=== PATIENT | female | born 1955 | race Caucasian/White ===

== ENCOUNTER → 2016-07-08 | Outpatient (CLI) | payer BC ==
--- NOTE | 2016-07-08 15:32 | CT ---
EXAMINATION TYPE: CT chest w con DATE OF EXAM: 07/08/2016 2:38 PM COMPARISON: Chest x-ray 06 May 2016 HISTORY: Lung nodule Automated exposure control for dose reduction was used. CONTRAST: CT scan of the chest is performed with IV Contrast, patient injected with 80 mL of Visipaque 320. FINDINGS: LUNGS: There is a lung nodule on axial image 25 in the right upper lobe measuring approximately 11 to 12 mm and showing a possible peripheral calcification. Some dependent atelectatic changes are presen t. No abnormality corresponding to the described x-ray abnormality in the right lower lobe. MEDIASTINUM: There are no greater than 1 cm hilar or mediastinal lymph nodes. No pericardial effusi on is seen. AORTA: There is a four-vessel arch. Aorta is nonaneurysmal, there is no dissection. OTHER: There is a nonunited rib fracture at the 10th rib posteriorly on the left, rudimentary rib present at L1. Andie er shows low attenuation likely due to fatty infiltration. There are low-attenuation foci present wit hin the liver measuring 18 mm and 12 mm which statistically are likely to represent cysts. Consider f ollow-up. IMPRESSION: Indeterminate pulmonary nodule right upper lobe, perihilar location shows a nonaggressiv e appearance, short interval follow-up to assess for stability is recommended. Additional findings ab ove.
== END ==
LOC: RADCTMAIN 13:02
PROVIDERS: ATTEND Internal Medicine Critical Care Medicine
DX: R91.1 Solitary pulmonary nodule (principal)
CPT/HCPCS: 82565; 84520; 71260; 36415; Q9967

== ENCOUNTER → 2016-08-05 | Outpatient (CLI) | payer BC ==
--- NOTE | 2016-08-07 10:06 | MM ---
Reason for exam: screening (asymptomatic). Last mammogram was performed 1 year and 2 months ago. History: Patient is postmenopausal, has history of other cancer at age 20, and had first child at age 31. Physical Findings: A clinical breast exam by your physician is recommended on an annual basis and results should be correlated with mammographic findings. MG 3D Screening Mammo W/Cad Bilateral CC and MLO view(s) were taken. Prior study comparison: May 22, 2015, bilateral MG screening mammo w CAD. April 26, 2014, bilateral MG screening mammo w CAD. November 13, 2009, bilateral diagnostic digital mammog. There are scattered fibroglandular densities. There is chronic nodularity in the left breast. No significant changes when compared with prior studies. ASSESSMENT: Negative, BI-RAD 1 RECOMMENDATION: Routine screening mammogram of both breasts in 1 year.
== END | disposition home or self-care (01) ==
LOC: RADMAMWWP 13:33
PROVIDERS: ATTEND Family Medicine
DX: Z12.31 Encounter for screening mammogram for malignant neoplasm of breast (principal)
CPT/HCPCS: 77063; G0202

== ENCOUNTER 2016-09-19 07:53 | Day surgery (SDC) | payer BC ==
[2016-09-17 13:29] VITALS: BMI 26.6
[~2016-09-19 07:53] MED LIST: LACTATED RINGERS 1,000 ML IV SCH
[2016-09-19] MEDS ORDERED: LIDOCAINE 1% 20 ML VIAL (10MG/ML) FOR IV START INTRADERMA ONE (08:24)
[2016-09-19 08:26] VITALS: TEMP 97.6
[2016-09-19] MEDS ORDERED: PROPOFOL 10 MG/ML 20 ML VIAL IV ONE (08:46)
[2016-09-19] MEDS ORDERED: MIDAZOLAM 2 MG/2 ML VIAL ONE (08:46)
[2016-09-19] MEDS ORDERED: fentaNYL (PF) 50 MCG/ML 2 ML AMP ONE (08:46)
--- NOTE | 2016-09-19 09:08 | P.PCN ---
Date of Procedure: 09/19/16 Procedure(s) Performed: BRIEF HISTORY: Patient is a 60-year-old, pleasant, 5 female, scheduled for an upper endoscopy as a part of evaluation of counseling history of gastroesophageal reflux symptoms of the several years duration. She lately has been complaint of occasional dysphagia with dry solids and feels the food gets stuck in her throat area. She is hence scheduled for an upper endoscopy with possible dilation. PROCEDURE PERFORMED: Esophagogastroduodenoscopy with biopsy . PREOPERATIVE DIAGNOSIS: GERD/dysphagia. IV sedation per anesthesia. PROCEDURE: After informed consent was obtained, the patient was brought into the endoscopy unit. IV conscious sedation was administered by Anesthesia under continuous monitoring. Initially the Olympus GIF-140 video endoscope was inserted into the mouth. Esophagus intubated without any difficulty. It was gradually advanced into the stomach and duodenum and carefully examined. The bulb and the second part of the duodenum appeared normal. The scope at this time was withdrawn to the stomach, adequately insufflated with air, and upon careful examination, mucosa of the antrum, had diffuse gastritis and biopsies were done from this area. The body, cardia and the fundus appeared normal. The scope was then withdrawn into the esophagus. Small hiatal hernia noted. The GE junction was located at 39 cm from the incisors. There was a 2-3 mm polyp at the GE junction as well as a few erosions consistent with LA grade B reflux esophagitis. Biopsies were done from the GE junction polyp. The esophagus appeared normal and the patient tolerated the procedure well. IMPRESSION: 1. Mild antral gastritis. 2. Small GE junction polyp as well as LA grade B reflux esophagitis. 3. Small hiatal hernia RECOMMENDATIONS: The findings of this examination were discussed with the patient as well as her family. She was advised to follow with the biopsy results. She will continue with Prilosec 20 mg daily and follow antireflux measures.
[2016-09-19 09:23] VITALS: RESP 18
[2016-09-19 09:36] VITALS: BP 131/80; PULSE 77
== END 2016-09-19 10:19 | disposition home or self-care (01) ==
LOC: ORWHC2ENDO 07:53
PROVIDERS: ATTEND Internal Medicine Gastroenterology
DX: K29.50 Unspecified chronic gastritis without bleeding (principal); K21.0 Gastro-esophageal reflux disease with esophagitis; K44.9 Diaphragmatic hernia without obstruction or gangrene; I10 Essential (primary) hypertension; J44.9 Chronic obstructive pulmonary disease, unspecified; N28.9 Disorder of kidney and ureter, unspecified; Z79.899 Other long term (current) drug therapy; Z87.891 Personal history of nicotine dependence
CPT/HCPCS: 88305; 88342; 43239; J2250; J3010; J2704

== ENCOUNTER → 2017-03-30 | Outpatient (CLI) | payer BC ==
--- NOTE | 2017-03-30 14:22 | CT ---
EXAMINATION TYPE: CT chest w con DATE OF EXAM: 03/30/2017 COMPARISON: 07/08/16 HISTORY: Solitary pulmonary nodule CT DLP: 324.50 mGycm Automated exposure control for dose reduction was used. CONTRAST: CT scan of the chest is performed with IV Contrast, patient injected with 80 mL of Visipaque 320. FINDINGS: LUNGS: 1 cm right upper lobe pulmonary nodule axial image 25 of 56 is unchanged. Small peripheral jet cification suggested. No additional nodules seen. No evidence for pulmonary mass. Basilar compressive atelectasis. MEDIASTINUM: There are no greater than 1 cm hilar or mediastinal lymph nodes. No pericardial effusi on is seen. Thoracic aorta is of normal caliber. The heart is not enlarged. UPPER ABDOMEN: Stable hepatic steatosis with hepatic cystic lesions. OTHER: No additional significan t abnormality is seen. IMPRESSION: 1. Stable indeterminate right upper lobe pulmonary nodule. Stability over a two-year timeframe is rec ommended radiographically.
== END | disposition home or self-care (01) ==
LOC: RADCTMAIN 13:01
PROVIDERS: ATTEND Internal Medicine Critical Care Medicine
DX: R91.1 Solitary pulmonary nodule (principal)
CPT/HCPCS: 82565; 84520; 71260; 36415; Q9967

== ENCOUNTER → 2017-08-24 | Outpatient (CLI) | payer BC ==
--- NOTE | 2017-08-25 09:32 | US ---
EXAMINATION TYPE: US transvaginal DATE OF EXAM: 08/24/2017 COMPARISON: 01/14/2010 CLINICAL HISTORY: R10.2 Pelvic pain. TECHNIQUE: Unable to perform diagnostic transabdominal ultrasound pictures due to patient inability t o fill bladder after more than an hour. Transvaginal sonographic images were medically necessary to better assess the anatomy Post menopausal patient. EXAM MEASUREMENTS: Uterus: 5.7 x 3.7 x 3.8 cm Endometrial Stripe: 0.5 cm Right adnexa: multiple cystic structures Left Ovary: obscured by bowel gas 1. Uterus: Anteverted, probable leiomyoma noted measuring 2.0 x 1.6 x 1.8cm, heterogeneous 2. Endometrium: cystic structure noted within measuring 0.3 x 0.3 x 0.3cm 3. Right Ovary: multiple cystic structures seen in right adnexa measuring a total of 6.1cm, cysts barbara suring 1.) 3.3 x 2.8 x 3.1cm, 2.) 3.7 x 3.3 x 3.3cm . Folding within the right lateral margin of thi s structure could represent tubal excrescences and there is also a possibility of hydrosalpinx. Overa ll the findings are enlarged and increasing complex in comparison to the prior 2009. 4. Left Ovary: Obscured by overlying bowel gas 5. Bilateral Adnexa: right adnexal mass 6. Posterior cul-de-sac: wnl IMPRESSION: 1. Marked enlargement and increased complexity of the right adnexal multiloculated cystic lesion with a thick septa and possible right-sided hydrosalpinx. Gynecologic oncologic consultation and pelvic M RI are recommended for further characterization. 2. Small 3 mm endometrial cystic structure possibly representing a simple cyst. No endometrial thicke aric. 3. Enlarged and heterogenous uterus, likely related to numerous leiomyomas the largest and most circu mscribed measuring 2.0 cm. 4. Nonvisualization of the left ovary as it is obscured by bowel gas. A Yellow message has been communicated to Raj Pan MD via the [employer] Critical Result system on 08/25/2017 9:29 AM, Message ID [id number].
== END | disposition home or self-care (01) ==
LOC: RADUSWWP 15:01
PROVIDERS: ATTEND Family Medicine
DX: N85.8 Other specified noninflammatory disorders of uterus (principal); N85.2 Hypertrophy of uterus
CPT/HCPCS: 76830

== ENCOUNTER → 2017-09-09 | Outpatient (CLI) | payer BC | END | disposition home or self-care (01) | LOC: LABWHC1 15:08 | PROVIDERS: ATTEND Family Medicine | DX: N85.8 Other specified noninflammatory disorders of uterus (principal); R19.00 Intra-abdominal and pelvic swelling, mass and lump, unspecified site | CPT/HCPCS: 36415; 82565; 84520 ==

== ENCOUNTER → 2017-09-11 | Outpatient (CLI) | payer BC ==
--- NOTE | 2017-09-11 23:16 | MR ---
EXAMINATION TYPE: MR pelvis wo/w con DATE OF EXAM: 09/11/2017 COMPARISON: NONE HISTORY: Pelvic pain, see report from Ultrasound, Gadavist7.5 CONTRAST: Standard multiplanar, multisequence MRI departmental protocol utilizing 7.5 mL intravenous Gadavist g adolinium contrast. FINDINGS: There is a multiseptated cystic mass in the right adnexal region that measures 6.7 x 3.6 cm . I see no significant solid component. The septa are thin. The largest cyst measures 4 cm. The uterus is anteverted with no endometrial thickening seen. There is a low signal area on the poste rior uterine fundus that measures 2 cm on the T2 images consistent with a fibroid. There are other sm aller uterine fibroids. There is no free fluid in the pelvis. Bladder distends smoothly. There is no evidence of a mass in the left adnexal region. Left ovary measures only 1 cm and is ante rior. There is no left adnexal mass. I see no pelvic lymphadenopathy. There is no sign of ascites. I see no pathologic enhancement. IMPRESSION: Multiseptated cystic mass in the right adnexal region with thin septa consistent with serous cyst jo or of the ovary. Uterine fibroids. No free fluid.
== END | disposition home or self-care (01) ==
LOC: RADMRIMAIN 14:52
PROVIDERS: ATTEND Family Medicine
DX: D25.9 Leiomyoma of uterus, unspecified (principal); N85.8 Other specified noninflammatory disorders of uterus
CPT/HCPCS: 72197; A9581

== ENCOUNTER → 2017-10-01 | Outpatient (CLI) | payer BC ==
--- NOTE | 2017-10-01 14:31 | NM ---
EXAMINATION TYPE: NM bone/joint limited DATE OF EXAM: 10/01/2017 COMPARISON: NONE HISTORY: Left-sided rib pain per patient with right-sided rib pain per order. Fall in April with i njury to the ribs. TECHNIQUE: After the intravenous administration of 26.1 mCi Tc 99m MDP. Images acquired 3 hours pos t injection. Multiple views of the ribs are submitted. FINDINGS: There is focal uptake within the 12th posterior and posterior lateral left rib, posterior 1 1th rib, posterior 10th rib, and anterolateral 11th 10th and 9th ribs. As these are contiguous and a linear formation these are suggestive of subacute fracture deformities compatible with the patient's history of fall. Chest radiograph could be performed with rib series for confirmation to exclude scle rotic focus. There is no other abnormal uptake within the visualized osseous structures. IMPRESSION: Multiple contiguous abnormal focal areas of uptake within the posterior and anterior late ral left ribs as described above most compatible with subacute fractures although chest radiograph wi th rib series is recommended to exclude sclerotic lesion.
== END | disposition home or self-care (01) ==
LOC: RADNMMAIN 09:48
PROVIDERS: ATTEND Family Medicine
DX: R93.7 Abnormal findings on diagnostic imaging of other parts of musculoskeletal system (principal)
CPT/HCPCS: 78300; A9503

== ENCOUNTER → 2017-10-13 | Outpatient (CLI) | payer BC ==
--- NOTE | 2017-10-15 08:27 | MM ---
Reason for exam: screening (asymptomatic). Last mammogram was performed 1 year and 2 months ago. History: Patient is postmenopausal, has history of other cancer at age 20, and had first child at age 31. Physical Findings: A clinical breast exam by your physician is recommended on an annual basis and results should be correlated with mammographic findings. MG Screening Mammo w CAD Bilateral CC and MLO view(s) were taken. Prior study comparison: August 05, 2016, bilateral MG 3d screening mammo w/cad. May 22, 2015, bilateral MG screening mammo w CAD. The breast tissue is almost entirely fat. There is chronic nodularity in the left breast. No significant changes when compared with prior studies. ASSESSMENT: Benign, BI-RAD 2 RECOMMENDATION: Routine screening mammogram of both breasts in 1 year.
== END | disposition home or self-care (01) ==
LOC: RADMAMWWP 11:54
PROVIDERS: ATTEND Family Medicine
DX: Z12.31 Encounter for screening mammogram for malignant neoplasm of breast (principal)
CPT/HCPCS: 77067

== ENCOUNTER → 2018-01-07 | Outpatient (CLI) | payer BC ==
--- NOTE | 2018-01-07 14:32 | US ---
EXAMINATION TYPE: US transvaginal DATE OF EXAM: 01/07/2018 COMPARISON: Prior ultrasound August 24, 2014 CLINICAL HISTORY: N83.201 right ovarian Cyst. Large body habitus TECHNIQUE: . Transabdominal sonographic images of the pelvis were acquired. Transvaginal sonographi c images were medically necessary to better assess the following anatomy: Date of LMP: post menopausal EXAM MEASUREMENTS: Uterus: 5.3 x 3.6 x 4.5 cm Endometrial Stripe: not seen Right Ovary: adnexae mass Left Ovary: not seen 1. Uterus: fibroids 1.5 x 1.4 x 1.7 cm anterior lower, posterior lower 2.2 x 1.3 x 1.6 cm 2. Endometrium: possible polyp 0.3 x 0.2 x 0.4 cm 3. Right Ovary: not seen separate from complex mass 4. Left Ovary: Obscured by overlying bowel gas 5. Bilateral Adnexa: rt multi cystic and complex mass 3.5 x 3.0 x3 cm, lower cyst debris within 3.3 x 3.1 x 3.2 cm, superior cyst 2.8 x 2.0 x 2.2 cm 6. Posterior cul-de-sac: wnl Intrauterine fibroids are redemonstrated. Persistent abnormal appearance to the right ovary without s ignificant interval change image 2560 versus prior study image 30 IMPRESSION: Overall stable findings, enlarged multicystic right ovary with thin septa redemonstrated without significant interval change in size. Findings better characterized and appreciated on pelvic MRI. Tumor marker correlation and gynecology oncology referral advised if has not been performed.
== END | disposition home or self-care (01) ==
LOC: RADUSWWP 13:41
PROVIDERS: ATTEND Obstetrics & Gynecology
DX: N83.201 Unspecified ovarian cyst, right side (principal)
CPT/HCPCS: 76830

== ENCOUNTER 2018-01-11 17:36 | Emergency (ER) | payer BC ==
[2018-01-11] MEDS ORDERED: DIPH,PERTUS(ACELL)TETVAC-LF 0.5 ML VIAL IM ONE (18:05)
[2018-01-11] MEDS ORDERED: SODIUM CHLORIDE 0.9% 1,000 ML IV ONE (18:06)
[2018-01-11] MEDS ORDERED: ACETAMINOPHEN TAB 325 MG TAB PO STA (18:06)
--- NOTE | 2018-01-11 18:20 | ED ---
Fall HPI - General Chief Complaint: Fall Stated Complaint: fall Time Seen by Provider: 01/11/18 17:55 Source: patient, EMS, RN notes reviewed Mode of arrival: EMS Limitations: no limitations - History of Present Illness Initial Comments: 62-year-old female presents emergency Department chief complaint of fall. Patient was brought to emergency department via EMS when she reportedly was found on the ground. She does admit to drinking alcohol which she drinks on a regular basis. Patient states that she could not get the door open so she fell try to push it open and discharge her head. She has small superficial laceration to her head and she didn't lose consciousness reportedly. Patient denies any neck pain. She does complain of left-sided rib pain but states this is chronic. Denies any shortness breath no palpitations. Denies any nausea vomiting diarrhea constipation. She does have some bruising noted to the left elbow but states is mildly painful. Patient states that she is not suicidal or homicidal. - Related Data Home Medications Medication Instructions Recorded Confirmed Dextroamphetamine/Amphetamine 20 mg PO BID 05/23/14 01/11/18 [Adderall] Zolpidem [Ambien] 5 mg PO HS PRN 05/23/14 01/11/18 ALPRAZolam [Xanax] 0.5 mg PO BID PRN 05/06/16 01/11/18 Potassium Chloride [Klor-Con 20] 20 meq PO TID 05/06/16 01/11/18 Ergocalciferol [Vitamin D2] 50,000 unit PO Q30D 09/17/16 01/11/18 FLUoxetine HCL [PROzac] 20 mg PO DAILY 09/17/16 01/11/18 Omeprazole [PriLOSEC] 20 mg PO BID 09/17/16 01/11/18 Allopurinol [Zyloprim] 300 mg PO DAILY 01/11/18 01/11/18 Chlorthalidone 12.5 mg PO DAILY 01/11/18 01/11/18 Ibuprofen [Motrin] 800 mg PO Q6H PRN 01/11/18 01/11/18 traZODone HCL [Desyrel] 100 mg PO HS 01/11/18 01/11/18 Allergies Allergy/AdvReac Type Severity Reaction Status Date / Time No Known Allergies Allergy Verified 01/11/18 18:27 Review of Systems ROS Statement: Those systems with pertinent positive or pertinent negative responses have been documented in the HPI. ROS Other: All systems not noted in ROS Statement are negative. Past Medical History Past Medical History: COPD, CVA/TIA, GERD/Reflux, Hypertension, Renal Disease Additional Past Medical History / Comment(s): dry unproductive cough and chokes easily,recently seen in ER for fall bumping his head and thinks 2 rib fx on left side,HX OF POOR KIDNEY FUNCTION CAUSED BY HTN MEDS. History of Any Multi-Drug Resistant Organisms: None Reported Past Surgical History: Section, Orthopedic Surgery Additional Past Surgical History / Comment(s): WRIST SURG, Cataract removal,D&C x2 Past Anesthesia/Blood Transfusion Reactions: No Reported Reaction, Motion Sickness Past Psychological History: ADD/ADHD, Anxiety, Depression Smoking Status: Former smoker Past Alcohol Use History: Abuse, Daily, Heavy Past Drug Use History: None Reported - Past Family History Mother Family Medical History: Congestive Heart Failure (CHF) Additional Family Medical History / Comment(s): blood disease (had too many WBCs ) Father Family Medical History: Cancer Additional Family Medical History / Comment(s): LUNG CANCER General Exam Limitations: no limitations General appearance: alert, in no apparent distress Head exam: Present: atraumatic, normocephalic. Absent: normal inspection ( Small superficial 1 cm laceration right frontal aspect) Eye exam: Present: normal appearance, PERRL, EOMI. Absent: scleral icterus, conjunctival injection, periorbital swelling ENT exam: Present: normal exam, mucous membranes moist, TM's normal bilaterally. Absent: normal oropharynx (Poor dentition) Neck exam: Present: normal inspection, full ROM. Absent: tenderness, meningismus, lymphadenopathy Respiratory exam: Present: normal lung sounds bilaterally, chest wall tenderness (Mild tenderness left lateral rib). Absent: respiratory distress, wheezes, rales, rhonchi, stridor Cardiovascular Exam: Present: regular rate, normal rhythm, normal heart sounds. Absent: systolic murmur, diastolic murmur, rubs, gallop, clicks GI/Abdominal exam: Present: soft, normal bowel sounds. Absent: distended, tenderness, guarding, rebound, rigid Extremities exam: Present: other (Tenderness to left elbow mild full range of motion there is small ecchymotic area no tenderness to the hips no tenderness to the remaining lower extremity, right upper extremity within normal limits) Back exam: Present: normal inspection, full ROM. Absent: tenderness, paraspinal tenderness, vertebral tenderness Neurological exam: Present: alert, oriented X3, CN II-XII intact, reflexes normal. Absent: motor sensory deficit Skin exam: Present: warm, dry, intact, normal color. Absent: rash Course Vital Signs 01/11/18 17:56 Temperature 97.6 F Pulse Rate 78 Respiratory 20 Rate Blood Pressure 144/65 O2 Sat by Pulse 94 L Oximetry - Reevaluation(s) Reevaluation #1: 01/11/18 18:42 Patient's son did present emergency department and provided information that she is extremely intoxicated sty more than usual that she did fall down on known amount of stairs. He did state that she can go home with him once imaging and lab work are performed. Medical Decision Making - Medical Decision Making 62-year-old female presents emergency from for alcohol intoxication of fall. Patient had CT her brain and C-spine which showed a. chest x-ray does not have feel any obvious fracture or pneumothorax. she should've her left elbow which is negative for acute fracture. patient lab work which is unremarkable other than being intoxicated with alcohol level 236. patient son was in the emergency department and will take patient home who accepts responsibility. Patient's laceration does not need repair - Lab Data Result diagrams: 01/11/18 18:17 01/11/18 18:17 Lab Results 01/11/18 01/11/18 Range/Units 18:17 18:17 WBC 5.8 (3.8-10.6) k/uL RBC 3.90 (3.80-5.40) m/uL Hgb 13.8 (11.4-16.0) gm/dL Hct 39.9 (34.0-46.0) % MCV 102.3 H (80.0-100.0) fL MCH 35.3 H (25.0-35.0) pg MCHC 34.5 (31.0-37.0) g/dL RDW 14.4 (11.5-15.5) % Plt Count 221 (150-450) k/uL Neutrophils % 54 % Lymphocytes % 36 % Monocytes % 6 % Eosinophils % 1 % Basophils % 0 % Neutrophils # 3.1 (1.3-7.7) k/uL Lymphocytes # 2.1 (1.0-4.8) k/uL Monocytes # 0.4 (0-1.0) k/uL Eosinophils # 0.1 (0-0.7) k/uL Basophils # 0.0 (0-0.2) k/uL Macrocytosis Slight Sodium 142 (137-145) mmol/L Potassium 4.4 (3.5-5.1) mmol/L Chloride 109 H (98-107) mmol/L Carbon Dioxide 21 L (22-30) mmol/L Anion Gap 12 mmol/L BUN 13 (7-17) mg/dL Creatinine 1.00 (0.52-1.04) mg/dL Est GFR (CKD-EPI)AfAm 70 (>60 ml/min/1.73 sqM) Est GFR (CKD-EPI)NonAf 61 (>60 ml/min/1.73 sqM) Glucose 93 (74-99) mg/dL Calcium 9.9 (8.4-10.2) mg/dL Total Bilirubin 0.5 (0.2-1.3) mg/dL AST 78 H (14-36) U/L ALT 39 (9-52) U/L Alkaline Phosphatase 63 (38-126) U/L Total Protein 6.3 (6.3-8.2) g/dL Albumin 3.7 (3.5-5.0) g/dL Serum Alcohol 236 mg/dL Disposition Clinical Impression: Fall, Alcohol intoxication, Scalp laceration, Left elbow contusion, Contusion of rib on left side Disposition: HOME SELF-CARE Condition: Stable Instructions: Rib Contusion (ED), Alcohol Intoxication (ED), Head Injury (ED) Additional Instructions: Please return to the Emergency Department if symptoms worsen or any other concerns. Is patient prescribed a controlled substance at d/c from ED?: No Referrals: Raj Pan MD [Primary Care Provider] - 1-2 days Time of Disposition: 19:37
[2018-01-11 18:31] LABS: Basophils % (A) 0 %; Eosinophils # (A) 0.1 k/uL (0-0.7); Eosinophils % (A) 1 %; HCT 39.9 % (34.0-46.0); HGB 13.8 gm/dL (11.4-16.0); Lymphocytes # (A) 2.1 k/uL (1.0-4.8); Lymphocytes % (A) 36 %; MCH 35.3 pg (25.0-35.0); MCHC 34.5 g/dL (31.0-37.0); MCV 102.3 fL (80.0-100.0); Macrocytosis Slight; Mean Platelet Volume 7.2; Monocytes # (A) 0.4 k/uL (0-1.0); Monocytes % (A) 6 %; Neutrophils # (A) 3.1 k/uL (1.3-7.7); Neutrophils % (A) 54 %; Platelet Count 221 k/uL (150-450); RDW 14.4 % (11.5-15.5); WBC 5.8 k/uL (3.8-10.6)
[2018-01-11 18:42] LABS: Albumin 3.7 g/dL (3.5-5.0); Calcium 9.9 mg/dL (8.4-10.2); Potassium 4.4 mmol/L (3.5-5.1); Total Bilirubin 0.5 mg/dL (0.2-1.3); Total Protein 6.3 g/dL (6.3-8.2)
--- NOTE | 2018-01-11 19:09 | CT ---
EXAMINATION TYPE: CT brain genevieve dixon DATE OF EXAM: 01/11/2018 COMPARISON: 05/06/2016 HISTORY: Fall. ETOH. CT DLP: 1290.2 mGycm Automated exposure control for dose reduction was used. TECHNIQUE: CT scan of the head and cervical spine are performed without contrast. FINDINGS: There is mild cerebral cortical atrophy. There is no mass effect nor midline shift. There is no sign of intracranial hemorrhage. There is left parietal scalp soft tissue swelling. Calvarium is intact. The cervical vertebra have fairly normal alignment. There is spondylosis at C5-6 C6-7 with spurring o f the endplates. There is mild multilevel hypertrophic facet arthropathy. The skull base is intact. IMPRESSION: Mild cerebral atrophy. No acute intracranial abnormality. No change. Left parietal scalp hematoma. Spondylotic changes in the cervical spine. No change. No fracture.
[2018-01-11] MEDS ORDERED: KETOROLAC 30 MG/ML 1 ML VIAL IVP STA (19:19)
--- NOTE | 2018-01-11 19:32 | XR ---
EXAMINATION TYPE: XR chest 2V DATE OF EXAM: 01/11/2018 COMPARISON: 05/06/2016 HISTORY: Fall TECHNIQUE: Frontal and lateral views of the chest are obtained. FINDINGS: There is no heart failure nor confluent pneumonic infiltrate. Thoracic aorta is atheromato us. There is no pleural effusion. There is old right-sided posterior rib fracture. There is small arthur ear density at the left lung base. IMPRESSION: New mild subsegmental atelectasis at the left lung base. There is clearing of the infilt rate at the right lung base compared to old exam. No heart failure.
--- NOTE | 2018-01-11 19:33 | XR ---
EXAMINATION TYPE: XR elbow complete LT DATE OF EXAM: 01/11/2018 COMPARISON: NONE HISTORY: Fall TECHNIQUE: 3 views FINDINGS: I see no fracture nor dislocation. Joint spaces are normal. There is no sign of elbow joint effusion. IMPRESSION: Negative left elbow exam.
[2018-01-11 20:31] VITALS: BP 118/68; PULSE 77; RESP 18; TEMP 97.1
== END 2018-01-11 20:31 | disposition home or self-care (01) ==
LOC: EC 17:36
DX: S00.01XA Abrasion of scalp, initial encounter (principal); S50.02XA Contusion of left elbow, initial encounter; S20.212A Contusion of left front wall of thorax, initial encounter; F10.120 Alcohol abuse with intoxication, uncomplicated; K21.9 Gastro-esophageal reflux disease without esophagitis; I10 Essential (primary) hypertension; F90.9 Attention-deficit hyperactivity disorder, unspecified type; F41.9 Anxiety disorder, unspecified; F32.9 Major depressive disorder, single episode, unspecified; Z86.73 Personal history of transient ischemic attack (TIA), and cerebral infarction without residual deficits; Z87.891 Personal history of nicotine dependence; Z79.899 Other long term (current) drug therapy; Y90.7 Blood alcohol level of 200-239 mg/100 ml; Z23 Encounter for immunization; W19.XXXA Unspecified fall, initial encounter; Y92.009 Unspecified place in unspecified non-institutional (private) residence as the place of occurrence of the external cause
CPT/HCPCS: 36415; 80053; 85025; 80320; 73080; 71046; 72125; 70450; 90715; 99284; 96374; 96361; 90471; J1885

== ENCOUNTER 2018-01-15 15:12 | Inpatient (IN) | payer BC ==
[2018-01-15] MEDS ORDERED: SODIUM CHLORIDE 0.9% 1,000 ML IV STA ×2 (16:35)
--- NOTE | 2018-01-15 16:39 | ED ---
Alcohol HPI - General Chief Complaint: Alcohol Stated Complaint: Abd pain Time Seen by Provider: 01/15/18 16:18 Source: patient, RN notes reviewed, old records reviewed Mode of arrival: wheelchair Limitations: no limitations - History of Present Illness Initial Comments: This Patient is a 62-year-old female presents emergency department today chief complaint of alcohol intoxication. Patient was sent here from her primary care provider's office for medical admit for detox. Patient reports that she's been a heavy drinker for over 25 years. Patient states that she drinks a pint of vodka as well as a few mics or lemonade today. Patient states that she has had no bloody vomiting. She reports drinking Jim's hard lemonade today. Patient states that she is living under a stressful environment. She plans to go to outpatient rehab but family is trying to find the funds to afford for her to go to outpatient rehab. Patient states that earlier this week she fell down a flight of stairs due to being severely intoxicated. Patient states that she has bruises over her body as well as a broken ribs. Patient states that she's been seen by her PCP the center here for direct admit. There were no beds available at that times that she's here in the emergency department. - Related Data Home Medications Medication Instructions Recorded Confirmed Dextroamphetamine/Amphetamine 20 mg PO BID 05/23/14 01/15/18 [Adderall] Zolpidem [Ambien] 5 mg PO HS PRN 05/23/14 01/15/18 Potassium Chloride [Klor-Con 20] 20 meq PO TID 05/06/16 01/15/18 Ergocalciferol [Vitamin D2] 50,000 unit PO Q30D 09/17/16 01/15/18 FLUoxetine HCL [PROzac] 20 mg PO DAILY 09/17/16 01/15/18 Omeprazole [PriLOSEC] 20 mg PO BID 09/17/16 01/15/18 Allopurinol [Zyloprim] 300 mg PO DAILY 01/11/18 01/15/18 Chlorthalidone 12.5 mg PO DAILY 01/11/18 01/15/18 Ibuprofen [Motrin] 800 mg PO Q6H PRN 01/11/18 01/15/18 traZODone HCL [Desyrel] 100 mg PO HS 01/11/18 01/15/18 ALPRAZolam [Xanax] 0.25 mg PO BID PRN 01/15/18 01/15/18 Allergies Allergy/AdvReac Type Severity Reaction Status Date / Time No Known Allergies Allergy Verified 01/15/18 17:01 Review of Systems ROS Statement: Those systems with pertinent positive or pertinent negative responses have been documented in the HPI. ROS Other: All systems not noted in ROS Statement are negative. Past Medical History Past Medical History: COPD, CVA/TIA, GERD/Reflux, Hypertension, Renal Disease Additional Past Medical History / Comment(s): dry unproductive cough and chokes easily,recently seen in ER for fall bumping his head and thinks 2 rib fx on left side,HX OF POOR KIDNEY FUNCTION CAUSED BY HTN MEDS. History of Any Multi-Drug Resistant Organisms: None Reported Past Surgical History: Section, Orthopedic Surgery Additional Past Surgical History / Comment(s): WRIST SURG, Cataract removal,D&C x2 Past Anesthesia/Blood Transfusion Reactions: No Reported Reaction, Motion Sickness Past Psychological History: ADD/ADHD, Anxiety, Depression Smoking Status: Former smoker Past Alcohol Use History: Abuse, Daily, Heavy Past Drug Use History: None Reported - Past Family History Mother Family Medical History: Congestive Heart Failure (CHF) Additional Family Medical History / Comment(s): blood disease (had too many WBCs ) Father Family Medical History: Cancer Additional Family Medical History / Comment(s): LUNG CANCER General Exam Limitations: no limitations General appearance: alert, in no apparent distress Head exam: Present: atraumatic, normocephalic, normal inspection Eye exam: Present: normal appearance, PERRL, EOMI. Absent: scleral icterus, conjunctival injection, periorbital swelling ENT exam: Present: normal exam, mucous membranes moist Neck exam: Present: normal inspection. Absent: tenderness, meningismus, lymphadenopathy Respiratory exam: Absent: normal lung sounds bilaterally (tenderness over ribs) , respiratory distress, wheezes, rales, rhonchi, stridor Cardiovascular Exam: Present: regular rate, normal rhythm, normal heart sounds. Absent: systolic murmur, diastolic murmur, rubs, gallop, clicks GI/Abdominal exam: Present: soft, normal bowel sounds. Absent: distended, tenderness, guarding, rebound, rigid Extremities exam: Present: normal inspection, full ROM, normal capillary refill , other (Multiple contusions over her arms legs chest.). Absent: tenderness, pedal edema, joint swelling, calf tenderness Back exam: Present: normal inspection Neurological exam: Present: alert Psychiatric exam: Present: normal affect, normal mood Skin exam: Present: warm, dry, intact, normal color. Absent: rash Course Vital Signs 01/15/18 01/15/18 15:34 17:34 Temperature 98.6 F Pulse Rate 103 H 93 Respiratory 18 18 Rate Blood Pressure 144/98 147/88 O2 Sat by Pulse 95 97 Oximetry Medical Decision Making - Medical Decision Making 6 a 2-year-old female presents emergency department for admission for detox for alcohol abuse. She'll L Sears female days ago. He was evaluated that time. Patient has multiple bruises all over her body. At this time she complained of some pain over her ribs and chest. We did repeat an x-ray. Evidence of pleural fusion and infiltrate on the left side. CT chest was completed due to what appeared to be a large aorta on chest x-ray. This shows evidence of multiple rib fractures. As well as a pleural effusion. No evidence of dilated aorta. Patient lab work does show evidence of urinary tract infection as well. Her serum alcohol is 0 at this time. However she has been drinking over a pint a day for the past 20 years. Patient will be started on Cipro protocol. Given banana bag. Admitted for multiple rib fractures, UTI, and EtOH withdrawal. - Lab Data Result diagrams: 01/15/18 16:47 01/15/18 16:47 Lab Results 01/15/18 01/15/18 01/15/18 Range/Units 16:47 16:47 16:47 WBC 6.7 (3.8-10.6) k/uL RBC 3.46 L (3.80-5.40) m/uL Hgb 12.9 (11.4-16.0) gm/dL Hct 35.5 (34.0-46.0) % MCV 102.5 H (80.0-100.0) fL MCH 37.3 H (25.0-35.0) pg MCHC 36.3 (31.0-37.0) g/dL RDW 14.0 (11.5-15.5) % Plt Count 210 (150-450) k/uL Neutrophils % 72 % Lymphocytes % 18 % Monocytes % 7 % Eosinophils % 1 % Basophils % 0 % Neutrophils # 4.8 (1.3-7.7) k/uL Lymphocytes # 1.2 (1.0-4.8) k/uL Monocytes # 0.5 (0-1.0) k/uL Eosinophils # 0.1 (0-0.7) k/uL Basophils # 0.0 (0-0.2) k/uL Macrocytosis Slight PT (9.0-12.0) sec INR (<1.2) Sodium 137 (137-145) mmol/L Potassium 3.7 (3.5-5.1) mmol/L Chloride 108 H (98-107) mmol/L Carbon Dioxide 24 (22-30) mmol/L Anion Gap 5 mmol/L BUN 14 (7-17) mg/dL Creatinine 1.05 H (0.52-1.04) mg/dL Est GFR (CKD-EPI)AfAm 66 (>60 ml/min/1.73 sqM) Est GFR (CKD-EPI)NonAf 57 (>60 ml/min/1.73 sqM) Glucose 112 H (74-99) mg/dL Calcium 8.8 (8.4-10.2) mg/dL Phosphorus 3.3 (2.5-4.5) mg/dL Magnesium 1.5 L (1.6-2.3) mg/dL Total Bilirubin 0.6 (0.2-1.3) mg/dL AST 35 (14-36) U/L ALT 35 (9-52) U/L Alkaline Phosphatase 58 (38-126) U/L Total Protein 5.6 L (6.3-8.2) g/dL Albumin 3.2 L (3.5-5.0) g/dL Amylase 45 (30-110) U/L Lipase 218 (23-300) U/L Urine Color Yellow Urine Appearance Cloudy H (Clear) Urine pH 5.5 (5.0-8.0) Ur Specific [place] 1.016 (1.001-1.035) Urine Protein 1+ H (Negative) Urine Glucose (UA) Negative (Negative) Urine Ketones Negative (Negative) Urine Blood Trace H (Negative) Urine Nitrite Positive H (Negative) Urine Bilirubin Negative (Negative) Urine Urobilinogen <2.0 (<2.0) mg/dL Ur Leukocyte Esterase Large H (Negative) Urine RBC 6 H (0-5) /hpf Urine WBC >182 H (0-5) /hpf Urine WBC Clumps Few H (None) /hpf Ur Squamous Epith Cells 3 (0-4) /hpf Urine Bacteria Many H (None) /hpf Hyaline Casts 1 (0-2) /lpf Urine Mucus Rare H (None) /hpf Urine Yeast (Budding) Occasional H (None) /hpf Urine Opiates Screen Not Detected (NotDetected) Ur Oxycodone Screen Not Detected (NotDetected) Urine Methadone Screen Not Detected (NotDetected) Ur Propoxyphene Screen Not Detected (NotDetected) Ur Barbiturates Screen Not Detected (NotDetected) U Tricyclic Antidepress Not Detected (NotDetected) Ur Phencyclidine Scrn Not Detected (NotDetected) Ur Amphetamines Screen Not Detected (NotDetected) U Methamphetamines Scrn Not Detected (NotDetected) U Benzodiazepines Scrn Detected H (NotDetected) Urine Cocaine Screen Not Detected (NotDetected) U Marijuana (THC) Screen Not Detected (NotDetected) Serum Alcohol <10 mg/dL 01/15/18 Range/Units 16:47 WBC (3.8-10.6) k/uL RBC (3.80-5.40) m/uL Hgb (11.4-16.0) gm/dL Hct (34.0-46.0) % MCV (80.0-100.0) fL MCH (25.0-35.0) pg MCHC (31.0-37.0) g/dL RDW (11.5-15.5) % Plt Count (150-450) k/uL Neutrophils % % Lymphocytes % % Monocytes % % Eosinophils % % Basophils % % Neutrophils # (1.3-7.7) k/uL Lymphocytes # (1.0-4.8) k/uL Monocytes # (0-1.0) k/uL Eosinophils # (0-0.7) k/uL Basophils # (0-0.2) k/uL Macrocytosis PT 10.2 (9.0-12.0) sec INR 1.0 (<1.2) Sodium (137-145) mmol/L Potassium (3.5-5.1) mmol/L Chloride (98-107) mmol/L Carbon Dioxide (22-30) mmol/L Anion Gap mmol/L BUN (7-17) mg/dL Creatinine (0.52-1.04) mg/dL Est GFR (CKD-EPI)AfAm (>60 ml/min/1.73 sqM) Est GFR (CKD-EPI)NonAf (>60 ml/min/1.73 sqM) Glucose (74-99) mg/dL Calcium (8.4-10.2) mg/dL Phosphorus (2.5-4.5) mg/dL Magnesium (1.6-2.3) mg/dL Total Bilirubin (0.2-1.3) mg/dL AST (14-36) U/L ALT (9-52) U/L Alkaline Phosphatase (38-126) U/L Total Protein (6.3-8.2) g/dL Albumin (3.5-5.0) g/dL Amylase (30-110) U/L Lipase (23-300) U/L Urine Color Urine Appearance (Clear) Urine pH (5.0-8.0) Ur Specific [place] (1.001-1.035) Urine Protein (Negative) Urine Glucose (UA) (Negative) Urine Ketones (Negative) Urine Blood (Negative) Urine Nitrite (Negative) Urine Bilirubin (Negative) Urine Urobilinogen (<2.0) mg/dL Ur Leukocyte Esterase (Negative) Urine RBC (0-5) /hpf Urine WBC (0-5) /hpf Urine WBC Clumps (None) /hpf Ur Squamous Epith Cells (0-4) /hpf Urine Bacteria (None) /hpf Hyaline Casts (0-2) /lpf Urine Mucus (None) /hpf Urine Yeast (Budding) (None) /hpf Urine Opiates Screen (NotDetected) Ur Oxycodone Screen (NotDetected) Urine Methadone Screen (NotDetected) Ur Propoxyphene Screen (NotDetected) Ur Barbiturates Screen (NotDetected) U Tricyclic Antidepress (NotDetected) Ur Phencyclidine Scrn (NotDetected) Ur Amphetamines Screen (NotDetected) U Methamphetamines Scrn (NotDetected) U Benzodiazepines Scrn (NotDetected) Urine Cocaine Screen (NotDetected) U Marijuana (THC) Screen (NotDetected) Serum Alcohol mg/dL 01/15/18 17:59 EKG shows normal sinus rhythm. Normal EKG noted. Ventricular rate of 85 bpm period. I will is 152 ms. QRS ration 78 ms. QT QTC 376/447 ms. - Radiology Data Radiology results: report reviewed Negative CT angios gram of the chest and abdomen. Multiple old left posterior rib fractures. Also acute posterior rib fractures involving [address] ribs. Infiltrate atelectasis left lower lobe with pleural effusion. Liver lesions consistent with hemangiomas. Cystic pelvic masses noted. Disposition Clinical Impression: Alcohol withdrawal syndrome, Alcohol abuse, Multiple fractures of ribs of left side, Pneumonia, UTI (urinary tract infection) Disposition: ADMITTED IP TO THIS HOSP Condition: Stable Time of Disposition: 20:59
[2018-01-15 16:57] LABS: Basophils % (A) 0 %; Eosinophils # (A) 0.1 k/uL (0-0.7); Eosinophils % (A) 1 %; HCT 35.5 % (34.0-46.0); HGB 12.9 gm/dL (11.4-16.0); Lymphocytes # (A) 1.2 k/uL (1.0-4.8); Lymphocytes % (A) 18 %; MCH 37.3 pg (25.0-35.0); MCHC 36.3 g/dL (31.0-37.0); MCV 102.5 fL (80.0-100.0); Macrocytosis Slight; Mean Platelet Volume 7.8; Monocytes # (A) 0.5 k/uL (0-1.0); Monocytes % (A) 7 %; Neutrophils # (A) 4.8 k/uL (1.3-7.7); Neutrophils % (A) 72 %; Platelet Count 210 k/uL (150-450); RBC 3.46 m/uL (3.80-5.40); WBC 6.7 k/uL (3.8-10.6)
[2018-01-15] MEDS ORDERED: SODIUM CHLORIDE 0.9% 1,000 ML with MVI, ADULT NO.4 WITH VIT K 10 ML, THIAMINE 100 MG, F... IV ONE ×4 (17:00)
[2018-01-15 17:01] LABS: Prothrombin Time 10.2 sec (9.0-12.0)
[2018-01-15 17:10] LABS: Amphetamine Screen,Urine Not Detected (NotDetected); Appearance,Urine Cloudy (Clear); Bacteria,Urine Many /hpf; Barbiturate Screen,Urine Not Detected (NotDetected); Benzodiazepines Screen,Urine Detected (NotDetected); Bilirubin,Urine Negative (Negative); Blood,Urine Trace (Negative); Budding Yeast,Urine Occasional /hpf; Cocaine Screen,Urine Not Detected (NotDetected); Color,Urine Yellow; Glucose,Urine (UA) Negative (Negative); Hyaline Casts,Urine 1 /lpf (0-2); Ketones,Urine Negative (Negative); Leukocyte Esterase,Urine Large (Negative); Methadone Screen, Urine Not Detected (NotDetected); Mucus,Urine Rare /hpf; Nitrite,Urine Positive (Negative); Opiate Screen,Urine Not Detected (NotDetected); Oxycodone Screen, Urine Not Detected (NotDetected); PH, Urine 5.5 (5.0-8.0); Phencyclidine Screen,Urine Not Detected (NotDetected); Protein,Urine 1+ (Negative); RBC,Urine 6 /hpf (0-5); Specific Gravity,Urine 1.016 (1.001-1.035); Squamous Epithelial Cell,Urine 3 /hpf (0-4); Tricyclic Antidepressant,Urine Not Detected (NotDetected); Urn Cannabinoid Scrn Not Detected (NotDetected); Urobilinogen,Urine <2.0 mg/dL (<2.0); WBC,Urine >182 /hpf (0-5)
[2018-01-15 17:13] LABS: ALT 35 U/L (9-52); AST 35 U/L (14-36); Albumin 3.2 g/dL (3.5-5.0); Alcohol <10 mg/dL; Alkaline Phosphatase 58 U/L (38-126); Amylase 45 U/L (30-110); Anion Gap 5 mmol/L; Blood Urea Nitrogen 14 mg/dL (7-17); Calcium 8.8 mg/dL (8.4-10.2); Carbon Dioxide 24 mmol/L (22-30); Chloride 108 mmol/L (98-107); Glucose 112 mg/dL (74-99); Lipase 218 U/L (23-300); Magnesium 1.5 mg/dL (1.6-2.3); Phosphorus 3.3 mg/dL (2.5-4.5); Potassium 3.7 mmol/L (3.5-5.1); Sodium 137 mmol/L (137-145); Total Bilirubin 0.6 mg/dL (0.2-1.3); Total Protein 5.6 g/dL (6.3-8.2)
[2018-01-15] MEDS ORDERED: cefTRIAXone IN SWFI 1,000 MG/10 ML SYRINGE IVP STA (17:21)
[2018-01-15] MEDS ORDERED: IBUPROFEN 800 MG TAB PO STA (17:54)
--- NOTE | 2018-01-15 18:27 | XR ---
EXAMINATION TYPE: XR chest 2V DATE OF EXAM: 01/15/2018 COMPARISON: 01/11/2018 HISTORY: Chest pain TECHNIQUE: Frontal and lateral views of the chest are obtained. FINDINGS: There is some linear density at the left lung base. There is old healed right-sided rib fr actures. There is no heart failure. Thoracic aorta is atherosclerotic and ectatic. There is blunting of left costophrenic angle. There is increased density at the left posterior lung base. IMPRESSION: There is new pleural fluid and infiltrate and atelectasis in the left lower lobe compare d to old exam. 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
[2018-01-15] MEDS ORDERED: HYDROcodone/APAP 5-325MG 1 EACH TAB PO STA (19:24)
--- NOTE | 2018-01-15 20:16 | CT ---
EXAMINATION TYPE: CT angio thor/abd pel aorta DATE OF EXAM: 01/15/2018 COMPARISON: None HISTORY: Fall x4 days ago, left posterior thorax pain. CT DLP: 1337.3 mGycm. Automated Exposure Control for Dose Reduction was Utilized. CONTRAST: CT scan of the thorax, abdomen and pelvis is performed without and with IV Contrast, patient injected with 80ml mL of Isovue 370. FINDINGS: There is some consolidation and atelectasis in the left lower lobe with left pleural effusion. Heart size is normal. There is no renal calculus. Ascending aorta measures 3.4 cm. Abdominal aorta has normal size. There is no evidence of aortic aneu rysm or dissection. There is patency of the celiac artery and superior mesenteric artery. There is bi lateral patency of the renal arteries. There is bilateral patency of the common internal and external iliac arteries. There is arterial flow in the femoral arteries. There are multiple old and new posterior rib fractures on the left side. There are 2 hypodense liver foci appear to have some nodular peripheral enhancement and could be shannon ngiomas. The largest measures 2 cm. Gallbladder appears normal. Bile ducts are not dilated. Spleen an d pancreas appear normal. There is no adrenal mass. Kidneys show satisfactory contrast opacification. There is no hydronephrosis. There is no retroperitoneal adenopathy. Appendix appears normal. There i s surgical clip apparently from tubal ligation. There is 7 x 3 cm elongated cystic fluid collection i n the pelvis on the right side. This could be an ovarian cyst or hydrosalpinx. I see no intestinal wa ll thickening. There is no evidence of a bowel obstruction. There are diverticula in the sigmoid colo n. I see no bony destructive process. There is spondylosis at L4-5 with sclerosis in the L4 vertebral body. IMPRESSION: Negative CT angiogram of the chest and abdomen. Multiple old left posterior rib fractures. There are also acute left posterior rib fractures involvin g 9, 7, 6, 5, 4 ribs. Infiltrate and atelectasis in the left lower lobe with left pleural effusion. Liver lesions consisten t with hemangiomas. Cystic pelvic mass as above.
[2018-01-15] MEDS ORDERED: NALOXONE 0.4 MG/ML 1 ML VIAL IV PRN (20:27)
[2018-01-15] MEDS ORDERED: ONDANSETRON 4 MG/2 ML VIAL IVP PRN (20:27)
[2018-01-15] MEDS ORDERED: AZITHROMYCIN 500 MG in DEXTROSE 5% IN WATER 250 ML IVPB STA ×2 (20:28)
[2018-01-15] MEDS: MORPHINE SULFATE 4 MG/ML SYRINGE IV PRN (22:17)
[2018-01-15] MEDS: SODIUM CHLORIDE 0.9% 1,000 ML IV SCH (23:31)
[2018-01-16] MEDS: HYDROcodone/APAP 5-325MG 1 EACH TAB PO PRN ×4 (03:20→18:14)
[2018-01-16] MEDS: MORPHINE SULFATE 4 MG/ML SYRINGE IV PRN ×3 (11:21→20:03)
--- NOTE | 2018-01-16 14:00 | HP ---
HISTORY AND PHYSICAL CHIEF COMPLAINT: Chronic alcoholism and withdrawal symptoms. HISTORY OF PRESENT ILLNESS: This is another admission for this 62-year-old white female who is chronic alcoholic. She came to the office on the day of admission, requesting help for alcoholism and requested to be admitted for detox. REVIEW OF SYSTEMS: She has had no diplopia, seizures, blackouts, neurologic problems, shortness of breath, cough, hemoptysis, chest pain, abdominal pain, nausea, vomiting, hematemesis, melena, hematochezia, jaundice, etc. She has had no hematuria, renal failure, diabetes, etc. Past medical history, family history and personal and social histories reveal that she is not allergic to any medication. She is on omeprazole, Adderall 20 mg twice a day, Xanax 0.25 t.i.d. p.r.n., Zyloprim 300 mg once a day, ibuprofen, chlorthalidone 25 mg a day, Prozac 20 mg once a day, trazodone 100 at bedtime, and vitamin D. The remainder of her history is significant largely related to her alcoholism. She used to smoke. She drinks "every night to help her go to sleep." States she drinks 1 glass of wine before bedtime. This is not an accurate characterization for drinking. PHYSICAL EXAM: Blood pressure 132/92 with a pulse 90, respiratory 22, and she is afebrile. In general, she appeared to be somewhat disheveled. Head, ears, eyes, nose, mouth, and throat were normal and there is no jaundice. There is no scleral icterus. Neck veins not distended. Chest is clear. Cardiac exam demonstrates sinus rhythm and no murmurs or extra sounds. Abdomen is slightly protuberant and there is a small amount of his ascites. Extremities are normal. Neurological is intact. She is slightly tremulous. IMPRESSION: 1. Chronic alcoholism. 2. Impending delirium tremens. 3. Depression. 4. History of attention deficit disorder. PLAN: 1. Bed rest. 2. IV fluids. 3. [facility] protocol. KELI / YUE: [id number] /
--- NOTE | 2018-01-16 14:06 | PN ---
PROGRESS NOTE CHIEF COMPLAINT: Alcoholism and DTs. HISTORY OF PRESENT ILLNESS: This lady is quite uncomfortable. She is having quite a bit of left-sided posterior chest pain and she does apparently have several new rib fractures. She is not particularly short of breath. PHYSICAL EXAM: Chest is clear. Cardiac exam is normal. Abdomen is soft, nontender. IMPRESSION: 1. Alcoholism. 2. Delirium tremens. 3. Left-sided rib fractures. 4. Hypertension. 5. Depression. PLAN: No change in program and continue to watch for the progression of her delirium tremens. MMODL / IJN: [id number] /
[2018-01-16] MEDS ORDERED: CHLORTHALIDONE 25 MG TAB PO ONE (14:45)
[2018-01-16] MEDS: POTASSIUM CHLORIDE ER 20 MEQ TAB.ER PO SCH ×2 (15:19→21:38)
[2018-01-16] MEDS: cefTRIAXone IN SWFI 1,000 MG/10 ML SYRINGE IVP SCH (17:26)
[2018-01-16] MEDS: LORazepam 2 MG/ML INJ IV PRN ×2 (17:37→20:02)
[2018-01-16] MEDS: SODIUM CHLORIDE 0.9% 1,000 ML IV SCH (18:38)
[2018-01-16] MEDS: PANTOPRAZOLE 40 MG TABLET PO SCH (21:38)
[2018-01-16] MEDS: traZODone HCL 100 MG TAB PO SCH (21:38)
[2018-01-16] MEDS: AZITHROMYCIN 500 MG in DEXTROSE 5% IN WATER 250 ML IVPB SCH ×2 (21:38)
[2018-01-17] MEDS: LORazepam 2 MG/ML INJ IV PRN ×4 (00:19→21:59)
[2018-01-17] MEDS: HYDROcodone/APAP 5-325MG 1 EACH TAB PO PRN ×4 (00:20→18:28)
[2018-01-17] MEDS: SODIUM CHLORIDE 0.9% 1,000 ML IV SCH ×2 (00:56→15:14)
[2018-01-17] MEDS: MORPHINE SULFATE 4 MG/ML SYRINGE IV PRN ×2 (03:39→08:20)
[2018-01-17] MEDS: ALLOPURINOL 300 MG TAB PO SCH (08:05)
[2018-01-17] MEDS: FLUoxetine HCL 20 MG CAP PO SCH (08:06)
[2018-01-17] MEDS: CHLORTHALIDONE 25 MG TAB PO SCH (08:06)
[2018-01-17] MEDS: POTASSIUM CHLORIDE ER 20 MEQ TAB.ER PO SCH ×3 (08:07→21:49)
[2018-01-17] MEDS: PANTOPRAZOLE 40 MG TABLET PO SCH ×2 (08:07→21:49)
[2018-01-17] MEDS: THIAMINE 100 MG TAB PO SCH ×2 (15:11→21:49)
[2018-01-17] MEDS: cefTRIAXone IN SWFI 1,000 MG/10 ML SYRINGE IVP SCH (18:30)
[2018-01-17] MEDS: traZODone HCL 100 MG TAB PO SCH (21:49)
[2018-01-17] MEDS: AZITHROMYCIN 500 MG in DEXTROSE 5% IN WATER 250 ML IVPB SCH ×2 (21:49)
[2018-01-18] MEDS: LORazepam 2 MG/ML INJ IV PRN ×2 (00:19→05:50)
[2018-01-18] MEDS: HYDROcodone/APAP 5-325MG 1 EACH TAB PO PRN ×4 (02:01→19:30)
[2018-01-18] MEDS: SODIUM CHLORIDE 0.9% 1,000 ML IV SCH ×2 (02:03→16:23)
[2018-01-18] MEDS: THIAMINE 100 MG TAB PO SCH ×2 (08:37→21:37)
[2018-01-18] MEDS: CHLORTHALIDONE 25 MG TAB PO SCH (08:37)
[2018-01-18] MEDS: PANTOPRAZOLE 40 MG TABLET PO SCH ×2 (08:37→21:37)
[2018-01-18] MEDS: FLUoxetine HCL 20 MG CAP PO SCH (08:37)
[2018-01-18] MEDS: POTASSIUM CHLORIDE ER 20 MEQ TAB.ER PO SCH ×3 (08:37→21:37)
[2018-01-18] MEDS: ALLOPURINOL 300 MG TAB PO SCH (08:56)
[2018-01-18 13:19] LABS: Basophils % (A) 0 %; Eosinophils % (A) 0 %; HCT 27.1 % (34.0-46.0); Lymphocytes # (A) 0.8 k/uL (1.0-4.8); Lymphocytes % (A) 14 %; MCH 35.1 pg (25.0-35.0); MCV 106.4 fL (80.0-100.0); Macrocytosis Moderate; Mean Platelet Volume 7.9; Monocytes # (A) 0.2 k/uL (0-1.0); Monocytes % (A) 4 %; Neutrophils # (A) 4.2 k/uL (1.3-7.7); Neutrophils % (A) 80 %; Platelet Count 191 k/uL (150-450); RBC 2.54 m/uL (3.80-5.40); RDW 14.1 % (11.5-15.5); WBC 5.3 k/uL (3.8-10.6)
[2018-01-18 13:25] LABS: HGB 8.9 gm/dL (11.4-16.0)
[2018-01-18 13:28] LABS: Albumin 2.5 g/dL (3.5-5.0); Calcium 8.3 mg/dL (8.4-10.2); Potassium 4.7 mmol/L (3.5-5.1); Total Bilirubin 0.4 mg/dL (0.2-1.3); Total Protein 4.5 g/dL (6.3-8.2)
[2018-01-18] MEDS: AMOXICILLIN 250 MG CAP PO SCH ×2 (13:47→23:30)
--- NOTE | 2018-01-18 15:10 | XR ---
EXAMINATION TYPE: XR chest 2V DATE OF EXAM: 01/18/2018 COMPARISON: 01/16/2028 INDICATION: Left rib fractures TECHNIQUE: Frontal and lateral views of the chest are obtained. FINDINGS: There is a large left fluid collection. Correlate for hemothorax. Left-sided rib fractures are eviden t of at least the third and fourth lateral ribs. Old right rib fractures within the midportion appear to be present. The heart size is normal. The pulmonary vasculature is normal. Remaining portions of the lungs are clear. No pneumothorax is evident.. IMPRESSION: 1. Moderately large left pleural fluid collection can be seen pneumothorax. 2. Multiple left-sided rib fractures which appear to be slightly displaced to lateral left rib 3 and 4. No pneumothorax is evident.
--- NOTE | 2018-01-18 17:29 | PN ---
PROGRESS NOTE DATE OF SERVICE: 01/17/2018 CHIEF COMPLAINT: Alcoholism and DTs. HISTORY OF PRESENT ILLNESS: This lady is not tremulous, and she is somewhat delirious. She is concerned about a CT scan that was ordered after x-ray suggested that she may have a dilated ascending aorta. Not sure who ordered the CT, but it was normal. PHYSICAL EXAM: Color is good. Chest is clear. Cardiac exam is normal. Abdomen is soft and nontender. IMPRESSION: 1. Acute alcohol intoxication. 2. Delirium tremens. 3. Chronic alcoholism. 4. Delirium. 5. Urinary tract infection. PLAN: Continue with current program and add thiamin 100 mg twice a day, which she had not been receiving. MMODL / IJN: [id number] /
--- NOTE | 2018-01-18 17:47 | PN ---
PROGRESS NOTE DATE OF SERVICE: 01/18/2018. CHIEF COMPLAINT: DTs. HISTORY OF PRESENT ILLNESS: This lady is a little bit more lucid today. She is complaining of constipation. She is also complaining a lot of chest pain related to her left-sided rib fractures. PHYSICAL EXAM: She has good breath sounds bilaterally. Cardiac exam is normal. The abdomen is soft, nontender. IMPRESSION: 1. Delirium tremens. 2. Alcoholism. 3. Urinary tract infection. 4. Left-sided rib fractures. 5. Constipation. PLAN: 1. Stool softener. 2. Continue with current treatment and repeat chest x-ray and labs. MMODL / IJN: [id number] /
[2018-01-18] MEDS: cefTRIAXone IN SWFI 1,000 MG/10 ML SYRINGE IVP SCH (18:20)
[2018-01-18] MEDS: AZITHROMYCIN 500 MG TAB PO SCH (21:36)
[2018-01-18] MEDS: traZODone HCL 100 MG TAB PO SCH (21:37)
[2018-01-18] MEDS: MORPHINE SULFATE 4 MG/ML SYRINGE IV PRN (22:37)
[2018-01-19] MEDS: HYDROcodone/APAP 5-325MG 1 EACH TAB PO PRN ×5 (01:25→20:48)
[2018-01-19] MEDS: MORPHINE SULFATE 4 MG/ML SYRINGE IV PRN ×4 (03:33→18:37)
[2018-01-19] MEDS: SODIUM CHLORIDE 0.9% 1,000 ML IV SCH (04:35)
[2018-01-19] MEDS: ALLOPURINOL 300 MG TAB PO SCH (08:07)
[2018-01-19] MEDS: AMOXICILLIN 250 MG CAP PO SCH ×2 (08:07→15:46)
[2018-01-19] MEDS: POTASSIUM CHLORIDE ER 20 MEQ TAB.ER PO SCH ×3 (08:08→20:48)
[2018-01-19] MEDS: CHLORTHALIDONE 25 MG TAB PO SCH (08:08)
[2018-01-19] MEDS: PANTOPRAZOLE 40 MG TABLET PO SCH ×2 (08:08→20:48)
[2018-01-19] MEDS: FLUoxetine HCL 20 MG CAP PO SCH (08:08)
[2018-01-19] MEDS: THIAMINE 100 MG TAB PO SCH ×2 (08:08→20:48)
--- NOTE | 2018-01-19 11:05 | ECHOF ---
Referral Reason:sob, fall MEASUREMENTS -------- HEIGHT: 175.3 cm WEIGHT: 77.1 kg BP: 101/76 IVSd: 1.1 cm (0.6 - 1.1) LVIDd: 3.1 cm (3.9 - 5.3) LVPWd: 1.2 cm (0.6 - 1.1) IVSs: 1.6 cm LVIDs: 2.6 cm LVPWs: 0.9 cm Ao Diam: 3.6 cm (2.0 - 3.7) AV Cusp: 2.0 cm (1.5 - 2.6) LA Diam: 2.9 cm (2.7 - 3.8) MV EXCURSION: 14.751 mm (> 18.000) MV EF SLOPE: 57 mm/s (70 - 150) EPSS: 0.7 cm MV E Dylan: 0.77 m/s MV DecT: 223 ms MV A Dylan: 0.90 m/s MV E/A Ratio: 0.86 RAP: 5.00 mmHg RVSP: 17.01 mmHg FINDINGS -------- Sinus rhythm. This was a technically difficult study with suboptimal apical views. The left ventricular size is normal. There is borderline concentric left ventricular hypertrophy. Overall left ventricular systolic function is low-normal with, an EF between 50 - 55 %. The right ventricle is normal in size. The left atrial size is normal. The right atrial size is normal. The aortic valve was not well visualized. Mild mitral annular calcification present. Mild mitral regurgitation is present. Mild tricuspid regurgitation present. There is no evidence of pulmonary hypertension. The right v entricular systolic pressure, as measured by Doppler, is 17.01mmHg. The pulmonic valve was not well visualized. The aortic root size is normal. Echo free space represents a pericardial fat pad. Large global Pleural Effusions. CONCLUSIONS -------- 1. This was a technically difficult study with suboptimal apical views. 2. The left ventricular size is normal. 3. There is borderline concentric left ventricular hypertrophy. 4. Overall left ventricular systolic function is low-normal with, an EF between 50 - 55 %. 5. The right ventricle is normal in size. 6. The left atrial size is normal. 7. The right atrial size is normal. 8. The aortic valve was not well visualized. 9. Mild mitral annular calcification present. 10. Mild mitral regurgitation is present. 11. Mild tricuspid regurgitation present. 12. There is no evidence of pulmonary hypertension. 13. The right ventricular systolic pressure, as measured by Doppler, is 17.01mmHg. 14. The pulmonic valve was not well visualized. 15. The aortic root size is normal. 16. Echo free space represents a pericardial fat pad. 17. Large left Pleural Effusions. SLITTING MACHINE OPERATOR HELPER: Salome Kaplan RDCS
--- NOTE | 2018-01-19 11:43 | CONS ---
CONSULTATION ADDENDUM NOTE This is a 62-year-old lady who was admitted to hospital with EtOH abuse and having had a fall at home with an injury involving the left side of her chest. On her initial presentation, there was a small pleural effusion on the left side and CT scan of the thoracic aorta did not show any aneurysm. There were multiple old and new fractures on the left side. We have been consulted because of pleural effusion. The chest x-ray repeated yesterday shows a moderate size left-sided pleural effusion. I do not believe her pleural effusion is related to congestive heart failure. Clearly it is probably related to the recent trauma and is more likely to be due to hemothorax. The patient has musculoskeletal chest discomfort. I will do an echocardiogram on her to assess her LV function. I am going to consult Dr. Doty the Pulmonary Critical Care doctor to assess the patient and see if anything else needs to be done with her recent thoracic trauma and the effusion. MMODL / IJN: [id number] /
--- NOTE | 2018-01-19 11:53 | PN ---
PROGRESS NOTE DATE OF SERVICE: 01/19/2017 CHIEF COMPLAINT: Alcoholism and DTs. HISTORY OF PRESENT ILLNESS: This lady is developing some increasing shortness of breath. It does look as though she has a hemothorax on the left. She is still having quite a bit of discomfort. PHYSICAL EXAM: Breath sounds are diminished on the left. Cardiac exam is normal and the abdomen is soft, nontender. IMPRESSION: 1. Alcoholism. 2. Delirium tremens. 3. Left-sided rib fractures with hemothorax. PLAN: 1. Repeat chest x-ray and blood work. 2. Consult with Thoracic Surgery. MMODL / IJN: [id number] /
[2018-01-19 12:09] LABS: Albumin 2.8 g/dL (3.5-5.0); Calcium 8.5 mg/dL (8.4-10.2); Potassium 4.5 mmol/L (3.5-5.1); Total Bilirubin 0.3 mg/dL (0.2-1.3)
[2018-01-19 12:25] LABS: Prothrombin Time 9.6 sec (9.0-12.0)
[2018-01-19 12:48] LABS: Basophils % (A) 0 %; Eosinophils # (A) 0.2 k/uL (0-0.7); Eosinophils % (A) 4 %; HCT 25.9 % (34.0-46.0); HGB 8.6 gm/dL (11.4-16.0); Lymphocytes # (A) 1.2 k/uL (1.0-4.8); Lymphocytes % (A) 27 %; MCH 35.9 pg (25.0-35.0); MCHC 33.2 g/dL (31.0-37.0); MCV 107.9 fL (80.0-100.0); Macrocytosis Moderate; Mean Platelet Volume 7.7; Monocytes # (A) 0.4 k/uL (0-1.0); Monocytes % (A) 9 %; Neutrophils # (A) 2.6 k/uL (1.3-7.7); Neutrophils % (A) 57 %; Platelet Count 191 k/uL (150-450); RDW 14.4 % (11.5-15.5); WBC 4.5 k/uL (3.8-10.6)
--- NOTE | 2018-01-19 12:51 | P.CNPUL ---
History of Present Illness Consult date: 01/19/18 Requesting physician: Raj Pan Reason for consult: pleural effusion, pneumothorax Chief complaint: Shortness of breath History of present illness: This is a 62-year-old female patient being seen examined and evaluated today for consultation. This patient came in to the emergency room on 01/15/2018. She was sent from her primary care physician's office for alcohol intoxication and detox. Patient is an every day drinker in stage she drinks approximately a little more than a pint of vodka a day. She recently had a fall related to her intoxication approximately 4 days before coming into the ER. Recent chest x- ray did show a large left pleural effusion with pneumothorax as well as multiple rib fractures that were slightly displaced. She also did have an echocardiogram recently which showed an EF of 50-55%. Her admission hemoglobin was 12.9, her hemoglobin yesterday was 8.9. Her current labs for today are pending. The patient is a one pack per day former smoker for approximately 30 years. Every chest x-ray from today is pending. We also ordered an ultrasound of the chest. She denies any blood thinners at home. Cardiothoracic is also on consult for possible chest tube placement. Upon examination the patient's resting up in bed on 2-3 L of supplemental oxygen via nasal cannula. She was 82 % on room air. She does complain of a congested nonproductive cough, does have chest pain with coughing. Denies any hemoptysis Review of Systems 14 point review of systems was completed and is negative unless noted above in the HPI Past Medical History Past Medical History: COPD, CVA/TIA, GERD/Reflux, Hypertension, Renal Disease Additional Past Medical History / Comment(s): dry unproductive cough and chokes easily,recently seen in ER for fall bumping his head and thinks 2 rib fx on left side,HX OF POOR KIDNEY FUNCTION CAUSED BY HTN MEDS. History of Any Multi-Drug Resistant Organisms: None Reported Past Surgical History: Section, Orthopedic Surgery Additional Past Surgical History / Comment(s): WRIST SURG, Cataract removal,D&C x2 Past Anesthesia/Blood Transfusion Reactions: No Reported Reaction, Motion Sickness Past Psychological History: ADD/ADHD, Anxiety, Depression Smoking Status: Former smoker Past Alcohol Use History: Abuse, Daily, Heavy Additional Past Alcohol Use History / Comment(s): quit smoking approx , smoked approx 20 yrs 1ppd Past Drug Use History: None Reported - Past Family History Mother Family Medical History: Congestive Heart Failure (CHF) Additional Family Medical History / Comment(s): blood disease (had too many WBCs ) Father Family Medical History: Cancer Additional Family Medical History / Comment(s): LUNG CANCER Medications and Allergies Home Medications Medication Instructions Recorded Confirmed Type Dextroamphetamine/Amphetamine 20 mg PO BID 05/23/14 01/15/18 History [Adderall] Zolpidem [Ambien] 5 mg PO HS PRN 05/23/14 01/15/18 History Potassium Chloride [Klor-Con 20] 20 meq PO TID 05/06/16 01/15/18 History Ergocalciferol [Vitamin D2] 50,000 unit PO Q30D 09/17/16 01/15/18 History FLUoxetine HCL [PROzac] 20 mg PO DAILY 09/17/16 01/15/18 History Omeprazole [PriLOSEC] 20 mg PO BID 09/17/16 01/15/18 History Allopurinol [Zyloprim] 300 mg PO DAILY 01/11/18 01/15/18 History Chlorthalidone 12.5 mg PO DAILY 01/11/18 01/15/18 History Ibuprofen [Motrin] 800 mg PO Q6H PRN 01/11/18 01/15/18 History traZODone HCL [Desyrel] 100 mg PO HS 01/11/18 01/15/18 History ALPRAZolam [Xanax] 0.25 mg PO BID PRN 01/15/18 01/15/18 History Allergies Allergy/AdvReac Type Severity Reaction Status Date / Time No Known Allergies Allergy Verified 01/15/18 17:01 Physical Exam Vitals: Vital Signs Temp Pulse Resp BP Pulse Ox 01/19/18 07:00 98.3 F 95 17 101/76 91 L 01/19/18 00:00 98.2 F 100 18 127/87 87 L 01/18/18 20:55 98 16 96 01/18/18 20:04 95 01/18/18 19:05 96.6 F L 79 20 125/76 79 L 01/18/18 17:44 99 20 94 L 01/18/18 14:20 98.1 F 70 16 91/59 94 L Intake and Output 07/23/18 07/24/18 07/24/18 22:59 06:59 14:59 Intake Total 920 600 Balance 920 600 Intake: Intake, IV Titration 300 600 Amount Sodium Chloride 0.9% 1, 300 600 000 ml @ 75 mls/hr IV . [id number] [facility] Rx#:[id number] Oral 620 Other: Voiding Method Toilet # Voids 1 1 GENERAL EXAM: Alert, comfortable in no apparent distress. HEAD: Normocephalic. EYES: Normal reaction of pupils, equal size. NOSE: Clear with pink turbinates. THROAT: No erythema or exudates. NECK: No masses, no JVD. CHEST: No chest wall deformity. LUNGS: Very poor air entry on the left, diminished, lung clear to auscultation on the right CVS: S1 and S2 normal with no audible mumurs, regular rhythm. ABDOMEN: No hepatosplenomegaly, normal bowel sounds, no guarding or rigidity. EXTREMITIES: No edema noted, pedal pulses palpable. CENTRAL NERVOUS SYSTEM: No focal deficits, tone is normal in all 4 extremities. Results - Laboratory Findings CBC and BMP: 01/19/18 11:48 01/19/18 11:48 PT/INR, D-dimer PT 10.2 sec (9.0-12.0) 01/15/18 16:47 INR 1.0 (<1.2) 01/15/18 16:47 Abnormal lab findings: Abnormal Labs 01/15/18 01/15/18 01/15/18 16:47 16:47 16:47 RBC 3.46 L Hgb Hct MCV 102.5 H MCH 37.3 H Lymphocytes # Sodium Chloride 108 H Carbon Dioxide Creatinine 1.05 H Glucose 112 H Calcium Magnesium 1.5 L Total Protein 5.6 L Albumin 3.2 L Urine Appearance Cloudy H Urine Protein 1+ H Urine Blood Trace H Urine Nitrite Positive H Ur Leukocyte Esterase Large H Urine RBC 6 H Urine WBC >182 H Urine WBC Clumps Few H Urine Bacteria Many H Urine Mucus Rare H Urine Yeast (Budding) Occasional H U Benzodiazepines Scrn Detected H 01/18/18 01/18/18 01/19/18 12:27 12:27 11:48 RBC 2.54 L Hgb 8.9 L D Hct 27.1 L MCV 106.4 H MCH 35.1 H Lymphocytes # 0.8 L Sodium 135 L Chloride 109 H 109 H Carbon Dioxide 21 L Creatinine Glucose 126 H Calcium 8.3 L Magnesium Total Protein 4.5 L 5.0 L Albumin 2.5 L 2.8 L Urine Appearance Urine Protein Urine Blood Urine Nitrite Ur Leukocyte Esterase Urine RBC Urine WBC Urine WBC Clumps Urine Bacteria Urine Mucus Urine Yeast (Budding) U Benzodiazepines Scrn - Diagnostic Findings Chest x-ray: report reviewed, image reviewed Assessment and Plan Assessment: Assessment Acute hypoxic respiratory failure requiring supplemental oxygen Large left-sided pleural effusion with hemothorax Recent traumatic fall Possible underlying pneumonia, cant be excluded Alcohol abuse Multiple fractures of the left side of the ribs Present on admission UTI Impending DTs and alcohol withdrawals Hypertension Plan Medications have been reviewed and will be continued as ordered. Antibiotics We will obtain an ultrasound of the chest Will discuss with cardiothoracic surgery, patient may benefit from chest tube Chest x-ray and labs for today pending [facility] protocol No blood thinners Continue with pulmonary hygiene, coughing and deep breathing exercises, and supportive care. Initiate and encourage incentive spirometer Supplemental oxygen to maintain oxygen saturations of 92% or better. Continue nebulizer treatments. GI and DVT prophylaxis. We will continue to monitor labs/results and adjust treatment as necessary. Further recommendations pending. I performed an examination of the patient and discussed their management with the nurse practitioner. I have reviewed the nurse practitioner's note and agree with the documented findings and plan of care.
--- NOTE | 2018-01-19 13:13 | P.CRDCN ---
History of Present Illness History of present illness: Mrs. Garcia is a pleasant 62-year-old female past medical history significant for COPD, gastroesophageal reflux disease, hypertension and chronic alcohol abuse. 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 We have been asked to see her in consultation for pleural effusion. She states she fell down the stairs Thursday and suffered multiple rib fractures. She came to the hospital for purposes of detoxing from alcohol to go to inpatient rehabilitation. She states she was intoxicated Thursday and fell down the stairs. She has been suffering from significant pleuritic pain and has significant bruising on her thorax and left back region. Chest xray on admission 01/15 reveals pleural fluid and infiltrate in left lower lobe with possible aortic arch aneurysm. CT thoracic aorta is negative for aneurysm or dissection. She has been feeling increasingly short of breath with hypoxia. Repeat chest xray was obtained last night and revealed a moderately large left pleural fluid collection with possible hemothorax. Hgb has dropped from 12.9 on admission to 8.6 this morning. Echocardiogram obtained reveals normal left ventricular systolic function with ejection fraction 50-55%, mild MR and mild TR with no evidence of pericardial effusion. Large left pleural effusion is evident. EKG reveals sinus mechanism with no acute ST or T-wave abnormalities. Current cardiac medications include chlorthalidone 12.5 mg daily. She also takes trazodone, Ambien, Adderall, Prilosec, Motrin, Prozac, allopurinol and Xanax. Review of Systems At the time of my exam: CONSTITUTIONAL: Denies fever. Denies chills. EYES: Denies blurred vision. Denies vision changes. Denies eye pain. EARS, NOSE, MOUTH & THROAT: Denies headache. Denies sore throat. Denies ear pain. CARDIOVASCULAR: Denies chest pain. Denies shortness of breath. Denies orthopnea. Denies PND. Denies palpitations. RESPIRATORY: Denies cough. Complains of exertional shortness of breath. GASTROINTESTINAL: Denies abdominal pain. Denies diarrhea. Denies constipation. Denies nausea. Denies vomiting. MUSCULOSKELETAL: Denies myalgias. Complains of significant left pleuritic pain. INTEGUMENTARY: Denies pruitis. Denies rash. NEUROLOGIC: Denies numbness. Denies tingling. Denies weakness. PSYCHIATRIC: Denies anxiety. Denies depression. ENDOCRINE: Denies fatigue. Denies weight change. Denies polydipsia. Denies polyurina. GENITOURINARY: Denies burning, hematuria or urgency with micturation. HEMATOLOGIC: Denies history of anemia. Denies bleeding. Past Medical History Past Medical History: COPD, CVA/TIA, GERD/Reflux, Hypertension, Renal Disease Additional Past Medical History / Comment(s): dry unproductive cough and chokes easily,recently seen in ER for fall bumping his head and thinks 2 rib fx on left side,HX OF POOR KIDNEY FUNCTION CAUSED BY HTN MEDS. History of Any Multi-Drug Resistant Organisms: None Reported Past Surgical History: Section, Orthopedic Surgery Additional Past Surgical History / Comment(s): WRIST SURG, Cataract removal,D&C x2 Past Anesthesia/Blood Transfusion Reactions: No Reported Reaction, Motion Sickness Past Psychological History: ADD/ADHD, Anxiety, Depression Smoking Status: Former smoker Past Alcohol Use History: Abuse, Daily, Heavy Additional Past Alcohol Use History / Comment(s): quit smoking approx , smoked approx 20 yrs 1ppd Past Drug Use History: None Reported - Past Family History Mother Family Medical History: Congestive Heart Failure (CHF) Additional Family Medical History / Comment(s): blood disease (had too many WBCs ) Father Family Medical History: Cancer Additional Family Medical History / Comment(s): LUNG CANCER Medications and Allergies Home Medications Medication Instructions Recorded Confirmed Type Dextroamphetamine/Amphetamine 20 mg PO BID 05/23/14 01/15/18 History [Adderall] Zolpidem [Ambien] 5 mg PO HS PRN 05/23/14 01/15/18 History Potassium Chloride [Klor-Con 20] 20 meq PO TID 05/06/16 01/15/18 History Ergocalciferol [Vitamin D2] 50,000 unit PO Q30D 09/17/16 01/15/18 History FLUoxetine HCL [PROzac] 20 mg PO DAILY 09/17/16 01/15/18 History Omeprazole [PriLOSEC] 20 mg PO BID 09/17/16 01/15/18 History Allopurinol [Zyloprim] 300 mg PO DAILY 01/11/18 01/15/18 History Chlorthalidone 12.5 mg PO DAILY 01/11/18 01/15/18 History Ibuprofen [Motrin] 800 mg PO Q6H PRN 01/11/18 01/15/18 History traZODone HCL [Desyrel] 100 mg PO HS 01/11/18 01/15/18 History ALPRAZolam [Xanax] 0.25 mg PO BID PRN 01/15/18 01/15/18 History Allergies Allergy/AdvReac Type Severity Reaction Status Date / Time No Known Allergies Allergy Verified 01/15/18 17:01 Physical Exam Vitals: Vital Signs Temp Pulse Resp BP Pulse Ox 01/19/18 07:00 98.3 F 95 17 101/76 91 L 01/19/18 00:00 98.2 F 100 18 127/87 87 L 01/18/18 20:55 98 16 96 01/18/18 20:04 95 01/18/18 19:05 96.6 F L 79 20 125/76 79 L 01/18/18 17:44 99 20 94 L 01/18/18 14:20 98.1 F 70 16 91/59 94 L Intake and Output 01/18/18 01/19/18 01/19/18 22:59 06:59 14:59 Intake Total 920 600 Balance 920 600 Intake: Intake, IV Titration 300 600 Amount Sodium Chloride 0.9% 1, 300 600 000 ml @ 75 mls/hr IV . [id number] [facility] Rx#:[id number] Oral 620 Other: Voiding Method Toilet # Voids 1 1 GENERAL: This is a 62-year-old female in no apparent distress at the time of my examination. Significant bruising noted to the left thoracic region and lower back. HEENT: Head is atraumatic, normocephalic. Pupils are equal, round. Sclerae anicteric. Conjunctivae are clear. Mucous membranes of the mouth are moist. Neck is supple. There is no jugular venous distention. No carotid bruit is heard. LUNGS: Significantly diminished on the left, clear to auscultation on the right no wheezes, rales or rhonchi. No chest wall tenderness is noted on palpation or with deep breathing. HEART: Regular rate and rhythm without murmurs, rubs or gallops. S1 and S2 heard. ABDOMEN: Soft, nontender. Bowel sounds are heard. No organomegaly noted. EXTREMITIES: No evidence of peripheral edema and no calf tenderness noted. VASCULAR: Radial and dorsalis pedis pulses palpated, no evidence of clubbing. NEUROLOGIC: Patient is awake, alert and oriented x3. Results 01/18/18 12:27 01/19/18 11:48 Cardiac Enzymes 01/18/18 01/19/18 Range/Units 12:27 11:48 AST 19 18 (14-36) U/L Coagulation 01/19/18 Range/Units 11:48 PT 9.6 (9.0-12.0) sec CBC 01/18/18 Range/Units 12:27 WBC 5.3 (3.8-10.6) k/uL RBC 2.54 L (3.80-5.40) m/uL Hgb 8.9 L D (11.4-16.0) gm/dL Hct 27.1 L (34.0-46.0) % Plt Count 191 (150-450) k/uL Comprehensive Metabolic Panel 01/18/18 01/19/18 Range/Units 12:27 11:48 Sodium 135 L 137 (137-145) mmol/L Potassium 4.7 4.5 (3.5-5.1) mmol/L Chloride 109 H 109 H (98-107) mmol/L Carbon Dioxide 21 L 23 (22-30) mmol/L BUN 12 11 (7-17) mg/dL Creatinine 0.84 0.90 (0.52-1.04) mg/dL Glucose 126 H 93 (74-99) mg/dL Calcium 8.3 L 8.5 (8.4-10.2) mg/dL AST 19 18 (14-36) U/L ALT 27 29 (9-52) U/L Alkaline Phosphatase 43 47 (38-126) U/L Total Protein 4.5 L 5.0 L (6.3-8.2) g/dL Albumin 2.5 L 2.8 L (3.5-5.0) g/dL Current Medications Generic Name Dose Route Start Last Admin Trade Name Freq PRN Reason Stop Dose Admin Hydrocodone Bitart/Acetaminophen 1 each 01/15/18 20:27 01/19/18 10:38 [place] 5-325 PO 1 each Q4HR PRN Administration Moderate Pain Albuterol/Ipratropium 3 ml 01/19/18 13:00 Duoneb 0.5 Mg-3 Mg/3 Ml Soln INHALATION RT-TID [facility] Allopurinol 300 mg 01/17/18 09:00 01/19/18 08:07 Zyloprim PO 300 mg DAILY [facility] Administration Amoxicillin 250 mg 01/18/18 13:00 01/19/18 08:07 Amoxicillin PO 250 mg Q8HR [facility] Administration Azithromycin 500 mg 01/18/18 21:00 01/18/18 21:36 Zithromax PO 500 mg HS [facility] Administration Budesonide 0.5 mg 01/19/18 20:00 Pulmicort INHALATION RT-BID [facility] Ceftriaxone Sodium 1,000 mg 01/16/18 18:00 01/18/18 18:20 Rocephin IVP 1,000 mg Q24H [facility] Administration Chlorthalidone 12.5 mg 01/17/18 09:00 01/19/18 08:08 [place] PO 12.5 mg DAILY [facility] Administration Fluoxetine HCl 20 mg 01/17/18 09:00 01/19/18 08:08 Prozac PO 20 mg DAILY [facility] Administration Sodium Chloride 1,000 mls @ 75 mls/hr 01/15/18 20:30 01/19/18 04:35 Saline 0.9% IV 75 mls/hr .[id number] [facility] Administration Lorazepam 1 mg 01/15/18 17:22 01/18/18 00:19 Ativan IV 1 mg Q2HR PRN Administration CIWA 8 or 9 Lorazepam 1 mg 01/15/18 17:22 01/18/18 05:50 Ativan IV 1 mg Q1HR PRN Administration CIWA 10 to 15 Morphine Sulfate 4 mg 01/15/18 20:27 01/19/18 07:15 Morphine Sulfate (Inj) IV 4 mg Q4HR PRN Administration Severe Pain Naloxone HCl 0.2 mg 01/15/18 20:27 Narcan IV Q2M PRN Opioid Reversal Ondansetron HCl 4 mg 01/15/18 20:27 Zofran IVP Q8HR PRN Nausea And Vomiting Pantoprazole Sodium 40 mg 01/16/18 21:00 01/19/18 08:08 Protonix PO 40 mg BID [facility] Administration Potassium Chloride 20 meq 01/16/18 16:00 01/19/18 08:08 K-Dur 20 PO 20 meq TID [facility] Administration Thiamine HCl 100 mg 01/17/18 12:00 01/19/18 08:08 Vitamin B-1 PO 100 mg BID [facility] Administration Trazodone HCl 100 mg 01/16/18 21:00 01/18/18 21:37 Desyrel PO 100 mg HS [facility] Administration Intake and Output 01/18/18 01/19/18 01/19/18 22:59 06:59 14:59 Intake Total 920 600 Balance 920 600 Intake: Intake, IV Titration 300 600 Amount Sodium Chloride 0.9% 1, 300 600 000 ml @ 75 mls/hr IV . [id number] [facility] Rx#:[id number] Oral 620 Other: Voiding Method Toilet # Voids 1 1 01/18/18 12:27 01/19/18 11:48 Assessment and Plan Assessment: ASSESSMENT Acute hypoxic respiratory distress with hemothorax Left pleural effusion Fall Alcohol intoxication Hypertension History of daily alcohol intake Anemia PLAN Consult Dr. Doty for further evaluation of pleural effusion. CT surgery has also been consulted for hemothorax evaluation. Stable from cardiology perspective with no evidence of pericardial effusion and no symptoms suggestive of angina. Thank you kindly for this consultation, we will continue to follow as needed. The above impression and plan of care have been discussed and directed by the signing physician. Jennifer Cox, nurse practitioner, acting as scribe for signing physician.
[2018-01-19] MEDS: IPRATROPIUM-ALBUTEROL 3 ML NEB INHALATION SCH ×2 (13:26→20:10)
--- NOTE | 2018-01-19 14:53 | XR ---
EXAMINATION TYPE: XR chest 2V DATE OF EXAM: 01/19/2018 COMPARISON: 01/18/2018 HISTORY: Shortness of breath TECHNIQUE: Frontal and lateral views of the chest are obtained. FINDINGS: Scattered senescent parenchymal changes noted. Hyperinflation compatible with COPD. Large left-sided pleural effusion is unchanged from prior study. Underlying infiltrate, atelectasis o r mass is not excluded. The right lung is clear. Multiple healed right-sided rib fractures. Heart size is stable. Mediastinal structures are stable and grossly unremarkable. No evidence for hilar prominence. Degenerative changes dorsal spine. IMPRESSION: 1. Stable chest.
--- NOTE | 2018-01-19 16:20 | US ---
EXAMINATION TYPE: US chest DATE OF EXAM: 01/19/2018 COMPARISON: CLINICAL HISTORY: bilateraly pl effusions. EXAM MEASUREMENTS: Left Pleural Effusion fluid pocket: 7.0 cm Left skin to fluid thickness: 3.3 cm Left side marked for possible thoracentesis outside the dept. Pulmonologists are able to review the images in the patient?s EMR. IMPRESSIONS: Pleural effusion as noted.
[2018-01-19] MEDS: LORazepam 2 MG/ML INJ IV PRN ×3 (16:47→23:56)
--- NOTE | 2018-01-19 17:17 | P.GSCN ---
History of Present Illness Consult date: 01/19/18 Reason for Consult: Hemothorax, surgical recommendations Requesting physician: Leigha Doty History of present illness: This is a 62-year-old female patient follows with Dr. Pan on an outpatient basis. She has a previous medical history of alcoholism with consumption of 1 pint a day for the last 20 years, previous tobacco dependence having quit smoking 30 years ago, COPD, GERD, history of chronic kidney disease stage III, questionable TIA, GERD, and attention deficit disorder. She presented to the emergency room on January 15 at the request of her primary care physician for alcohol detox. Apparently she fell down some stairs earlier in the week, chest x-ray was completed in the emergency room which demonstrated old healed right- sided rib fractures, possible pleural effusion on the left as well as atelectasis. CT of the thorax was completed which demonstrated the same findings as well as acute rib fractures on the left. The patient was admitted for evaluation and treatment of alcohol withdrawal as well as pain. Over the next couple of days her hemoglobin began to trend downward, admission hemoglobin was 12.9, currently it is 8.6. Chest x-ray completed this morning demonstrates large left-sided pleural effusion, likely hemothorax. Cardiothoracic surgery was consulted regarding surgical recommendations. Review of Systems Review of systems was completed and was negative except as noted. - Constitutional Reports fatigue, Reports lethargy, Reports poor appetite - Musculoskeletal Reports low back pain - Psychiatric Reports sleep disturbances Past Medical History Past Medical History: COPD, CVA/TIA, GERD/Reflux, Hypertension, Renal Disease Additional Past Medical History / Comment(s): dry unproductive cough and chokes easily,recently seen in ER for fall bumping his head and thinks 2 rib fx on left side,HX OF POOR KIDNEY FUNCTION CAUSED BY HTN MEDS. History of Any Multi-Drug Resistant Organisms: None Reported Past Surgical History: Section, Orthopedic Surgery Additional Past Surgical History / Comment(s): WRIST SURG, Cataract removal,D&C x2 Past Anesthesia/Blood Transfusion Reactions: No Reported Reaction, Motion Sickness Past Psychological History: ADD/ADHD, Anxiety, Depression Smoking Status: Former smoker Past Alcohol Use History: Abuse, Daily, Heavy Additional Past Alcohol Use History / Comment(s): quit smoking approx s, smoked approx 20 yrs 1ppd Past Drug Use History: None Reported - Past Family History Mother Family Medical History: Congestive Heart Failure (CHF) Additional Family Medical History / Comment(s): blood disease (had too many WBCs ) Father Family Medical History: Cancer Additional Family Medical History / Comment(s): LUNG CANCER Medications and Allergies Home Medications Medication Instructions Recorded Confirmed Type Dextroamphetamine/Amphetamine 20 mg PO BID 05/23/14 01/15/18 History [Adderall] Zolpidem [Ambien] 5 mg PO HS PRN 05/23/14 01/15/18 History Potassium Chloride [Klor-Con 20] 20 meq PO TID 05/06/16 01/15/18 History Ergocalciferol [Vitamin D2] 50,000 unit PO Q30D 09/17/16 01/15/18 History FLUoxetine HCL [PROzac] 20 mg PO DAILY 09/17/16 01/15/18 History Omeprazole [PriLOSEC] 20 mg PO BID 09/17/16 01/15/18 History Allopurinol [Zyloprim] 300 mg PO DAILY 01/11/18 01/15/18 History Chlorthalidone 12.5 mg PO DAILY 01/11/18 01/15/18 History Ibuprofen [Motrin] 800 mg PO Q6H PRN 01/11/18 01/15/18 History traZODone HCL [Desyrel] 100 mg PO HS 01/11/18 01/15/18 History ALPRAZolam [Xanax] 0.25 mg PO BID PRN 01/15/18 01/15/18 History Allergies Allergy/AdvReac Type Severity Reaction Status Date / Time No Known Allergies Allergy Verified 01/15/18 17:01 Surgical - Exam Vital Signs Temp Pulse Resp BP Pulse Ox 98.6 F 103 H 18 144/98 95 01/15/18 15:34 01/15/18 15:34 01/15/18 15:34 01/15/18 15:34 01/15/18 15:34 - General well developed, well nourished, no distress, no pain - Eyes PERRL, normal ocular movement - ENT no hearing loss - Neck no masses, no bruits, trachea midline - Respiratory Lungs sounds diminished, left greater than right. Respirations even, nonlabored. Currently on room air with oxygen saturation 94%. - Cardiovascular S1, S2 present. Regular rate and rhythm. Palpable peripheral pulses bilaterally. No edema present. No calf pain or tenderness noted. - Abdomen Abdomen: soft, non tender, bowel sounds - Genitourinary Deferred - Rectum Deferred - Integumentary no rash, no growths - Neurologic normal coordination, normal sensation - Musculoskeletal normal gait - Psychiatric oriented to time, oriented to person, oriented to place, speech is normal, memory intact Results - Labs 01/19/18 11:48 01/19/18 11:48 Abnormal Lab Results - Last 24 Hours (Table) 01/18/18 01/18/18 01/19/18 Range/Units 12:27 12:27 11:48 RBC 2.54 L 2.40 L (3.80-5.40) m/uL Hgb 8.9 L D 8.6 L (11.4-16.0) gm/dL Hct 27.1 L 25.9 L (34.0-46.0) % MCV 106.4 H 107.9 H (80.0-100.0) fL MCH 35.1 H 35.9 H (25.0-35.0) pg Lymphocytes # 0.8 L (1.0-4.8) k/uL Sodium 135 L (137-145) mmol/L Chloride 109 H (98-107) mmol/L Carbon Dioxide 21 L (22-30) mmol/L Glucose 126 H (74-99) mg/dL Calcium 8.3 L (8.4-10.2) mg/dL Total Protein 4.5 L (6.3-8.2) g/dL Albumin 2.5 L (3.5-5.0) g/dL 01/19/18 Range/Units 11:48 RBC (3.80-5.40) m/uL Hgb (11.4-16.0) gm/dL Hct (34.0-46.0) % MCV (80.0-100.0) fL MCH (25.0-35.0) pg Lymphocytes # (1.0-4.8) k/uL Sodium (137-145) mmol/L Chloride 109 H (98-107) mmol/L Carbon Dioxide (22-30) mmol/L Glucose (74-99) mg/dL Calcium (8.4-10.2) mg/dL Total Protein 5.0 L (6.3-8.2) g/dL Albumin 2.8 L (3.5-5.0) g/dL Diabetes panel 01/18/18 01/19/18 Range/Units 12:27 11:48 Sodium 135 L 137 (137-145) mmol/L Potassium 4.7 4.5 (3.5-5.1) mmol/L Chloride 109 H 109 H (98-107) mmol/L Carbon Dioxide 21 L 23 (22-30) mmol/L BUN 12 11 (7-17) mg/dL Creatinine 0.84 0.90 (0.52-1.04) mg/dL Glucose 126 H 93 (74-99) mg/dL Calcium 8.3 L 8.5 (8.4-10.2) mg/dL AST 19 18 (14-36) U/L ALT 27 29 (9-52) U/L Alkaline Phosphatase 43 47 (38-126) U/L Total Protein 4.5 L 5.0 L (6.3-8.2) g/dL Albumin 2.5 L 2.8 L (3.5-5.0) g/dL Calcium panel 01/18/18 01/19/18 Range/Units 12:27 11:48 Calcium 8.3 L 8.5 (8.4-10.2) mg/dL Albumin 2.5 L 2.8 L (3.5-5.0) g/dL Pituitary panel 01/18/18 01/19/18 Range/Units 12:27 11:48 Sodium 135 L 137 (137-145) mmol/L Potassium 4.7 4.5 (3.5-5.1) mmol/L Chloride 109 H 109 H (98-107) mmol/L Carbon Dioxide 21 L 23 (22-30) mmol/L BUN 12 11 (7-17) mg/dL Creatinine 0.84 0.90 (0.52-1.04) mg/dL Glucose 126 H 93 (74-99) mg/dL Calcium 8.3 L 8.5 (8.4-10.2) mg/dL Adrenal panel 01/18/18 01/19/18 Range/Units 12:27 11:48 Sodium 135 L 137 (137-145) mmol/L Potassium 4.7 4.5 (3.5-5.1) mmol/L Chloride 109 H 109 H (98-107) mmol/L Carbon Dioxide 21 L 23 (22-30) mmol/L BUN 12 11 (7-17) mg/dL Creatinine 0.84 0.90 (0.52-1.04) mg/dL Glucose 126 H 93 (74-99) mg/dL Calcium 8.3 L 8.5 (8.4-10.2) mg/dL Total Bilirubin 0.4 0.3 (0.2-1.3) mg/dL AST 19 18 (14-36) U/L ALT 27 29 (9-52) U/L Alkaline Phosphatase 43 47 (38-126) U/L Total Protein 4.5 L 5.0 L (6.3-8.2) g/dL Albumin 2.5 L 2.8 L (3.5-5.0) g/dL - Imaging Chest x-ray: report reviewed, image reviewed CT scan - chest: report reviewed, image reviewed EKG: image reviewed Assessment and Plan (1) COPD (chronic obstructive pulmonary disease) Current Visit: Yes Status: Chronic Code(s): J44.9 - CHRONIC OBSTRUCTIVE PULMONARY DISEASE, UNSPECIFIED SNOMED Code(s): 30790638 (2) Tobacco dependence in remission Current Visit: No Status: Resolved Code(s): F17.201 - NICOTINE DEPENDENCE, UNSPECIFIED, IN REMISSION SNOMED Code(s): 193057837 (3) History of kidney disease Current Visit: No Status: Resolved Code(s): Z87.448 - PERSONAL HISTORY OF OTHER DISEASES OF URINARY SYSTEM SNOMED Code(s): 266347166 (4) Hemothorax on left Current Visit: Yes Status: Acute Code(s): J94.2 - HEMOTHORAX SNOMED Code(s ): 75778797 (5) Alcohol abuse Current Visit: Yes Status: Chronic Code(s): F10.10 - ALCOHOL ABUSE, UNCOMPLICATED SNOMED Code(s): 57068011 (6) Alcohol withdrawal syndrome Current Visit: No Status: Resolved Code(s): F10.239 - ALCOHOL DEPENDENCE WITH WITHDRAWAL, UNSPECIFIED SNOMED Code(s): 677644626 (7) Multiple fractures of ribs of left side Current Visit: Yes Status: Acute Code(s): S22.42XA - MULTIPLE FRACTURES OF RIBS, LEFT SIDE, INIT FOR CLOS FX SNOMED Code(s): 7990346 (8) UTI (urinary tract infection) Current Visit: Yes Status: Acute Code(s): N39.0 - URINARY TRACT INFECTION, SITE NOT SPECIFIED SNOMED Code(s): 12826170 Plan: The patient was seen and examined at the bedside with Dr. Mcguire. Chart/ diagnostics were reviewed. Our recommendation and plan is for left-sided video- assisted thoracoscopy, decortication, with evacuation of hemothorax in the next 24-48 hours. This was discussed in detail with the patient, all risks and benefits were explained, and the patient did consent to surgery. We will make her NPO after midnight for possible surgery tomorrow if the OR schedule allows. Pulmonology was updated. Medical management per Dr. Pan. More recommendations to follow. Thank you Dr. Doty for this consult. We look forward to working with you in the care of your patient. Time with Patient: Greater than 30
[2018-01-19] MEDS: cefTRIAXone IN SWFI 1,000 MG/10 ML SYRINGE IVP SCH (17:27)
[2018-01-19] MEDS: BUDESONIDE 0.5 MG/2 ML NEBU INHALATION SCH (20:12)
[2018-01-19] MEDS: traZODone HCL 100 MG TAB PO SCH (20:48)
[2018-01-19] MEDS: AZITHROMYCIN 500 MG TAB PO SCH (21:46)
[2018-01-20] MEDS: MORPHINE SULFATE 4 MG/ML SYRINGE IV PRN ×5 (00:02→17:41)
[2018-01-20] MEDS: AMOXICILLIN 250 MG CAP PO SCH ×3 (00:12→15:34)
[2018-01-20] MEDS: HYDROcodone/APAP 5-325MG 1 EACH TAB PO PRN ×5 (01:53→21:12)
[2018-01-20] MEDS: SODIUM CHLORIDE 0.9% 1,000 ML IV SCH ×3 (05:36→21:13)
[2018-01-20] MEDS: BUDESONIDE 0.5 MG/2 ML NEBU INHALATION SCH ×2 (07:35→19:09)
[2018-01-20] MEDS: IPRATROPIUM-ALBUTEROL 3 ML NEB INHALATION SCH ×3 (07:35→19:09)
[2018-01-20 08:59] LABS: Basophils % (A) 0 %; Eosinophils # (A) 0.3 k/uL (0-0.7); Eosinophils % (A) 6 %; HCT 26.4 % (34.0-46.0); HGB 8.6 gm/dL (11.4-16.0); Lymphocytes # (A) 1.5 k/uL (1.0-4.8); Lymphocytes % (A) 31 %; MCH 35.9 pg (25.0-35.0); MCHC 32.6 g/dL (31.0-37.0); Macrocytosis Marked; Mean Platelet Volume 6.8; Monocytes # (A) 0.4 k/uL (0-1.0); Monocytes % (A) 9 %; Neutrophils # (A) 2.5 k/uL (1.3-7.7); Neutrophils % (A) 52 %; Platelet Count 236 k/uL (150-450); RDW 14.3 % (11.5-15.5); WBC 4.9 k/uL (3.8-10.6)
[2018-01-20 09:14] LABS: Potassium 4.6 mmol/L (3.5-5.1); Total Bilirubin 0.3 mg/dL (0.2-1.3); Total Protein 5.3 g/dL (6.3-8.2)
[2018-01-20 09:42] LABS: Anisocytosis (M) Present; Poikilocytosis (M) Present
--- NOTE | 2018-01-20 09:48 | XR ---
EXAMINATION TYPE: XR chest 1V portable DATE OF EXAM: 01/20/2018 Comparison: 01/19/2018 Clinical History: 62-year-old female post chest tube placement Findings: Heart mildly enlarged. Apparent mediastinal widening. Mild diffuse interstitial prominence. Left-side d chest tube in place. Significant decrease in size of the patient's left pleural effusion. A trace t o small effusion remains with some patchy left basilar opacity. No appreciable pneumothorax. The thor acic aorta appears ectatic. Left-sided rib fracture deformities. Impression: 1. Apparent mediastinal widening not present previously. This may be due to portable AP technique and positioning. Recommend dedicated high quality PA and lateral views of the chest to confirm. If the f inding persists, CT would be indicated to further evaluate. 2. Left-sided chest tube with trace residual left effusion and patchy left basilar atelectasis/infilt rate. Significant improvement from prior exam.
[2018-01-20] MEDS: POTASSIUM CHLORIDE ER 20 MEQ TAB.ER PO SCH ×3 (10:21→21:12)
[2018-01-20] MEDS: THIAMINE 100 MG TAB PO SCH (10:22)
[2018-01-20] MEDS: ALLOPURINOL 300 MG TAB PO SCH (10:22)
[2018-01-20] MEDS: CHLORTHALIDONE 25 MG TAB PO SCH (10:22)
[2018-01-20] MEDS: PANTOPRAZOLE 40 MG TABLET PO SCH ×2 (10:22→21:11)
[2018-01-20] MEDS: FLUoxetine HCL 20 MG CAP PO SCH (10:22)
--- NOTE | 2018-01-20 10:36 | CDI ---
Last Revision, May 2017 Documentation Clarification Form Date: 01/20/18 From: Savita Patterson Admit Date: 01/17/2018 8:16:00 AM Patient Name: Tory Garcia Visit Number: [id number] ATTENTION: The Clinical Documentation Specialists (CDI) and [facility] Coding Staff appreciate your assistance in clarifying documentation. Please respond to the clarification below the line at the bottom and electronically sign. The CDI & [facility] Coding staff will review the response and follow-up if needed. Please note: Queries are made part of the Legal Health Record. If you have any questions, please contact the author of this message via ITS. Dr. Raj Pan, Can you please render your opinion on the following documentation. Pneumonia was documented in the Pulmonary consult 01/19. History/Risk Factors: alcoholism, new onset seizures, COPD, GERD, CKD 3, HTN Presented with abdominal pain and alcohol intoxication Clinical Indicators: WBC on admission: 6.7 X-ray: there is new pleural fluid and infiltrate in left lower lobe Lung/Breathing assessment bilaterally normal Treatment: Antibiotics: Amoxicillin PO, Azithromycin IVPB, Zithromax PO, Rocephin IVPB Breathing Tx: Duoneb, Pulmicort In order to capture the severity of condition, please clarify if the condition signifies and you are treating for: Aspiration Pneumonia, identify if: Bacterial Pneumonia, specify causal organism (if known) Gram Negative Pneumonia Due to Strep Due to Staph Due to E. Coli Other bacteria (please specify) Other, please specify Unable to determine Please continue to document in your progress notes, under the line below, and/ or in the discharge summary in order to capture severity of illness and risk of mortality. Include clinical findings that support your diagnosis. MTDD
--- NOTE | 2018-01-20 10:48 | CDI ---
Last Revision, May 2017 Documentation Clarification Form Date: 01/20/18 From: Savita Patterson RN Admit Date: 01/17/2018 8:16:00 AM Patient Name: Tory Garcia Visit Number: [id number] ATTENTION: The Clinical Documentation Specialists (CDI) and [facility] Coding Staff appreciate your assistance in clarifying documentation. Please respond to the clarification below the line at the bottom and electronically sign. The CDI & [facility] Coding staff will review the response and follow-up if needed. Please note: Queries are made part of the Legal Health Record. If you have any questions, please contact the author of this message via ITS. Dr. Raj Pan, Please render your opinion on the following documentation. A diagnosis of anemia lacks specificity to accurately reflect your patients severity of condition and clarification is needed. Anemia is documented in the consult dated 01/19. Patient presented with abdominal pain and alcohol intoxication History/Risk Factors: COPD, GERD, CKD 3, TIA, ADD, HTN, alcoholism Clinical indicators: Hemoglobin: on admission 12.9 , 01/20: 8.6 Hematocrit: on admission 35.5 , 01/20: 26.4 Treatment: Monitor labs IV fluids In order to capture the severity of condition, please clarify the type of anemia and etiology if known: Acute blood loss anemia Acute on chronic blood loss anemia Chronic blood loss anemia Iron deficiency anemia Anemia of chronic kidney disease Unable to determine Other, please specify Please continue to document in your progress notes, under the line below and/or in the discharge summary in order to capture severity of illness and risk of mortality. Include clinical findings that support your diagnosis. MTDD
--- NOTE | 2018-01-20 10:49 | P.PN ---
Subjective Progress Note Date: 01/20/18 History of present illness: This is a 62-year-old female patient being seen examined and evaluated today for consultation. This patient came in to the emergency room on 01/15/2018. She was sent from her primary care physician's office for alcohol intoxication and detox. Patient is an every day drinker in stage she drinks approximately a little more than a pint of vodka a day. She recently had a fall related to her intoxication approximately 4 days before coming into the ER. Recent chest x- ray did show a large left pleural effusion with pneumothorax as well as multiple rib fractures that were slightly displaced. She also did have an echocardiogram recently which showed an EF of 50-55%. Her admission hemoglobin was 12.9, her hemoglobin yesterday was 8.9. Her current labs for today are pending. The patient is a one pack per day former smoker for approximately 30 years. Every chest x-ray from today is pending. We also ordered an ultrasound of the chest. She denies any blood thinners at home. Cardiothoracic is also on consult for possible chest tube placement. Upon examination the patient's resting up in bed on 2-3 L of supplemental oxygen via nasal cannula. She was 82 % on room air. She does complain of a congested nonproductive cough, does have chest pain with coughing. Denies any hemoptysis Interval History: 01/20/18- patient is being seen examined and evaluated today on rounds. She is resting up in bed on 4 L of supplemental oxygen via nasal cannula. She did undergo a chest tube insertion this morning with cardiovascular surgery. Her hemoglobin is stable at 8.6. She has had a total of 2350 ML's of bloody drainage from the chest tube. She continues to have shortness of breath cough and congestion. She is afebrile. No further complaints. All labs and reports have been reviewed Objective - Vital Signs Vital signs: Vital Signs Temp 99.5 F 01/20/18 07:09 Pulse 94 01/20/18 07:50 Resp 14 01/20/18 07:09 BP 101/73 01/20/18 07:09 Pulse Ox 93 L 01/20/18 07:35 Intake & Output 01/19/18 01/20/18 01/20/18 18:59 06:59 18:59 Intake Total 250 Balance 250 Intake: Oral 250 Other: # Voids 1 1 1 - Exam GENERAL EXAM: Alert, comfortable in no apparent distress. HEAD: Normocephalic. EYES: Normal reaction of pupils, equal size. NOSE: Clear with pink turbinates. THROAT: No erythema or exudates. NECK: No masses, no JVD. CHEST: No chest wall deformity. Chest tube insertion site clean dry and intact , hooked to wall suction LUNGS: course lung sounds on the left, lung clear to auscultation on the right CVS: S1 and S2 normal with no audible mumurs, regular rhythm. ABDOMEN: No hepatosplenomegaly, normal bowel sounds, no guarding or rigidity. EXTREMITIES: No edema noted, pedal pulses palpable. CENTRAL NERVOUS SYSTEM: No focal deficits, tone is normal in all 4 extremities. - Labs CBC & Chem 7: 01/20/18 08:21 01/20/18 08:21 Labs: Abnormal Lab Results - Last 24 Hours (Table) 01/19/18 01/19/18 01/20/18 Range/Units 11:48 11:48 08:21 RBC 2.40 L 2.40 L (3.80-5.40) m/uL Hgb 8.6 L 8.6 L (11.4-16.0) gm/dL Hct 25.9 L 26.4 L (34.0-46.0) % MCV 107.9 H 110.0 H (80.0-100.0) fL MCH 35.9 H 35.9 H (25.0-35.0) pg Chloride 109 H (98-107) mmol/L Total Protein 5.0 L (6.3-8.2) g/dL Albumin 2.8 L (3.5-5.0) g/dL 01/20/18 Range/Units 08:21 RBC (3.80-5.40) m/uL Hgb (11.4-16.0) gm/dL Hct (34.0-46.0) % MCV (80.0-100.0) fL MCH (25.0-35.0) pg Chloride 110 H (98-107) mmol/L Total Protein 5.3 L (6.3-8.2) g/dL Albumin 3.0 L (3.5-5.0) g/dL Assessment and Plan Assessment: Assessment Acute hypoxic respiratory failure requiring supplemental oxygen Large left-sided pleural effusion with hemothorax Recent traumatic fall Possible underlying pneumonia, cant be excluded Alcohol abuse Multiple fractures of the left side of the ribs Present on admission UTI Impending DTs and alcohol withdrawals Hypertension Plan Medications have been reviewed and will be continued as ordered. Recheck hemoglobin this afternoon Antibiotics, ID on consult Consult for cardiothoracic surgery Continue to monitor chest tube insertion site and drainage Chest x-ray and labs tomorrow CIWA protocol No blood thinners Continue with pulmonary hygiene, coughing and deep breathing exercises, and supportive care. Initiate and encourage incentive spirometer Supplemental oxygen to maintain oxygen saturations of 92% or better. Continue nebulizer treatments. GI and DVT prophylaxis. SCDs Increase activity as tolerated PT and OT We will continue to monitor labs/results and adjust treatment as necessary. Further recommendations pending. I performed an examination of the patient and discussed their management with the nurse practitioner. I have reviewed the nurse practitioner's note and agree with the documented findings and plan of care.
[2018-01-20 13:57] LABS: HCT 25.4 % (34.0-46.0); HGB 8.4 gm/dL (11.4-16.0); MCH 36.3 pg (25.0-35.0); MCHC 33.2 g/dL (31.0-37.0); MCV 109.4 fL (80.0-100.0); Macrocytosis Marked; Mean Platelet Volume 8.1; Platelet Count 188 k/uL (150-450); RBC 2.32 m/uL (3.80-5.40); RDW 14.5 % (11.5-15.5); WBC 5.8 k/uL (3.8-10.6)
--- NOTE | 2018-01-20 16:00 | P.PN ---
Subjective Progress Note Date: 01/20/18 Principal diagnosis: Hemothorax status post fall at home. Previous medical history of alcoholism with consumption of 1. today last 20 years, previous tobacco dependence, COPD, GERD, history of chronic kidney disease stage III, and questionable TIA. Patient is currently sitting up in bed in no acute distress. Left-sided pleural chest tube was placed this morning by Dr. Rome with immediate evacuation of 2 L of dark blood. Patient does complain of pain at the chest tube site but otherwise no new complaints. Objective - Vital Signs Vital signs: Vital Signs Temp 99.1 F 01/20/18 14:32 Pulse 88 01/20/18 14:32 Resp 18 01/20/18 14:32 BP 113/76 01/20/18 14:32 Pulse Ox 96 01/20/18 14:32 Intake & Output 01/19/18 01/20/18 01/20/18 18:59 06:59 18:59 Intake Total 250 Balance 250 Intake: Oral 250 Other: # Voids 1 1 1 - Constitutional General appearance: Present: cooperative, no acute distress - Respiratory Details: Lungs sounds diminished, left greater than right. Respirations even, nonlabored. Currently on 2 L nasal cannula with oxygen saturation 96%. Left pleural chest tube to continuous wall suction, 680 mL dark blood currently in second atrium, no air leak. - Cardiovascular Details: S1, S2 present. Regular rate and rhythm. Palpable peripheral pulses bilaterally. No edema present. No calf pain or tenderness noted. - Gastrointestinal Gastrointestinal Comment(s): Abdomen soft, nontender, nondistended. Active bowel sounds has 4 quadrants. Tolerating diet. - Genitourinary Genitourinary Comment(s): Continues to void clear, yellow urine. - Integumentary Integumentary Comment(s): Skin is warm and dry with evidence of good perfusion. Dressing covering left lateral chest tube with significant amount of bloody drainage. - Neurologic Neurologic: Present: CNII-XII intact - Musculoskeletal Musculoskeletal: Present: gait normal, strength equal bilaterally - Psychiatric Psychiatric: Present: A&O x's 3, appropriate affect - Allied health notes Allied health notes reviewed: nursing - Labs CBC & Chem 7: 01/20/18 13:45 01/20/18 08:21 Labs: Abnormal Lab Results - Last 24 Hours (Table) 01/20/18 01/20/18 01/20/18 Range/Units 08:21 08:21 13:45 RBC 2.40 L 2.32 L (3.80-5.40) m/uL Hgb 8.6 L 8.4 L (11.4-16.0) gm/dL Hct 26.4 L 25.4 L (34.0-46.0) % MCV 110.0 H 109.4 H (80.0-100.0) fL MCH 35.9 H 36.3 H (25.0-35.0) pg Chloride 110 H (98-107) mmol/L Total Protein 5.3 L (6.3-8.2) g/dL Albumin 3.0 L (3.5-5.0) g/dL - Imaging and Cardiology Chest x-ray: report reviewed, image reviewed Assessment and Plan (1) COPD (chronic obstructive pulmonary disease) Current Visit: Yes Status: Chronic Code(s): J44.9 - CHRONIC OBSTRUCTIVE PULMONARY DISEASE, UNSPECIFIED SNOMED Code(s): 59747181 (2) Tobacco dependence in remission Current Visit: No Status: Resolved Code(s): F17.201 - NICOTINE DEPENDENCE, UNSPECIFIED, IN REMISSION SNOMED Code(s): 808867921 (3) History of kidney disease Current Visit: No Status: Resolved Code(s): Z87.448 - PERSONAL HISTORY OF OTHER DISEASES OF URINARY SYSTEM SNOMED Code(s): 667720170 (4) Hemothorax on left Current Visit: Yes Status: Acute Code(s): J94.2 - HEMOTHORAX SNOMED Code(s ): 80100844 (5) Alcohol abuse Current Visit: Yes Status: Chronic Code(s): F10.10 - ALCOHOL ABUSE, UNCOMPLICATED SNOMED Code(s): 74058160 (6) Alcohol withdrawal syndrome Current Visit: No Status: Resolved Code(s): F10.239 - ALCOHOL DEPENDENCE WITH WITHDRAWAL, UNSPECIFIED SNOMED Code(s): 235444041 (7) Multiple fractures of ribs of left side Current Visit: Yes Status: Acute Code(s): S22.42XA - MULTIPLE FRACTURES OF RIBS, LEFT SIDE, INIT FOR CLOS FX SNOMED Code(s): 2326301 (8) UTI (urinary tract infection) Current Visit: Yes Status: Acute Code(s): N39.0 - URINARY TRACT INFECTION, SITE NOT SPECIFIED SNOMED Code(s): 45773255 Plan: 1. Continue left pleural chest tube to continuous suction. Monitor drainage. 2. Wean O2 as tolerated. Encourage incentive spirometry 10 times every hour while awake. 3. Pain control with ordered medication regimen. 4. Continue [facility] protocol for alcohol withdrawal. 5. Bronchodilators, steroids, antibiotics per Dr. Doty. 6. Increase activity, up in chair, ambulate in hallway. 7. Medical management per Dr. Pan. 8. More recommendations to follow. Time with Patient: Greater than 30
--- NOTE | 2018-01-20 16:22 | PN ---
PROGRESS NOTE CHIEF COMPLAINT: DTs, shortness of breath and hemothorax. HISTORY OF PRESENT ILLNESS: This lady is being seen by Thoracic Surgery and is having her hemothorax drained at this time. Review of systems, physical exam, etc. will be deferred. IMPRESSION: 1. Alcoholism. 2. Delirium tremens. 3. Alcoholic hepatitis. 4. Pancytopenia. 5. Multiple rib fractures with hemothorax. PLAN: Continue to follow after chest tube is placed. MMKIANNA / ANALIN: [id number] /
[2018-01-20] MEDS: cefTRIAXone IN SWFI 1,000 MG/10 ML SYRINGE IVP SCH (17:41)
[2018-01-20] MEDS: traZODone HCL 100 MG TAB PO SCH (21:11)
[2018-01-20] MEDS: AZITHROMYCIN 500 MG TAB PO SCH (21:12)
[2018-01-21] MEDS: HYDROcodone/APAP 5-325MG 1 EACH TAB PO PRN ×3 (06:36→19:29)
[2018-01-21] MEDS: IPRATROPIUM-ALBUTEROL 3 ML NEB INHALATION SCH ×3 (07:14→19:11)
[2018-01-21] MEDS: BUDESONIDE 0.5 MG/2 ML NEBU INHALATION SCH ×2 (07:14→19:11)
[2018-01-21] MEDS: THIAMINE 100 MG TAB PO SCH ×3 (07:39→21:33)
[2018-01-21] MEDS: AMOXICILLIN 250 MG CAP PO SCH (07:40)
[2018-01-21 08:11] LABS: Basophils % (A) 0 %; Eosinophils # (A) 0.2 k/uL (0-0.7); Eosinophils % (A) 3 %; HCT 23.3 % (34.0-46.0); HGB 7.6 gm/dL (11.4-16.0); Lymphocytes # (A) 1.3 k/uL (1.0-4.8); Lymphocytes % (A) 29 %; MCH 35.2 pg (25.0-35.0); MCHC 32.8 g/dL (31.0-37.0); MCV 107.1 fL (80.0-100.0); Macrocytosis Moderate; Mean Platelet Volume 7.6; Monocytes # (A) 0.3 k/uL (0-1.0); Monocytes % (A) 7 %; Neutrophils # (A) 2.7 k/uL (1.3-7.7); Neutrophils % (A) 59 %; Platelet Count 222 k/uL (150-450); RBC 2.17 m/uL (3.80-5.40); RDW 13.9 % (11.5-15.5); WBC 4.6 k/uL (3.8-10.6)
--- NOTE | 2018-01-21 08:18 | XR ---
EXAMINATION TYPE: XR chest 1V DATE OF EXAM: 01/21/2018 COMPARISON: 01/20/2018 HISTORY: Left-sided thoracostomy tube placement and pleural effusion. Follow-up exam. TECHNIQUE: Single frontal view of the chest is obtained. FINDINGS: There is similar placement of left thoracostomy tube with its fenestrated portion beyond t he chest wall, appropriately placed. A small likely loculated lateral left pleural effusion and assoc iated left basilar atelectasis are similar to the prior. Old fracture deformities of the right latera l ribs are seen. Cardiomediastinal silhouette is stable from the prior and upper limits of normal. De gree of mediastinal widening has improved from the prior. Fracture deformities of the upper left ribs are also seen. No residual pneumothorax is identified. IMPRESSION: Similar-appearing left thoracostomy tube, residual trace left pleural effusion and left basilar airsp tello disease most commonly atelectasis.
[2018-01-21 08:33] LABS: Albumin 2.4 g/dL (3.5-5.0); Calcium 8.6 mg/dL (8.4-10.2); Potassium 4.3 mmol/L (3.5-5.1); Total Bilirubin 0.3 mg/dL (0.2-1.3); Total Protein 4.4 g/dL (6.3-8.2)
--- NOTE | 2018-01-21 08:48 | CONS ---
CONSULTATION DATE OF SERVICE: 01/20/2018 REASON FOR CONSULTATION: Urinary tract infection. HISTORY OF PRESENT ILLNESS: The patient is a 62-year-old female who presented to the ER with chief complaints of alcohol intoxication. The patient apparently did have a fall with a bruise to the chest wall wound in addition to a bloody vomiting. The patient has been complaining of bruising all over with broken ribs and significant pain. The patient's pain is mostly to the ribcage area, sharp intense about 6 to 7/10, and no radiation. She did have mild cough but denies any sputum production. Denies having any URI symptoms. No abdominal pain. No diarrhea. Minimal burning of urine but no frequency or any suprapubic pain. With these symptoms, the patient has been evaluated by the ER physician. 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 Multiple old rib fractures and new acute left posterior rib fracture with inferior atelectasis at the left lower lobe with pleural effusion. Patient has been afebrile during this hospital admission and the patient did have a normal white count. Patient did have a UA done on 01/15, which did show large disease more than 1 or 2 WBC. Cultures did show an E coli that is a sensitive pathogen. Patient currently is on Rocephin, Zithromax, amoxicillin. Infectious Disease was consulted for further recommendation regarding antibiotic therapy. REVIEW OF SYSTEMS: CONSTITUTIONAL: Positive for weakness but no fever. EYES: No complaint. ENT: No complaint. RESPIRATORY: As per HPI. CARDIOVASCULAR: No complaint. GENITOURINARY: As per HPI. GASTROINTESTINAL: No complaint. MUSCULOSKELETAL: As per HPI. INTEGUMENTARY: No complaint. PSYCHOLOGICAL: No complaint. NEUROLOGICAL: No complaint. PAST MEDICAL HISTORY: Significant for COPD, CVA, TIA, gastroesophageal reflux disease, hypertension and . PAST SURGICAL HISTORY: , cataracts removal, D and C. PSYCHOLOGICAL HISTORY: Positive for anxiety, depression, ADHD. SOCIAL HISTORY: Former smoker, heavy drinker, no drug use. FAMILY HISTORY: Mother with history of congestive heart failure. ALLERGIES: No known drug allergies. MEDICATION: The patient is currently on [place], DuoNeb, Zyloprim, amoxicillin, Zithromax, Pulmicort, Rocephin, [place], Prozac, Ativan, Narcan, Zofran, Protonix, K-Dur, and Restoril. PHYSICAL EXAMINATION: Blood pressure is 124/78 with a pulse of 88, temperature of 98.3, She is 97% on 4 L nasal cannula. General description is a middle-aged female, lying in bed in no distress. No tachypnea or accessory muscle for respiration use. HEENT EXAMINATION: Shows slight pallor. No scleral icterus. Oral mucosa is extremely dry. No pharyngeal erythema. NECK: Trachea central with no thyromegaly. LUNGS: Unlabored breathing with decreased breath sounds in the base, with no wheeze. HEART: S1, S2. Regular rate and rhythm. ABDOMEN: Soft, no tenderness. No guarding. Did extremities are feet examination some multiple bruises, but no rash or mass palpable neurological patient is awake, alert, and temp in the normal. LABS: Hemoglobin 8.4, white count 5.8 with a BUN of 9 creatinine 0.97. Electrolytes has been normal. Liver enzymes are normal. Urine was positive. Urine drug screen was positive. Plans urine cultures with E coli. DIAGNOSTIC IMPRESSION AND PLAN: 1. Patient admitted to the hospital with full intoxication, fall with multiple bruises of evidence of a left-sided pneumothorax status post chest tube placement with drainage of 91, fluid wound infection, submitted for culture. 2. Underlying pneumonia less likely but not entirely excluded. 3. Patient with acute urinary tract infection with an Escherichia coli that is sensitive pathogen. PLAN: 1. We will keep the patient on Rocephin 1 g daily along with Zithromax while waiting for the clinical condition to stabilize however, discontinue the amoxicillin as no need for double beta-lactam coverage. She will be transitioned to oral antibiotic on discharge. 2. Depending upon clinical response as well as culture and adjust medication. Thank you for this consultation, will follow this patient along with you. MMODL / IJN: [id number] /
[2018-01-21] MEDS: CHLORTHALIDONE 25 MG TAB PO SCH (08:51)
[2018-01-21] MEDS: FLUoxetine HCL 20 MG CAP PO SCH (08:51)
[2018-01-21] MEDS: PANTOPRAZOLE 40 MG TABLET PO SCH ×2 (08:51→21:33)
[2018-01-21] MEDS: POTASSIUM CHLORIDE ER 20 MEQ TAB.ER PO SCH ×3 (08:52→21:33)
[2018-01-21] MEDS: ALLOPURINOL 300 MG TAB PO SCH (08:52)
[2018-01-21] MEDS: MORPHINE SULFATE 4 MG/ML SYRINGE IV PRN ×3 (08:53→17:39)
[2018-01-21] MEDS: SODIUM CHLORIDE 0.9% 1,000 ML IV SCH ×2 (10:00→23:35)
--- NOTE | 2018-01-21 10:45 | P.PN ---
<Kathy Burch E - Last Filed: 01/21/18 10:42> Subjective Progress Note Date: 01/21/18 History of present illness: This is a 62-year-old female patient being seen examined and evaluated today for consultation. This patient came in to the emergency room on 01/15/2018. She was sent from her primary care physician's office for alcohol intoxication and detox. Patient is an every day drinker in stage she drinks approximately a little more than a pint of vodka a day. She recently had a fall related to her intoxication approximately 4 days before coming into the ER. Recent chest x- ray did show a large left pleural effusion with pneumothorax as well as multiple rib fractures that were slightly displaced. She also did have an echocardiogram recently which showed an EF of 50-55%. Her admission hemoglobin was 12.9, her hemoglobin yesterday was 8.9. Her current labs for today are pending. The patient is a one pack per day former smoker for approximately 30 years. Every chest x-ray from today is pending. We also ordered an ultrasound of the chest. She denies any blood thinners at home. Cardiothoracic is also on consult for possible chest tube placement. Upon examination the patient's resting up in bed on 2-3 L of supplemental oxygen via nasal cannula. She was 82 % on room air. She does complain of a congested nonproductive cough, does have chest pain with coughing. Denies any hemoptysis Interval History: 01/20/18- patient is being seen examined and evaluated today on rounds. She is resting up in bed on 4 L of supplemental oxygen via nasal cannula. She did undergo a chest tube insertion this morning with cardiovascular surgery. Her hemoglobin is stable at 8.6. She has had a total of 2350 ML's of bloody drainage from the chest tube. She continues to have shortness of breath cough and congestion. She is afebrile. No further complaints. All labs and reports have been reviewed 01/21/18- patient is being seen examined and evaluated today on rounds. She is resting up in bed on 2 L of supplemental oxygen via nasal cannula. She was seen by infectious disease yesterday antibiotics have been adjusted. Her chest tube is in place and she has had a total of 2850 ML's out. The drainage is light pink today. Chest x-ray shows trace left effusion. Her hemoglobin today is 7.6. Vital signs have been stable. She does complain of some chest tube insertion site local pain. Objective - Vital Signs Vital signs: Vital Signs Temp 98.6 F 01/21/18 07:00 Pulse 88 01/21/18 07:28 Resp 18 01/21/18 07:00 BP 116/75 01/21/18 07:00 Pulse Ox 94 L 01/21/18 07:17 Intake & Output 01/20/18 01/21/18 01/21/18 18:59 06:59 18:59 Output Total 2850 150 Balance -2850 -150 Output: Chest Tube Drainage 2850 150 Chest Tube Left 2850 150 Other: # Voids 2 1 - Exam GENERAL EXAM: Alert, comfortable in no apparent distress. HEAD: Normocephalic. EYES: Normal reaction of pupils, equal size. NOSE: Clear with pink turbinates. THROAT: No erythema or exudates. NECK: No masses, no JVD. CHEST: No chest wall deformity. Chest tube insertion site clean dry and intact , hooked to wall suction LUNGS: course lung sounds on the left, lung clear to auscultation on the right CVS: S1 and S2 normal with no audible mumurs, regular rhythm. ABDOMEN: No hepatosplenomegaly, normal bowel sounds, no guarding or rigidity. EXTREMITIES: No edema noted, pedal pulses palpable. CENTRAL NERVOUS SYSTEM: No focal deficits, tone is normal in all 4 extremities. - Labs CBC & Chem 7: 01/21/18 07:36 01/21/18 07:36 Labs: Abnormal Lab Results - Last 24 Hours (Table) 01/20/18 01/21/18 01/21/18 Range/Units 13:45 07:36 07:36 RBC 2.32 L 2.17 L (3.80-5.40) m/uL Hgb 8.4 L 7.6 L (11.4-16.0) gm/dL Hct 25.4 L 23.3 L (34.0-46.0) % MCV 109.4 H 107.1 H (80.0-100.0) fL MCH 36.3 H 35.2 H (25.0-35.0) pg Chloride 110 H (98-107) mmol/L Total Protein 4.4 L (6.3-8.2) g/dL Albumin 2.4 L (3.5-5.0) g/dL Assessment and Plan Assessment: Assessment Acute hypoxic respiratory failure requiring supplemental oxygen Large left-sided pleural effusion with hemothorax Recent traumatic fall Possible underlying pneumonia, cant be excluded Alcohol abuse Multiple fractures of the left side of the ribs Present on admission UTI Impending DTs and alcohol withdrawals Hypertension Plan Medications have been reviewed and will be continued as ordered. Continue to monitor hemoglobin Antibiotics, ID on consult Consult for cardiothoracic surgery Continue to monitor chest tube insertion site and drainage Chest x-ray and labs tomorrow WA protocol No blood thinners Continue with pulmonary hygiene, coughing and deep breathing exercises, and supportive care. Initiate and encourage incentive spirometer Supplemental oxygen to maintain oxygen saturations of 92% or better. Continue nebulizer treatments. GI and DVT prophylaxis. SCDs Increase activity as tolerated PT and OT We will continue to monitor labs/results and adjust treatment as necessary. Further recommendations pending. I performed an examination of the patient and discussed their management with the nurse practitioner. I have reviewed the nurse practitioner's note and agree with the documented findings and plan of care. <Leigha Doty A - Last Filed: 01/21/18 11:04> Objective - Vital Signs Vital signs: Vital Signs Temp 98.6 F 01/21/18 07:00 Pulse 88 01/21/18 07:28 Resp 18 01/21/18 07:00 BP 116/75 01/21/18 07:00 Pulse Ox 94 L 01/21/18 07:17 Intake & Output 01/20/18 01/21/18 01/21/18 18:59 06:59 18:59 Output Total 2850 150 Balance -2850 -150 Output: Chest Tube Drainage 2850 150 Chest Tube Left 2850 150 Other: # Voids 2 1 - Labs CBC & Chem 7: 01/21/18 07:36 01/21/18 07:36 Labs: Abnormal Lab Results - Last 24 Hours (Table) 01/20/18 01/21/18 01/21/18 Range/Units 13:45 07:36 07:36 RBC 2.32 L 2.17 L (3.80-5.40) m/uL Hgb 8.4 L 7.6 L (11.4-16.0) gm/dL Hct 25.4 L 23.3 L (34.0-46.0) % MCV 109.4 H 107.1 H (80.0-100.0) fL MCH 36.3 H 35.2 H (25.0-35.0) pg Chloride 110 H (98-107) mmol/L Total Protein 4.4 L (6.3-8.2) g/dL Albumin 2.4 L (3.5-5.0) g/dL Assessment and Plan Assessment: Patient seen and examined. Chest tube with 2850 cc output total. Patient states her breathing and pain are improved. She has no needs or complaints. She is using IS. Follow CXR. PT and OT. ~Leigha Doty DO
--- NOTE | 2018-01-21 14:01 | P.PN ---
Subjective Progress Note Date: 01/21/18 Principal diagnosis: Hemothorax status post fall at home. Previous medical history of alcoholism with consumption of 1. today last 20 years, previous tobacco dependence, COPD, GERD, history of chronic kidney disease stage III, and questionable TIA. POD #1 left-sided chest tube placement with evacuation of 2 L dark red blood. Patient is currently sitting up in bed in no acute distress. States she feels much better today. Pain is controlled current pain medication. Denies shortness of breath. Objective - Vital Signs Vital signs: Vital Signs Temp 98.6 F 01/21/18 07:00 Pulse 88 01/21/18 12:57 Resp 18 01/21/18 07:00 BP 116/75 01/21/18 07:00 Pulse Ox 94 L 01/21/18 07:17 Intake & Output 01/20/18 01/21/18 01/21/18 18:59 06:59 18:59 Output Total 2850 150 Balance -2850 -150 Output: Chest Tube Drainage 2850 150 Chest Tube Left 2850 150 Other: # Voids 2 1 - Constitutional General appearance: Present: cooperative, no acute distress - Respiratory Details: Lungs sounds diminished bilaterally. Respirations even, nonlabored. Currently on 2 L nasal cannula with oxygen saturation 94%. Left pleural chest tube to continuous wall suction, 150 mL serous fluid drained overnight, no air leak present. - Cardiovascular Details: S1, S2 present. Regular rate and rhythm. Palpable peripheral pulses bilaterally. No edema present. No calf pain or tenderness noted. - Gastrointestinal Gastrointestinal Comment(s): Abdomen soft, nontender, nondistended. Active bowel sounds has 4 quadrants. Tolerating diet. - Genitourinary Genitourinary Comment(s): Continues to void clear, yellow urine. - Integumentary Integumentary Comment(s): Skin is warm and dry with evidence of good perfusion. Dressing covering left lateral chest tube dry and intact. - Neurologic Neurologic: Present: CNII-XII intact - Musculoskeletal Musculoskeletal: Present: gait normal, strength equal bilaterally - Psychiatric Psychiatric: Present: A&O x's 3, appropriate affect, intact judgment & insight - Allied health notes Allied health notes reviewed: nursing - Labs CBC & Chem 7: 01/21/18 07:36 01/21/18 07:36 Labs: Abnormal Lab Results - Last 24 Hours (Table) 01/20/18 01/21/18 01/21/18 Range/Units 13:45 07:36 07:36 RBC 2.32 L 2.17 L (3.80-5.40) m/uL Hgb 8.4 L 7.6 L (11.4-16.0) gm/dL Hct 25.4 L 23.3 L (34.0-46.0) % MCV 109.4 H 107.1 H (80.0-100.0) fL MCH 36.3 H 35.2 H (25.0-35.0) pg Chloride 110 H (98-107) mmol/L Total Protein 4.4 L (6.3-8.2) g/dL Albumin 2.4 L (3.5-5.0) g/dL - Imaging and Cardiology Chest x-ray: image reviewed Assessment and Plan (1) COPD (chronic obstructive pulmonary disease) Current Visit: Yes Status: Chronic Code(s): J44.9 - CHRONIC OBSTRUCTIVE PULMONARY DISEASE, UNSPECIFIED SNOMED Code(s): 74264372 (2) Tobacco dependence in remission Current Visit: No Status: Resolved Code(s): F17.201 - NICOTINE DEPENDENCE, UNSPECIFIED, IN REMISSION SNOMED Code(s): 025748658 (3) History of kidney disease Current Visit: No Status: Resolved Code(s): Z87.448 - PERSONAL HISTORY OF OTHER DISEASES OF URINARY SYSTEM SNOMED Code(s): 740908236 (4) Hemothorax on left Current Visit: Yes Status: Acute Code(s): J94.2 - HEMOTHORAX SNOMED Code(s ): 16375301 (5) Alcohol abuse Current Visit: Yes Status: Chronic Code(s): F10.10 - ALCOHOL ABUSE, UNCOMPLICATED SNOMED Code(s): 96395404 (6) Alcohol withdrawal syndrome Current Visit: No Status: Resolved Code(s): F10.239 - ALCOHOL DEPENDENCE WITH WITHDRAWAL, UNSPECIFIED SNOMED Code(s): 409093488 (7) Multiple fractures of ribs of left side Current Visit: Yes Status: Acute Code(s): S22.42XA - MULTIPLE FRACTURES OF RIBS, LEFT SIDE, INIT FOR CLOS FX SNOMED Code(s): 7895296 (8) UTI (urinary tract infection) Current Visit: Yes Status: Acute Code(s): N39.0 - URINARY TRACT INFECTION, SITE NOT SPECIFIED SNOMED Code(s): 88646950 Plan: 1. Chest tube placed to waterseal to allow for increased activity. Monitor drainage. 2. Wean O2 as tolerated. Encourage incentive spirometry 10 times every hour while awake. 3. Pain control with ordered medication regimen. 4. Continue [facility] protocol for alcohol withdrawal. 5. Bronchodilators, steroids, antibiotics per Dr. Doty. 6. Increase activity, up in chair, ambulate in hallway. 7. Medical management per Dr. Pan. 8. More recommendations to follow. Time with Patient: Greater than 30
[2018-01-21] MEDS: LORazepam 2 MG/ML INJ IV PRN ×2 (15:28→21:33)
[2018-01-21] MEDS: cefTRIAXone IN SWFI 1,000 MG/10 ML SYRINGE IVP SCH (17:38)
--- NOTE | 2018-01-21 19:20 | PN ---
PROGRESS NOTE DATE OF SERVICE: 01/21/2018. CHIEF COMPLAINT: Alcoholism, DTs, cirrhosis, left rib fractures and hemothorax. HISTORY OF PRESENT ILLNESS: This lady is doing much better. She is weak, but she is completely oriented and appropriate now. Chest tube is in place. PHYSICAL EXAM: Color is good. Breath sounds are heard on both sides. Cardiac exam is normal. Abdomen is soft, nontender. IMPRESSION: 1. Chronic alcoholism. 2. Acute alcohol intoxication. 3. Delirium tremens. 4. Left-sided rib fractures. 5. Left-sided hemothorax. 6. Urinary tract infection. PLAN: Continue to follow. Once her chest tube is out, we will be able to consider sending her home. MMODL / IJN: [id number] /
[2018-01-21] MEDS: traZODone HCL 100 MG TAB PO SCH (21:33)
[2018-01-21] MEDS: AZITHROMYCIN 500 MG TAB PO SCH (21:33)
--- NOTE | 2018-01-21 22:54 | PN ---
PROGRESS NOTE DATE OF SERVICE: 01/21/2018. REASON FOR FOLLOWUP: E coli and urinary tract infection. INTERVAL HISTORY: The patient is afebrile. She is breathing comfortably. She has been complaining of pain into the left lower chest area. No nausea, vomiting. No abdominal pain. No diarrhea. EXAMINATION: Blood pressure is 114/72 with a pulse of 92, temperature of 98.8. She is 95% on 5 L nasal cannula. General description is a middle-aged female up in the bed in no distress. Respiratory system: Unlabored breathing with decreased breath sounds at the bases. No wheeze. Heart S1, S2. Regular rate and rhythm. Abdomen soft, no tenderness. LABS: Hemoglobin 7.8, white count 4.3 with a BUN of 8, creatinine 0.8. DIAGNOSTIC IMPRESSION AND PLAN: Patient with Escherichia coli urinary tract infection, currently on Rocephin. Plan to finish therapy with oral amoxicillin 500 mg t.i.d. for about 5 days. Continue supportive care. MMODL / IJN: [id number] /
[2018-01-22] MEDS: LORazepam 2 MG/ML INJ IV PRN (00:46)
[2018-01-22] MEDS: HYDROcodone/APAP 5-325MG 1 EACH TAB PO PRN ×4 (03:29→20:39)
[2018-01-22] MEDS: IPRATROPIUM-ALBUTEROL 3 ML NEB INHALATION SCH ×3 (07:09→19:34)
[2018-01-22] MEDS: BUDESONIDE 0.5 MG/2 ML NEBU INHALATION SCH ×2 (07:09→19:38)
[2018-01-22] MEDS: MORPHINE ORAL SOLN 10 MG/5 ML CUP PO PRN ×4 (08:39→22:53)
[2018-01-22 08:55] LABS: Basophils % (A) 0 %; Eosinophils # (A) 0.1 k/uL (0-0.7); Eosinophils % (A) 4 %; HCT 22.5 % (34.0-46.0); HGB 7.6 gm/dL (11.4-16.0); Hypochromasia Slight; Lymphocytes # (A) 1.1 k/uL (1.0-4.8); Lymphocytes % (A) 28 %; MCHC 33.7 g/dL (31.0-37.0); Macrocytosis Marked; Mean Platelet Volume 7.2; Monocytes # (A) 0.3 k/uL (0-1.0); Monocytes % (A) 7 %; Neutrophils # (A) 2.3 k/uL (1.3-7.7); Neutrophils % (A) 60 %; Platelet Count 251 k/uL (150-450); RBC 2.05 m/uL (3.80-5.40); RDW 14.1 % (11.5-15.5); WBC 3.9 k/uL (3.8-10.6)
[2018-01-22 08:59] LABS: ALT 23 U/L (9-52); AST 15 U/L (14-36); Albumin 2.2 g/dL (3.5-5.0); Alkaline Phosphatase 61 U/L (38-126); Anion Gap 4 mmol/L; Blood Urea Nitrogen 7 mg/dL (7-17); Calcium 8.5 mg/dL (8.4-10.2); Carbon Dioxide 24 mmol/L (22-30); Chloride 110 mmol/L (98-107); Glucose 83 mg/dL (74-99); Potassium 4.4 mmol/L (3.5-5.1); Sodium 138 mmol/L (137-145); Total Bilirubin 0.2 mg/dL (0.2-1.3); Total Protein 4.2 g/dL (6.3-8.2)
[2018-01-22 09:07] VITALS: BMI 25.1
--- NOTE | 2018-01-22 09:13 | XR ---
EXAMINATION TYPE: XR chest 1V portable DATE OF EXAM: 01/22/2018 COMPARISON: 01/21/2018 INDICATION: Short of breath TECHNIQUE: Single frontal view of the chest is obtained. FINDINGS: The heart size is normal. The pulmonary vasculature is normal. There is blunting left costophrenic angle. Small pleural effusion or atelectasis may be present. Some atelectatic infiltrate may be at the left base. No pneumothorax is evident. Left-sided chest tube is stable. Old right rib fractures are noted. IMPRESSION: 1. Small left pleural effusion. 2. Left basilar atelectasis. 3. No pneumothorax. Chest tube remains in position.
--- NOTE | 2018-01-22 09:16 | P.PN ---
Subjective Progress Note Date: 01/22/18 This is a 62-year-old female patient being seen examined and evaluated today for consultation. This patient came in to the emergency room on 01/15/2018. She was sent from her primary care physician's office for alcohol intoxication and detox. Patient is an every day drinker in stage she drinks approximately a little more than a pint of vodka a day. She recently had a fall related to her intoxication approximately 4 days before coming into the ER. Recent chest x- ray did show a large left pleural effusion with pneumothorax as well as multiple rib fractures that were slightly displaced. She also did have an echocardiogram recently which showed an EF of 50-55%. Her admission hemoglobin was 12.9, her hemoglobin yesterday was 8.9. Her current labs for today are pending. The patient is a one pack per day former smoker for approximately 30 years. Every chest x-ray from today is pending. We also ordered an ultrasound of the chest. She denies any blood thinners at home. Cardiothoracic is also on consult for possible chest tube placement. Upon examination the patient's resting up in bed on 2-3 L of supplemental oxygen via nasal cannula. She was 82 % on room air. She does complain of a congested nonproductive cough, does have chest pain with coughing. Denies any hemoptysis Interval History: 01/20/18- patient is being seen examined and evaluated today on rounds. She is resting up in bed on 4 L of supplemental oxygen via nasal cannula. She did undergo a chest tube insertion this morning with cardiovascular surgery. Her hemoglobin is stable at 8.6. She has had a total of 2350 ML's of bloody drainage from the chest tube. She continues to have shortness of breath cough and congestion. She is afebrile. No further complaints. All labs and reports have been reviewed 01/21/18- patient is being seen examined and evaluated today on rounds. She is resting up in bed on 2 L of supplemental oxygen via nasal cannula. She was seen by infectious disease yesterday antibiotics have been adjusted. Her chest tube is in place and she has had a total of 2850 ML's out. The drainage is light pink today. Chest x-ray shows trace left effusion. Her hemoglobin today is 7.6. Vital signs have been stable. She does complain of some chest tube insertion site local pain. 01/22/2018: Patient seen and examined. Patient is laying in bed on room air. The patient is tearful and states that she has not gotten her pain medications as soon as she asks for it. She states that the pain medication does help when she receives it on time. She states her breathing is getting better. She's been hemodynamically stable. Objective - Vital Signs Vital signs: Vital Signs Temp 99.0 F 01/22/18 06:49 Pulse 92 01/22/18 07:20 Resp 16 01/22/18 06:49 BP 120/79 01/22/18 06:49 Pulse Ox 94 L 01/22/18 06:49 Intake & Output 01/21/18 01/22/18 01/22/18 18:59 06:59 18:59 Output Total 542 450 Balance -542 -450 Weight 77.111 kg Output: Chest Tube Drainage 542 450 Chest Tube Left 542 450 Other: # Voids 3 2 - Exam GENERAL EXAM: Alert, comfortable in no apparent distress. HEAD: Normocephalic. EYES: Normal reaction of pupils, equal size. NOSE: Clear with pink turbinates. THROAT: No erythema or exudates. NECK: No masses, no JVD. CHEST: No chest wall deformity. Chest tube insertion site clean dry and intact , hooked to wall suction LUNGS: course lung sounds on the left, lung clear to auscultation on the right CVS: S1 and S2 normal with no audible mumurs, regular rhythm. ABDOMEN: No hepatosplenomegaly, normal bowel sounds, no guarding or rigidity. EXTREMITIES: No edema noted, pedal pulses palpable. CENTRAL NERVOUS SYSTEM: No focal deficits, tone is normal in all 4 extremities. - Labs CBC & Chem 7: 01/22/18 07:48 01/22/18 07:48 Labs: Abnormal Lab Results - Last 24 Hours (Table) 01/22/18 01/22/18 Range/Units 07:48 07:48 RBC 2.05 L (3.80-5.40) m/uL Hgb 7.6 L (11.4-16.0) gm/dL Hct 22.5 L (34.0-46.0) % MCV 110.0 H (80.0-100.0) fL MCH 37.0 H (25.0-35.0) pg Chloride 110 H (98-107) mmol/L Total Protein 4.2 L (6.3-8.2) g/dL Albumin 2.2 L (3.5-5.0) g/dL Assessment and Plan Assessment: Acute hypoxic respiratory failure requiring supplemental oxygen Large left-sided pleural effusion with hemothorax Recent traumatic fall Possible underlying pneumonia, cant be excluded Alcohol abuse Multiple fractures of the left side of the ribs Present on admission UTI Impending DTs and alcohol withdrawals Hypertension Plan Medications have been reviewed and will be continued as ordered. Continue to monitor hemoglobin Antibiotics, ID on consult Continue to monitor chest tube insertion site and drainage Chest x-ray and labs WA protocol No blood thinners Continue with pulmonary hygiene, coughing and deep breathing exercises, and supportive care. Initiate and encourage incentive spirometer Supplemental oxygen to maintain oxygen saturations of 92% or better. Continue nebulizer treatments. GI and DVT prophylaxis. SCDs Increase activity as tolerated PT and OT We will continue to monitor labs/results and adjust treatment as necessary. Further recommendations pending.
[2018-01-22] MEDS: ALLOPURINOL 300 MG TAB PO SCH (10:15)
[2018-01-22] MEDS: POTASSIUM CHLORIDE ER 20 MEQ TAB.ER PO SCH ×3 (10:15→20:38)
[2018-01-22] MEDS: FLUoxetine HCL 20 MG CAP PO SCH (10:15)
[2018-01-22] MEDS: CHLORTHALIDONE 25 MG TAB PO SCH (10:15)
[2018-01-22] MEDS: PANTOPRAZOLE 40 MG TABLET PO SCH ×2 (10:15→20:38)
[2018-01-22] MEDS: THIAMINE 100 MG TAB PO SCH ×2 (10:15→20:38)
--- NOTE | 2018-01-22 12:11 | P.PN ---
Subjective Progress Note Date: 01/22/18 Principal diagnosis: Hemothorax status post fall at home. Previous medical history of alcoholism with consumption of 1. today last 20 years, previous tobacco dependence, COPD, GERD, history of chronic kidney disease stage III, and questionable TIA. POD #2 left-sided chest tube placement with evacuation of 2 L dark red blood. Patient is currently laying in bed in no acute distress. States she feels much better today. Pain is controlled when she gets her pain medication. Denies shortness of breath. Objective - Vital Signs Vital signs: Vital Signs Temp 99.0 F 01/22/18 06:49 Pulse 92 01/22/18 07:20 Resp 16 01/22/18 06:49 BP 120/79 01/22/18 06:49 Pulse Ox 94 L 01/22/18 06:49 Intake & Output 01/21/18 01/22/18 01/22/18 18:59 06:59 18:59 Output Total 542 450 Balance -542 -450 Weight 77.111 kg Output: Chest Tube Drainage 542 450 Chest Tube Left 542 450 Other: # Voids 3 2 2 - Constitutional General appearance: Present: cooperative, no acute distress - Respiratory Details: Lungs sounds diminished bilaterally. Respirations even, nonlabored. Currently on 4 L nasal cannula with oxygen saturation 94%. Left pleural chest tube to waterseal, 450 mL serous fluid drained overnight, no air leak present. - Cardiovascular Details: S1, S2 present. Regular rate and rhythm. Palpable peripheral pulses bilaterally. No edema present. No calf pain or tenderness noted. - Gastrointestinal Gastrointestinal Comment(s): Abdomen soft, nontender, nondistended. Active bowel sounds has 4 quadrants. Tolerating diet. - Genitourinary Genitourinary Comment(s): Continues to void clear, yellow urine. - Integumentary Integumentary Comment(s): Skin is warm and dry with evidence of good perfusion. Dressing covering left lateral chest tube dry and intact. - Neurologic Neurologic: Present: CNII-XII intact - Musculoskeletal Musculoskeletal: Present: gait normal, strength equal bilaterally - Psychiatric Psychiatric: Present: A&O x's 3, appropriate affect, intact judgment & insight - Allied health notes Allied health notes reviewed: nursing - Labs CBC & Chem 7: 01/22/18 07:48 01/22/18 07:48 Labs: Abnormal Lab Results - Last 24 Hours (Table) 01/22/18 01/22/18 Range/Units 07:48 07:48 RBC 2.05 L (3.80-5.40) m/uL Hgb 7.6 L (11.4-16.0) gm/dL Hct 22.5 L (34.0-46.0) % MCV 110.0 H (80.0-100.0) fL MCH 37.0 H (25.0-35.0) pg Chloride 110 H (98-107) mmol/L Total Protein 4.2 L (6.3-8.2) g/dL Albumin 2.2 L (3.5-5.0) g/dL - Imaging and Cardiology Chest x-ray: report reviewed, image reviewed Assessment and Plan (1) COPD (chronic obstructive pulmonary disease) Current Visit: Yes Status: Chronic Code(s): J44.9 - CHRONIC OBSTRUCTIVE PULMONARY DISEASE, UNSPECIFIED SNOMED Code(s): 10424995 (2) Tobacco dependence in remission Current Visit: No Status: Resolved Code(s): F17.201 - NICOTINE DEPENDENCE, UNSPECIFIED, IN REMISSION SNOMED Code(s): 382627524 (3) History of kidney disease Current Visit: No Status: Resolved Code(s): Z87.448 - PERSONAL HISTORY OF OTHER DISEASES OF URINARY SYSTEM SNOMED Code(s): 809517948 (4) Hemothorax on left Current Visit: Yes Status: Acute Code(s): J94.2 - HEMOTHORAX SNOMED Code(s ): 99169893 (5) Alcohol abuse Current Visit: Yes Status: Chronic Code(s): F10.10 - ALCOHOL ABUSE, UNCOMPLICATED SNOMED Code(s): 80500835 (6) Alcohol withdrawal syndrome Current Visit: No Status: Resolved Code(s): F10.239 - ALCOHOL DEPENDENCE WITH WITHDRAWAL, UNSPECIFIED SNOMED Code(s): 606238253 (7) Multiple fractures of ribs of left side Current Visit: Yes Status: Acute Code(s): S22.42XA - MULTIPLE FRACTURES OF RIBS, LEFT SIDE, INIT FOR CLOS FX SNOMED Code(s): 7489672 (8) UTI (urinary tract infection) Current Visit: Yes Status: Acute Code(s): N39.0 - URINARY TRACT INFECTION, SITE NOT SPECIFIED SNOMED Code(s): 23005825 Plan: 1. Chest tube placed to waterseal to allow for increased activity. Monitor drainage. Likely will discontinue tomorrow. 2. Wean O2 as tolerated. Encourage incentive spirometry 10 times every hour while awake. 3. Pain control with ordered medication regimen. 4. Continue [facility] protocol for alcohol withdrawal. 5. Bronchodilators, steroids, antibiotics per Dr. Doty. 6. Increase activity, up in chair, ambulate in hallway. 7. Medical management per Dr. Pan. 8. More recommendations to follow. Time with Patient: Greater than 30
[2018-01-22] MEDS: SODIUM CHLORIDE 0.9% 1,000 ML IV SCH (12:50)
[2018-01-22] MEDS: cefTRIAXone IN SWFI 1,000 MG/10 ML SYRINGE IVP SCH (17:40)
[2018-01-22] MEDS: traZODone HCL 100 MG TAB PO SCH (20:38)
[2018-01-22] MEDS: AZITHROMYCIN 500 MG TAB PO SCH (20:39)
--- NOTE | 2018-01-22 22:49 | PN ---
PROGRESS NOTE DATE OF SERVICE: 01/22/2018. REASON FOR FOLLOWUP: E. coli urinary tract infection. INTERVAL HISTORY: The patient is currently afebrile. She is breathing comfortably. Pain to the left lower chest area is improved. Denies having any chest pain, cough, sputum production. No abdominal pain or any diarrhea. EXAMINATION: Blood pressure 107/72 with a pulse of 96, temperature 98.6. He is 99% on 4L nasal cannula. General description is an middle-aged female up in the chair in no distress. RESPIRATORY SYSTEM: Unlabored breathing with decreased breath sounds in the bases. No wheeze. HEART: S1, S2. Regular rate and rhythm. ABDOMEN: Soft, no tenderness. LABS: Hemoglobin 7.6, white count of 3.9 with a BUN of 7, creatinine 0.80. DIAGNOSTIC IMPRESSION AND PLAN: Patient with Escherichia coli urinary tract infection. The patient is currently covered with Rocephin. Transition to oral amoxicillin on discharge to finish a course of therapy. Continue with supportive care. MMODL / IJN: [id number] /
[2018-01-23] MEDS: HYDROcodone/APAP 5-325MG 1 EACH TAB PO PRN ×5 (00:39→20:01)
[2018-01-23] MEDS: MORPHINE ORAL SOLN 10 MG/5 ML CUP PO PRN ×2 (02:58→06:56)
[2018-01-23] MEDS: SODIUM CHLORIDE 0.9% 1,000 ML IV SCH ×2 (02:58→14:54)
[2018-01-23] MEDS: POTASSIUM CHLORIDE ER 20 MEQ TAB.ER PO SCH ×3 (08:49→21:20)
[2018-01-23] MEDS: PANTOPRAZOLE 40 MG TABLET PO SCH ×2 (08:49→20:01)
[2018-01-23] MEDS: CHLORTHALIDONE 25 MG TAB PO SCH (08:49)
[2018-01-23] MEDS: ALLOPURINOL 300 MG TAB PO SCH (08:49)
[2018-01-23] MEDS: THIAMINE 100 MG TAB PO SCH ×2 (08:50→20:02)
[2018-01-23] MEDS: FLUoxetine HCL 20 MG CAP PO SCH (08:50)
[2018-01-23 08:55] LABS: Basophils % (A) 0 %; Eosinophils # (A) 0.2 k/uL (0-0.7); Eosinophils % (A) 5 %; HCT 27.9 % (34.0-46.0); HGB 8.9 gm/dL (11.4-16.0); Hypochromasia Slight; Lymphocytes % (A) 26 %; MCH 35.1 pg (25.0-35.0); MCHC 31.8 g/dL (31.0-37.0); MCV 110.4 fL (80.0-100.0); Macrocytosis Marked; Mean Platelet Volume 7.2; Monocytes # (A) 0.2 k/uL (0-1.0); Monocytes % (A) 6 %; Neutrophils # (A) 2.3 k/uL (1.3-7.7); Neutrophils % (A) 61 %; Platelet Count 312 k/uL (150-450); Poikilocytosis Slight; RBC 2.53 m/uL (3.80-5.40); RDW 14.1 % (11.5-15.5); WBC 3.8 k/uL (3.8-10.6)
[2018-01-23] MEDS ORDERED: MAGNESIUM HYDROXIDE 2,400 MG/10 ML CUP PO PRN (09:14)
[2018-01-23] MEDS ORDERED: BISACODYL 10 MG SUPP RECTAL PRN (09:14)
[2018-01-23 09:15] LABS: Albumin 2.6 g/dL (3.5-5.0); Calcium 8.7 mg/dL (8.4-10.2); Potassium 4.3 mmol/L (3.5-5.1); Total Bilirubin 0.2 mg/dL (0.2-1.3); Total Protein 4.8 g/dL (6.3-8.2)
[2018-01-23] MEDS: BUDESONIDE 0.5 MG/2 ML NEBU INHALATION SCH ×2 (09:27→19:34)
[2018-01-23] MEDS: IPRATROPIUM-ALBUTEROL 3 ML NEB INHALATION SCH ×3 (09:27→19:34)
--- NOTE | 2018-01-23 11:32 | MISC ---
MISCELLANOUS REPORT QUERY: Etiology of her anemia was acute blood loss anemia due to rib fractures and hemothorax. MMODL / IJN: [id number] /
--- NOTE | 2018-01-23 11:32 | MISC ---
MISCELLANOUS REPORT QUERY: Has question about pneumonia. She did not actually have pneumonia. It turned out that she had hemothorax secondary to rib fractures. MMODL / IJN: [id number] /
--- NOTE | 2018-01-23 12:04 | P.PN ---
Subjective Progress Note Date: 01/23/18 Principal diagnosis: Hemothorax status post fall at home. Previous medical history of alcoholism with consumption of 1. today last 20 years, previous tobacco dependence, COPD, GERD, history of chronic kidney disease stage III, and questionable TIA. POD #3 left-sided chest tube placement with evacuation of 2 L dark red blood. Patient is currently laying in bed in no acute distress. States she feels much better today. Pain is controlled when she gets her pain medication, although she is getting constipated as she is asking for [place] and morphine around the clock. Denies shortness of breath. Objective - Vital Signs Vital signs: Vital Signs Temp 97.8 F 01/23/18 06:44 Pulse 90 01/23/18 09:45 Resp 16 01/23/18 06:44 BP 100/67 01/23/18 06:44 Pulse Ox 95 01/23/18 09:30 Intake & Output 01/22/18 01/23/18 01/23/18 18:59 06:59 18:59 Intake Total 300 Output Total 50 1000 Balance -50 300 -1000 Weight 77.111 kg Intake: Oral 300 Output: Chest Tube Drainage 50 1000 Chest Tube Left 50 1000 Other: Voiding Method Bedside Commode # Voids 2 2 1 - Constitutional General appearance: Present: cooperative, no acute distress - Respiratory Details: Lungs sounds diminished bilaterally. Respirations even, nonlabored. Currently on 2 L nasal cannula with oxygen saturation 94%. Left pleural chest tube to waterseal, 550 mL serous fluid drained the last 24 hours, no air leak present. - Cardiovascular Details: S1, S2 present. Regular rate and rhythm. Palpable peripheral pulses bilaterally. No edema present. No calf pain or tenderness noted. - Gastrointestinal Gastrointestinal Comment(s): Abdomen soft, nontender, nondistended. Active bowel sounds has 4 quadrants. Tolerating diet. - Genitourinary Genitourinary Comment(s): Continues to void clear, yellow urine. - Integumentary Integumentary Comment(s): Skin is warm and dry with evidence of good perfusion. Dressing covering left lateral chest tube dry and intact. - Neurologic Neurologic: Present: CNII-XII intact - Musculoskeletal Musculoskeletal: Present: gait normal, strength equal bilaterally - Psychiatric Psychiatric: Present: A&O x's 3, appropriate affect, intact judgment & insight - Allied health notes Allied health notes reviewed: nursing - Labs CBC & Chem 7: 01/23/18 08:32 01/23/18 08:32 Labs: Abnormal Lab Results - Last 24 Hours (Table) 01/23/18 01/23/18 Range/Units 08:32 08:32 RBC 2.53 L (3.80-5.40) m/uL Hgb 8.9 L (11.4-16.0) gm/dL Hct 27.9 L (34.0-46.0) % MCV 110.4 H (80.0-100.0) fL MCH 35.1 H (25.0-35.0) pg Chloride 109 H (98-107) mmol/L Total Protein 4.8 L (6.3-8.2) g/dL Albumin 2.6 L (3.5-5.0) g/dL Assessment and Plan (1) COPD (chronic obstructive pulmonary disease) Current Visit: Yes Status: Chronic Code(s): J44.9 - CHRONIC OBSTRUCTIVE PULMONARY DISEASE, UNSPECIFIED SNOMED Code(s): 75247433 (2) Tobacco dependence in remission Current Visit: No Status: Resolved Code(s): F17.201 - NICOTINE DEPENDENCE, UNSPECIFIED, IN REMISSION SNOMED Code(s): 425112912 (3) History of kidney disease Current Visit: No Status: Resolved Code(s): Z87.448 - PERSONAL HISTORY OF OTHER DISEASES OF URINARY SYSTEM SNOMED Code(s): 932672783 (4) Hemothorax on left Current Visit: Yes Status: Acute Code(s): J94.2 - HEMOTHORAX SNOMED Code(s ): 10737639 (5) Alcohol abuse Current Visit: Yes Status: Chronic Code(s): F10.10 - ALCOHOL ABUSE, UNCOMPLICATED SNOMED Code(s): 75478843 (6) Alcohol withdrawal syndrome Current Visit: No Status: Resolved Code(s): F10.239 - ALCOHOL DEPENDENCE WITH WITHDRAWAL, UNSPECIFIED SNOMED Code(s): 603212062 (7) Multiple fractures of ribs of left side Current Visit: Yes Status: Acute Code(s): S22.42XA - MULTIPLE FRACTURES OF RIBS, LEFT SIDE, INIT FOR CLOS FX SNOMED Code(s): 5372485 (8) UTI (urinary tract infection) Current Visit: Yes Status: Acute Code(s): N39.0 - URINARY TRACT INFECTION, SITE NOT SPECIFIED SNOMED Code(s): 81195442 Plan: 1. Continue chest tube to waterseal. Monitor drainage. Likely will discontinue tomorrow. 2. Wean O2 as tolerated. Encourage incentive spirometry 10 times every hour while awake. 3. Pain control with ordered medication regimen. Stool softeners ordered. 4. Continue [facility] protocol for alcohol withdrawal. 5. Bronchodilators, steroids, antibiotics per Dr. Doty. 6. Increase activity, up in chair, ambulate in hallway. 7. Medical management per Dr. Pan. 8. More recommendations to follow. Time with Patient: Greater than 30
--- NOTE | 2018-01-23 14:23 | PN ---
PROGRESS NOTE DATE OF SERVICE: 01/23/2018 She has been hemodynamically stable. She is not complaining of any shortness of breath. Her respiratory rate is 16, pulse rate of 78, temperature 97.8, blood pressure 100/67, O2 saturation on 2 L by nasal cannula is 94%. HEENT is unremarkable. Chest is clear. Cardiovascular system with an S1, S2. Abdomen is soft. There is no pedal edema. There is decreased breath sound on the let side with chest tube in place. IMPRESSION: 1. Multiple rib fractures on the left side. 2. Urinary tract infection. 3. Impending delirium tremens and alcohol withdrawal. 4. Hypertension. Continue chest tube, pulmonary hygiene, incentive spirometry, GI and DVT prophylaxis. Increase her activity level. Her prognosis at this time is guarded. MMODL / IJN: [id number] /
--- NOTE | 2018-01-23 16:59 | PN ---
PROGRESS NOTE DATE OF SERVICE: 01/23/2018. CHIEF COMPLAINT: DTs, left-sided rib fractures and hemothorax. HISTORY OF PRESENT ILLNESS: This lady is still putting out large quantity of serosanguineous fluid from the chest tube. She is not having any fever, chills, etc. PHYSICAL EXAM: Color is good. Chest is clear. Cardiac exam is normal. Breath sounds are heard on both sides. Chest tube is in place. IMPRESSION: 1. Delirium tremens. 2. Alcoholism. 3. Left-sided rib fractures and hemothorax. 4. Pancytopenia. 5. She is having some trouble with constipation. PLAN: 1. Stool softener. 2. No change program until her chest tube is removed. MMODL / IJN: [id number] /
--- NOTE | 2018-01-23 16:59 | PN ---
PROGRESS NOTE DATE OF SERVICE: 01/22/2018. CHIEF COMPLAINT: DTs, hemothorax. HISTORY OF PRESENT ILLNESS: This lady is completely out of DTs. She is having quite a bit of discomfort in the left chest. Chest tube is still draining quite a bit of serosanguineous fluid. PHYSICAL EXAM: Breath sounds are heard on both sides. Cardiac exam is normal. IMPRESSION: 1. Delirium tremens. 2. Left-sided rib fractures with hemothorax. 3. Blood loss anemia. 4. Alcoholism. 5. Pancytopenia. PLAN: Continue to follow in the hospital until chest tube is removed. MMODL / IJN: [id number] /
[2018-01-23] MEDS: cefTRIAXone IN SWFI 1,000 MG/10 ML SYRINGE IVP SCH (17:04)
[2018-01-23 19:32] LABS: Creatine Kinase 27 U/L (30-135)
[2018-01-23 19:45] LABS: Creatine Kinase MB 0.5 ng/mL (0.0-2.4); Troponin I <0.012 ng/mL (0.000-0.034)
[2018-01-23] MEDS: AZITHROMYCIN 500 MG TAB PO SCH (20:01)
[2018-01-23] MEDS: traZODone HCL 100 MG TAB PO SCH (20:02)
[2018-01-24] MEDS: HYDROcodone/APAP 5-325MG 1 EACH TAB PO PRN ×4 (03:03→21:51)
[2018-01-24] MEDS: SODIUM CHLORIDE 0.9% 1,000 ML IV SCH ×2 (06:33→17:39)
[2018-01-24] MEDS: THIAMINE 100 MG TAB PO SCH ×2 (08:30→20:28)
[2018-01-24] MEDS: FLUoxetine HCL 20 MG CAP PO SCH (08:30)
[2018-01-24] MEDS: PANTOPRAZOLE 40 MG TABLET PO SCH ×2 (08:30→20:28)
[2018-01-24] MEDS: SENNOSIDES 8.6 MG TAB PO SCH (08:30)
[2018-01-24] MEDS: ALLOPURINOL 300 MG TAB PO SCH (08:30)
[2018-01-24] MEDS: POTASSIUM CHLORIDE ER 20 MEQ TAB.ER PO SCH ×3 (08:30→21:51)
[2018-01-24] MEDS: CHLORTHALIDONE 25 MG TAB PO SCH (08:31)
[2018-01-24] MEDS: IPRATROPIUM-ALBUTEROL 3 ML NEB INHALATION SCH ×3 (08:43→19:41)
[2018-01-24] MEDS: BUDESONIDE 0.5 MG/2 ML NEBU INHALATION SCH ×2 (08:43→19:41)
--- NOTE | 2018-01-24 10:00 | PN ---
PROGRESS NOTE DATE OF SERVICE: 01/24/2018. CHIEF COMPLAINT: DTs and left pneumothorax. HISTORY OF PRESENT ILLNESS: This lady is doing well and her tubes to come out today. She has had no other problems. PHYSICAL EXAM: Breath sounds are heard on both sides. Cardiac exam is normal. Abdomen is soft and there are no masses. IMPRESSION: 1. Acute alcohol intoxication. 2. Delirium tremens. 3. Alcoholism. 4. Alcoholic hepatitis. 5. Left-sided rib fractures with hemothorax. PLAN: Chest tubes probably come out today and she will likely be able to go home tomorrow. MMODL / IJN: [id number] /
[2018-01-24 10:24] LABS: Basophils % (A) 0 %; Eosinophils # (A) 0.2 k/uL (0-0.7); Eosinophils % (A) 6 %; HCT 22.9 % (34.0-46.0); Hypochromasia Slight; Lymphocytes % (A) 29 %; MCH 33.2 pg (25.0-35.0); MCHC 31.2 g/dL (31.0-37.0); MCV 106.6 fL (80.0-100.0); Macrocytosis Moderate; Mean Platelet Volume 7.6; Monocytes # (A) 0.2 k/uL (0-1.0); Monocytes % (A) 6 %; Neutrophils # (A) 2.1 k/uL (1.3-7.7); Neutrophils % (A) 59 %; Platelet Count 341 k/uL (150-450); Poikilocytosis Slight; RBC 2.15 m/uL (3.80-5.40); RDW 13.7 % (11.5-15.5); WBC 3.6 k/uL (3.8-10.6)
[2018-01-24 10:31] LABS: HGB 7.1 gm/dL (11.4-16.0)
[2018-01-24 10:36] LABS: ALT 19 U/L (9-52); AST 16 U/L (14-36); Albumin 2.2 g/dL (3.5-5.0); Alkaline Phosphatase 76 U/L (38-126); Anion Gap 4 mmol/L; Blood Urea Nitrogen 10 mg/dL (7-17); Calcium 8.6 mg/dL (8.4-10.2); Carbon Dioxide 27 mmol/L (22-30); Chloride 109 mmol/L (98-107); Glucose 87 mg/dL (74-99); Potassium 4.3 mmol/L (3.5-5.1); Sodium 140 mmol/L (137-145); Total Bilirubin <0.1 mg/dL (0.2-1.3); Total Protein 4.2 g/dL (6.3-8.2)
[2018-01-24] MEDS ORDERED: SODIUM CHLORIDE 0.65% NASAL SPRAY 44 ML BTL NASAL PRN (10:46)
--- NOTE | 2018-01-24 10:55 | P.PN ---
Subjective Progress Note Date: 01/24/18 Principal diagnosis: Hemothorax status post fall at home. Previous medical history of alcoholism with consumption of 1. today last 20 years, previous tobacco dependence, COPD, GERD, history of chronic kidney disease stage III, and questionable TIA. POD #4 left-sided chest tube placement with evacuation of 2 L dark red blood. Patient is currently laying in bed in no acute distress. States she feels much better today. Pain is controlled when she gets her pain medication. Denies shortness of breath. Objective - Vital Signs Vital signs: Vital Signs Temp 97.0 F L 01/24/18 07:00 Pulse 84 01/24/18 09:00 Resp 18 01/24/18 07:00 BP 121/70 01/24/18 07:00 Pulse Ox 94 L 01/24/18 08:46 Intake & Output 01/23/01/24/18 01/24/18 18:59 06:59 18:59 Intake Total 300 Output Total 1000 620 Balance -1000 -320 Intake: Oral 300 Output: Chest Tube Drainage 1000 620 Chest Tube Left 1000 620 Other: Voiding Method Bedside Commode # Voids 2 1 - Constitutional General appearance: Present: cooperative, no acute distress - Respiratory Details: Lungs sounds diminished bilaterally. Respirations even, nonlabored. Currently on room air with oxygen saturation 94%. Left pleural chest tube to waterseal, 160 mL serous fluid drained overnight, 460 mL in the last 24 hours, no air leak present. - Cardiovascular Details: S1, S2 present. Regular rate and rhythm. Palpable peripheral pulses bilaterally. No edema present. No calf pain or tenderness noted. - Gastrointestinal Gastrointestinal Comment(s): Abdomen soft, nontender, nondistended. Active bowel sounds has 4 quadrants. Tolerating diet. - Genitourinary Genitourinary Comment(s): Continues to void clear, yellow urine. - Integumentary Integumentary Comment(s): Skin is warm and dry with evidence of good perfusion. Dressing covering left lateral chest tube dry and intact. - Neurologic Neurologic: Present: CNII-XII intact - Musculoskeletal Musculoskeletal: Present: strength equal bilaterally - Psychiatric Psychiatric: Present: A&O x's 3, appropriate affect, intact judgment & insight - Allied health notes Allied health notes reviewed: nursing - Labs CBC & Chem 7: 01/24/18 10:06 01/24/18 10:06 Labs: Abnormal Lab Results - Last 24 Hours (Table) 01/23/18 01/24/18 01/24/18 Range/Units 19:03 10:06 10:06 WBC 3.6 L (3.8-10.6) k/uL RBC 2.15 L (3.80-5.40) m/uL Hgb 7.1 L D (11.4-16.0) gm/dL Hct 22.9 L (34.0-46.0) % MCV 106.6 H (80.0-100.0) fL Chloride 109 H (98-107) mmol/L Total Bilirubin <0.1 L (0.2-1.3) mg/dL Total Creatine Kinase 27 L (30-135) U/L Total Protein 4.2 L (6.3-8.2) g/dL Albumin 2.2 L (3.5-5.0) g/dL Assessment and Plan (1) COPD (chronic obstructive pulmonary disease) Current Visit: Yes Status: Chronic Code(s): J44.9 - CHRONIC OBSTRUCTIVE PULMONARY DISEASE, UNSPECIFIED SNOMED Code(s): 38799040 (2) Tobacco dependence in remission Current Visit: No Status: Resolved Code(s): F17.201 - NICOTINE DEPENDENCE, UNSPECIFIED, IN REMISSION SNOMED Code(s): 437996195 (3) History of kidney disease Current Visit: No Status: Resolved Code(s): Z87.448 - PERSONAL HISTORY OF OTHER DISEASES OF URINARY SYSTEM SNOMED Code(s): 447212044 (4) Hemothorax on left Current Visit: Yes Status: Acute Code(s): J94.2 - HEMOTHORAX SNOMED Code(s ): 10940577 (5) Alcohol abuse Current Visit: Yes Status: Chronic Code(s): F10.10 - ALCOHOL ABUSE, UNCOMPLICATED SNOMED Code(s): 67097454 (6) Alcohol withdrawal syndrome Current Visit: No Status: Resolved Code(s): F10.239 - ALCOHOL DEPENDENCE WITH WITHDRAWAL, UNSPECIFIED SNOMED Code(s): 968789780 (7) Multiple fractures of ribs of left side Current Visit: Yes Status: Acute Code(s): S22.42XA - MULTIPLE FRACTURES OF RIBS, LEFT SIDE, INIT FOR CLOS FX SNOMED Code(s): 8733495 (8) UTI (urinary tract infection) Current Visit: Yes Status: Acute Code(s): N39.0 - URINARY TRACT INFECTION, SITE NOT SPECIFIED SNOMED Code(s): 88691689 Plan: 1. Chest tube discontinued. We will obtain chest x-ray tomorrow morning. 2. Encourage incentive spirometry 10 times every hour while awake. 3. Pain control with ordered medication regimen. Stool softeners ordered. 4. Continue [facility] protocol for alcohol withdrawal. 5. Bronchodilators, steroids, antibiotics per Dr. Doty. 6. Increase activity, up in chair, ambulate in hallway. 7. Medical management per Dr. Pan. 8. More recommendations to follow. Time with Patient: Greater than 30
--- NOTE | 2018-01-24 14:15 | PN ---
PROGRESS NOTE DATE OF SERVICE: 01/24/2018 She was seen on December2017. She has been hemodynamically stable. A chest tube was removed about an hour ago. IS is up to 1500. On physical examination, blood pressure 129/70, respiratory rate of 18, pulse rate of 74, temperature 97, O2 saturation on room air is 91%. HEENT is unremarkable. Chest reveals decreased breath sounds on the left. Cardiovascular system is S1, S2. Abdomen is soft. There is no pedal edema. IMPRESSION: At this time is: Left chest wall injury with rib fractures, status post thoracotomy and subsequent chest tube placed which is removed. Continue an incentive spirometry. Increase activity level. Medications were reviewed. Depending on how she does, we shall make further changes to her care. MMODL / IJN: [id number] /
[2018-01-24] MEDS: cefTRIAXone IN SWFI 1,000 MG/10 ML SYRINGE IVP SCH (17:38)
[2018-01-24] MEDS: traZODone HCL 100 MG TAB PO SCH (20:27)
[2018-01-24] MEDS: AZITHROMYCIN 500 MG TAB PO SCH (20:28)
[2018-01-25 00:02] VITALS: TEMP 99
--- NOTE | 2018-01-25 00:21 | PN ---
PROGRESS NOTE DATE OF SERVICE: 01/24/2018. REASON FOR FOLLOW UP: Enterococcus, followup is E coli UTI. INTERVAL HISTORY: The patient is afebrile. The patient chest tube has been discontinued. The patient is complaining of pain at the left chest wall area, more of a dull aching pain. No worsening or radiation. Breathing better. No abdominal pain. The has resolved. No diarrhea. EXAMINATION: Blood pressure 118/77, pulse of 96, temperature 97.7, she is 93% on room air. GENERAL DESCRIPTION: A middle-aged female lying in bed in no distress. RESPIRATORY SYSTEM: Unlabored breathing with decreased breath sounds in the bases. No wheeze. HEART: S1, S2, regular rate and rhythm. ABDOMEN: Soft. LABS: Hemoglobin 7.1, white count of 3.6, BUN of 10, creatinine 0.90. DIAGNOSTIC IMPRESSION AND PLAN: Patient with Escherichia coli urinary tract infection and possibility of a left lower lobe pneumonia. Patient currently on Rocephin. Patient has received about 8 days of antibiotic therapy and hopefully there will be no need for any antibiotic on discharge. Continue supportive care. MMODL / IJN: [id number] /
[2018-01-25] MEDS: LORazepam 2 MG/ML INJ IV PRN (02:06)
[2018-01-25] MEDS: HYDROcodone/APAP 5-325MG 1 EACH TAB PO PRN (06:22)
[2018-01-25 06:31] VITALS: BP 143/86; RESP 17
[2018-01-25] MEDS: IPRATROPIUM-ALBUTEROL 3 ML NEB INHALATION SCH ×2 (07:38→13:13)
[2018-01-25] MEDS: BUDESONIDE 0.5 MG/2 ML NEBU INHALATION SCH (07:38)
[2018-01-25] MEDS: POTASSIUM CHLORIDE ER 20 MEQ TAB.ER PO SCH (07:59)
[2018-01-25] MEDS: CHLORTHALIDONE 25 MG TAB PO SCH (07:59)
[2018-01-25] MEDS: PANTOPRAZOLE 40 MG TABLET PO SCH (08:00)
[2018-01-25] MEDS: FLUoxetine HCL 20 MG CAP PO SCH (08:00)
[2018-01-25] MEDS: THIAMINE 100 MG TAB PO SCH (08:00)
[2018-01-25] MEDS: SENNOSIDES 8.6 MG TAB PO SCH (08:00)
[2018-01-25] MEDS: SODIUM CHLORIDE 0.9% 1,000 ML IV SCH (08:00)
[2018-01-25] MEDS: ALLOPURINOL 300 MG TAB PO SCH (08:00)
--- NOTE | 2018-01-25 08:20 | XR ---
EXAMINATION TYPE: XR chest 2V DATE OF EXAM: 01/25/2018 COMPARISON: 01/22/2018 HISTORY: Follow-up after fall with bilateral rib fractures. Chest pain. TECHNIQUE: Frontal and lateral views of the chest are obtained. FINDINGS: There is a decrease in left-sided pleural effusion with associated left basilar airspace d isease. Remainder the lungs are clear. Multiple left upper lateral and right mid lateral rib fracture s are redemonstrated. Cardiac silhouette is again mildly enlarged. IMPRESSION: Improving small left pleural effusion with left-sided airspace disease, likely atelectas is.
[2018-01-25 08:50] LABS: Basophils % (A) 0 %; Eosinophils # (A) 0.3 k/uL (0-0.7); Eosinophils % (A) 8 %; HCT 23.9 % (34.0-46.0); HGB 7.9 gm/dL (11.4-16.0); Hypochromasia Moderate; Lymphocytes # (A) 1.1 k/uL (1.0-4.8); Lymphocytes % (A) 31 %; MCH 36.1 pg (25.0-35.0); MCHC 33.2 g/dL (31.0-37.0); MCV 108.7 fL (80.0-100.0); Macrocytosis Marked; Mean Platelet Volume 6.8; Monocytes # (A) 0.2 k/uL (0-1.0); Monocytes % (A) 5 %; Neutrophils # (A) 1.9 k/uL (1.3-7.7); Neutrophils % (A) 53 %; Platelet Count 353 k/uL (150-450); Poikilocytosis Slight; RDW 13.9 % (11.5-15.5); WBC 3.6 k/uL (3.8-10.6)
[2018-01-25 09:09] LABS: Albumin 2.5 g/dL (3.5-5.0); Calcium 9.1 mg/dL (8.4-10.2); Potassium 4.6 mmol/L (3.5-5.1); Total Bilirubin 0.2 mg/dL (0.2-1.3); Total Protein 4.7 g/dL (6.3-8.2)
[2018-01-25 09:14] LABS: Large Platelets Present; Polychromasia Present
--- NOTE | 2018-01-25 11:03 | P.PN ---
<Kathy Burch E - Last Filed: 01/25/18 11:00> Subjective Progress Note Date: 01/25/18 History of present illness: This is a 62-year-old female patient being seen examined and evaluated today for consultation. This patient came in to the emergency room on 01/15/2018. She was sent from her primary care physician's office for alcohol intoxication and detox. Patient is an every day drinker in stage she drinks approximately a little more than a pint of vodka a day. She recently had a fall related to her intoxication approximately 4 days before coming into the ER. Recent chest x- ray did show a large left pleural effusion with pneumothorax as well as multiple rib fractures that were slightly displaced. She also did have an echocardiogram recently which showed an EF of 50-55%. Her admission hemoglobin was 12.9, her hemoglobin yesterday was 8.9. Her current labs for today are pending. The patient is a one pack per day former smoker for approximately 30 years. Every chest x-ray from today is pending. We also ordered an ultrasound of the chest. She denies any blood thinners at home. Cardiothoracic is also on consult for possible chest tube placement. Upon examination the patient's resting up in bed on 2-3 L of supplemental oxygen via nasal cannula. She was 82 % on room air. She does complain of a congested nonproductive cough, does have chest pain with coughing. Denies any hemoptysis Interval History: 01/20/18- patient is being seen examined and evaluated today on rounds. She is resting up in bed on 4 L of supplemental oxygen via nasal cannula. She did undergo a chest tube insertion this morning with cardiovascular surgery. Her hemoglobin is stable at 8.6. She has had a total of 2350 ML's of bloody drainage from the chest tube. She continues to have shortness of breath cough and congestion. She is afebrile. No further complaints. All labs and reports have been reviewed 01/21/18- patient is being seen examined and evaluated today on rounds. She is resting up in bed on 2 L of supplemental oxygen via nasal cannula. She was seen by infectious disease yesterday antibiotics have been adjusted. Her chest tube is in place and she has had a total of 2850 ML's out. The drainage is light pink today. Chest x-ray shows trace left effusion. Her hemoglobin today is 7.6. Vital signs have been stable. She does complain of some chest tube insertion site local pain. 01/22/2018: Patient seen and examined. Patient is laying in bed on room air. The patient is tearful and states that she has not gotten her pain medications as soon as she asks for it. She states that the pain medication does help when she receives it on time. She states her breathing is getting better. She's been hemodynamically stable. 01/23/18- 01/24/18- Please see Dr JODIE Gabriel notes 01/25/18- patient is being seen examined and evaluated today on rounds. She did have a repeat chest x-ray which did slow improvement of her small left effusion with left airspace disease. She has been responding well to her antibiotics and nebulizer treatments. Per ID the patient will not require any antibiotics on discharge. Her chest tube was discontinued over the weekend. Her hemoglobin is stable at 7.9. She is afebrile no further complaints. She is requesting to be discharged. Questionable whether the patient will go to rehab for facility or discharge home at this point. Social work involved. Objective - Vital Signs Vital signs: Vital Signs Temp 99.0 F 01/25/18 06:30 Pulse 88 01/25/18 07:51 Resp 17 01/25/18 06:30 BP 143/86 01/25/18 06:30 Pulse Ox 92 L 01/25/18 07:42 Intake & Output 01/24/18 01/25/18 01/25/18 18:59 06:59 18:59 Intake Total 200 Balance 200 Intake: Oral 200 Other: Voiding Method Bedside Commode # Voids 1 3 - Exam GENERAL EXAM: Alert, comfortable in no apparent distress. HEAD: Normocephalic. EYES: Normal reaction of pupils, equal size. NOSE: Clear with pink turbinates. THROAT: No erythema or exudates. NECK: No masses, no JVD. CHEST: No chest wall deformity. LUNGS: Slightly decreased breath sounds on the left, lung clear to auscultation on the right CVS: S1 and S2 normal with no audible mumurs, regular rhythm. ABDOMEN: No hepatosplenomegaly, normal bowel sounds, no guarding or rigidity. EXTREMITIES: No edema noted, pedal pulses palpable. CENTRAL NERVOUS SYSTEM: No focal deficits, tone is normal in all 4 extremities. - Labs CBC & Chem 7: 01/25/18 08:23 01/25/18 08:23 Labs: Abnormal Lab Results - Last 24 Hours (Table) 01/25/18 01/25/18 Range/Units 08:23 08:23 WBC 3.6 L (3.8-10.6) k/uL RBC 2.20 L (3.80-5.40) m/uL Hgb 7.9 L (11.4-16.0) gm/dL Hct 23.9 L (34.0-46.0) % MCV 108.7 H (80.0-100.0) fL MCH 36.1 H (25.0-35.0) pg Chloride 110 H (98-107) mmol/L Total Protein 4.7 L (6.3-8.2) g/dL Albumin 2.5 L (3.5-5.0) g/dL Assessment and Plan Assessment: Assessment Acute hypoxic respiratory failure requiring supplemental oxygen Large left-sided pleural effusion with hemothorax Recent traumatic fall Possible underlying pneumonia, cant be excluded Alcohol abuse Multiple fractures of the left side of the ribs Present on admission UTI Impending DTs and alcohol withdrawals Hypertension Plan Patient could be cleared for discharge from a pulmonary standpoint Medications have been reviewed and will be continued as ordered. Antibiotics, ID on consult, further notes the patient will not require antibiotics on discharge Consult for cardiothoracic surgery [facility] protocol Continue with pulmonary hygiene, coughing and deep breathing exercises, and supportive care. Initiate and encourage incentive spirometer Supplemental oxygen to maintain oxygen saturations of 92% or better. Continue nebulizer treatments. GI and DVT prophylaxis. SCDs Increase activity as tolerated PT and OT We will continue to monitor labs/results and adjust treatment as necessary. Further recommendations pending. I performed an examination of the patient and discussed their management with the nurse practitioner. I have reviewed the nurse practitioner's note and agree with the documented findings and plan of care. <Leigha Doty - Last Filed: 01/25/18 15:39> Objective - Vital Signs Vital signs: Vital Signs Temp 99.0 F 01/25/18 06:30 Pulse 88 01/25/18 13:29 Resp 17 01/25/18 06:30 BP 143/86 01/25/18 06:30 Pulse Ox 92 L 01/25/18 07:42 Intake & Output 01/24/18 01/25/18 01/25/18 18:59 06:59 18:59 Intake Total 200 Balance 200 Intake: Oral 200 Other: Voiding Method Bedside Commode # Voids 1 3 4 - Labs CBC & Chem 7: 01/25/18 08:23 01/25/18 08:23 Labs: Abnormal Lab Results - Last 24 Hours (Table) 01/25/18 01/25/18 Range/Units 08:23 08:23 WBC 3.6 L (3.8-10.6) k/uL RBC 2.20 L (3.80-5.40) m/uL Hgb 7.9 L (11.4-16.0) gm/dL Hct 23.9 L (34.0-46.0) % MCV 108.7 H (80.0-100.0) fL MCH 36.1 H (25.0-35.0) pg Chloride 110 H (98-107) mmol/L Total Protein 4.7 L (6.3-8.2) g/dL Albumin 2.5 L (3.5-5.0) g/dL Assessment and Plan Assessment: Okay to DC from pulmonary standpoint. Respiratory status is stable. Alcohol abstinence is recommended. Continue incentive spirometry and deep breathing exercises. Follow-up in pulmonary office in 2-3 days. ~Leigha Doty DO
--- NOTE | 2018-01-25 11:23 | P.PN ---
Subjective Progress Note Date: 01/25/18 Principal diagnosis: Hemothorax status post fall at home. Previous medical history of alcoholism with consumption of 1. today last 20 years, previous tobacco dependence, COPD, GERD, history of chronic kidney disease stage III, and questionable TIA. POD #5 left-sided chest tube placement with evacuation of 2 L dark red blood. Patient is currently laying in bed in no acute distress. States she feels much better today. Pain is controlled when she gets her pain medication. Denies shortness of breath. Left pleural chest tube discontinued yesterday. Chest x- ray this morning reviewed. Objective - Vital Signs Vital signs: Vital Signs Temp 99.0 F 01/25/18 06:30 Pulse 88 01/25/18 07:51 Resp 17 01/25/18 06:30 BP 143/86 01/25/18 06:30 Pulse Ox 92 L 01/25/18 07:42 Intake & Output 01/24/18 01/25/18 01/25/18 18:59 06:59 18:59 Intake Total 200 Balance 200 Intake: Oral 200 Other: Voiding Method Bedside Commode # Voids 1 3 - Constitutional General appearance: Present: cooperative, no acute distress - Respiratory Details: Lungs sounds diminished bilaterally. Respirations even, nonlabored. Currently on room air with oxygen saturation 91-94%. - Cardiovascular Details: S1, S2 present. Regular rate and rhythm. Palpable peripheral pulses bilaterally. No edema present. No calf pain or tenderness noted. - Gastrointestinal Gastrointestinal Comment(s): Abdomen soft, nontender, nondistended. Active bowel sounds has 4 quadrants. Tolerating diet. - Genitourinary Genitourinary Comment(s): Continues to void clear, yellow urine. - Integumentary Integumentary Comment(s): Skin is warm and dry with evidence of good perfusion. - Neurologic Neurologic: Present: CNII-XII intact - Musculoskeletal Musculoskeletal: Present: gait normal, strength equal bilaterally - Psychiatric Psychiatric: Present: A&O x's 3, appropriate affect, intact judgment & insight - Allied health notes Allied health notes reviewed: nursing - Labs CBC & Chem 7: 01/25/18 08:23 01/25/18 08:23 Labs: Abnormal Lab Results - Last 24 Hours (Table) 01/25/18 01/25/18 Range/Units 08:23 08:23 WBC 3.6 L (3.8-10.6) k/uL RBC 2.20 L (3.80-5.40) m/uL Hgb 7.9 L (11.4-16.0) gm/dL Hct 23.9 L (34.0-46.0) % MCV 108.7 H (80.0-100.0) fL MCH 36.1 H (25.0-35.0) pg Chloride 110 H (98-107) mmol/L Total Protein 4.7 L (6.3-8.2) g/dL Albumin 2.5 L (3.5-5.0) g/dL - Imaging and Cardiology Chest x-ray: report reviewed, image reviewed Assessment and Plan (1) COPD (chronic obstructive pulmonary disease) Current Visit: Yes Status: Chronic Code(s): J44.9 - CHRONIC OBSTRUCTIVE PULMONARY DISEASE, UNSPECIFIED SNOMED Code(s): 90144770 (2) Tobacco dependence in remission Current Visit: No Status: Resolved Code(s): F17.201 - NICOTINE DEPENDENCE, UNSPECIFIED, IN REMISSION SNOMED Code(s): 065125242 (3) History of kidney disease Current Visit: No Status: Resolved Code(s): Z87.448 - PERSONAL HISTORY OF OTHER DISEASES OF URINARY SYSTEM SNOMED Code(s): 562205979 (4) Hemothorax on left Current Visit: Yes Status: Acute Code(s): J94.2 - HEMOTHORAX SNOMED Code(s ): 87835530 (5) Alcohol abuse Current Visit: Yes Status: Chronic Code(s): F10.10 - ALCOHOL ABUSE, UNCOMPLICATED SNOMED Code(s): 09961520 (6) Alcohol withdrawal syndrome Current Visit: No Status: Resolved Code(s): F10.239 - ALCOHOL DEPENDENCE WITH WITHDRAWAL, UNSPECIFIED SNOMED Code(s): 615702118 (7) Multiple fractures of ribs of left side Current Visit: Yes Status: Acute Code(s): S22.42XA - MULTIPLE FRACTURES OF RIBS, LEFT SIDE, INIT FOR CLOS FX SNOMED Code(s): 6933415 (8) UTI (urinary tract infection) Current Visit: Yes Status: Acute Code(s): N39.0 - URINARY TRACT INFECTION, SITE NOT SPECIFIED SNOMED Code(s): 00379254 Plan: 1. Stable chest x-ray this morning. 2. Encourage incentive spirometry 10 times every hour while awake. 3. Pain control with ordered medication regimen. Stool softeners ordered. 4. Continue [facility] protocol for alcohol withdrawal. 5. Bronchodilators, steroids, antibiotics per Dr. Doty. 6. Increase activity, up in chair, ambulate in hallway. 7. Medical management per Dr. Pan. 8. Patient may be discharged home from our standpoint when okay with other services. We will make an appointment for her to see Dr. Rome in one to 2 weeks for follow-up, suture removal. Patient should have chest x-ray completed before appointment. 9. Will see again if necessary. Please call us with any questions. Time with Patient: Greater than 30
[2018-01-25 13:30] VITALS: PULSE 88
--- NOTE | 2018-01-25 15:40 | PN ---
PROGRESS NOTE DATE OF SERVICE: 01/25/2018. REASON FOR FOLLOWUP: 1. E coli UTI. 2. Possible left lower pneumonia. INTERVAL HISTORY: The patient is seen on rounds this morning. The patient has been afebrile. The patient has been breathing comfortably. Denies significant chest pain. Occasional cough. No abdominal pain. No urinary symptoms. EXAMINATION: Blood pressure 143/86, pulse of 92, temperature 99. She is 91% on room air. General description is a middle-aged female lying in bed in no distress. RESPIRATORY SYSTEM: Unlabored breathing with decreased breath sounds at the bases. No wheeze. HEART: S1, S2. Regular rate and rhythm. ABDOMEN: Soft, no tenderness. LABS: Hemoglobin 7.9, white count 3.6, BUN of 89, creatinine 0.96. X-ray repeat this morning did show some overall improvement in the left lower lobe fluid and possible some atelectasis. DIAGNOSTIC IMPRESSION AND PLAN: 1. Patient with Escherichia coli urinary tract infection adequately treated. 2. Patient with possible left lower lobe pneumonia, adequately treated, no need for any antibiotic on discharge. Continue supportive care. MMODL / IJN: [id number] /
--- NOTE | 2018-01-26 17:53 | DS ---
DISCHARGE SUMMARY DATE OF SERVICE: 01/25/2018 CHIEF COMPLAINT: Acute alcohol intoxication and DTs. HISTORY OF PRESENT ILLNESS AND PHYSICAL EXAM: Details of this lady's history and physical can be found in the initial workup. LABORATORY STUDIES: While she was in the hospital, she had laboratory studies, details of which can be found in the laboratory section of her chart. COURSE IN HOSPITAL: After admission, she was placed in bedrest to be detoxed. She was started on the CIWA protocol, but she went into DTs, with agitation, confusion and delirium. She did fall at home and kept complaining of left-sided posterior chest pain and subsequently began to develop a fluid collection in the left hemithorax. This turned out to be a hemothorax and required draining by Surgery. DTs slowly cleared and she was completely recovered to the point where after the chest tube was removed, it was felt she will be discharged. She will go home on her usual activity, diet and medication and will be seen in the office in several days. She will not be given any schedule II drugs going forward. FINAL DIAGNOSES: 1. Acute alcohol intoxication. 2. Delirium tremens. 3. Chronic alcoholism. 4. Left-sided rib fractures. 5. Left hemothorax. 6. Blood loss anemia. 7. Pancytopenia. OPERATIONS: Chest tube placement. CONSULTATIONS: Thoracic surgery. She is improved. KELI / ANALIN: [id number] /
== END 2018-01-25 14:32 | disposition home health service (06) | DRG 199 ==
LOC: EC 15:12 → 3SUR 19:34 → OBSVTOIN 01-17 08:16 → 4MS4W 01-19 16:16
PROVIDERS: ADMIT Family Medicine; ATTEND Family Medicine
PROC: 0W9B30Z Drainage of Left Pleural Cavity with Drainage Device, Percutaneous Approach (ICD-10-PCS; principal; 2018-01-25)
DX: S27.1XXA Traumatic hemothorax, initial encounter (principal); J96.01 Acute respiratory failure with hypoxia; F10.231 Alcohol dependence with withdrawal delirium; S22.42XA Multiple fractures of ribs, left side, initial encounter for closed fracture; D61.818 Other pancytopenia; N39.0 Urinary tract infection, site not specified; D62 Acute posthemorrhagic anemia; J90 Pleural effusion, not elsewhere classified; Y90.0 Blood alcohol level of less than 20 mg/100 ml; F32.9 Major depressive disorder, single episode, unspecified; N18.3 Chronic kidney disease, stage 3 (moderate); I12.9 Hypertensive chronic kidney disease with stage 1 through stage 4 chronic kidney disease, or unspecified chronic kidney disease; D50.0 Iron deficiency anemia secondary to blood loss (chronic); B96.20 Unspecified Escherichia coli [E. coli] as the cause of diseases classified elsewhere; F17.201 Nicotine dependence, unspecified, in remission; F90.9 Attention-deficit hyperactivity disorder, unspecified type; F41.9 Anxiety disorder, unspecified; K70.10 Alcoholic hepatitis without ascites; T14.8XXA Other injury of unspecified body region, initial encounter; J44.9 Chronic obstructive pulmonary disease, unspecified; K21.9 Gastro-esophageal reflux disease without esophagitis; I71.2 Thoracic aortic aneurysm, without rupture; K59.00 Constipation, unspecified; W10.8XXA Fall (on) (from) other stairs and steps, initial encounter; Z82.49 Family history of ischemic heart disease and other diseases of the circulatory system; Z80.1 Family history of malignant neoplasm of trachea, bronchus and lung; Z79.899 Other long term (current) drug therapy; Z86.73 Personal history of transient ischemic attack (TIA), and cerebral infarction without residual deficits
CPT/HCPCS: 36415; 71045; 71046; 71275; 74174; 76604; 80053; 80306; 80320; 81001; 82140; 82150; 82550; 82553; 83690; 83735; 84100; 84484; 85025; 85027; 85610; 85730; 86850; 86900; 86901; 87077; 87086; 87186; 93005; 93306; 94640; 94760; 96365; 96366; 96375; 99285

== ENCOUNTER → 2018-02-02 | Outpatient (CLI) | payer BC | END | disposition home or self-care (01) | LOC: RADXRMAIN 15:32 | PROVIDERS: ATTEND Internal Medicine Critical Care Medicine | DX: Z53.9 Procedure and treatment not carried out, unspecified reason (principal) ==

== ENCOUNTER → 2018-02-02 | Outpatient (CLI) | payer BC ==
--- NOTE | 2018-02-03 00:13 | XR ---
EXAMINATION TYPE: XR chest 2V DATE OF EXAM: 02/02/2018 COMPARISON: Chest x-ray January 25, 2018 and older studies. CTA aorta January 15, 2018. HISTORY: History of fall injury with broken ribs and left-sided chest tube TECHNIQUE: Frontal and lateral views of the chest are obtained. FINDINGS: There is persistent small left pleural fluid collection and associated left basilar atelec tasis and/or infiltrate. Right lung is clear currently. The cardiac silhouette size remains enlarged . Multiple displaced left lateral rib fractures are redemonstrated seen better on CT. IMPRESSION: Overall stable findings, displaced left lateral rib fractures and cardiomegaly with smal l left pleural fluid collection or probable hemothorax and associated left basilar atelectasis and/or infiltrate..
== END | disposition home or self-care (01) ==
LOC: RADXRMAIN 17:32
PROVIDERS: ATTEND Internal Medicine Critical Care Medicine
DX: S22.32XA Fracture of one rib, left side, initial encounter for closed fracture (principal); I51.7 Cardiomegaly; Z98.890 Other specified postprocedural states
CPT/HCPCS: 71046

== ENCOUNTER 2018-08-21 19:13 | Emergency (ER) | payer BC ==
--- NOTE | 2018-08-21 19:50 | ED ---
General Adult HPI - General Source: patient, EMS Mode of arrival: EMS Limitations: altered mental status <Gema Calvillo - Last Filed: 08/22/18 01:09> <Fabiano Sanz - Last Filed: 08/22/18 09:25> - General Chief complaint: Alcohol Stated complaint: ETOH Time Seen by Provider: 08/21/18 19:36 - History of Present Illness Initial comments: 62-year-old female presenting with depression and alcoholism. Patient states that she was feeling depressed today when she began drinking vodka. She admits to consuming a pint of vodka prior to arrival. Patient states she's been daily drinker for the last 20 years. She is only attended rehab one time and states she's been unable to go back because she can't afford it. Patient initially stated in triage that she had a recent fall. The fall was in December. Patient denies any recent falls or injury. She denies any chest pain, shortness of breath, abdominal pain, fevers chills, nausea vomiting or diarrhea. She denies any history of withdrawal seizures or DTs. Patient states she came to the department today because she's been more depressed. She's been compliant with her Prozac. She denies any suicidal or homicidal ideations, auditory or visual hallucinations, previous psychiatric admissions. (Gema Calvillo) - Related Data Home Medications Medication Instructions Recorded Confirmed Ergocalciferol [Vitamin D2 50,000 unit PO Q30D 09/17/16 08/21/18 (DRISDOL)] FLUoxetine HCL [PROzac] 20 mg PO DAILY 09/17/16 08/21/18 Omeprazole [PriLOSEC] 20 mg PO BID 09/17/16 08/21/18 Allopurinol [Zyloprim] 300 mg PO DAILY 01/11/18 08/21/18 traZODone HCL [Desyrel] 100 mg PO HS 01/11/18 08/21/18 Previous Rx's Medication Instructions Recorded Ipratropium-Albuterol Nebulize 3 ml INHALATION RT-TID #90 01/25/18 [Duoneb 0.5 mg-3 mg/3 ml Soln] ampul.neb Thiamine [Vitamin B-1] 100 mg PO BID #60 tab 01/25/18 Allergies Allergy/AdvReac Type Severity Reaction Status Date / Time No Known Allergies Allergy Verified 08/21/18 20:36 Review of Systems ROS Other: All systems not noted in ROS Statement are negative. <Gema Calvillo - Last Filed: 08/22/18 01:09> ROS Other: All systems not noted in ROS Statement are negative. <SanzFabiano - Last Filed: 08/22/18 09:25> ROS Statement: Those systems with pertinent positive or pertinent negative responses have been documented in the HPI. Review of Systems Constitutional: Denies fever, chills Eyes: Denies change in vision, Denies pain Ears, nose, mouth, throat: Denies headaches, Denies sore throat Cardiovascular: Denies chest pain. Denies palpitations Respiratory: Denies shortness of breath, Denies cough Gastrointestinal: Denies abdominal pain. Denies nausea, vomiting, diarrhea. Genitourinary: Denies hematuria, Denies infections Musculoskeletal: Denies pain, Denies swelling Integumentary: Denies rash Neurological: Denies headache, focal weakness, focal numbness Psychiatric: Denies anxiety, Positive depression Hematologic/Lymphatic: Denies easy bleeding or bruising (Gema Calvillo) Past Medical History Past Medical History: COPD, CVA/TIA, GERD/Reflux, Hypertension, Renal Disease Additional Past Medical History / Comment(s): dry unproductive cough and chokes easily,recently seen in ER for fall bumping his head and thinks 2 rib fx on left side,HX OF POOR KIDNEY FUNCTION CAUSED BY HTN MEDS. History of Any Multi-Drug Resistant Organisms: None Reported Past Surgical History: Section, Orthopedic Surgery Additional Past Surgical History / Comment(s): WRIST SURG, Cataract removal,D&C x2 Past Anesthesia/Blood Transfusion Reactions: No Reported Reaction, Motion Sickness Past Psychological History: ADD/ADHD, Anxiety, Depression Smoking Status: Former smoker Past Alcohol Use History: Abuse, Daily, Heavy Past Drug Use History: None Reported - Past Family History Mother Family Medical History: Congestive Heart Failure (CHF) Additional Family Medical History / Comment(s): blood disease (had too many WBCs ) Father Family Medical History: Cancer Additional Family Medical History / Comment(s): LUNG CANCER <Gema Calvillo - Last Filed: 08/22/18 01:09> General Exam Limitations: altered mental status <Gema Calvillo - Last Filed: 08/22/18 01:09> <Fabiano Sanz - Last Filed: 08/22/18 09:25> - General Exam Comments Initial Comments: General: Awake, alert, No acute Distress. Intoxicated HENT: Normocephalic. Atraumatic Eyes: PERRL. EOMI. No scleral icterus. No injected conjunctiva Neck: Full ROM Chest/Lungs: Clear to auscultation bilaterally. No wheezing, rhonchi, or rales Cardiac: Regular rate, rhythm. No murmurs or rubs Abdomen/GI: Soft, nontender, nondistended. No rebound, guarding, or rigidity. Musculoskeletal: Full ROM Skin: Warm, dry, intact Neurologic: A/Ox3, no weakness, no sensory deficit, no abnormal gait, no coordination deficit (Gema Calvillo) Vital Signs 08/21/18 08/21/18 08/22/18 19:17 20:07 00:47 Temperature 97.7 F Pulse Rate 65 66 82 Respiratory 18 18 18 Rate Blood Pressure 145/105 128/98 115/85 O2 Sat by Pulse 94 L 98 95 Oximetry 08/22/18 06:46 Temperature Pulse Rate 93 Respiratory 16 Rate Blood Pressure 134/93 O2 Sat by Pulse 100 Oximetry Medical Decision Making - Lab Data Result diagrams: 08/21/18 19:52 08/21/18 19:52 <Gema Calvillo - Last Filed: 08/22/18 01:09> - Lab Data Result diagrams: 08/21/18 19:52 08/21/18 19:52 <Fabiano Sanz - Last Filed: 08/22/18 09:25> - Medical Decision Making CT-year-old female presenting for alcohol intoxication and depression. Initial exam the patient is awake, alert, no acute distress. VSS. Patient denies any medical symptoms. She's had no recent falls. The fall that she was talking about was from December which she was evaluated for. Patient's laboratory workup revealed hypokalemia. Her potassium was replaced. She denies any suicidal ideations in the emergency department. She'll be sober at 6 AM in will be evaluated by EPS. She was signed out to the oncoming physician. (Gema Calvillo) EPS evaluated the patient is determined that the patient could follow-up per EPS as directions and she would be safe going home. The psychiatrist agreed with this assessment as well. (Fabiano Sanz) - Lab Data Lab Results 08/21/18 08/21/18 08/21/18 Range/Units 19:52 19:52 20:30 WBC 6.3 (3.8-10.6) k/uL RBC 3.73 L (3.80-5.40) m/uL Hgb 14.1 (11.4-16.0) gm/dL Hct 37.8 (34.0-46.0) % MCV 101.5 H (80.0-100.0) fL MCH 37.8 H (25.0-35.0) pg MCHC 37.2 H (31.0-37.0) g/dL RDW 14.0 (11.5-15.5) % Plt Count 204 (150-450) k/uL Neutrophils % 43 % Lymphocytes % 45 % Monocytes % 7 % Eosinophils % 2 % Basophils % 1 % Neutrophils # 2.7 (1.3-7.7) k/uL Lymphocytes # 2.9 (1.0-4.8) k/uL Monocytes # 0.4 (0-1.0) k/uL Eosinophils # 0.1 (0-0.7) k/uL Basophils # 0.0 (0-0.2) k/uL Macrocytosis Slight Sodium 140 (137-145) mmol/L Potassium 3.0 L (3.5-5.1) mmol/L Chloride 102 (98-107) mmol/L Carbon Dioxide 27 (22-30) mmol/L Anion Gap 11 mmol/L BUN 10 (7-17) mg/dL Creatinine 0.79 (0.52-1.04) mg/dL Est GFR (CKD-EPI)AfAm >90 (>60 ml/min/1.73 sqM) Est GFR (CKD-EPI)NonAf 81 (>60 ml/min/1.73 sqM) Glucose 98 (74-99) mg/dL Calcium 9.3 (8.4-10.2) mg/dL Magnesium 1.7 (1.6-2.3) mg/dL Urine Opiates Screen Not Detected (NotDetected) Ur Oxycodone Screen Not Detected (NotDetected) Urine Methadone Screen Not Detected (NotDetected) Ur Propoxyphene Screen Not Detected (NotDetected) Ur Barbiturates Screen Not Detected (NotDetected) U Tricyclic Antidepress Not Detected (NotDetected) Ur Phencyclidine Scrn Not Detected (NotDetected) Ur Amphetamines Screen Not Detected (NotDetected) U Methamphetamines Scrn Not Detected (NotDetected) U Benzodiazepines Scrn Detected H (NotDetected) Urine Cocaine Screen Not Detected (NotDetected) U Marijuana (THC) Screen Not Detected (NotDetected) Serum Alcohol 278 H* mg/dL Disposition Is patient prescribed a controlled substance at d/c from ED?: No <Gema Calvillo - Last Filed: 08/22/18 01:09> Is patient prescribed a controlled substance at d/c from ED?: No Time of Disposition: 09:25 <Fabiano Sanz - Last Filed: 08/22/18 09:25> Clinical Impression: Alcohol intoxication, Depression Instructions (If sedation given, give patient instructions): Alcohol Intoxication (ED) Referrals: None,Stated [Primary Care Provider] - 1-2 days Christel Pedarza MD [REFERRING] - 1-2 days
[2018-08-21 20:11] LABS: Basophils % (A) 1 %; Eosinophils # (A) 0.1 k/uL (0-0.7); Eosinophils % (A) 2 %; HCT 37.8 % (34.0-46.0); HGB 14.1 gm/dL (11.4-16.0); Lymphocytes # (A) 2.9 k/uL (1.0-4.8); Lymphocytes % (A) 45 %; MCH 37.8 pg (25.0-35.0); MCHC 37.2 g/dL (31.0-37.0); MCV 101.5 fL (80.0-100.0); Macrocytosis Slight; Mean Platelet Volume 7.3; Monocytes # (A) 0.4 k/uL (0-1.0); Monocytes % (A) 7 %; Neutrophils # (A) 2.7 k/uL (1.3-7.7); Neutrophils % (A) 43 %; Platelet Count 204 k/uL (150-450); RBC 3.73 m/uL (3.80-5.40); WBC 6.3 k/uL (3.8-10.6)
[2018-08-21 20:20] LABS: Anion Gap 11 mmol/L; Blood Urea Nitrogen 10 mg/dL (7-17); Calcium 9.3 mg/dL (8.4-10.2); Carbon Dioxide 27 mmol/L (22-30); Chloride 102 mmol/L (98-107); Glucose 98 mg/dL (74-99); Magnesium 1.7 mg/dL (1.6-2.3); Sodium 140 mmol/L (137-145)
[2018-08-21 20:23] LABS: Alcohol 278 mg/dL
[2018-08-21] MEDS ORDERED: POTASSIUM BICARBONATE/CIT AC 20 MEQ TABLET.EFF PO ONE (20:34)
[2018-08-21 22:11] LABS: Amphetamine Screen,Urine Not Detected (NotDetected); Barbiturate Screen,Urine Not Detected (NotDetected); Benzodiazepines Screen,Urine Detected (NotDetected); Cocaine Screen,Urine Not Detected (NotDetected); Methadone Screen, Urine Not Detected (NotDetected); Opiate Screen,Urine Not Detected (NotDetected); Oxycodone Screen, Urine Not Detected (NotDetected); Phencyclidine Screen,Urine Not Detected (NotDetected); Tricyclic Antidepressant,Urine Not Detected (NotDetected); Urn Cannabinoid Scrn Not Detected (NotDetected)
[2018-08-22] MEDS ORDERED: POTASSIUM BICARBONATE/CIT AC 20 MEQ TABLET.EFF PO SCH (09:00)
[2018-08-22] MEDS ORDERED: FOLIC ACID 1 MG TAB PO SCH (09:00)
[2018-08-22] MEDS ORDERED: THIAMINE 100 MG TAB PO SCH (09:00)
[2018-08-22 10:34] VITALS: BP 148/94; PULSE 95; RESP 18; TEMP 98.2
== END 2018-08-22 10:32 ==
LOC: EC 19:13
DX: F32.9 Major depressive disorder, single episode, unspecified (principal); F10.129 Alcohol abuse with intoxication, unspecified; E87.6 Hypokalemia; K21.9 Gastro-esophageal reflux disease without esophagitis; I10 Essential (primary) hypertension; F90.9 Attention-deficit hyperactivity disorder, unspecified type; F41.9 Anxiety disorder, unspecified; Z86.73 Personal history of transient ischemic attack (TIA), and cerebral infarction without residual deficits; Z87.891 Personal history of nicotine dependence; Z79.899 Other long term (current) drug therapy
CPT/HCPCS: 36415; 80048; 80306; 80320; 83735; 85025; 99284

== ENCOUNTER 2018-10-28 21:28 | Observation (INO) | payer BC ==
[2018-10-28] MEDS ORDERED: SODIUM CHLORIDE 0.9% 1,000 ML IV STA (22:31)
[2018-10-28 23:30] LABS: Basophils % (A) 1 %; Eosinophils # (A) 0.1 k/uL (0-0.7); Eosinophils % (A) 2 %; HCT 38.8 % (34.0-46.0); HGB 13.1 gm/dL (11.4-16.0); Lymphocytes # (A) 2.3 k/uL (1.0-4.8); Lymphocytes % (A) 65 %; MCH 32.7 pg (25.0-35.0); MCHC 33.8 g/dL (31.0-37.0); MCV 96.7 fL (80.0-100.0); Mean Platelet Volume 7.2; Monocytes # (A) 0.2 k/uL (0-1.0); Monocytes % (A) 6 %; Neutrophils # (A) 0.9 k/uL (1.3-7.7); Neutrophils % (A) 24 %; Platelet Count 231 k/uL (150-450); RBC 4.01 m/uL (3.80-5.40); RDW 14.5 % (11.5-15.5); WBC 3.6 k/uL (3.8-10.6)
[2018-10-28 23:39] LABS: Albumin 3.6 g/dL (3.5-5.0); Calcium 9.4 mg/dL (8.4-10.2); Total Bilirubin 0.5 mg/dL (0.2-1.3); Total Protein 6.2 g/dL (6.3-8.2)
--- NOTE | 2018-10-29 00:50 | ED ---
General Adult HPI - General Chief complaint: Alcohol Stated complaint: ETOH w/ blood pressure pills Source: family Mode of arrival: ambulatory Limitations: no limitations - History of Present Illness Initial comments: Tory is a 63-year-old alcoholic female who presents to the emergency department today for evaluation of generalized weakness. Patient has a history of hypertension and states that she was prescribed clonidine which she took her first dose of today. She reports that she then felt very weak and uncomfortable she was worried that her blood pressure was too high or too low, she cannot check at home so she came to the ER for evaluation. Patient does admit that she drank about a pint of liquor today she states that this is her usual she drinks a pint of liquor daily. - Related Data Home Medications Medication Instructions Recorded Confirmed Allopurinol [Zyloprim] 300 mg PO DAILY 01/11/18 09/22/18 Chlorthalidone 25 mg PO DAILY 09/22/18 09/22/18 Ondansetron HCl [Zofran] 8 mg PO TID PRN 09/22/18 09/22/18 Potassium Chloride ER [K-Dur 20] 20 meq PO DAILY 09/22/18 09/22/18 amLODIPine [Norvasc] 5 mg PO DAILY 09/22/18 09/22/18 hydrOXYzine HCL [Atarax] 25 mg PO Q8H PRN 09/22/18 09/22/18 Previous Rx's Medication Instructions Recorded Aspirin 81 mg PO DAILY chew 09/24/18 Fluticasone Nasal [place] [Flonase 2 spray EA NOSTRIL DAILY PRN #0 spr 09/24/18 Nasal [place]] Folic Acid 1 mg PO DAILY@1200 #30 tab 09/24/18 LORazepam [Ativan] 0.5 mg PO TID 3 Days #9 tab 09/24/18 Multivitamins, Thera [Multivitamin 1 each PO DAILY@1200 #30 tab 09/24/18 (formulary)] Pantoprazole [Protonix] 40 mg PO AC-BID #60 tablet. 09/24/18 Thiamine [Vitamin B-1] 100 mg PO DAILY #30 tab 09/24/18 diphenhydrAMINE [Benadryl] 25 mg PO TID PRN #8 cap 09/24/18 traZODone HCL [Desyrel] 50 mg PO HS #0 09/24/18 Allergies Allergy/AdvReac Type Severity Reaction Status Date / Time No Known Allergies Allergy Verified 10/28/18 21:44 Review of Systems ROS Statement: Those systems with pertinent positive or pertinent negative responses have been documented in the HPI. ROS Other: All systems not noted in ROS Statement are negative. Past Medical History Past Medical History: COPD, CVA/TIA, GERD/Reflux, Hypertension, Renal Disease Additional Past Medical History / Comment(s): ETOH abuse, DTs, TIA, renal disease d/t htn per pt, past 2 L rib fractures, L hemothorax with chest tube, blood loss anemia, UTIs, L foot/Lknee and R hand gout, chokes/gags easily History of Any Multi-Drug Resistant Organisms: None Reported Past Surgical History: Section, Orthopedic Surgery Additional Past Surgical History / Comment(s): R writst surgery d/t injury, bilateral cataract removals, D&C x2, colonoscopy. Past Anesthesia/Blood Transfusion Reactions: No Reported Reaction, Motion Sickness Past Psychological History: ADD/ADHD, Anxiety, Depression Smoking Status: Former smoker Past Alcohol Use History: Abuse, Daily, Heavy Past Drug Use History: None Reported - Past Family History Mother Family Medical History: Blood Disorder, Congestive Heart Failure (CHF), Coronary Artery Disease (CAD) Additional Family Medical History / Comment(s): Mother had a blood disease (had too many WBCs). She at the age of 88yrs from CAD per pt. Father Family Medical History: Cancer Additional Family Medical History / Comment(s): Father of lung cancer at the age of 77yrs. General Exam - General Exam Comments Initial Comments: Physical Exam GENERAL: Chronically ill-appearing, appears older than stated age HENT: Normocephalic, Atraumatic. EYES: PERRL, EOMI PULMONARY: Unlabored respirations. No audible rales rhonchi or wheezing was noted. CARDIOVASCULAR: There is a regular rate and rhythm without any murmurs gallops or rubs. ABDOMEN: Soft and nontender with normal bowel sounds. SKIN: Skin is clear with no lesions or rashes and otherwise unremarkable. Warm and well perfused : Deferred NEUROLOGIC: Patient is sleepy but wakes to voice and is alert and oriented Patient is alert and oriented x3. Moving all extremities spontaneously MUSCULOSKELETAL: Normal extremities with adequate strength and full range of motion. No lower extremity swelling or edema. No calf tenderness. PSYCHIATRIC: Normal psychiatric evaluation. Limitations: no limitations Limitations: no limitations Course Vital Signs 10/28/18 10/28/18 10/28/18 21:40 22:10 22:20 Temperature 97.8 F Pulse Rate 73 79 64 Respiratory 16 17 14 Rate Blood Pressure 95/55 88/61 91/66 O2 Sat by Pulse 95 Oximetry 10/28/18 10/28/18 10/28/18 22:30 22:40 22:50 Temperature Pulse Rate 63 61 60 Respiratory 16 15 16 Rate Blood Pressure 91/66 80/55 78/50 O2 Sat by Pulse Oximetry 10/28/18 10/28/18 10/28/18 23:00 23:10 23:14 Temperature Pulse Rate 60 65 64 Respiratory 14 16 17 Rate Blood Pressure 78/50 84/62 84/62 O2 Sat by Pulse 87 L Oximetry 10/28/18 10/28/18 10/28/18 23:15 23:30 23:45 Temperature Pulse Rate 61 60 60 Respiratory 13 15 14 Rate Blood Pressure 84/62 86/67 104/77 O2 Sat by Pulse 90 L 97 94 L Oximetry 10/29/18 10/29/18 10/29/18 00:00 00:15 01:45 Temperature Pulse Rate 62 60 68 Respiratory 15 9 L 15 Rate Blood Pressure 99/76 109/76 110/79 O2 Sat by Pulse 95 94 L 96 Oximetry 10/29/18 01:50 Temperature Pulse Rate 65 Respiratory 18 Rate Blood Pressure 96/63 O2 Sat by Pulse 100 Oximetry Medical Decision Making - Medical Decision Making The patient was seen and evaluated, history is obtained from the patient Patient is noted to be hypotensive this is likely secondary to dehydration, poor by mouth intake and taking clonidine as this was her first dose IV fluids were ordered Patient sleeping comfortably, however BP not improving with IV fluids, therefore will place patient in obs for further evaluation. - Lab Data Result diagrams: 10/28/18 23:10 10/28/18 23:10 Lab Results 10/28/18 10/28/18 Range/Units 23:10 23:10 WBC 3.6 L (3.8-10.6) k/uL RBC 4.01 (3.80-5.40) m/uL Hgb 13.1 (11.4-16.0) gm/dL Hct 38.8 (34.0-46.0) % MCV 96.7 (80.0-100.0) fL MCH 32.7 (25.0-35.0) pg MCHC 33.8 (31.0-37.0) g/dL RDW 14.5 (11.5-15.5) % Plt Count 231 (150-450) k/uL Neutrophils % 24 % Lymphocytes % 65 % Monocytes % 6 % Eosinophils % 2 % Basophils % 1 % Neutrophils # 0.9 L (1.3-7.7) k/uL Lymphocytes # 2.3 (1.0-4.8) k/uL Monocytes # 0.2 (0-1.0) k/uL Eosinophils # 0.1 (0-0.7) k/uL Basophils # 0.0 (0-0.2) k/uL Manual Slide Review Performed Sodium 139 (137-145) mmol/L Potassium 4.0 (3.5-5.1) mmol/L Chloride 105 (98-107) mmol/L Carbon Dioxide 21 L (22-30) mmol/L Anion Gap 13 mmol/L BUN 7 (7-17) mg/dL Creatinine 0.89 (0.52-1.04) mg/dL Est GFR (CKD-EPI)AfAm 80 (>60 ml/min/1.73 sqM) Est GFR (CKD-EPI)NonAf 69 (>60 ml/min/1.73 sqM) Glucose 88 (74-99) mg/dL Calcium 9.4 (8.4-10.2) mg/dL Total Bilirubin 0.5 (0.2-1.3) mg/dL AST 109 H (14-36) U/L ALT 56 H (9-52) U/L Alkaline Phosphatase 70 (38-126) U/L Total Protein 6.2 L (6.3-8.2) g/dL Albumin 3.6 (3.5-5.0) g/dL Disposition Clinical Impression: Medication reaction, Hypotension, Alcoholic intoxication, Alcohol abuse, Transaminitis Disposition: ADMITTED IP TO THIS HOSP Condition: Stable Is patient prescribed a controlled substance at d/c from ED?: No
[2018-10-29] MEDS ORDERED: SODIUM CHLORIDE 0.9% 1,000 ML IV ONE (00:54)
[2018-10-29] MEDS ORDERED: NALOXONE 0.4 MG/ML 1 ML VIAL IV PRN (00:54)
[2018-10-29] MEDS: SODIUM CHLORIDE 0.9% 1,000 ML IV SCH ×3 (01:02→21:59)
[2018-10-29] MEDS: ONDANSETRON 4 MG/2 ML VIAL IVP PRN (09:56)
[2018-10-29] MEDS: LORazepam 2 MG/ML INJ IV PRN ×3 (09:56→21:58)
[2018-10-29] MEDS: PANTOPRAZOLE 40 MG TABLET PO SCH ×2 (13:01→16:50)
[2018-10-29] MEDS: THIAMINE 100 MG TAB PO SCH ×2 (13:01→20:04)
[2018-10-29] MEDS ORDERED: cloNIDine HCL 0.1 MG TAB PO SCH (15:15)
--- NOTE | 2018-10-29 15:31 | P.HPIM ---
History of Present Illness H&P Date: 10/29/18 Chief Complaint: Generalized weakness Patient is a 63-year-old female with a known history of hypertension, alcohol abuse, history of CVA/TIA, GERD and COPD presents to ER with complaints of generalized weakness. Patient also had concerned about her blood pressure being low or high since she took Coumadin for the first time today. Patient was prescribed Cardizem by her primary care physician for hypertension. Patient says that she cannot check her blood pressure. Patient otherwise did drink a pint of liquor last night and has been drinking today as well. Patient does drink an daily basis. Otherwise no complaints of chest pain or shortness of breath. Denied any cough or sputum production. No nausea vomiting or abdominal pain. No diarrhea or dysuria. No headache or dizziness or lightheadedness. No leg swelling. Bicarb is 21 Slightly elevated AST greater than ALT WBC 3.6 Review of Systems Constitutional: Patient denies any fever or chills . Generalized weakness. No weight loss. Abdomen: Patient denied nausea vomiting and diarrhea and abdominal pain. Cardiovascular: Patient denies any chest pain or short of breath no palpitations. Respiratory: patient denied any cough is from production. No shortness of breath Neurologic: Patient denied any numbness or tingling headache. Musculoskeletal: Patient denies any complaints of joint swelling or deformity. Skin: Negative Psychiatric: Negative Endocrine: No heat or cold intolerance. No recent weight gain. Genitourinary: No dysuria or hematuria. All other 14 point ROS negative except the above Past Medical History Past Medical History: COPD, CVA/TIA, GERD/Reflux, Hypertension, Renal Disease Additional Past Medical History / Comment(s): ETOH abuse, DTs, TIA, renal disea se d/t htn per pt, past 2 L rib fractures, L hemothorax with chest tube, blood loss anemia, UTIs, L foot/Lknee and R hand gout, chokes/gags easily History of Any Multi-Drug Resistant Organisms: None Reported Past Surgical History: Section, Orthopedic Surgery Additional Past Surgical History / Comment(s): R writst surgery d/t injury, bilateral cataract removals, D&C x2, colonoscopy. Past Anesthesia/Blood Transfusion Reactions: No Reported Reaction, Motion Sickness Past Psychological History: ADD/ADHD, Anxiety, Depression Smoking Status: Former smoker Past Alcohol Use History: Abuse, Daily, Heavy Past Drug Use History: None Reported - Past Family History Mother Family Medical History: Blood Disorder, Congestive Heart Failure (CHF), Coronary Artery Disease (CAD) Additional Family Medical History / Comment(s): Mother had a blood disease (had too many WBCs). She at the age of 88yrs from CAD per pt. Father Family Medical History: Cancer Additional Family Medical History / Comment(s): Father of lung cancer at the age of 77yrs. Medications and Allergies Home Medications Medication Instructions Recorded Confirmed Type Ondansetron HCl [Zofran] 8 mg PO BID 09/22/18 10/29/18 History Potassium Chloride ER [K-Dur 20] 20 meq PO DAILY 09/22/18 10/29/18 History hydrOXYzine HCL [Atarax] 25 mg PO Q8H PRN 09/22/18 10/29/18 History ALPRAZolam [Xanax] 0.25 mg PO DAILY PRN 10/29/18 10/29/18 History Allopurinol [Zyloprim] 300 mg PO DAILY 10/29/18 10/29/18 History Artificial Tears-Hypromellose 1 drop BOTH EYES TID 10/29/18 10/29/18 History [Artificial Tear Drops] Folic Acid 1 mg PO DAILY 10/29/18 10/29/18 History Ibuprofen [Motrin] 600 mg PO Q8HR PRN 10/29/18 10/29/18 History Magnesium 300 mg PO DAILY 10/29/18 10/29/18 History Multivitamins, Thera [Multivitamin 1 tab PO DAILY 10/29/18 10/29/18 History (formulary)] Omeprazole [PriLOSEC] 20 mg PO AC-BID 10/29/18 10/29/18 History Thiamine HCl [Vitamin B-1] 100 mg PO BID 10/29/18 10/29/18 History Zolpidem [Ambien] 5 mg PO HS 10/29/18 10/29/18 History cloNIDine HCL [Catapres] 0.1 mg PO BID 10/29/18 10/29/18 History traZODone HCL [Desyrel] 100 mg PO HS 10/29/18 10/29/18 History Allergies Allergy/AdvReac Type Severity Reaction Status Date / Time No Known Allergies Allergy Verified 10/29/18 08:47 Physical Exam Vitals: Vital Signs Temp Pulse Resp BP Pulse Ox 10/29/18 08:22 83 16 145/96 95 10/29/18 06:30 75 18 130/95 98 10/29/18 06:00 60 16 120/92 98 10/29/18 05:30 60 16 121/86 96 10/29/18 05:00 72 12 102/79 96 10/29/18 04:30 61 14 117/77 96 10/29/18 04:00 70 12 122/77 95 10/29/18 03:30 69 121/87 94 L 10/29/18 03:00 58 L 12 112/78 96 10/29/18 01:50 65 18 96/63 100 10/29/18 01:45 68 15 110/79 96 10/29/18 00:15 60 9 L 109/76 94 L 10/29/18 00:00 62 15 99/76 95 10/28/18 23:45 60 14 104/77 94 L 10/28/18 23:30 60 15 86/67 97 10/28/18 23:15 61 13 84/62 90 L 10/28/18 23:14 64 17 84/62 87 L 10/28/18 23:10 65 16 84/62 10/28/18 23:00 60 14 78/50 10/28/18 22:50 60 16 78/50 10/28/18 22:40 61 15 80/55 10/28/18 22:30 63 16 91/66 10/28/18 22:20 64 14 91/66 10/28/18 22:10 79 17 88/61 10/28/18 21:40 97.8 F 73 16 95/55 95 Intake and Output 10/28/18 10/29/18 10/29/18 22:59 06:59 14:59 Other: Weight 53.07 kg PHYSICAL EXAMINATION: Patient is lying in the bed comfortably, no acute distress, awake alert and oriented. Lethargic.. HEENT: Normocephalic. Neck is supple. Pupils reactive. Nostrils clear. Oral cavity is moist. Ears reveal no drainage. Neck reveals no JVD, carotid bruits, or thyromegaly. CHEST EXAMINATION: Trachea is central. Symmetrical expansion. Bibasilar diminished air entry. Lung yancey clear to auscultation and percussion. CARDIAC: Normal S1, S2 with no gallops. No murmurs ABDOMEN: Soft. Bowel sounds normal. No organomegaly. No abdominal bruits. Extremities: reveal no edema. No clubbing or cyanosis Neurologically awake, alert, oriented x3 with well-coordinated movements. No focal deficits noted Skin: No rash or skin lesions. Psychiatric: Cooperative. Nonsuicidal Musculoskeletal: No joint swelling or deformity. Normal range of motion. Results CBC & Chem 7: 10/28/18 23:10 10/28/18 23:10 Labs: Abnormal Lab Results - Last 24 Hours (Table) 10/28/18 10/28/18 Range/Units 23:10 23:10 WBC 3.6 L (3.8-10.6) k/uL Neutrophils # 0.9 L (1.3-7.7) k/uL Carbon Dioxide 21 L (22-30) mmol/L AST 109 H (14-36) U/L ALT 56 H (9-52) U/L Total Protein 6.2 L (6.3-8.2) g/dL Thrombosis Risk Factor Assmnt - DVT/VTE Prophylaxis DVT/VTE Prophylaxis: Pharmacologic Prophylaxis ordered Assessment and Plan Assessment: Acute alcohol withdrawal symptoms Generalized weakness Severe alcohol abuse Hypertension uncontrolled History of CVA/TIA History of present fractures, left hemothorax with chest tube. ADD/ADHD, anxiety, depression Previous history of smoking DVT prophylaxis with heparin subcu Plan: Patient be continued on IV fluids. Thiamine and multivitamins and Romero catheter. Continue [facility] protocol for alcohol withdrawal symptoms and monitor for DTs and continue the home medications and further recommendations based on the clinical course. Anticipate discharged tomorrow. Time with Patient: Greater than 30
[2018-10-29] MEDS: amLODIPine 5 MG TAB PO SCH (15:58)
[2018-10-29] MEDS: HEPARIN SODIUM,PORCINE 5,000 UNIT/ML 1 ML VIAL SQ SCH ×2 (16:50→23:43)
[2018-10-29] MEDS: ARTIFICIAL TEARS-HYPROMELLOSE DROPS 15 ML BTL BOTH EYES SCH ×2 (17:46→21:57)
[2018-10-29] MEDS ORDERED: traZODone HCL 100 MG TAB PO SCH (21:00)
[2018-10-29] MEDS ORDERED: FLUTICASONE 50MCG/SPRAY NASAL 16GM EA NOSTRIL PRN (21:34)
[2018-10-30] MEDS: LORazepam 2 MG/ML INJ IV PRN ×2 (03:17→10:02)
[2018-10-30 06:08] VITALS: RESP 18
[2018-10-30 07:32] LABS: Basophils % (A) 0 %; Eosinophils # (A) 0.1 k/uL (0-0.7); Eosinophils % (A) 3 %; HCT 35.2 % (34.0-46.0); HGB 11.8 gm/dL (11.4-16.0); Lymphocytes # (A) 1.2 k/uL (1.0-4.8); Lymphocytes % (A) 40 %; MCH 33.1 pg (25.0-35.0); MCHC 33.4 g/dL (31.0-37.0); MCV 99.1 fL (80.0-100.0); Mean Platelet Volume 7.5; Monocytes # (A) 0.2 k/uL (0-1.0); Monocytes % (A) 8 %; Neutrophils # (A) 1.4 k/uL (1.3-7.7); Neutrophils % (A) 47 %; Platelet Count 167 k/uL (150-450); RBC 3.55 m/uL (3.80-5.40); WBC 2.9 k/uL (3.8-10.6)
[2018-10-30 07:40] LABS: Calcium 8.5 mg/dL (8.4-10.2); Potassium 4.1 mmol/L (3.5-5.1); Total Bilirubin 1.3 mg/dL (0.2-1.3); Total Protein 5.5 g/dL (6.3-8.2)
[2018-10-30] MEDS: PANTOPRAZOLE 40 MG TABLET PO SCH (08:23)
[2018-10-30] MEDS: amLODIPine 5 MG TAB PO SCH (08:23)
[2018-10-30] MEDS: HEPARIN SODIUM,PORCINE 5,000 UNIT/ML 1 ML VIAL SQ SCH (08:23)
[2018-10-30] MEDS: ARTIFICIAL TEARS-HYPROMELLOSE DROPS 15 ML BTL BOTH EYES SCH (08:23)
[2018-10-30] MEDS ORDERED: ALLOPURINOL 300 MG TAB PO SCH (09:00)
[2018-10-30 10:48] VITALS: BMI 27.0
[2018-10-30] MEDS ORDERED: MULTIVITAMINS, THERA 1 EACH TAB PO SCH (12:00)
[2018-10-30] MEDS ORDERED: FOLIC ACID 1 MG TAB PO SCH (12:00)
[2018-10-30 12:16] VITALS: BP 138/80; PULSE 88; TEMP 98
[2018-10-30] MEDS: THIAMINE 100 MG TAB PO SCH (12:20)
[2018-10-30] MEDS: ONDANSETRON 4 MG/2 ML VIAL IVP PRN (12:20)
--- NOTE | 2018-10-30 15:52 | P.DS ---
Providers Date of admission: 10/29/18 00:55 Expected date of discharge: 10/30/18 Attending physician: Sreekanth De Guzman Primary care physician: [facility] Course: 63-year-old female with a known history of hypertension, alcohol abuse, history of CVA/TIA, GERD and COPD presents to ER with complaints of generalized weakness. Patient also had concerned about her blood pressure being low or high since she took Coumadin for the first time today. Patient was prescribed Cardizem by her primary care physician for hypertension. Patient says that she cannot check her blood pressure. Patient otherwise did drink a pint of liquor last night and has been drinking today as well. Patient does drink an daily basis. Otherwise no complaints of chest pain or shortness of breath. Denied any cough or sputum production. No nausea vomiting or abdominal pain. No diarrhea or dysuria. No headache or dizziness or lightheadedness. No leg swelling. Bicarb is 21 Slightly elevated AST greater than ALT WBC 3.6 Patient was treated with IV fluid resuscitation with multivitamins, thiamine and folic acid; CIWA protocol was implemented for alcohol withdrawal symptoms; patient remained stable without any complications and is being discharged to follow-up with PCP Patient Condition at Discharge: Stable Plan - Discharge Summary Discharge Rx Participant: No New Discharge Prescriptions: Continue hydrOXYzine HCL [Atarax] 25 mg PO Q8H PRN PRN Reason: Itching Ondansetron HCl [Zofran] 8 mg PO BID Potassium Chloride ER [K-Dur 20] 20 meq PO DAILY Multivitamins, Thera [Multivitamin (formulary)] 1 tab PO DAILY Folic Acid 1 mg PO DAILY traZODone HCL [Desyrel] 100 mg PO HS Thiamine HCl [Vitamin B-1] 100 mg PO BID ALPRAZolam [Xanax] 0.25 mg PO DAILY PRN PRN Reason: Anxiety Artificial Tears-Hypromellose [Artificial Tear Drops] 1 drop BOTH EYES TID Allopurinol [Zyloprim] 300 mg PO DAILY cloNIDine HCL [Catapres] 0.1 mg PO BID Zolpidem [Ambien] 5 mg PO HS Omeprazole [PriLOSEC] 20 mg PO AC-BID Ibuprofen [Motrin] 600 mg PO Q8HR PRN PRN Reason: Pain Magnesium 300 mg PO DAILY Discharge Medication List Ondansetron HCl [Zofran] 8 mg PO BID 09/22/18 [History] Potassium Chloride ER [K-Dur 20] 20 meq PO DAILY 09/22/18 [History] hydrOXYzine HCL [Atarax] 25 mg PO Q8H PRN 09/22/18 [History] ALPRAZolam [Xanax] 0.25 mg PO DAILY PRN 10/29/18 [History] Allopurinol [Zyloprim] 300 mg PO DAILY 10/29/18 [History] Artificial Tears-Hypromellose [Artificial Tear Drops] 1 drop BOTH EYES TID 10/29/18 [History] Folic Acid 1 mg PO DAILY 10/29/18 [History] Ibuprofen [Motrin] 600 mg PO Q8HR PRN 10/29/18 [History] Magnesium 300 mg PO DAILY 10/29/18 [History] Multivitamins, Thera [Multivitamin (formulary)] 1 tab PO DAILY 10/29/18 [History] Omeprazole [PriLOSEC] 20 mg PO AC-BID 10/29/18 [History] Thiamine HCl [Vitamin B-1] 100 mg PO BID 10/29/18 [History] Zolpidem [Ambien] 5 mg PO HS 10/29/18 [History] cloNIDine HCL [Catapres] 0.1 mg PO BID 10/29/18 [History] traZODone HCL [Desyrel] 100 mg PO HS 10/29/18 [History] Follow up Appointment(s)/Referral(s): Rose Guevara MD [Primary Care Provider] - 1-2 days Discharge Disposition: HOME SELF-CARE
== END 2018-10-30 16:20 | disposition home or self-care (01) ==
LOC: EC 21:28 → 1SOBS 10-29 00:55 → 3NMEDONC 10-30 04:39
PROVIDERS: ADMIT Internal Medicine; ATTEND Internal Medicine
DX: F10.239 Alcohol dependence with withdrawal, unspecified (principal); F10.229 Alcohol dependence with intoxication, unspecified; I10 Essential (primary) hypertension; I95.2 Hypotension due to drugs; Z86.73 Personal history of transient ischemic attack (TIA), and cerebral infarction without residual deficits; F90.9 Attention-deficit hyperactivity disorder, unspecified type; F41.9 Anxiety disorder, unspecified; F32.9 Major depressive disorder, single episode, unspecified; Z87.891 Personal history of nicotine dependence; K21.9 Gastro-esophageal reflux disease without esophagitis; J44.9 Chronic obstructive pulmonary disease, unspecified; N28.9 Disorder of kidney and ureter, unspecified; M10.9 Gout, unspecified; T46.5X5A Adverse effect of other antihypertensive drugs, initial encounter; Z79.899 Other long term (current) drug therapy; Z79.82 Long term (current) use of aspirin; Z87.440 Personal history of urinary (tract) infections; Z82.49 Family history of ischemic heart disease and other diseases of the circulatory system; Z80.1 Family history of malignant neoplasm of trachea, bronchus and lung
CPT/HCPCS: 96376 ×2; 96372 ×2; 96361 ×2; 96374; 96375; 99284; 36415; 80053 ×2; 85025 ×2; G0378 ×2; J2060 ×2; J1644 ×2; J2405 ×2; 96360; 99285

== ENCOUNTER 2018-11-02 09:37 | Emergency (ER) | payer BC ==
[2018-11-02 09:42] VITALS: RESP 20; TEMP 97.4
[2018-11-02] MEDS ORDERED: LORazepam 2 MG/ML INJ IV PRN ×3 (10:00)
[2018-11-02] MEDS ORDERED: THIAMINE 100 MG/ML 2 ML VIAL IM STA (10:00)
[2018-11-02] MEDS ORDERED: SODIUM CHLORIDE 0.9% 1,000 ML IV ONE (10:11)
[2018-11-02 10:43] LABS: Basophils % (A) 0 %; Eosinophils # (A) 0.1 k/uL (0-0.7); Eosinophils % (A) 2 %; HGB 13.2 gm/dL (11.4-16.0); Lymphocytes # (A) 1.1 k/uL (1.0-4.8); Lymphocytes % (A) 18 %; MCH 33.7 pg (25.0-35.0); MCHC 33.8 g/dL (31.0-37.0); MCV 99.8 fL (80.0-100.0); Macrocytosis Slight; Mean Platelet Volume 7.8; Monocytes # (A) 0.3 k/uL (0-1.0); Monocytes % (A) 5 %; Neutrophils # (A) 4.2 k/uL (1.3-7.7); Neutrophils % (A) 73 %; Platelet Count 177 k/uL (150-450); RDW 14.4 % (11.5-15.5); WBC 5.8 k/uL (3.8-10.6)
--- NOTE | 2018-11-02 10:43 | ED ---
General Adult HPI - General Chief complaint: Nausea/Vomiting/Diarrhea Stated complaint: Withdrawal symptoms Time Seen by Provider: 11/02/18 10:00 Source: patient Mode of arrival: ambulatory - History of Present Illness Initial comments: 63-year-old female presenting for alcohol withdrawal. Patient states that she is an alcoholic and has been hospitalized frequently for this complaint. Patient states she has been drinking wine. Her family had wanted her to enter rehabilitation and evaluated at a hospital and thus dropped her off this morning at our facility. Patient denies any suicidal or homicidal ideation. She states her last drink was yesterday evening a bottle of wine. Pt states she has felt like she has had tremors on and off. Pt states she had an isolated episode of emesis, denies abdominal pain, diarrhea, fever, chills or drug use. Pt is AAOx3 upon arrival. Appearing well. VS WNL no elevation of HR. Smells of alcohol. - Related Data Home Medications Medication Instructions Recorded Confirmed Ondansetron HCl [Zofran] 8 mg PO BID 09/22/18 11/02/18 Potassium Chloride ER [K-Dur 20] 20 meq PO DAILY 09/22/18 11/02/18 hydrOXYzine HCL [Atarax] 25 mg PO Q8H PRN 09/22/18 11/02/18 ALPRAZolam [Xanax] 0.25 mg PO DAILY PRN 10/29/18 11/02/18 Allopurinol [Zyloprim] 300 mg PO DAILY 10/29/18 11/02/18 Artificial Tears-Hypromellose 1 drop BOTH EYES TID 10/29/18 11/02/18 [Artificial Tear Drops] Folic Acid 1 mg PO DAILY 10/29/18 11/02/18 Ibuprofen [Motrin] 600 mg PO Q8HR PRN 10/29/18 11/02/18 Magnesium 300 mg PO DAILY 10/29/18 11/02/18 Multivitamins, Thera [Multivitamin 1 tab PO DAILY 10/29/18 11/02/18 (formulary)] Omeprazole [PriLOSEC] 20 mg PO AC-BID 10/29/18 11/02/18 Thiamine HCl [Vitamin B-1] 100 mg PO BID 10/29/18 11/02/18 Zolpidem [Ambien] 5 mg PO HS 10/29/18 11/02/18 cloNIDine HCL [Catapres] 0.1 mg PO BID 10/29/18 11/02/18 traZODone HCL [Desyrel] 100 mg PO HS 10/29/18 11/02/18 Previous Rx's Medication Instructions Recorded ALPRAZolam [Xanax] 0.5 mg PO Q12HR PRN 3 Days #6 tab 11/02/18 Allergies Allergy/AdvReac Type Severity Reaction Status Date / Time No Known Allergies Allergy Verified 11/02/18 10:12 Review of Systems ROS Statement: Those systems with pertinent positive or pertinent negative responses have been documented in the HPI. ROS Other: All systems not noted in ROS Statement are negative. Past Medical History Past Medical History: COPD, CVA/TIA, GERD/Reflux, Hypertension, Renal Disease Additional Past Medical History / Comment(s): ETOH abuse, DTs, TIA, renal disease d/t htn per pt, past 2 L rib fractures, L hemothorax with chest tube, blood loss anemia, UTIs, L foot/Lknee and R hand gout, chokes/gags easily History of Any Multi-Drug Resistant Organisms: None Reported Past Surgical History: Section, Orthopedic Surgery Additional Past Surgical History / Comment(s): R writst surgery d/t injury, bilateral cataract removals, D&C x2, colonoscopy. Past Anesthesia/Blood Transfusion Reactions: No Reported Reaction, Motion Sickness Past Psychological History: ADD/ADHD, Anxiety, Depression Smoking Status: Former smoker Past Alcohol Use History: Abuse, Daily, Heavy Past Drug Use History: None Reported - Past Family History Mother Family Medical History: Blood Disorder, Congestive Heart Failure (CHF), Coronary Artery Disease (CAD) Additional Family Medical History / Comment(s): Mother had a blood disease (had too many WBCs). She at the age of 88yrs from CAD per pt. Father Family Medical History: Cancer Additional Family Medical History / Comment(s): Father of lung cancer at the age of 77yrs. General Exam - General Exam Comments Initial Comments: General: The patient is awake and alert, in no distress, and does not appear acutely ill. Eye: Pupils are equal, round and reactive to light, extra-ocular movements are intact. No nystagmus. There is normal conjunctiva bilaterally. No signs of icterus. Ears, nose, mouth and throat: There are moist mucous membranes and no oral lesions. Neck: The neck is supple, there is no tenderness or JVD. Cardiovascular: There is a regular rate and rhythm. No murmur, rub or gallop is appreciated. Respiratory: Lungs are clear to auscultation, respirations are non-labored, breath sounds are equal. No wheezes, stridor, rales, or rhonchi. Gastrointestinal: Soft, non-distended, non-tender abdomen without masses or or ganomegaly noted. There is no rebound or guarding present. No CVA tenderness. Bowel sounds are unremarkable. Musculoskeletal: Normal ROM, no tenderness. Strength 5/5. Sensation intact. Pulses equal bilaterally 2+. Neurological: A&O x 3. CN II-XII intact, There are no obvious motor or sensory deficits. Coordination appears grossly intact. Speech is normal. Skin: Skin is warm and dry and no rashes or lesions are noted. No tremors Psychiatric: Cooperative, appropriate mood & affect, normal judgment. Course Vital Signs 11/02/18 11/02/18 11/02/18 09:39 13:13 13:20 Temperature 97.4 F L 97.4 F L Pulse Rate 74 79 79 Respiratory 20 20 Rate Blood Pressure 134/80 136/89 136/89 O2 Sat by Pulse 99 92 L 92 L Oximetry EKG Findings - EKG Comments: EKG Findings:: A 12-lead EKG was performed and shows the following: Rate is 74bpm, and rhythm is normal sinus. There are normal QRS complexes and normal R- wave progression. ST segments have no elevation or depression, and NJ segments appear normal. NJ interval 166 ms, QRS duration 78 ms, QT/QTC 408/452 ms. EKG compared to that of 09/14 Medical Decision Making - Medical Decision Making Well appearing 63-year-old female presenting for alcohol withdrawal. Patient states her last drink was roughly 12-16 hours prior, wine. She states she needs help has gone to [facility] many times. Patient presents for evaluation for rehabilitation. Blood ETOH less than 10. There is no evidence of delirium tremens. Patient is alert and oriented 3. No Nystagmus. No tremors. Patient appears well. Tachycardia. Patient placed on Cipro protocols. Patient given vitamin including thiamine and folic acid. Patient given IV hydration. EKG revealed no abnormalities. This is compared with previous. The resolution of the QT prolongation previously seen. Patient had slightly low magnesium, this was replaced orally. Potassium within normal limits. Remaining laboratory studies consistent with history of ETOH abuse. Discussed case reviewing laboratory studies with attending Dr. Mitchell. He is agreeable with discharge with outpaient RX of xanax. Pt states she will call [facility] and have family pick her up. She states she will admit self into rehabilitation - Lab Data Result diagrams: 11/02/18 10:34 11/02/18 10:34 Lab Results 11/02/18 11/02/18 11/02/18 Range/Units 10:34 10:34 10:34 WBC 5.8 (3.8-10.6) k/uL RBC 3.90 (3.80-5.40) m/uL Hgb 13.2 (11.4-16.0) gm/dL Hct 39.0 (34.0-46.0) % MCV 99.8 (80.0-100.0) fL MCH 33.7 (25.0-35.0) pg MCHC 33.8 (31.0-37.0) g/dL RDW 14.4 (11.5-15.5) % Plt Count 177 (150-450) k/uL Neutrophils % 73 % Lymphocytes % 18 % Monocytes % 5 % Eosinophils % 2 % Basophils % 0 % Neutrophils # 4.2 (1.3-7.7) k/uL Lymphocytes # 1.1 (1.0-4.8) k/uL Monocytes # 0.3 (0-1.0) k/uL Eosinophils # 0.1 (0-0.7) k/uL Basophils # 0.0 (0-0.2) k/uL Macrocytosis Slight Sodium 143 (137-145) mmol/L Potassium 4.1 (3.5-5.1) mmol/L Chloride 110 H (98-107) mmol/L Carbon Dioxide 26 (22-30) mmol/L Anion Gap 7 mmol/L BUN 7 (7-17) mg/dL Creatinine 0.94 (0.52-1.04) mg/dL Est GFR (CKD-EPI)AfAm 75 (>60 ml/min/1.73 sqM) Est GFR (CKD-EPI)NonAf 65 (>60 ml/min/1.73 sqM) Glucose 95 (74-99) mg/dL Calcium 9.6 (8.4-10.2) mg/dL Phosphorus 3.6 (2.5-4.5) mg/dL Magnesium 1.3 L (1.6-2.3) mg/dL Total Bilirubin 0.6 (0.2-1.3) mg/dL AST 159 H (14-36) U/L ALT 76 H (9-52) U/L Alkaline Phosphatase 84 (38-126) U/L Total Protein 6.8 (6.3-8.2) g/dL Albumin 4.0 (3.5-5.0) g/dL Lipase 165 (23-300) U/L Serum Alcohol <10 mg/dL Disposition Clinical Impression: Alcohol abuse, Alcohol withdrawal Disposition: HOME SELF-CARE Condition: Good Instructions (If sedation given, give patient instructions): Alcohol Withdrawal (ED) Additional Instructions: Please use medication as discussed. Please follow-up with family doctor in the next 2 days. Please go straight to [facility] as discussed. Please return to emergency room if the symptoms increase or worsen or for any other concerns. Prescriptions: ALPRAZolam [Xanax] 0.5 mg PO Q12HR PRN 3 Days #6 tab PRN Reason: Alcohol Withdrawal Is patient prescribed a controlled substance at d/c from ED?: No Referrals: Rose Guevara MD [Primary Care Provider] - 1-2 days Time of Disposition: 12:47
[2018-11-02 10:57] LABS: ALT 76 U/L (9-52); AST 159 U/L (14-36); Alcohol <10 mg/dL; Alkaline Phosphatase 84 U/L (38-126); Anion Gap 7 mmol/L; Blood Urea Nitrogen 7 mg/dL (7-17); Calcium 9.6 mg/dL (8.4-10.2); Carbon Dioxide 26 mmol/L (22-30); Chloride 110 mmol/L (98-107); Glucose 95 mg/dL (74-99); Magnesium 1.3 mg/dL (1.6-2.3); Phosphorus 3.6 mg/dL (2.5-4.5); Potassium 4.1 mmol/L (3.5-5.1); Sodium 143 mmol/L (137-145); Total Bilirubin 0.6 mg/dL (0.2-1.3); Total Protein 6.8 g/dL (6.3-8.2)
[2018-11-02] MEDS ORDERED: MAGNESIUM OXIDE 400 MG TAB PO STA (11:51)
[2018-11-02 13:16] VITALS: BP 136/89; PULSE 79
[2018-11-02] MEDS ORDERED: THIAMINE 100 MG TAB PO SCH (17:30)
== END 2018-11-02 13:20 | disposition home or self-care (01) ==
LOC: EC 09:37
DX: F10.239 Alcohol dependence with withdrawal, unspecified (principal); E83.42 Hypomagnesemia; K21.9 Gastro-esophageal reflux disease without esophagitis; I10 Essential (primary) hypertension; M10.9 Gout, unspecified; D50.0 Iron deficiency anemia secondary to blood loss (chronic); F90.9 Attention-deficit hyperactivity disorder, unspecified type; F41.9 Anxiety disorder, unspecified; F32.9 Major depressive disorder, single episode, unspecified; Z86.73 Personal history of transient ischemic attack (TIA), and cerebral infarction without residual deficits; Z87.891 Personal history of nicotine dependence; Z79.899 Other long term (current) drug therapy; Y90.0 Blood alcohol level of less than 20 mg/100 ml
CPT/HCPCS: 36415; 80053; 83690; 83735; 84100; 85025; 80320; 99284; 96374; 96361; 96372; J2060; J3411

== ENCOUNTER → 2019-03-15 | Outpatient (CLI) | payer BC ==
--- NOTE | 2019-03-16 14:24 | MM ---
Reason for exam: screening (asymptomatic). Last mammogram was performed 1 year and 5 months ago. History: Patient is postmenopausal, has history of other cancer at age 20, and had first child at age 31. Physical Findings: A clinical breast exam by your physician is recommended on an annual basis and results should be correlated with mammographic findings. MG 3D Screening Mammo W/Cad Bilateral CC and MLO view(s) were taken. Prior study comparison: October 13, 2017, bilateral MG screening mammo w CAD. August 05, 2016, bilateral MG 3d screening mammo w/cad. No significant changes when compared with prior studies. ASSESSMENT: Benign, BI-RAD 2 RECOMMENDATION: Routine screening mammogram of both breasts in 1 year.
== END | disposition home or self-care (01) ==
LOC: RADMAMWWP 13:39
PROVIDERS: ATTEND Family Medicine
DX: Z12.31 Encounter for screening mammogram for malignant neoplasm of breast (principal)
CPT/HCPCS: 77063; 77067

== ENCOUNTER 2019-03-24 16:08 | Emergency (ER) | payer BC ==
[2019-03-24 16:16] VITALS: RESP 18
[2019-03-24] MEDS ORDERED: SODIUM CHLORIDE 0.9% 1,000 ML IV STA ×2 (16:41)
[2019-03-24] MEDS ORDERED: THIAMINE 100 MG/ML 2 ML VIAL IVPB STA (16:41)
[2019-03-24] MEDS ORDERED: THIAMINE 100 MG/ML 2 ML VIAL IM STA (16:42)
[2019-03-24] MEDS ORDERED: LORazepam 2 MG/ML INJ IV PRN ×3 (16:42)
[2019-03-24] MEDS ORDERED: LORazepam 2 MG/ML INJ IV STA (16:43)
[2019-03-24] MEDS ORDERED: THIAMINE 200 MG in SODIUM CHLORIDE 0.9% 100 ML IVPB ONE (17:00)
--- NOTE | 2019-03-24 17:03 | ED ---
Recheck HPI - General Chief Complaint: Recheck/Abnormal Lab/Rx Stated Complaint: elevated BP Time Seen by Provider: 03/24/19 16:23 Source: patient, RN notes reviewed, old records reviewed Mode of arrival: ambulatory Limitations: no limitations - History of Present Illness Initial Comments: This is a 63-year-old female the ER for evaluation. Patient has no significant medical history some reflux disease history of alcoholism and drinking months ago. Patient was essay for elevated blood pressure does have history of elevated blood pressure but is not any longer taking medications. Patient is having headaches some confusion than this new onset of elevated blood pressure which is noticed twice had outpatient dentist appointment and said her primary care doctor. sent patient to ER for further evaluation management. Patient denying chest pain or shortness of breath currently. MD Complaint: other (Patient had elevated blood pressure) -: unknown Returns Today for: other (Sent to ER for evaluation regards to elevated blood pressure) Symptoms Since Prior Visit: no new symptoms Context: ran out of medication (She was on blood pressure medication which she no longer takes) Associated Symptoms: malaise - Related Data Home Medications Medication Instructions Recorded Confirmed traZODone HCL [Desyrel] 100 mg PO HS 10/29/18 03/24/19 Acetaminophen Tab [Tylenol Tab] 650 mg PO Q6H PRN 03/24/19 03/24/19 Doxycycline Monohydrate [Monodox] 100 mg PO BID 03/24/19 03/24/19 Ranitidine HCl 150 mg PO HS 03/24/19 03/24/19 Allergies Allergy/AdvReac Type Severity Reaction Status Date / Time No Known Allergies Allergy Verified 03/24/19 17:30 Review of Systems ROS Statement: Those systems with pertinent positive or pertinent negative responses have been documented in the HPI. ROS Other: All systems not noted in ROS Statement are negative. Past Medical History Past Medical History: COPD, CVA/TIA, GERD/Reflux, Hypertension, Renal Disease Additional Past Medical History / Comment(s): ETOH abuse, DTs, TIA, renal disease d/t htn per pt, past 2 L rib fractures, L hemothorax with chest tube, blood loss anemia, UTIs, L foot/Lknee and R hand gout, chokes/gags easily History of Any Multi-Drug Resistant Organisms: None Reported Past Surgical History: Section, Orthopedic Surgery Additional Past Surgical History / Comment(s): R writst surgery d/t injury, bilateral cataract removals, D&C x2, colonoscopy. Past Anesthesia/Blood Transfusion Reactions: No Reported Reaction, Motion Sickness Past Psychological History: ADD/ADHD, Anxiety, Depression Smoking Status: Former smoker Past Alcohol Use History: Abuse, Daily, Heavy Past Drug Use History: None Reported - Past Family History Mother Family Medical History: Blood Disorder, Congestive Heart Failure (CHF), Coronary Artery Disease (CAD) Additional Family Medical History / Comment(s): Mother had a blood disease (had too many WBCs). She at the age of 88yrs from CAD per pt. Father Family Medical History: Cancer Additional Family Medical History / Comment(s): Father of lung cancer at the age of 77yrs. General Exam Limitations: no limitations General appearance: alert, in no apparent distress Head exam: Present: atraumatic, normocephalic, normal inspection Eye exam: Present: normal appearance, PERRL, EOMI, nystagmus. Absent: scleral icterus, conjunctival injection, periorbital swelling ENT exam: Present: normal exam, mucous membranes moist Neck exam: Present: normal inspection. Absent: tenderness, meningismus, lymphadenopathy Respiratory exam: Present: normal lung sounds bilaterally. Absent: respiratory distress, wheezes, rales, rhonchi, stridor Cardiovascular Exam: Present: regular rate, normal rhythm, normal heart sounds. Absent: systolic murmur, diastolic murmur, rubs, gallop, clicks GI/Abdominal exam: Present: soft, normal bowel sounds. Absent: distended, tenderness, guarding, rebound, rigid Extremities exam: Present: normal inspection, full ROM, normal capillary refill. Absent: tenderness, pedal edema, joint swelling, calf tenderness Back exam: Present: normal inspection Neurological exam: Present: alert, oriented X3, CN II-XII intact Psychiatric exam: Present: normal affect, normal mood Skin exam: Present: warm, dry, intact, normal color. Absent: rash Course Vital Signs 03/24/19 03/24/19 16:14 17:49 Temperature 98.0 F Pulse Rate 79 74 Respiratory 18 18 Rate Blood Pressure 139/97 157/112 O2 Sat by Pulse 95 96 Oximetry - Reevaluation(s) Reevaluation #1: 03/24/19 17:03 Medical record is reviewed Reevaluation #2: 03/24/19 18:28 Patient not requiring blood pressure control here in the ER Medical Decision Making - Medical Decision Making 63 female the ER for evaluation. Patient can be discharged home blood pressures within normal limits labwork is normal. Patient can follow-up with primary care for further evaluation and management - Lab Data Result diagrams: 03/24/19 17:05 03/24/19 17:05 Lab Results 03/24/19 03/24/19 03/24/19 Range/Units 17:05 17:05 17:05 WBC 6.1 (3.8-10.6) k/uL RBC 4.88 (3.80-5.40) m/uL Hgb 14.7 (11.4-16.0) gm/dL Hct 41.7 (34.0-46.0) % MCV 85.5 (80.0-100.0) fL MCH 30.2 (25.0-35.0) pg MCHC 35.3 (31.0-37.0) g/dL RDW 12.9 (11.5-15.5) % Plt Count 186 (150-450) k/uL Neutrophils % 53 % Lymphocytes % 32 % Monocytes % 7 % Eosinophils % 4 % Basophils % 3 % Neutrophils # 3.2 (1.3-7.7) k/uL Lymphocytes # 1.9 (1.0-4.8) k/uL Monocytes # 0.4 (0-1.0) k/uL Eosinophils # 0.2 (0-0.7) k/uL Basophils # 0.2 (0-0.2) k/uL PT 9.7 (9.0-12.0) sec INR 0.9 (<1.2) Sodium 138 (137-145) mmol/L Potassium 4.4 (3.5-5.1) mmol/L Chloride 106 (98-107) mmol/L Carbon Dioxide 23 (22-30) mmol/L Anion Gap 9 mmol/L BUN 15 (7-17) mg/dL Creatinine 0.92 (0.52-1.04) mg/dL Est GFR (CKD-EPI)AfAm 77 (>60 ml/min/1.73 sqM) Est GFR (CKD-EPI)NonAf 67 (>60 ml/min/1.73 sqM) Glucose 91 (74-99) mg/dL Calcium 9.9 (8.4-10.2) mg/dL Phosphorus 4.1 (2.5-4.5) mg/dL Magnesium 1.7 (1.6-2.3) mg/dL Total Bilirubin 0.4 (0.2-1.3) mg/dL AST 23 (14-36) U/L ALT 17 (9-52) U/L Alkaline Phosphatase 50 (38-126) U/L Ammonia (<30) umol/L Total Protein 7.1 (6.3-8.2) g/dL Albumin 4.2 (3.5-5.0) g/dL Lipase 160 (23-300) U/L Serum Alcohol <10 mg/dL 03/24/19 Range/Units 17:22 WBC (3.8-10.6) k/uL RBC (3.80-5.40) m/uL Hgb (11.4-16.0) gm/dL Hct (34.0-46.0) % MCV (80.0-100.0) fL MCH (25.0-35.0) pg MCHC (31.0-37.0) g/dL RDW (11.5-15.5) % Plt Count (150-450) k/uL Neutrophils % % Lymphocytes % % Monocytes % % Eosinophils % % Basophils % % Neutrophils # (1.3-7.7) k/uL Lymphocytes # (1.0-4.8) k/uL Monocytes # (0-1.0) k/uL Eosinophils # (0-0.7) k/uL Basophils # (0-0.2) k/uL PT (9.0-12.0) sec INR (<1.2) Sodium (137-145) mmol/L Potassium (3.5-5.1) mmol/L Chloride (98-107) mmol/L Carbon Dioxide (22-30) mmol/L Anion Gap mmol/L BUN (7-17) mg/dL Creatinine (0.52-1.04) mg/dL Est GFR (CKD-EPI)AfAm (>60 ml/min/1.73 sqM) Est GFR (CKD-EPI)NonAf (>60 ml/min/1.73 sqM) Glucose (74-99) mg/dL Calcium (8.4-10.2) mg/dL Phosphorus (2.5-4.5) mg/dL Magnesium (1.6-2.3) mg/dL Total Bilirubin (0.2-1.3) mg/dL AST (14-36) U/L ALT (9-52) U/L Alkaline Phosphatase (38-126) U/L Ammonia <9 (<30) umol/L Total Protein (6.3-8.2) g/dL Albumin (3.5-5.0) g/dL Lipase (23-300) U/L Serum Alcohol mg/dL - Radiology Data Radiology results: report reviewed (CT brain negative for acute disease), image reviewed Disposition Clinical Impression: Hypertension Disposition: HOME SELF-CARE Condition: Good Instructions (If sedation given, give patient instructions): Hypertension (ED) Is patient prescribed a controlled substance at d/c from ED?: No Referrals: Rose Guevara MD [Primary Care Provider] - 1-2 days
[2019-03-24 17:14] LABS: Basophils # (A) 0.2 k/uL (0-0.2); Basophils % (A) 3 %; Eosinophils # (A) 0.2 k/uL (0-0.7); Eosinophils % (A) 4 %; HCT 41.7 % (34.0-46.0); HGB 14.7 gm/dL (11.4-16.0); Lymphocytes # (A) 1.9 k/uL (1.0-4.8); Lymphocytes % (A) 32 %; MCH 30.2 pg (25.0-35.0); MCHC 35.3 g/dL (31.0-37.0); MCV 85.5 fL (80.0-100.0); Mean Platelet Volume 9.2; Monocytes # (A) 0.4 k/uL (0-1.0); Monocytes % (A) 7 %; Neutrophils # (A) 3.2 k/uL (1.3-7.7); Neutrophils % (A) 53 %; Platelet Count 186 k/uL (150-450); RBC 4.88 m/uL (3.80-5.40); RDW 12.9 % (11.5-15.5); WBC 6.1 k/uL (3.8-10.6)
[2019-03-24 17:18] LABS: INR 0.9 (<1.2); Prothrombin Time 9.7 sec (9.0-12.0)
[2019-03-24 17:21] LABS: ALT 17 U/L (9-52); AST 23 U/L (14-36); African American GFR (CKD) 77 (>60 ml/min/1.73 sqM); Albumin 4.2 g/dL (3.5-5.0); Alcohol <10 mg/dL; Alkaline Phosphatase 50 U/L (38-126); Anion Gap 9 mmol/L; Blood Urea Nitrogen 15 mg/dL (7-17); Calcium 9.9 mg/dL (8.4-10.2); Carbon Dioxide 23 mmol/L (22-30); Chloride 106 mmol/L (98-107); Glucose 91 mg/dL (74-99); Magnesium 1.7 mg/dL (1.6-2.3); Phosphorus 4.1 mg/dL (2.5-4.5); Potassium 4.4 mmol/L (3.5-5.1); Sodium 138 mmol/L (137-145); Total Bilirubin 0.4 mg/dL (0.2-1.3); Total Protein 7.1 g/dL (6.3-8.2)
--- NOTE | 2019-03-24 17:27 | CT ---
EXAMINATION TYPE: CT brain wo con DATE OF EXAM: 03/24/2019 COMPARISON: 01/11/2018 HISTORY: Headache with speech disturbance CT DLP: 1165.4 mGycm Automated exposure control for dose reduction was used. FINDINGS: Ventricles have normal size. There is no mass effect nor midline shift. There is no sign of intracran ial hemorrhage. Calvarium is intact. IMPRESSION: CEREBRAL ATROPHY. NO ACUTE INTRACRANIAL ABNORMALITY. NO CHANGE.
[2019-03-24] MEDS ORDERED: THIAMINE 100 MG TAB PO SCH (17:30)
[2019-03-24 18:51] VITALS: BP 163/97; PULSE 79; TEMP 98.2
== END 2019-03-24 18:58 | disposition home or self-care (01) ==
LOC: EC 16:08
DX: I10 Essential (primary) hypertension (principal); R51 Headache; R41.0 Disorientation, unspecified; K21.9 Gastro-esophageal reflux disease without esophagitis; F41.9 Anxiety disorder, unspecified; F32.9 Major depressive disorder, single episode, unspecified; Z87.891 Personal history of nicotine dependence; Z86.73 Personal history of transient ischemic attack (TIA), and cerebral infarction without residual deficits; Z79.899 Other long term (current) drug therapy; Z53.8 Procedure and treatment not carried out for other reasons
CPT/HCPCS: 36415; 80053; 82140; 83690; 83735; 84100; 85025; 85610; 80320; 70450; 99284; 96365; 96375; J2060; J3411

== ENCOUNTER 2020-01-23 14:58 | Observation (INO) | payer BC ==
--- NOTE | 2020-01-23 15:31 | ED ---
General Adult HPI - General Chief complaint: Overdose Stated complaint: Poss Overdose Time Seen by Provider: 01/23/20 15:05 Source: patient Mode of arrival: wheelchair Limitations: no limitations - History of Present Illness Initial comments: Dictation was produced using Sient[employer] dictation software. please excuse any grammatical, word or spelling errors. This patient was cared for during a federal and state declared state of emergency secondary to Covid 19 Chief Complaint: 64-year-old female past medical history of COPD, hypertension and kidney disease and daily alcoholism presents with chest pain. History of Present Illness: A 64-year-old female she is a daily drinker. She drinks one pint of liquor daily for almost everyday for her whole life. According to triage note patient was accompanied by her son who brought patient to the emergency department because she's been taking pills with her alcohol. When questioned why patient's urine emergency department today she states that she's been having several hours of substernal chest pain. Patient states she has history of heart attacks. She denies any diaphoresis, nausea radiation to the jaw shoulders or extremities. She denies that the pain feels like pressure. She denies any abdominal pain. The ROS documented in this emergency department record has been reviewed and confirmed by me. Those systems with pertinent positive or negative responses have been documented in the HPI. All other systems are other negative and/or noncontributory. PHYSICAL EXAM: General Impression: Alert and oriented x3, not in acute distress, inebriated HEENT: Normocephalic atraumatic, extra-ocular movements intact, pupils equal and reactive to light bilaterally, mucous membranes moist. Cardiovascular: Heart regular rate and rhythm Chest: Able to complete full sentences, no retractions, no tachypnea Abdomen: abdomen soft, non-tender, non-distended, no organomegaly Musculoskeletal: Pulses present and equal in all extremities, no peripheral edema Motor: no focal deficits noted Neurological: CN II-XII grossly intact, no focal motor or sensory deficits noted Skin: Intact with no visualized rashes Psych: Normal affect and mood ED course: 64-year-old female presents today with EtOH intoxication, chest pain. Son reported to triage nurse that there is concern that patient has been taking medications while drinking. Patient denies any suicidal or homicidal ideation. Patient's medications were reviewed. Patient reports that she only takes a blood pressure pill. Chart review shows that patient is on trazodone, doxycycline, ranitidine and Tylenol. Vital signs upon arrival are within acceptable limits. Laboratory evaluation obtained. CBC is unremarkable. Coag panel is unremarkable. Metabolic panel shows some mild degree of panic gap acidosis. Alcohol level was 344. Troponin is less than 0.012. Patient has some degree of alcoholic ketoacidosis. Patient reports that she is very unhappy with the care she is receiving. She threatens to leave. She states that she wants to go to another hospital. Discussion was held patient and she is agreeable to my r ecommendation if she get some medications to help her calm down. Patient given some oral Xanax. Patient be admitted for atypical chest pain typical features and EtOH intoxication. Patient given aspirin. Cardiology will be consulted. Pending discussion with on-call [facility] hospitalist for hospital admission. EKG interpretation: Ventricular rate 82, normal sinus rhythm,. Interval 172, QRS 94, QTC 462. No SD prolongation, no QTC prolongation, no ST or T-wave changes noted. EKG compared to 11/02/2018 showing no changes. Overall, this EKG is unremarkable - Related Data Home Medications Medication Instructions Recorded Confirmed traZODone HCL [Desyrel] 100 mg PO HS 10/29/18 03/24/19 Acetaminophen Tab [Tylenol Tab] 650 mg PO Q6H PRN 03/24/19 03/24/19 Doxycycline Monohydrate [Monodox] 100 mg PO BID 03/24/19 03/24/19 Ranitidine HCl 150 mg PO HS 03/24/19 03/24/19 Allergies Allergy/AdvReac Type Severity Reaction Status Date / Time No Known Allergies Allergy Verified 01/23/20 15:04 Review of Systems ROS Statement: Those systems with pertinent positive or pertinent negative responses have been documented in the HPI. ROS Other: All systems not noted in ROS Statement are negative. Past Medical History Past Medical History: COPD, CVA/TIA, GERD/Reflux, Hypertension, Renal Disease Additional Past Medical History / Comment(s): ETOH abuse, DTs, TIA, renal disease d/t htn per pt, past 2 L rib fractures, L hemothorax with chest tube, blood loss anemia, UTIs, L foot/Lknee and R hand gout, chokes/gags easily History of Any Multi-Drug Resistant Organisms: None Reported Past Surgical History: Section, Orthopedic Surgery Additional Past Surgical History / Comment(s): R writst surgery d/t injury, bilateral cataract removals, D&C x2, colonoscopy. Past Anesthesia/Blood Transfusion Reactions: No Reported Reaction, Motion Sickness Past Psychological History: ADD/ADHD, Anxiety, Depression Past Alcohol Use History: Abuse, Daily, Heavy Past Drug Use History: None Reported - Past Family History Mother Family Medical History: Blood Disorder, Congestive Heart Failure (CHF), Coronary Artery Disease (CAD) Additional Family Medical History / Comment(s): Mother had a blood disease (had too many WBCs). She at the age of 88yrs from CAD per pt. Father Family Medical History: Cancer Additional Family Medical History / Comment(s): Father of lung cancer at the age of 77yrs. General Exam Limitations: no limitations Course Vital Signs 01/23/20 01/23/20 01/23/20 15:00 15:30 16:00 Temperature 98.8 F Pulse Rate 84 75 76 Respiratory 18 14 14 Rate Blood Pressure 122/68 135/93 O2 Sat by Pulse 97 96 96 Oximetry 01/23/20 16:30 Temperature Pulse Rate 77 Respiratory 14 Rate Blood Pressure 133/93 O2 Sat by Pulse 96 Oximetry Medical Decision Making - Lab Data Result diagrams: 01/23/20 15:30 01/23/20 15:30 Lab Results 01/23/20 01/23/20 01/23/20 Range/Units 15:30 15:30 15:49 WBC 4.6 (3.8-10.6) k/uL RBC 5.09 (3.80-5.40) m/uL Hgb 15.4 (11.4-16.0) gm/dL Hct 46.6 H (34.0-46.0) % MCV 91.7 (80.0-100.0) fL MCH 30.3 (25.0-35.0) pg MCHC 33.1 (31.0-37.0) g/dL RDW 14.3 (11.5-15.5) % Plt Count 159 (150-450) k/uL Neutrophils % 65 % Lymphocytes % 26 % Monocytes % 4 % Eosinophils % 1 % Basophils % 1 % Neutrophils # 3.0 (1.3-7.7) k/uL Lymphocytes # 1.2 (1.0-4.8) k/uL Monocytes # 0.2 (0-1.0) k/uL Eosinophils # 0.0 (0-0.7) k/uL Basophils # 0.0 (0-0.2) k/uL PT 10.5 (9.0-12.0) sec INR 1.0 (<1.2) APTT 23.7 (22.0-30.0) sec Sodium 136 L (137-145) mmol/L Potassium 4.2 (3.5-5.1) mmol/L Chloride 103 (98-107) mmol/L Carbon Dioxide 20 L (22-30) mmol/L Anion Gap 13 mmol/L BUN 10 (7-17) mg/dL Creatinine 0.90 (0.52-1.04) mg/dL Est GFR (CKD-EPI)AfAm 79 (>60 ml/min/1.73 sqM) Est GFR (CKD-EPI)NonAf 68 (>60 ml/min/1.73 sqM) Glucose 98 (74-99) mg/dL Calcium 8.6 (8.4-10.2) mg/dL Magnesium 1.8 (1.6-2.3) mg/dL Total Bilirubin 0.4 (0.2-1.3) mg/dL Conjugated Bilirubin 0.0 (0.0-0.3) mg/dL Unconjugated Bilirubin 0.3 (0.0-1.1) mg/dL Delta Bilirubin 0.1 (0.0-0.2) mg/dL AST 35 (14-36) U/L ALT 15 (4-34) U/L Alkaline Phosphatase 89 (38-126) U/L Troponin I (0.000-0.034) ng/mL Total Protein 6.6 (6.3-8.2) g/dL Albumin 3.8 (3.5-5.0) g/dL Lipase 83 (23-300) U/L Serum Alcohol 344 H* mg/dL 01/23/20 Range/Units 15:49 WBC (3.8-10.6) k/uL RBC (3.80-5.40) m/uL Hgb (11.4-16.0) gm/dL Hct (34.0-46.0) % MCV (80.0-100.0) fL MCH (25.0-35.0) pg MCHC (31.0-37.0) g/dL RDW (11.5-15.5) % Plt Count (150-450) k/uL Neutrophils % % Lymphocytes % % Monocytes % % Eosinophils % % Basophils % % Neutrophils # (1.3-7.7) k/uL Lymphocytes # (1.0-4.8) k/uL Monocytes # (0-1.0) k/uL Eosinophils # (0-0.7) k/uL Basophils # (0-0.2) k/uL PT (9.0-12.0) sec INR (<1.2) APTT (22.0-30.0) sec Sodium (137-145) mmol/L Potassium (3.5-5.1) mmol/L Chloride (98-107) mmol/L Carbon Dioxide (22-30) mmol/L Anion Gap mmol/L BUN (7-17) mg/dL Creatinine (0.52-1.04) mg/dL Est GFR (CKD-EPI)AfAm (>60 ml/min/1.73 sqM) Est GFR (CKD-EPI)NonAf (>60 ml/min/1.73 sqM) Glucose (74-99) mg/dL Calcium (8.4-10.2) mg/dL Magnesium (1.6-2.3) mg/dL Total Bilirubin (0.2-1.3) mg/dL Conjugated Bilirubin (0.0-0.3) mg/dL Unconjugated Bilirubin (0.0-1.1) mg/dL Delta Bilirubin (0.0-0.2) mg/dL AST (14-36) U/L ALT (4-34) U/L Alkaline Phosphatase (38-126) U/L Troponin I <0.012 (0.000-0.034) ng/mL Total Protein (6.3-8.2) g/dL Albumin (3.5-5.0) g/dL Lipase (23-300) U/L Serum Alcohol mg/dL Disposition Clinical Impression: Chest pain, Alcohol intoxication Disposition: ADMITTED IP TO THIS [facility] Condition: Fair Referrals: Rose Guevara MD [Primary Care Provider] - 1-2 days Decision Time: 16:49
[2020-01-23 16:04] LABS: Basophils % (A) 1 %; Eosinophils % (A) 1 %; HCT 46.6 % (34.0-46.0); HGB 15.4 gm/dL (11.4-16.0); Lymphocytes # (A) 1.2 k/uL (1.0-4.8); Lymphocytes % (A) 26 %; MCH 30.3 pg (25.0-35.0); MCHC 33.1 g/dL (31.0-37.0); MCV 91.7 fL (80.0-100.0); Mean Platelet Volume 7.4; Monocytes # (A) 0.2 k/uL (0-1.0); Monocytes % (A) 4 %; Neutrophils % (A) 65 %; Platelet Count 159 k/uL (150-450); RBC 5.09 m/uL (3.80-5.40); RDW 14.3 % (11.5-15.5); WBC 4.6 k/uL (3.8-10.6)
[2020-01-23 16:14] LABS: Albumin 3.8 g/dL (3.5-5.0); Bilirubin, Delta 0.1 mg/dL (0.0-0.2); Bilirubin,Unconjugated 0.3 mg/dL (0.0-1.1); Calcium 8.6 mg/dL (8.4-10.2); Magnesium 1.8 mg/dL (1.6-2.3); Potassium 4.2 mmol/L (3.5-5.1); Total Bilirubin 0.4 mg/dL (0.2-1.3); Total Protein 6.6 g/dL (6.3-8.2)
[2020-01-23 16:16] LABS: Partial Thromboplastin Time 23.7 sec (22.0-30.0); Prothrombin Time 10.5 sec (9.0-12.0)
--- NOTE | 2020-01-23 16:24 | XR ---
EXAMINATION TYPE: XR chest 2V DATE OF EXAM: 01/23/2020 COMPARISON: 09/22/2018 HISTORY: Shortness of breath TECHNIQUE: Frontal and lateral views of the chest are obtained. FINDINGS: Scattered senescent parenchymal changes noted. Hyperinflation compatible with COPD. No evidence for infiltrate. No evidence for atelectasis. Heart size is stable. Mediastinal structures are stable and grossly unremarkable. No evidence for hilar prominence. Degenerative changes dorsal spine. Healed left-sided rib fractures. IMPRESSION: 1. No evidence for acute pulmonary disease.
[2020-01-23] MEDS ORDERED: NITROGLYCERIN SL TABS 0.4 MG TAB SUBLINGUAL PRN (16:45)
[2020-01-23] MEDS ORDERED: ASPIRIN 81 MG PO STA (16:45)
[2020-01-23] MEDS ORDERED: ALPRAZolam 1 MG TAB PO STA (16:45)
[2020-01-23] MEDS ORDERED: THIAMINE 100 MG/ML 2 ML VIAL IM STA (16:49)
[2020-01-23] MEDS ORDERED: LORazepam 2 MG/ML INJ IV PRN ×2 (16:49)
[2020-01-23 20:24] VITALS: RESP 18
[2020-01-23] MEDS: LORazepam 2 MG/ML INJ IV PRN (23:10)
[2020-01-23] MEDS ORDERED: MORPHINE SULFATE 2 MG/ML SYRINGE IVP PRN (23:19)
[2020-01-23] MEDS ORDERED: ONDANSETRON 4 MG/2 ML VIAL IVP PRN (23:20)
[2020-01-23] MEDS ORDERED: traZODone HCL 100 MG TAB PO SCH (23:30)
[2020-01-24] MEDS: LORazepam 2 MG/ML INJ IV PRN (00:34)
[2020-01-24] MEDS ORDERED: THIAMINE 100 MG TAB PO SCH (07:30)
[2020-01-24 07:53] LABS: Cholesterol 200 mg/dL (<200); HDL Cholesterol 83 mg/dL (40-60); LDL Cholesterol,Calculated 77 mg/dL (0-99); Triglycerides 201 mg/dL (<150)
[2020-01-24] MEDS ORDERED: ASPIRIN 325 MG TAB PO SCH (09:00)
--- NOTE | 2020-01-24 11:33 | CONS ---
CONSULTATION Tory is a 64-year-old lady that is admitted to hospital with ETOH intoxication. She has history of hypertension, COPD and renal insufficiency. She complained of vague chest discomfort for which she was admitted to hospital and Cardiology had been consulted. An EKG shows sinus rhythm and is within normal limits. Three sets of troponins are negative. LDL cholesterol is 77. Serum alcohol level was 344. At the time of my evaluation this morning, she appears comfortable at rest, has some nausea. PAST MEDICAL HISTORY: Significant for hypertension. MEDICATIONS: Include omeprazole, Zestril, HydroDIURIL, Norvasc, fluoxetine, and Desyrel. ALLERGIES: There are no known drug allergies. FAMILY HISTORY: Negative for premature coronary artery disease. SOCIAL HISTORY: Significant for smoking, EtOH abuse. She denies any drug abuse. REVIEW OF SYSTEMS: HEENT: Unremarkable. CARDIAC: As described above. RESPIRATORY: As described above. GI: Negative. GENITOURINARY: Negative. ALLERGY/IMMUNOLOGY: Negative. SKIN: Negative. MUSCULOSKELETAL: Negative. CONSTITUTIONAL: Negative. ONCOLOGICAL: Negative. NIGHT SHIFT SUPERVISOR: Negative. Rest of the system review is not relevant. PHYSICAL EXAM: Patient is comfortable at rest. Vital signs are stable. There is no jugular venous distention. Carotid upstroke is normal. There is no bruit. Chest exam reveals good air entry bilaterally. Heart exam reveals first and second heart sounds. No gallop. No murmur. No rub. Abdomen is soft, nontender. Exam of extremities did not reveal any edema. Peripheral pulses are felt. LABS: Show that the hemoglobin is 15.4, platelet count is 159, potassium is 4.2, creatinine is 0.9. Alcohol level is 5. Tropes are negative. ASSESSMENT: 1. ETOH intoxication. 2. Atypical chest pain. PLAN: Myocardial infarction is ruled out. I will obtain a 2D echo to assess her LV function and wall motion. I will consider an outpatient stress test on her. If she is still here and her nausea has improved, we can do it on this admission also. MMODL / IJN: [id number] /
--- NOTE | 2020-01-24 13:05 | ECHOF ---
Referral Reason:CP MEASUREMENTS -------- HEIGHT: 175.3 cm WEIGHT: 77.1 kg BP: 130/77 RVIDd: 3.1 cm (< 3.3) IVSd: 1.1 cm (0.6 - 1.1) LVIDd: 4.3 cm (3.9 - 5.3) LVPWd: 1.1 cm (0.6 - 1.1) IVSs: 1.7 cm LVIDs: 2.9 cm LVPWs: 1.7 cm LA Diam: 3.0 cm (2.7 - 3.8) Ao Diam: 3.3 cm (2.0 - 3.7) AV Cusp: 2.2 cm (1.5 - 2.6) MV EXCURSION: 17.245 mm (> 18.000) MV EF SLOPE: 136 mm/s (70 - 150) EPSS: 0.6 cm MV E Dylan: 0.70 m/s MV DecT: 155 ms MV A Dylan: 0.97 m/s MV E/A Ratio: 0.72 FINDINGS -------- Sinus rhythm. This was a technically adequate study. The left ventricular size is normal. There is borderline concentric left ventricular hypertrophy. Overall left ventricular systolic function is normal with, an EF between 60 - 65 %. The right ventricle is normal in size. The left atrial size is normal. The right atrium is normal in size. Interatrial and interventricular septum intact. The aortic valve is trileaflet and appears structurally normal. The mitral valve is normal. The tricuspid valve appears structurally normal. There is no pulmonic regurgitation present. The aortic root size is normal. Normal inferior vena cava with normal inspiratory collapse consistent with estimated right atrial pre ssure of 5 mmHg. There is no pericardial effusion. CONCLUSIONS -------- 1. The left ventricular size is normal. 2. There is borderline concentric left ventricular hypertrophy. 3. Overall left ventricular systolic function is normal with, an EF between 60 - 65 %. 4. The aortic valve is trileaflet and appears structurally normal. 5. There is no pericardial effusion. CYBER SECURITY CONSULTANT: Noemy Gregory [facility]
[2020-01-24 17:35] VITALS: TEMP 98.2
[2020-01-24 17:38] VITALS: BP 135/84; PULSE 90
--- NOTE | 2020-01-31 21:55 | P.HPIM ---
History of Present Illness H&P Date: 01/24/20 Chief Complaint: Chest Pain Patient is a 64 female with known history of COPD, hypertension, GERD, history of CVA/TIA, GERD and severe alcohol abuse with history of DTs, ADD/ADHD, anxiety/depression currently everyday smoker and alcohol use was brought to the hospital by her son because she has been taking pills with her alcohol. Patient is also complaining of substernal chest pain. No associated nausea vomiting or abdominal pain or diaphoresis. No radiation. No dizziness or lightheadedness. Patient felt pressure-like sensation. Denied any diarrhea. No fever no chills. No cough or sputum production. Lab data showed WBC 4.6, hemoglobin 15.4 and platelets 159. INR 1.0 Sodium 136, potassium 4.2, chloride 103, BUN 10 and creatinine 0.9 Troponin x3- LDL is 77 triglycerides is 201 Troponin x3- Lipase is 83 Chest x-ray showed no evidence of acute pulmonary disease. EKG showed normal sinus rhythm. Review of Systems Constitutional: Patient denies any fever or chills . No generalized weakness or weight loss. Abdomen: Patient denied nausea vomiting and diarrhea and abdominal pain. Cardiovascular: Patient denies any chest pain or short of breath no palpitations. Respiratory: patient denied any cough is from production. No shortness of breath Neurologic: Patient denied any numbness or tingling headache. Musculoskeletal: Patient denies any complaints of joint swelling or deformity. Skin: Negative Psychiatric: Negative Endocrine: No heat or cold intolerance. No recent weight gain. Genitourinary: No dysuria or hematuria. All other 14 point ROS negative except the above Past Medical History Past Medical History: COPD, CVA/TIA, GERD/Reflux, Hypertension, Renal Disease Additional Past Medical History / Comment(s): ETOH abuse, DTs, TIA, renal disease d/t htn per pt, past 2 L rib fractures, L hemothorax with chest tube, blood loss anemia, UTIs, L foot/Lknee and R hand gout, chokes/gags easily History of Any Multi-Drug Resistant Organisms: None Reported Past Surgical History: Section, Orthopedic Surgery Additional Past Surgical History / Comment(s): R writst surgery d/t injury, bilateral cataract removals, D&C x2, colonoscopy. Past Anesthesia/Blood Transfusion Reactions: No Reported Reaction, Motion Sickness Past Psychological History: ADD/ADHD, Anxiety, Depression Additional Psychological History / Comment(s): Pt resides with her 2 sons. She is retired. She is independent. She drives. Smoking Status: Current every day smoker Past Alcohol Use History: Abuse, Daily, Heavy Additional Past Alcohol Use History / Comment(s): Pt started smoking about 1969 and quit in the . She states she drinks 6-7 alcoholic drinks per day- vodka. Past Drug Use History: None Reported - Past Family History Mother Family Medical History: Blood Disorder, Congestive Heart Failure (CHF), Coronary Artery Disease (CAD) Additional Family Medical History / Comment(s): Mother had a blood disease (had too many WBCs). She at the age of 88yrs from CAD per pt. Father Family Medical History: Cancer Additional Family Medical History / Comment(s): Father of lung cancer at the age of 77yrs. Medications and Allergies Home Medications Medication Instructions Recorded Confirmed Type traZODone HCL [Desyrel] 100 mg PO HS 10/29/18 01/23/20 History FLUoxetine HCL 40 mg PO DAILY 01/23/20 01/23/20 History Omeprazole 20 mg PO DAILY 01/23/20 01/23/20 History amLODIPine [Norvasc] 5 mg PO DAILY 01/23/20 01/23/20 History hydroCHLOROthiazide [Hydrodiuril] 25 mg PO DAILY 01/23/20 01/23/20 History lisinopriL [Zestril] 5 mg PO DAILY 01/23/20 01/23/20 History Thiamine [Vitamin B-1] 100 mg PO DAILY #30 tab 01/24/20 Rx Allergies Allergy/AdvReac Type Severity Reaction Status Date / Time No Known Allergies Allergy Verified 01/23/20 17:38 Physical Exam Vitals: Vital Signs Temp Pulse Pulse Resp BP BP Pulse Ox 01/24/20 03:19 98 F 100 18 130/77 98 01/23/20 23:37 84 18 01/23/20 23:34 98.5 F 84 18 142/86 99 01/23/20 20:23 97.2 F L 79 18 116/75 92 L 01/23/20 20:00 98.8 F 77 18 118/74 98 01/23/20 18:42 71 14 106/68 98 01/23/20 18:15 72 14 106/68 95 01/23/20 18:06 98.4 F 18 126/77 95 01/23/20 17:24 74 14 106/68 98 01/23/20 16:30 77 14 133/93 96 01/23/20 16:00 76 14 135/93 96 01/23/20 15:30 75 14 96 01/23/20 15:00 98.8 F 84 18 122/68 97 Intake and Output 01/23/20 01/24/20 01/24/20 22:59 06:59 14:59 Intake Total 0 Balance 0 Intake: Oral 0 Other: # Voids 0 1 Weight 81.647 kg 77.2 kg PHYSICAL EXAMINATION: Patient is lying in the bed comfortably, no acute distress, awake alert and christine ented.. HEENT: Normocephalic. Neck is supple. Pupils reactive. Nostrils clear. Oral cavity is moist. Ears reveal no drainage. Neck reveals no JVD, carotid bruits, or thyromegaly. CHEST EXAMINATION: Trachea is central. Symmetrical expansion. Lung yancey clear to auscultation and percussion. CARDIAC: Normal S1, S2 with no gallops. No murmurs ABDOMEN: Soft. Bowel sounds normal. No organomegaly. No abdominal bruits. Extremities: reveal no edema. No clubbing or cyanosis Neurologically awake, alert, oriented x3 with well-coordinated movements. No focal deficits noted Skin: No rash or skin lesions. Psychiatric: Coperative. Nonsuicidal Musculoskeletal: No joint swelling or deformity. Normal range of motion. Results CBC & Chem 7: 01/23/20 15:30 01/23/20 15:30 Labs: Abnormal Lab Results - Last 24 Hours (Table) 01/23/20 01/23/20 01/24/20 Range/Units 15:30 15:30 06:25 Hct 46.6 H (34.0-46.0) % Sodium 136 L (137-145) mmol/L Carbon Dioxide 20 L (22-30) mmol/L Triglycerides 201 H (<150) mg/dL Cholesterol 200 H (<200) mg/dL HDL Cholesterol 83 H (40-60) mg/dL Serum Alcohol 344 H* mg/dL Thrombosis Risk Factor Assmnt - DVT/VTE Prophylaxis DVT/VTE Prophylaxis: Pharmacologic Prophylaxis ordered - Choose All That Apply Any of the Below Risk Factors Present?: Yes Each Risk Factor Represents 2 Points: Age 61-74 years Other congenital or acquired thrombophilia - If yes, enter type in comment: No Thrombosis Risk Factor Assessment Total Risk Factor Score: 2 Thrombosis Risk Factor Assessment Level: Low Risk Assessment and Plan Assessment: Atypical chest pain rule out ACS. 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 Patient was seen by cardiology and serial troponin x3-. Recommends no further work-up at this time. Patient was continued on home blood pressure medications and follow-up closely. Further recommendations based on clinical course. Smoking cessation and alcohol abstinence has been counseled extensively. Time with Patient: Greater than 30
--- NOTE | 2020-01-31 22:05 | P.DS ---
Providers Date of admission: 01/23/20 16:45 Expected date of discharge: 01/24/20 Attending physician: Sreekanth De Guzman Consults: 01/23/20 16:45 Consult Physician Urgent Consulting Provider: Wilfredo Chacko Consult Reason/Comments: chest pain Do you want consulting provider notified?: Yes Primary care physician: [facility] Course: Discharge diagnosis Atypical chest pain ruled out ACS. Acute alcohol intoxication with alcohol level 344 Hypertriglyceridemia History of CVA/TIA with no residual weakness Severe alcohol abuse with history of DTs in the past COPD not in exacerbation GERD Hypertension Ongoing nicotine addiction Daily alcohol use DVT prophylaxis with heparin subcu Hospital course Patient is a 64 female with known history of COPD, hypertension, GERD, history of CVA/TIA, GERD and severe alcohol abuse with history of DTs, ADD/ADHD, anxiety/depression currently everyday smoker and alcohol use was brought to the hospital by her son because she has been taking pills with her alcohol. Patient is also complaining of substernal chest pain. No associated nausea vomiting or abdominal pain or diaphoresis. No radiation. No dizziness or lightheadedness. Patient felt pressure-like sensation. Denied any diarrhea. No fever no chills. No cough or sputum production. Lab data showed WBC 4.6, hemoglobin 15.4 and platelets 159. INR 1.0 Sodium 136, potassium 4.2, chloride 103, BUN 10 and creatinine 0.9 Troponin x3- LDL is 77 triglycerides is 201 Troponin x3- Lipase is 83 Chest x-ray showed no evidence of acute pulmonary disease. EKG showed normal sinus rhythm. Patient was continued on IV hydration and monitored for alcohol withdrawal symptoms. Patient was seen by cardiology and serial troponin x3-. Recommends no further work-up at this time. 2D echocardiogram was done showed left ventricular size is normal. Borderline concentric left ventricular hypertrophy. Overall left ventricular systolic function is normal with ejection fraction 60 to 65%. Aortic valve leaflet is trileaflet and appears structurally normal. There is no pericardial effusion. Patient was continued on home blood pressure medications and follow-up closely. Smoking cessation and alcohol abstinence has been counseled extensively. Patient is currently awake alert, oriented x3. Denied any complaints of chest pain. Would like to be discharged home. Discharge physical examination was done and vitals reviewed. Patient Condition at Discharge: Fair Plan - Discharge Summary Discharge Rx Participant: No New Discharge Prescriptions: New Thiamine [Vitamin B-1] 100 mg PO DAILY #30 tab Continue traZODone HCL [Desyrel] 100 mg PO HS lisinopriL [Zestril] 5 mg PO DAILY hydroCHLOROthiazide [Hydrodiuril] 25 mg PO DAILY amLODIPine [Norvasc] 5 mg PO DAILY FLUoxetine HCL 40 mg PO DAILY Omeprazole 20 mg PO DAILY Discharge Medication List traZODone HCL [Desyrel] 100 mg PO HS 10/29/18 [History] FLUoxetine HCL 40 mg PO DAILY 01/23/20 [History] Omeprazole 20 mg PO DAILY 01/23/20 [History] amLODIPine [Norvasc] 5 mg PO DAILY 01/23/20 [History] hydroCHLOROthiazide [Hydrodiuril] 25 mg PO DAILY 01/23/20 [History] lisinopriL [Zestril] 5 mg PO DAILY 01/23/20 [History] Thiamine [Vitamin B-1] 100 mg PO DAILY #30 tab 01/24/20 [Rx] Follow up Appointment(s)/Referral(s): Rose Guevara MD [Primary Care Provider] - 1-2 days (call office to make appt) Wilfredo Chacko MD [STAFF PHYSICIAN] - 1 Week (call office to make appt ) Patient Instructions/Handouts: Chest Pain (DC) Discharge Disposition: HOME SELF-CARE
== END 2020-01-24 18:21 | disposition home or self-care (01) ==
LOC: EC 14:58 → 3SCARD 16:45 → INTOOBSV 16:45 → 3SCARD 19:24 → UNDODISIN 01-24 18:21
PROVIDERS: ADMIT Internal Medicine; ATTEND Internal Medicine
DX: R07.89 Other chest pain (principal); F10.129 Alcohol abuse with intoxication, unspecified; E78.1 Pure hyperglyceridemia; E87.2 Acidosis; J44.9 Chronic obstructive pulmonary disease, unspecified; K21.9 Gastro-esophageal reflux disease without esophagitis; F17.200 Nicotine dependence, unspecified, uncomplicated; I25.2 Old myocardial infarction; I10 Essential (primary) hypertension; N28.9 Disorder of kidney and ureter, unspecified; Y90.8 Blood alcohol level of 240 mg/100 ml or more; M10.9 Gout, unspecified; R09.89 Other specified symptoms and signs involving the circulatory and respiratory systems; F90.9 Attention-deficit hyperactivity disorder, unspecified type; F41.9 Anxiety disorder, unspecified; F32.9 Major depressive disorder, single episode, unspecified; Z03.818 Encounter for observation for suspected exposure to other biological agents ruled out; Z71.41 Alcohol abuse counseling and surveillance of alcoholic; Z71.6 Tobacco abuse counseling; Z79.899 Other long term (current) drug therapy; Z86.73 Personal history of transient ischemic attack (TIA), and cerebral infarction without residual deficits; Z87.81 Personal history of (healed) traumatic fracture; Z87.09 Personal history of other diseases of the respiratory system; Z86.2 Personal history of diseases of the blood and blood-forming organs and certain disorders involving the immune mechanism; Z87.440 Personal history of urinary (tract) infections; Z98.890 Other specified postprocedural states; Z87.828 Personal history of other (healed) physical injury and trauma; Z98.41 Cataract extraction status, right eye; Z98.42 Cataract extraction status, left eye; Z87.898 Personal history of other specified conditions; Z83.2 Family history of diseases of the blood and blood-forming organs and certain disorders involving the immune mechanism; Z82.49 Family history of ischemic heart disease and other diseases of the circulatory system; Z80.1 Family history of malignant neoplasm of trachea, bronchus and lung
CPT/HCPCS: 96376 ×2; 96375; 93005 ×3; 96372; 96374; 99285; 36415; 93306; 80061; 80053; 82248; 83690; 83735; 84484; 85025; 85610; 85730; 80320; 71046; G0378 ×2; U0003; J2060 ×2; J3411; J2270

== ENCOUNTER 2020-02-29 20:48 | Emergency (ER) | payer BC ==
[2020-02-29 20:53] VITALS: TEMP 97.6
[2020-02-29] MEDS ORDERED: LORazepam 2 MG/ML INJ IV STA (21:15)
[2020-02-29] MEDS ORDERED: SODIUM CHLORIDE 0.9% 1,000 ML IV STA (21:15)
[2020-02-29] MEDS ORDERED: ONDANSETRON 4 MG/2 ML VIAL IVP STA (21:16)
[2020-02-29 21:30] LABS: Basophils % (A) 1 %; Eosinophils # (A) 0.1 k/uL (0-0.7); Eosinophils % (A) 2 %; HGB 16.4 gm/dL (11.4-16.0); Lymphocytes # (A) 2.5 k/uL (1.0-4.8); Lymphocytes % (A) 38 %; MCH 30.8 pg (25.0-35.0); MCHC 33.6 g/dL (31.0-37.0); MCV 91.9 fL (80.0-100.0); Monocytes # (A) 0.5 k/uL (0-1.0); Monocytes % (A) 7 %; Neutrophils # (A) 3.4 k/uL (1.3-7.7); Neutrophils % (A) 51 %; Platelet Count 187 k/uL (150-450); RBC 5.33 m/uL (3.80-5.40); WBC 6.7 k/uL (3.8-10.6)
[2020-02-29 21:32] LABS: Appearance,Urine Clear (Clear); Bacteria,Urine Rare /hpf; Bilirubin,Urine Negative (Negative); Blood,Urine Negative (Negative); Color,Urine Yellow; Glucose,Urine (UA) Negative (Negative); Ketones,Urine Trace (Negative); Leukocyte Esterase,Urine Moderate (Negative); Mucus,Urine Rare /hpf; Nitrite,Urine Negative (Negative); PH, Urine 6.5 (5.0-8.0); Protein,Urine Trace (Negative); RBC,Urine 1 /hpf (0-5); Specific Gravity,Urine 1.015 (1.001-1.035); Squamous Epithelial Cell,Urine 1 /hpf (0-4); Urobilinogen,Urine <2.0 mg/dL (<2.0); WBC,Urine 13 /hpf (0-5)
[2020-02-29 21:40] LABS: AST 39 U/L (14-36); African American GFR (CKD) 56 (>60 ml/min/1.73 sqM); Albumin 4.4 g/dL (3.5-5.0); Alcohol <10 mg/dL; Alkaline Phosphatase 101 U/L (38-126); Amylase 60 U/L (30-110); Anion Gap 14 mmol/L; Blood Urea Nitrogen 7 mg/dL (7-17); Calcium 9.7 mg/dL (8.4-10.2); Carbon Dioxide 21 mmol/L (22-30); Chloride 100 mmol/L (98-107); Glucose 133 mg/dL (74-99); Magnesium 1.4 mg/dL (1.6-2.3); Non-African American GFR(CKD) 48 (>60 ml/min/1.73 sqM); Potassium 4.1 mmol/L (3.5-5.1); Sodium 135 mmol/L (137-145); Total Bilirubin 0.8 mg/dL (0.2-1.3); Total Protein 7.3 g/dL (6.3-8.2)
--- NOTE | 2020-02-29 21:42 | XR ---
EXAMINATION TYPE: XR chest 1V portable DATE OF EXAM: 02/29/2020 COMPARISON: 01/23/2020 HISTORY: Chest pain TECHNIQUE: FINDINGS: There is no heart failure nor confluent pneumonic infiltrate. There are old left-sided and right-sided healed rib fractures. There are no hilar masses. Bony thorax is intact. Thoracic aorta is atheromatous. IMPRESSION: No active cardiopulmonary disease. Normal heart. No change.
--- NOTE | 2020-02-29 21:49 | ED ---
General Adult HPI - General Chief complaint: Alcohol Stated complaint: DTS, CHEST PAIN Time Seen by Provider: 02/29/20 21:03 Source: patient, RN notes reviewed Mode of arrival: ambulatory Limitations: no limitations - History of Present Illness Initial comments: 64-year-old female with a past medical history of chronic alcoholism presents to the emergency room for alcohol withdrawal. Patient reports that she has been nauseous and vomiting for the past month whenever today is worse. She reports that she has chest pain when she vomits but otherwise does not have any pain. Patient last drink this morning but has been vomiting since. Patient usually drinks a pint and a half of vodka daily as well as several mixed drinks. Patient reports this feels like DTs that she has had in the past.Patient has no other complaints at this time including shortness of breath, abdominal pain, headache, or visual changes. - Related Data Home Medications Medication Instructions Recorded Confirmed traZODone HCL [Desyrel] 100 mg PO HS 10/29/18 01/23/20 FLUoxetine HCL 40 mg PO DAILY 01/23/20 01/23/20 Omeprazole 20 mg PO DAILY 01/23/20 01/23/20 amLODIPine [Norvasc] 5 mg PO DAILY 01/23/20 01/23/20 hydroCHLOROthiazide [Hydrodiuril] 25 mg PO DAILY 01/23/20 01/23/20 lisinopriL [Zestril] 5 mg PO DAILY 01/23/20 01/23/20 Previous Rx's Medication Instructions Recorded Thiamine [Vitamin B-1] 100 mg PO DAILY #30 tab 01/24/20 LORazepam [Ativan] 1 mg PO BID 3 Days #6 tab 02/29/20 Ondansetron [Zofran ODT] 4 mg PO Q8HR PRN #15 tab 02/29/20 Allergies Allergy/AdvReac Type Severity Reaction Status Date / Time No Known Allergies Allergy Verified 02/29/20 20:53 Review of Systems ROS Statement: Those systems with pertinent positive or pertinent negative responses have been documented in the HPI. ROS Other: All systems not noted in ROS Statement are negative. Past Medical History Past Medical History: COPD, CVA/TIA, GERD/Reflux, Hypertension, Renal Disease Additional Past Medical History / Comment(s): ETOH abuse, DTs, TIA, renal disease d/t htn per pt, past 2 L rib fractures, L hemothorax with chest tube, blood loss anemia, UTIs, L foot/Lknee and R hand gout, chokes/gags easily History of Any Multi-Drug Resistant Organisms: None Reported Past Surgical History: Section, Orthopedic Surgery Additional Past Surgical History / Comment(s): R writst surgery d/t injury, bilateral cataract removals, D&C x2, colonoscopy. Past Anesthesia/Blood Transfusion Reactions: No Reported Reaction, Motion Sic kness Past Psychological History: ADD/ADHD, Anxiety, Depression Smoking Status: Current every day smoker Past Alcohol Use History: Abuse, Daily, Heavy Past Drug Use History: None Reported - Past Family History Mother Family Medical History: Blood Disorder, Congestive Heart Failure (CHF), Coronary Artery Disease (CAD) Additional Family Medical History / Comment(s): Mother had a blood disease (had too many WBCs). She at the age of 88yrs from CAD per pt. Father Family Medical History: Cancer Additional Family Medical History / Comment(s): Father of lung cancer at the age of 77yrs. General Exam Limitations: no limitations General appearance: alert, in no apparent distress Head exam: Present: atraumatic, normocephalic, normal inspection Eye exam: Present: normal appearance, PERRL, EOMI. Absent: scleral icterus, conjunctival injection, periorbital swelling ENT exam: Present: normal exam, mucous membranes moist Neck exam: Present: normal inspection, full ROM. Absent: tenderness, meningismus, lymphadenopathy Respiratory exam: Present: normal lung sounds bilaterally. Absent: respiratory distress, wheezes, rales, rhonchi, stridor Cardiovascular Exam: Present: regular rate, normal rhythm, normal heart sounds. Absent: systolic murmur, diastolic murmur, rubs, gallop, clicks GI/Abdominal exam: Present: soft, normal bowel sounds. Absent: distended, tenderness, guarding, rebound, rigid Course Vital Signs 02/29/20 02/29/20 20:50 21:54 Temperature 97.6 F Pulse Rate 120 H 107 H Respiratory 18 16 Rate Blood Pressure 126/89 117/87 O2 Sat by Pulse 100 95 Oximetry EKG Findings - EKG Comments: EKG Findings:: Sinus tachycardia, ventricular rate 117, KS interval 138, QTc 463, also reviewed by Dr. Noonan Medical Decision Making - Medical Decision Making CBC is unremarkable. CMP does show evidence of dehydration. Magnesium replaced. Chest x-ray shows no active cardiopulmonary disease. Troponin is negative. EKG does show sinus tachycardia with a ventricular rate of 117 which did improve to the 90s when I'm in the room with 2 L of fluids. Patient does not have tremors noted. Alcohol is negative. I discussed inpatient versus outpatient treatment with patient. Patient prefers outpatient treatment. Sh e'll be discharged home with Ativan. She states she will follow-up with her doctor and return here for any worsening symptoms. Patient was seen and evaluated by cardiology for similar symptoms earlier this year. Echocardiogram was normal. Serial troponins were negative. Atypical chest pain is likely musculoskeletal secondary to vomiting. She has no pain at baseline. No hematemesis. - Lab Data Result diagrams: 02/29/20 21:21 02/29/20 21:21 Lab Results 02/29/20 02/29/20 02/29/20 Range/Units 21:21 21:21 21:21 WBC 6.7 (3.8-10.6) k/uL RBC 5.33 (3.80-5.40) m/uL Hgb 16.4 H (11.4-16.0) gm/dL Hct 49.0 H (34.0-46.0) % MCV 91.9 (80.0-100.0) fL MCH 30.8 (25.0-35.0) pg MCHC 33.6 (31.0-37.0) g/dL RDW 14.0 (11.5-15.5) % Plt Count 187 (150-450) k/uL Neutrophils % 51 % Lymphocytes % 38 % Monocytes % 7 % Eosinophils % 2 % Basophils % 1 % Neutrophils # 3.4 (1.3-7.7) k/uL Lymphocytes # 2.5 (1.0-4.8) k/uL Monocytes # 0.5 (0-1.0) k/uL Eosinophils # 0.1 (0-0.7) k/uL Basophils # 0.0 (0-0.2) k/uL Sodium 135 L (137-145) mmol/L Potassium 4.1 (3.5-5.1) mmol/L Chloride 100 (98-107) mmol/L Carbon Dioxide 21 L (22-30) mmol/L Anion Gap 14 mmol/L BUN 7 (7-17) mg/dL Creatinine 1.19 H (0.52-1.04) mg/dL Est GFR (CKD-EPI)AfAm 56 (>60 ml/min/1.73 sqM) Est GFR (CKD-EPI)NonAf 48 (>60 ml/min/1.73 sqM) Glucose 133 H (74-99) mg/dL Calcium 9.7 (8.4-10.2) mg/dL Magnesium 1.4 L (1.6-2.3) mg/dL Total Bilirubin 0.8 (0.2-1.3) mg/dL AST 39 H (14-36) U/L ALT 20 (4-34) U/L Alkaline Phosphatase 101 (38-126) U/L Troponin I (0.000-0.034) ng/mL Total Protein 7.3 (6.3-8.2) g/dL Albumin 4.4 (3.5-5.0) g/dL Amylase 60 (30-110) U/L Lipase 104 (23-300) U/L Urine Color Yellow Urine Appearance Clear (Clear) Urine pH 6.5 (5.0-8.0) Ur Specific [place] 1.015 (1.001-1.035) Urine Protein Trace H (Negative) Urine Glucose (UA) Negative (Negative) Urine Ketones Trace H (Negative) Urine Blood Negative (Negative) Urine Nitrite Negative (Negative) Urine Bilirubin Negative (Negative) Urine Urobilinogen <2.0 (<2.0) mg/dL Ur Leukocyte Esterase Moderate H (Negative) Urine RBC 1 (0-5) /hpf Urine WBC 13 H (0-5) /hpf Ur Squamous Epith Cells 1 (0-4) /hpf Urine Bacteria Rare H (None) /hpf Urine Mucus Rare H (None) /hpf Serum Alcohol <10 mg/dL 02/29/20 Range/Units 21:21 WBC (3.8-10.6) k/uL RBC (3.80-5.40) m/uL Hgb (11.4-16.0) gm/dL Hct (34.0-46.0) % MCV (80.0-100.0) fL MCH (25.0-35.0) pg MCHC (31.0-37.0) g/dL RDW (11.5-15.5) % Plt Count (150-450) k/uL Neutrophils % % Lymphocytes % % Monocytes % % Eosinophils % % Basophils % % Neutrophils # (1.3-7.7) k/uL Lymphocytes # (1.0-4.8) k/uL Monocytes # (0-1.0) k/uL Eosinophils # (0-0.7) k/uL Basophils # (0-0.2) k/uL Sodium (137-145) mmol/L Potassium (3.5-5.1) mmol/L Chloride (98-107) mmol/L Carbon Dioxide (22-30) mmol/L Anion Gap mmol/L BUN (7-17) mg/dL Creatinine (0.52-1.04) mg/dL Est GFR (CKD-EPI)AfAm (>60 ml/min/1.73 sqM) Est GFR (CKD-EPI)NonAf (>60 ml/min/1.73 sqM) Glucose (74-99) mg/dL Calcium (8.4-10.2) mg/dL Magnesium (1.6-2.3) mg/dL Total Bilirubin (0.2-1.3) mg/dL AST (14-36) U/L ALT (4-34) U/L Alkaline Phosphatase (38-126) U/L Troponin I <0.012 (0.000-0.034) ng/mL Total Protein (6.3-8.2) g/dL Albumin (3.5-5.0) g/dL Amylase (30-110) U/L Lipase (23-300) U/L Urine Color Urine Appearance (Clear) Urine pH (5.0-8.0) Ur Specific [place] (1.001-1.035) Urine Protein (Negative) Urine Glucose (UA) (Negative) Urine Ketones (Negative) Urine Blood (Negative) Urine Nitrite (Negative) Urine Bilirubin (Negative) Urine Urobilinogen (<2.0) mg/dL Ur Leukocyte Esterase (Negative) Urine RBC (0-5) /hpf Urine WBC (0-5) /hpf Ur Squamous Epith Cells (0-4) /hpf Urine Bacteria (None) /hpf Urine Mucus (None) /hpf Serum Alcohol mg/dL Disposition Clinical Impression: Nausea, Alcohol withdrawal Disposition: HOME SELF-CARE Condition: Good Instructions (If sedation given, give patient instructions): Alcohol Withdrawal (ED) Additional Instructions: Please drink plenty of fluids. Take Zofran as needed for nausea. Take Ativan as directed. Follow-up with primary care in 1-2 days. Return to the emergency room for any worsening symptoms. Prescriptions: LORazepam [Ativan] 1 mg PO BID 3 Days #6 tab Ondansetron [Zofran ODT] 4 mg PO Q8HR PRN #15 tab PRN Reason: Nausea Is patient prescribed a controlled substance at d/c from ED?: No Referrals: Rose Guevara MD [Primary Care Provider] - 1-2 days Time of Disposition: 22:26
[2020-02-29 21:56] VITALS: BP 117/87; PULSE 107; RESP 16
[2020-02-29 22:14] LABS: ALT 20 U/L (4-34)
[2020-02-29] MEDS ORDERED: MAGNESIUM OXIDE 400 MG TAB PO STA (22:26)
== END 2020-02-29 22:52 | disposition home or self-care (01) ==
LOC: EC 20:48
DX: F10.231 Alcohol dependence with withdrawal delirium (principal); R11.2 Nausea with vomiting, unspecified; I10 Essential (primary) hypertension; E86.0 Dehydration; R00.0 Tachycardia, unspecified; F41.9 Anxiety disorder, unspecified; F32.9 Major depressive disorder, single episode, unspecified; K21.9 Gastro-esophageal reflux disease without esophagitis; F17.200 Nicotine dependence, unspecified, uncomplicated; Z79.899 Other long term (current) drug therapy; Z86.73 Personal history of transient ischemic attack (TIA), and cerebral infarction without residual deficits; Y90.9 Presence of alcohol in blood, level not specified
CPT/HCPCS: 36415; 93005; 80053; 82150; 83690; 83735; 84484; 85025; 81001; 80320; 87086; 71045; 99285; 96374; 96375; 96361; J2060; J2405

== ENCOUNTER → 2020-05-04 | Outpatient (CLI) | payer BC ==
--- NOTE | 2020-05-05 15:42 | US ---
EXAMINATION TYPE: US kidneys/renal and bladder DATE OF EXAM: 05/04/2020 COMPARISON: NONE CLINICAL HISTORY: N18.31 STAGE 3 CHRONIC KIDNEY DISEASE. EXAM MEASUREMENTS: Right Kidney: 9.0 X 3.8 X 3.5 cm Left Kidney: 9.1 X 3.9 X 3.2 cm Right Kidney: Cortical thinning. No hydronephrosis or nephrolithiasis. Left Kidney: Cortical thinning. No hydronephrosis or nephrolithiasis. Bladder: Normal. Bilateral Jets seen: No IMPRESSION: 1. Cortical thinning of the bilateral kidneys consistent with chronic kidney disease. 2. No hydronephrosis bilaterally. 3. Unremarkable urinary bladder.
== END | disposition home or self-care (01) ==
LOC: RADUSWWP 15:32
PROVIDERS: ATTEND Internal Medicine
DX: N28.89 Other specified disorders of kidney and ureter (principal); N18.31 Chronic kidney disease, stage 3a
CPT/HCPCS: 76770

== ENCOUNTER → 2020-11-27 | Outpatient (CLI) | payer MEDICARE, BC ==
[2020-11-27 14:52] LABS: Creatinine,Urine Random 296.6 mg/dL; Protein/Creatinine Ratio,Urine 0.02
[2020-11-27 23:29] LABS: DNA Double-Stranded NEGATIVE (NEGATIVE)
[2020-11-28 12:48] LABS: Free Kappa Lt Chain Qnt, Serum 2.91 mg/dL (0.33-1.94)
[2020-11-28 14:37] LABS: C-ANCA <1:20 Titer (<1:20)
== END | disposition home or self-care (01) ==
LOC: LABWHC1 12:36
PROVIDERS: ATTEND Nurse Practitioner Family
DX: R80.9 Proteinuria, unspecified (principal)
CPT/HCPCS: 36415; 82570; 83516; 83883; 84156; 84166; 86038; 86160; 86162; 86225; 86255; 86334

== ENCOUNTER 2021-01-02 07:44 | Day surgery (SDC) | payer BC, MEDICARE ==
[2020-12-28 15:21] VITALS: BMI 28.0
[~2021-01-02 07:44] MED LIST changes: -LACTATED RINGERS 1,000 ML IV SCH; +LIDOCAINE 1% (10MG/ML) FOR IV START INTRADERMA PRN
[2021-01-02 08:21] VITALS: TEMP 97.8
[2021-01-02] MEDS: LACTATED RINGERS 1,000 ML IV SCH ×2 (08:29→08:51)
[2021-01-02] MEDS ORDERED: PHENYLEPHRINE-0.9% NACL SYG 1,000 MCG/10 ML SYRINGE ONE (08:52)
[2021-01-02] MEDS ORDERED: PROPOFOL 10 MG/ML 20 ML VIAL IV ONE (08:52)
[2021-01-02] MEDS ORDERED: LIDOCAINE 1% INJ 10MG/ML (20 ML MDV) ONE (08:52)
[2021-01-02 09:31] VITALS: RESP 16
[2021-01-02 09:47] VITALS: BP 101/67; PULSE 65
--- NOTE | 2021-02-20 07:41 | P.PCN ---
Date of Procedure: 01/02/21 Procedure(s) Performed: Brief history: Patient is a pleasant 85-year-old white female scheduled for an elective upper endoscopy as well as colonoscopy as a part of evaluation of heartburn and screening for colon cancer Procedure performed: Esophagogastroduodenoscopy with biopsy Colonoscopy Preoperative diagnosis: Heartburn Screening for colon cancer Anesthesia: [facility] [place] Procedure: After informed consent was obtained from the patient was brought into the endoscopy unit and IV sedation was administered by anesthesia under continuous monitoring. Initially upper endoscopy was done. The Olympus GF 160 video endoscope was inserted inserted into the mouth and esophagus intubated without any difficulty and was gradually advanced into the stomach and duodenum and carefully examined. The bulb and second part of the duodenum appeared normal. The scope was then withdrawn into the stomach adequately insufflated with air and upon careful examination the antrum had mild gastritis and biopsies were done from this area. The body, cardia and fundus appeared normal. The scope was then withdrawn into the esophagus. The GE junction was located at 40 cm to the incisors. small sliding type hiatal hernia noted. It appeared regular with no erythema erosions or ulcerations. Rest of the esophagus appeared normal. Patient tolerated the procedure well. At this time the patient continued to remain sedation. Initial digital rectal examination was normal. Olympus CF 160 video colonoscope was then inserted into the rectum and gradually advanced to the cecum without any difficulty. Careful examination was performed as the scope was gradually being withdrawn. The prep was excellent. The cecum, ascending colon, transverse colon, descending colon, sigmoid colon and rectum appeared normal. Retroflexion was performed in the rectum and no lesions were noted. scattered sigmoid diverticulosis seen. Patient tolerated the procedure well. Impression: 1. Upper endoscopy revealed small hiatal hernia and mild antral gastritis 2. Colonoscopy revealed scattered sigmoid diverticulosis but no evidence of colitis or colorectal neoplasia Recommendations: Findings of this examination were discussed with the patient as well as her family. She was advised to follow with the biopsy results. She can have a repeat screening colonoscopy in 10 years.
== END 2021-01-02 10:17 | disposition home or self-care (01) ==
LOC: ORWHC2ENDO 07:44
PROVIDERS: ATTEND Internal Medicine Gastroenterology
DX: K21.9 Gastro-esophageal reflux disease without esophagitis (principal); Z12.11 Encounter for screening for malignant neoplasm of colon; K29.50 Unspecified chronic gastritis without bleeding; I10 Essential (primary) hypertension; Z86.73 Personal history of transient ischemic attack (TIA), and cerebral infarction without residual deficits; Z79.899 Other long term (current) drug therapy
CPT/HCPCS: 88305; 43239; J2001; J2370; J2704; G0121; 45378

== ENCOUNTER 2021-08-23 21:35 | Observation (INO) | payer MEDICARE ==
[2021-08-23] MEDS ORDERED: LORazepam 2 MG/ML INJ IV STA (22:05)
[2021-08-23] MEDS ORDERED: SODIUM CHLORIDE 0.9% 1,000 ML IV STA ×2 (22:05)
[2021-08-23] MEDS ORDERED: MORPHINE SULFATE 4 MG/ML SYRINGE IV STA (22:05)
[2021-08-23] MEDS ORDERED: ONDANSETRON 4 MG/2 ML VIAL IVP STA (22:05)
[2021-08-23 22:34] LABS: Basophils % (A) 1 %; Eosinophils # (A) 0.1 k/uL (0-0.7); Eosinophils % (A) 2 %; HCT 47.4 % (34.0-46.0); HGB 15.9 gm/dL (11.4-16.0); Lymphocytes # (A) 1.6 k/uL (1.0-4.8); Lymphocytes % (A) 32 %; MCH 33.8 pg (25.0-35.0); MCHC 33.6 g/dL (31.0-37.0); MCV 100.7 fL (80.0-100.0); Macrocytosis Slight; Mean Platelet Volume 8.9; Monocytes # (A) 0.5 k/uL (0-1.0); Monocytes % (A) 9 %; Neutrophils # (A) 2.8 k/uL (1.3-7.7); Neutrophils % (A) 54 %; Platelet Count 172 k/uL (150-450); RBC 4.71 m/uL (3.80-5.40); RDW 15.9 % (11.5-15.5); WBC 5.2 k/uL (3.8-10.6)
[2021-08-23 22:43] LABS: ALT 88 U/L (4-34); AST 79 U/L (14-36); African American GFR (CKD) 60 (>60 ml/min/1.73 sqM); Albumin 4.4 g/dL (3.5-5.0); Alcohol <10 mg/dL; Alkaline Phosphatase 57 U/L (38-126); Blood Urea Nitrogen 16 mg/dL (7-17); Calcium 9.8 mg/dL (8.4-10.2); Carbon Dioxide 21 mmol/L (22-30); Glucose 96 mg/dL (74-99); Lipase 220 U/L (23-300); Non-African American GFR(CKD) 52 (>60 ml/min/1.73 sqM); Total Protein 7.4 g/dL (6.3-8.2)
[2021-08-23 22:44] LABS: Partial Thromboplastin Time 23.6 sec (22.0-30.0); Prothrombin Time 10.5 sec (9.0-12.0)
[2021-08-23 22:45] LABS: Chloride 106 mmol/L (98-107); Potassium 3.9 mmol/L (3.5-5.1); Sodium 137 mmol/L (137-145)
--- NOTE | 2021-08-23 22:49 | ED ---
Nausea/Vomiting/Diarrhea HPI - General Chief complaint: Chest Pain Stated complaint: Chest pain, Vomiting,Abdominal pain Time Seen by Provider: 08/23/21 22:04 Source: patient, family, RN notes reviewed, old records reviewed Mode of arrival: ambulatory Limitations: no limitations - History of Present Illness Initial comments: This is a 65-year-old female to the emergency department for evaluation. Patient presents today for evaluation regards to nausea vomiting diarrhea chest pain and abdominal pain. Patient states that she's been having chest pain for a few days THC has no appetite. Patient is staying occasional living in association currently at [facility] for alcohol withdrawal. Patient states she does occasionally get chest pain patient does have history of COPD high blood pressure. Patient also has mild kidney disease MD complaint: nausea, vomiting, diarrhea, abdominal pain, other (chest pain) -: days(s) Description of Vomiting: watery Description of Diarrhea: water Associated Abdominal Pain: Yes Location: diffuse, LUQ Severity: moderate Severity scale (1-10): 4 Quality: cramping, aching Consistency: constant Improves with: none Worsens with: eating Context: alcohol abuse Associated Symptoms: loss of appetite, nausea/vomiting, weakness - Related Data Home Medications Medication Instructions Recorded Confirmed traZODone HCL [Desyrel] 100 mg PO HS 10/29/18 08/23/21 Famotidine [Pepcid] 20 mg PO HS 12/28/20 08/23/21 Metoprolol Tartrate 25 mg PO BID@0600,1800 12/28/20 08/23/21 Acetaminophen Tab [Tylenol] 650 mg PO TID PRN 08/23/21 08/23/21 Calc/Mag/Zinc/Stephanie D 1 tab PO TID 08/23/21 08/23/21 Chlorpheniramine Maleate 4 mg PO Q4H PRN 08/23/21 08/23/21 [Chlor-Trimeton] Docusate [Colace] 100 mg PO BID PRN 08/23/21 08/23/21 Hyoscyamine Sulfate [Levsin] 0.125 mg PO QID PRN 08/23/21 08/23/21 Ibuprofen [Motrin Ib] 600 mg PO Q6H PRN 08/23/21 08/23/21 Loperamide HCl [Imodium A-D] 4 mg PO TID PRN 08/23/21 08/23/21 Mag Hydrox/Aluminum Hyd/Simeth 30 ml PO Q4H PRN 08/23/21 08/23/21 [Mylanta Maximum Strength Liq] Multivitamins, Thera [Multivitamin 1 tab PO DAILY 08/23/21 08/23/21 (formulary)] Thiamine [Vitamin B-1] 100 mg PO DAILY 08/23/21 08/23/21 Zofran 2mg/Ml 4 mg IM Q6H PRN 08/23/21 08/23/21 cloNIDine HCL [Catapres] 0.1 - 0.3 mg PO Q4H PRN 08/23/21 08/23/21 ondansetron HCL [Zofran] 8 mg PO Q6H PRN 08/23/21 08/23/21 Allergies Allergy/AdvReac Type Severity Reaction Status Date / Time No Known Allergies Allergy Verified 08/23/21 23:10 Review of Systems ROS Statement: Those systems with pertinent positive or pertinent negative responses have been documented in the HPI. ROS Other: All systems not noted in ROS Statement are negative. Past Medical History Past Medical History: COPD, CVA/TIA, GERD/Reflux, Hypertension, Renal Disease Additional Past Medical History / Comment(s): ETOH abuse, DTs, TIA, renal dise ase d/t htn per pt, past rib fractures, L hemothorax with chest tube, blood loss anemia, UTIs, L foot, chokes/gags easily,urinary incontinence History of Any Multi-Drug Resistant Organisms: None Reported Past Surgical History: Section, Orthopedic Surgery Additional Past Surgical History / Comment(s): R writst surgery d/t injury, bilateral cataract removals, D&C x2, colonoscopy. Past Anesthesia/Blood Transfusion Reactions: No Reported Reaction, Motion Sickness Past Psychological History: ADD/ADHD, Anxiety, Depression Smoking Status: Former smoker Past Alcohol Use History: None Reported Past Drug Use History: None Reported - Past Family History Mother Family Medical History: Blood Disorder, Congestive Heart Failure (CHF), Coronary Artery Disease (CAD) Additional Family Medical History / Comment(s): Mother had a blood disease (had too many WBCs). She at the age of 88yrs from CAD per pt. Father Family Medical History: Cancer Additional Family Medical History / Comment(s): Father of lung cancer at the age of 77yrs. General Exam Limitations: no limitations General appearance: alert, in no apparent distress Head exam: Present: atraumatic, normocephalic, normal inspection Eye exam: Present: normal appearance, PERRL, EOMI. Absent: scleral icterus, conjunctival injection, periorbital swelling ENT exam: Present: normal exam, mucous membranes moist Neck exam: Present: normal inspection. Absent: tenderness, meningismus, lymphadenopathy Respiratory exam: Present: normal lung sounds bilaterally. Absent: respiratory distress, wheezes, rales, rhonchi, stridor Cardiovascular Exam: Present: regular rate, normal rhythm, normal heart sounds. Absent: systolic murmur, diastolic murmur, rubs, gallop, clicks GI/Abdominal exam: Present: soft, normal bowel sounds. Absent: distended, tenderness, guarding, rebound, rigid Extremities exam: Present: normal inspection, full ROM, normal capillary refill. Absent: tenderness, pedal edema, joint swelling, calf tenderness Back exam: Present: normal inspection Neurological exam: Present: alert, oriented X3, CN II-XII intact Psychiatric exam: Present: normal affect, normal mood Skin exam: Present: warm, dry, intact, normal color. Absent: rash Course Vital Signs 08/23/21 08/23/21 21:56 23:39 Temperature 97.9 F Pulse Rate 65 56 L Respiratory 22 16 Rate Blood Pressure 125/79 96/70 O2 Sat by Pulse 95 98 Oximetry - Reevaluation(s) Reevaluation #1: 08/24/21 01:21 medical record is reviewed Reevaluation #2: 08/24/21 01:22 patient informed of results and questions answered Reevaluation #3: 08/24/21 01:22 Patient is resting comfortably here in the ER - Consultations Consultation #1: Spoke with [facility] regarding admission and they agree Medical Decision Making - Medical Decision Making 65 female to the emergency department for evaluation of chest pain chest pain with nausea vomiting and diarrhea. Patient given symptomatic and supportive care for the above and will be admitted for chest pain observation - Lab Data Result diagrams: 08/23/21 22:25 08/23/21 22:25 Lab Results 08/23/21 08/23/21 08/23/21 Range/Units 22:25 22:25 22:25 WBC 5.2 (3.8-10.6) k/uL RBC 4.71 (3.80-5.40) m/uL Hgb 15.9 (11.4-16.0) gm/dL Hct 47.4 H (34.0-46.0) % MCV 100.7 H (80.0-100.0) fL MCH 33.8 (25.0-35.0) pg MCHC 33.6 (31.0-37.0) g/dL RDW 15.9 H (11.5-15.5) % Plt Count 172 (150-450) k/uL MPV 8.9 Neutrophils % 54 % Lymphocytes % 32 % Monocytes % 9 % Eosinophils % 2 % Basophils % 1 % Neutrophils # 2.8 (1.3-7.7) k/uL Lymphocytes # 1.6 (1.0-4.8) k/uL Monocytes # 0.5 (0-1.0) k/uL Eosinophils # 0.1 (0-0.7) k/uL Basophils # 0.0 (0-0.2) k/uL Macrocytosis Slight PT 10.5 (9.0-12.0) sec INR 1.0 (<1.2) APTT 23.6 (22.0-30.0) sec Sodium 137 (137-145) mmol/L Potassium 3.9 (3.5-5.1) mmol/L Chloride 106 (98-107) mmol/L Carbon Dioxide 21 L (22-30) mmol/L BUN 16 (7-17) mg/dL Creatinine 1.12 H (0.52-1.04) mg/dL Est GFR (CKD-EPI)AfAm 60 (>60 ml/min/1.73 sqM) Est GFR (CKD-EPI)NonAf 52 (>60 ml/min/1.73 sqM) Glucose 96 (74-99) mg/dL Calcium 9.8 (8.4-10.2) mg/dL Magnesium 2.0 (1.6-2.3) mg/dL Total Bilirubin 1.0 (0.2-1.3) mg/dL AST 79 H (14-36) U/L ALT 88 H (4-34) U/L Alkaline Phosphatase 57 (38-126) U/L Troponin I (0.000-0.034) ng/mL NT-Pro-B Natriuret Pep pg/mL Total Protein 7.4 (6.3-8.2) g/dL Albumin 4.4 (3.5-5.0) g/dL Lipase 220 (23-300) U/L Serum Alcohol <10 mg/dL 08/23/21 08/23/21 Range/Units 22:25 22:25 WBC (3.8-10.6) k/uL RBC (3.80-5.40) m/uL Hgb (11.4-16.0) gm/dL Hct (34.0-46.0) % MCV (80.0-100.0) fL MCH (25.0-35.0) pg MCHC (31.0-37.0) g/dL RDW (11.5-15.5) % Plt Count (150-450) k/uL MPV Neutrophils % % Lymphocytes % % Monocytes % % Eosinophils % % Basophils % % Neutrophils # (1.3-7.7) k/uL Lymphocytes # (1.0-4.8) k/uL Monocytes # (0-1.0) k/uL Eosinophils # (0-0.7) k/uL Basophils # (0-0.2) k/uL Macrocytosis PT (9.0-12.0) sec INR (<1.2) APTT (22.0-30.0) sec Sodium (137-145) mmol/L Potassium (3.5-5.1) mmol/L Chloride (98-107) mmol/L Carbon Dioxide (22-30) mmol/L BUN (7-17) mg/dL Creatinine (0.52-1.04) mg/dL Est GFR (CKD-EPI)AfAm (>60 ml/min/1.73 sqM) Est GFR (CKD-EPI)NonAf (>60 ml/min/1.73 sqM) Glucose (74-99) mg/dL Calcium (8.4-10.2) mg/dL Magnesium (1.6-2.3) mg/dL Total Bilirubin (0.2-1.3) mg/dL AST (14-36) U/L ALT (4-34) U/L Alkaline Phosphatase (38-126) U/L Troponin I <0.012 (0.000-0.034) ng/mL NT-Pro-B Natriuret Pep 37 pg/mL Total Protein (6.3-8.2) g/dL Albumin (3.5-5.0) g/dL Lipase (23-300) U/L Serum Alcohol mg/dL - EKG Data -: EKG Interpreted by Me (EKG shows sinus rhythm 62 CA 180 QRS 97 QTC 414) - Radiology Data Radiology results: report reviewed (Chest x-rays negative for acute disease), image reviewed Disposition Clinical Impression: Transaminitis, Nausea & vomiting, Atypical chest pain, Chest pain, Gastroenteritis Disposition: ADMITTED IP TO THIS HOSP Condition: Good Is patient prescribed a controlled substance at d/c from ED?: No Referrals: Rose Guevara MD [Primary Care Provider] - 1-2 days
--- NOTE | 2021-08-23 23:25 | XR ---
EXAMINATION TYPE: XR chest 1V portable DATE OF EXAM: 08/23/2021 COMPARISON: February 29, 2020 HISTORY: Chest pain TECHNIQUE: Single view FINDINGS: Heart is normal. Lungs are clear of infiltrate. There is no heart failure. There are no hil ar masses. Costophrenic angles are clear. There is old healed bilateral rib fractures. There are ches t leads. IMPRESSION: No active cardiopulmonary disease. Atheromatous aorta. No change.
[2021-08-24] MEDS ORDERED: MORPHINE SULFATE 4 MG/ML SYRINGE IV PRN (01:19)
[2021-08-24] MEDS ORDERED: ONDANSETRON 4 MG/2 ML VIAL IVP PRN (01:19)
[2021-08-24] MEDS ORDERED: LORazepam 2 MG/ML INJ IV PRN (01:19)
[2021-08-24] MEDS ORDERED: NALOXONE 0.4 MG/ML 1 ML VIAL IV PRN (01:19)
[2021-08-24] MEDS ORDERED: ASPIRIN 81 MG PO STA (01:25)
[2021-08-24] MEDS: SODIUM CHLORIDE 0.9% 1,000 ML IV SCH ×3 (03:00→17:48)
[2021-08-24] MEDS ORDERED: PANTOPRAZOLE 40 MG/10 ML VIAL IV SCH (09:00)
[2021-08-24] MEDS ORDERED: ZOFRAN IM PRN (10:52)
[2021-08-24] MEDS ORDERED: ONDANSETRON 4 MG TAB PO PRN (10:52)
[2021-08-24] MEDS ORDERED: ACETAMINOPHEN TAB 325 MG TAB PO PRN (10:52)
--- NOTE | 2021-08-24 11:28 | P.HPIM ---
History of Present Illness 65-year-old female came in with complaints of nausea vomiting in the epigastric area radiating to the back of the shoulders. The any sharp in nature moderate severity patient denied any lightheadedness diaphoresis associated with that. Patient the is a resident of [place] for her alcohol abuse. Patient used to smoke in the past doesn't smoke anymore she says she has COPD. Patient denied any fever chills chest x-ray did not show significant abnormality. EKG showed some nonspecific T-wave abnormality. Troponins were negative. Patient has a mildly elevated liver enzymes from alcoholic hepatitis. Patient did not bring for 12 days since he she was admitted to [place]. As she has chronic kidney disease stage III creatinine presently is 1.12 which appears to be her baseline. Patient is presently receiving IV fluids as well. REVIEW OF SYSTEMS: CONSTITUTIONAL: No fever, no malaise, no fatigue. HEENT: No recent visual problems or hearing problems. Denied any sore throat. CARDIOVASCULAR: No orthopnea, PND, no palpitations, no syncope. PULMONARY: No shortness of breath, no cough, no hemoptysis. GASTROINTESTINAL: As mentioned in HPI NEUROLOGICAL: No headaches, no weakness, no numbness. HEMATOLOGICAL: Denies any bleeding or petechiae. GENITOURINARY: Denies any burning micturition, frequency, or urgency. MUSCULOSKELETAL/RHEUMATOLOGICAL: Denies any joint pain, swelling, or any muscle pain. ENDOCRINE: Denies any polyuria or polydipsia. The rest of the 14-point review of systems is negative. PHYSICAL EXAMINATION: GENERAL: The patient is alert and oriented x3, not in any acute distress. Well developed, well nourished. HEENT: Pupils are round and equally reacting to light. EOMI. No scleral icterus. No conjunctival pallor. Normocephalic, atraumatic. No pharyngeal erythema. No thyromegaly. CARDIOVASCULAR: S1 and S2 present. No murmurs, rubs, or gallops. PULMONARY: Chest is clear to auscultation, no wheezing or crackles. ABDOMEN: Soft, nontender, nondistended, normoactive bowel sounds. No palpable organomegaly. MUSCULOSKELETAL: No joint swelling or deformity. EXTREMITIES: No cyanosis, clubbing, or pedal edema. NEUROLOGICAL: Gross neurological examination did not reveal any focal deficits. SKIN: No rashes. Assessment and plan -Epigastric abdominal pain along with nausea probably seconded alcoholic gastritis although I cannot rule out gallstones because of which I'll obtain ultrasound to rule out any gallstones cardiology will evaluate the patient clot any cardiac causes her unstable angina cleared by cardiology patient will be discharged on a Prilosec for 14 days and patient takes Motrin at home which will be discontinued upon discharge -chronic kidney disease stage II patient creatinine is at her baseline -Alcoholic hepatitis -Hypertension patient is on clonidine and metoprolol which will risk and urine patient heart rate is within normal limits and 60s at this time patient probably had alcohol withdrawals in the past after which she was she was started on these medications presently I do not expect any alcohol withdrawals -depression History of COPD without any acute exacerbation patient most probably has asthma although not in acute exacerbation -Patient was comparing of some weight loss and this is probably because of not drinking alcohol although patient will follow with care physician for further evaluation if needed down the line Most probably will be discharged later today. With cardiology and therefore patient doesn't have any gallstones on 14 days of Prilosec Past Medical History Past Medical History: COPD, CVA/TIA, GERD/Reflux, Hypertension, Renal Disease Additional Past Medical History / Comment(s): ETOH abuse, DTs, TIA, renal disease d/t htn per pt, past rib fractures, L hemothorax with chest tube, blood loss anemia, UTIs, chokes/gags easily,urinary incontinence History of Any Multi-Drug Resistant Organisms: None Reported Past Surgical History: Section, Orthopedic Surgery Additional Past Surgical History / Comment(s): R wrist surgery d/t injury, bilateral cataract removals, D&C x2, colonoscopy. Past Anesthesia/Blood Transfusion Reactions: No Reported Reaction Past Psychological History: ADD/ADHD, Anxiety, Depression Additional Psychological History / Comment(s): Pt resides with her 2 sons. She is retired. She is independent. She drives. Smoking Status: Former smoker Past Alcohol Use History: Abuse, Daily Additional Past Alcohol Use History / Comment(s): quit smoking 1999 approx,Pt started smoking about 1969 and quit in the and then began smoking again 7 years later, smoked for a couple years and quit again. Past Drug Use History: Marijuana Additional Drug Use History / Comment(s): marijuana edibles occas - Past Family History Mother Family Medical History: Blood Disorder, Congestive Heart Failure (CHF), Coronary Artery Disease (CAD) Additional Family Medical History / Comment(s): Mother had a blood disease (had too many WBCs). She at the age of 88yrs from CAD per pt. Father Family Medical History: Cancer Additional Family Medical History / Comment(s): Father of lung cancer at the age of 77yrs. Medications and Allergies Home Medications Medication Instructions Recorded Confirmed Type traZODone HCL [Desyrel] 100 mg PO HS 10/29/18 08/23/21 History Famotidine [Pepcid] 20 mg PO HS 12/28/20 08/23/21 History Acetaminophen Tab [Tylenol] 650 mg PO TID PRN 08/23/21 08/23/21 History Calc/Mag/Zinc/Stephanie D 1 tab PO TID 08/23/21 08/23/21 History Chlorpheniramine Maleate 4 mg PO Q4H PRN 08/23/21 08/23/21 History [Chlor-Trimeton] Docusate [Colace] 100 mg PO BID PRN 08/23/21 08/23/21 History Hyoscyamine Sulfate [Levsin] 0.125 mg PO QID PRN 08/23/21 08/23/21 History Loperamide HCl [Imodium A-D] 4 mg PO TID PRN 08/23/21 08/23/21 History Mag Hydrox/Aluminum Hyd/Simeth 30 ml PO Q4H PRN 08/23/21 08/23/21 History [Mylanta Maximum Strength Liq] Multivitamins, Thera [Multivitamin 1 tab PO DAILY 08/23/21 08/23/21 History (formulary)] Thiamine [Vitamin B-1] 100 mg PO DAILY 08/23/21 08/23/21 History Zofran 2mg/Ml 4 mg IM Q6H PRN 08/23/21 08/23/21 History ondansetron HCL [Zofran] 8 mg PO Q6H PRN 08/23/21 08/23/21 History Omeprazole [PriLOSEC] 40 mg PO AC-BRKFST #14 cap 08/24/21 Rx Allergies Allergy/AdvReac Type Severity Reaction Status Date / Time No Known Allergies Allergy Verified 08/23/21 23:10 Physical Exam Vitals: Vital Signs Temp Pulse Pulse Resp BP BP BP 08/24/21 08:02 08/24/21 07:00 97.9 F 70 15 104/69 08/24/21 04:37 64 16 08/24/21 02:33 60 16 98/58 08/24/21 02:09 98.0 F 64 16 113/72 08/24/21 01:00 62 18 102/56 08/23/21 23:39 56 L 16 96/70 08/23/21 21:56 97.9 F 65 22 125/79 Pulse Ox 08/24/21 08:02 99 08/24/21 07:00 96 08/24/21 04:37 08/24/21 02:33 98 08/24/21 02:09 92 L 08/24/21 01:00 98 08/23/21 23:39 98 08/23/21 21:56 95 Intake and Output 08/23/21 08/24/21 08/24/21 22:59 06:59 14:59 Intake Total 118 Balance 118 Intake: Oral 118 Other: Voiding Method Toilet # Voids 1 Weight 79.379 kg 79.379 kg Results CBC & Chem 7: 08/23/21 22:25 08/23/21 22:25 Labs: Abnormal Lab Results - Last 24 Hours (Table) 08/23/21 08/23/21 Range/Units 22:25 22:25 Hct 47.4 H (34.0-46.0) % MCV 100.7 H (80.0-100.0) fL RDW 15.9 H (11.5-15.5) % Carbon Dioxide 21 L (22-30) mmol/L Creatinine 1.12 H (0.52-1.04) mg/dL AST 79 H (14-36) U/L ALT 88 H (4-34) U/L Thrombosis Risk Factor Assmnt - Choose All That Apply Any of the Below Risk Factors Present?: Yes Each Factor Represents 1 point: Abnormal pulmonary function (COPD), Obesity (BMI >25) Each Risk Factor Represents 2 Points: Age 61-74 years Thrombosis Risk Factor Assessment Total Risk Factor Score: 4 Thrombosis Risk Factor Assessment Level: Moderate Risk
--- NOTE | 2021-08-24 11:29 | P.DS ---
Providers Date of admission: 08/24/21 01:19 Attending physician: Roosevelt Mcintosh Consults: 08/24/21 01:19 Consult Physician Routine Consulting Provider: Zayda Bajwa Consult Reason/Comments: cp Do you want consulting provider notified?: Yes Primary care physician: [facility] Course: Please refer to [facility] for further details I Patient Condition at Discharge: Good Plan - Discharge Summary New Discharge Prescriptions: New Omeprazole [PriLOSEC] 40 mg PO AC-BRKFST #14 cap Discontinued cloNIDine HCL [Catapres] 0.1 - 0.3 mg PO Q4H PRN PRN Reason: Hypertension Metoprolol Tartrate 25 mg PO BID@0600,1800 Ibuprofen [Motrin Ib] 600 mg PO Q6H PRN PRN Reason: Pain No Action traZODone HCL [Desyrel] 100 mg PO HS Famotidine [Pepcid] 20 mg PO HS Zofran 2mg/Ml 4 mg IM Q6H PRN PRN Reason: Nausea And Vomiting Mag Hydrox/Aluminum Hyd/Simeth [Mylanta Maximum Strength Liq] 30 ml PO Q4H PRN PRN Reason: Gi Upset Hyoscyamine Sulfate [Levsin] 0.125 mg PO QID PRN PRN Reason: ABDOMINAL CRAMPING Docusate [Colace] 100 mg PO BID PRN PRN Reason: Constipation Chlorpheniramine Maleate [Chlor-Trimeton] 4 mg PO Q4H PRN PRN Reason: RUNNY NOSE/ALLERGIES Calc/Mag/Zinc/Stephanie D 1 tab PO TID ondansetron HCL [Zofran] 8 mg PO Q6H PRN PRN Reason: Nausea And Vomiting Acetaminophen Tab [Tylenol] 650 mg PO TID PRN PRN Reason: Pain Thiamine [Vitamin B-1] 100 mg PO DAILY Multivitamins, Thera [Multivitamin (formulary)] 1 tab PO DAILY Loperamide HCl [Imodium A-D] 4 mg PO TID PRN PRN Reason: Diarrhea Discharge Medication List traZODone HCL [Desyrel] 100 mg PO HS 10/29/18 [History] Famotidine [Pepcid] 20 mg PO HS 12/28/20 [History] Acetaminophen Tab [Tylenol] 650 mg PO TID PRN 08/23/21 [History] Calc/Mag/Zinc/Stephanie D 1 tab PO TID 08/23/21 [History] Chlorpheniramine Maleate [Chlor-Trimeton] 4 mg PO Q4H PRN 08/23/21 [History] Docusate [Colace] 100 mg PO BID PRN 08/23/21 [History] Hyoscyamine Sulfate [Levsin] 0.125 mg PO QID PRN 08/23/21 [History] Loperamide HCl [Imodium A-D] 4 mg PO TID PRN 08/23/21 [History] Mag Hydrox/Aluminum Hyd/Simeth [Mylanta Maximum Strength Liq] 30 ml PO Q4H PRN 08/23/21 [History] Multivitamins, Thera [Multivitamin (formulary)] 1 tab PO DAILY 08/23/21 [History] Thiamine [Vitamin B-1] 100 mg PO DAILY 08/23/21 [History] Zofran 2mg/Ml 4 mg IM Q6H PRN 08/23/21 [History] ondansetron HCL [Zofran] 8 mg PO Q6H PRN 08/23/21 [History] Omeprazole [PriLOSEC] 40 mg PO AC-BRKFST #14 cap 08/24/21 [Rx] Follow up Appointment(s)/Referral(s): Rose Guevara MD [Primary Care Provider] - 3 Days Discharge Disposition: HOME SELF-CARE
--- NOTE | 2021-08-24 11:59 | P.CRDCN ---
History of Present Illness History of present illness: HISTORY OF PRESENTING ILLNESS This is a pleasant 65-year-old female past medical history significant for hypertension and alcohol abuse. She follows in the office with Dr. Davenport. We have been asked to see in consultation for chest pain. She recently checked herself into [place]. Once she was there she was struggling with constipation for a couple of days and was prescribed stool softeners. Shortly thereafter she started having diarrhea described as water. She then started vomiting. She was wretching for 2 days with nothing coming out because she wasn't eating or drinking. She then started having a burning sensation in her chest in the mid-sternal region. She has not had any further diarrhea or vomiting since arriving here. EKG reveals sinus rhythm heart rate of 62. Chest x-ray is negative for an acute cardiopulmonary process. Most recent echocardiogram obtained December 2019 revealed preserved LV systolic function with ejection fraction 60-65%. Laboratory data reviewed, cardiac enzymes negative 1, creatinine 1.12. Current daily cardiac medications include metoprolol 25 mg twice a day and clonidine when necessary. REVIEW OF SYSTEMS At the time of my exam: CONSTITUTIONAL: Denies fever or chills. CARDIOVASCULAR: Denies chest pain, shortness of breath, orthopnea, PND or palpitations. RESPIRATORY: Denies cough. GASTROINTESTINAL: Denies abdominal pain, diarrhea, constipation, nausea or vomiting. MUSCULOSKELETAL: Denies myalgias. NEUROLOGIC: Denies numbness, tingling, headache or weakness. ENDOCRINE: Denies fatigue, weight change, polydipsia or polyurina. GENITOURINARY: Denies burning, hematuria or urgency with micturation. HEMATOLOGIC: Denies history of anemia or bleeding. PHYSICAL EXAMINATION Blood pressure 98/58 heart rate 64 afebrile and maintaining oxygen saturation on room air. CONSTITUTIONAL: No apparent distress. HEENT: Head is normocephalic. Pupils are equal, round. Sclerae anicteric. Mucous membranes of the mouth are moist. No JVD. No carotid bruit. CHEST EXAMINATION: Lungs are clear to auscultation. No chest wall tenderness is noted on palpation or with deep breathing. HEART EXAMINATION: Regular rate and rhythm. S1, S2 heard. No murmurs, gallops or rub. ABDOMEN: Soft, nontender. EXTREMITIES: 2+ peripheral pulses, no lower extremity edema and no calf tenderness. NEUROLOGIC EXAMINATION: Patient is awake, alert and oriented x3. ASSESSMENT Chest pain, atypical Nausea, vomiting and diarrhea Hypertension Alcohol abuse PLAN Obtain second troponin to rule out an acute event. Pain is atypical and likely related to persistent vomiting. No EKG evidence of ischemia. If second trop normal she can be discharged. Follow up with Dr. Davenport in the office upon discharge. Thank you kindly for this consultation. Nurse Practitioner note has been reviewed, I agree with a documented findings and plan of care. Patient was seen and examined. Past Medical History Past Medical History: COPD, CVA/TIA, GERD/Reflux, Hypertension, Renal Disease Additional Past Medical History / Comment(s): ETOH abuse, DTs, TIA, renal disease d/t htn per pt, past rib fractures, L hemothorax with chest tube, blood loss anemia, UTIs, chokes/gags easily,urinary incontinence History of Any Multi-Drug Resistant Organisms: None Reported Past Surgical History: Section, Orthopedic Surgery Additional Past Surgical History / Comment(s): R wrist surgery d/t injury, bilateral cataract removals, D&C x2, colonoscopy. Past Anesthesia/Blood Transfusion Reactions: No Reported Reaction Past Psychological History: ADD/ADHD, Anxiety, Depression Additional Psychological History / Comment(s): Pt resides with her 2 sons. She is retired. She is independent. She drives. Smoking Status: Former smoker Past Alcohol Use History: Abuse, Daily Additional Past Alcohol Use History / Comment(s): quit smoking 1999 approx,Pt started smoking about 1970 and quit in the and then began smoking again 7 years later, smoked for a couple years and quit again. Past Drug Use History: Marijuana Additional Drug Use History / Comment(s): marijuana edibles occas - Past Family History Mother Family Medical History: Blood Disorder, Congestive Heart Failure (CHF), Coronary Artery Disease (CAD) Additional Family Medical History / Comment(s): Mother had a blood disease (had too many WBCs). She at the age of 88yrs from CAD per pt. Father Family Medical History: Cancer Additional Family Medical History / Comment(s): Father of lung cancer at the age of 77yrs. Medications and Allergies Home Medications Medication Instructions Recorded Confirmed Type traZODone HCL [Desyrel] 100 mg PO HS 10/29/18 08/23/21 History Famotidine [Pepcid] 20 mg PO HS 12/28/20 08/23/21 History Acetaminophen Tab [Tylenol] 650 mg PO TID PRN 08/23/21 08/23/21 History Calc/Mag/Zinc/Stephanie D 1 tab PO TID 08/23/21 08/23/21 History Chlorpheniramine Maleate 4 mg PO Q4H PRN 08/23/21 08/23/21 History [Chlor-Trimeton] Docusate [Colace] 100 mg PO BID PRN 08/23/21 08/23/21 History Hyoscyamine Sulfate [Levsin] 0.125 mg PO QID PRN 08/23/21 08/23/21 History Loperamide HCl [Imodium A-D] 4 mg PO TID PRN 08/23/21 08/23/21 History Mag Hydrox/Aluminum Hyd/Simeth 30 ml PO Q4H PRN 08/23/21 08/23/21 History [Mylanta Maximum Strength Liq] Multivitamins, Thera [Multivitamin 1 tab PO DAILY 08/23/21 08/23/21 History (formulary)] Thiamine [Vitamin B-1] 100 mg PO DAILY 08/23/21 08/23/21 History Zofran 2mg/Ml 4 mg IM Q6H PRN 08/23/21 08/23/21 History ondansetron HCL [Zofran] 8 mg PO Q6H PRN 08/23/21 08/23/21 History Omeprazole [PriLOSEC] 40 mg PO AC-BRKFST #14 cap 08/24/21 Rx Allergies Allergy/AdvReac Type Severity Reaction Status Date / Time No Known Allergies Allergy Verified 08/23/21 23:10 Physical Exam Vitals: Vital Signs Temp Pulse Pulse Resp BP BP Pulse Ox 08/24/21 08:02 99 08/24/21 04:37 64 16 08/24/21 02:33 60 16 98/58 98 08/24/21 02:09 98.0 F 64 16 113/72 92 L 08/24/21 01:00 62 18 102/56 98 08/23/21 23:39 56 L 16 96/70 98 08/23/21 21:56 97.9 F 65 22 125/79 95 Intake and Output 08/23/21 08/24/21 08/24/21 22:59 06:59 14:59 Other: Voiding Method Toilet # Voids 1 Weight 79.379 kg 79.379 kg Results 08/23/21 22:25 08/23/21 22:25 Cardiac Enzymes 08/23/21 08/23/21 Range/Units 22:25 22:25 AST 79 H (14-36) U/L Troponin I <0.012 (0.000-0.034) ng/mL Coagulation 08/23/21 Range/Units 22:25 PT 10.5 (9.0-12.0) sec APTT 23.6 (22.0-30.0) sec CBC 08/23/21 Range/Units 22:25 WBC 5.2 (3.8-10.6) k/uL RBC 4.71 (3.80-5.40) m/uL Hgb 15.9 (11.4-16.0) gm/dL Hct 47.4 H (34.0-46.0) % Plt Count 172 (150-450) k/uL Comprehensive Metabolic Panel 08/23/21 Range/Units 22:25 Sodium 137 (137-145) mmol/L Potassium 3.9 (3.5-5.1) mmol/L Chloride 106 (98-107) mmol/L Carbon Dioxide 21 L (22-30) mmol/L BUN 16 (7-17) mg/dL Creatinine 1.12 H (0.52-1.04) mg/dL Glucose 96 (74-99) mg/dL Calcium 9.8 (8.4-10.2) mg/dL AST 79 H (14-36) U/L ALT 88 H (4-34) U/L Alkaline Phosphatase 57 (38-126) U/L Total Protein 7.4 (6.3-8.2) g/dL Albumin 4.4 (3.5-5.0) g/dL Current Medications Generic Name Dose Route Start Last Admin Trade Name Freq PRN Reason Stop Dose Admin Sodium Chloride 1,000 mls @ 130 mls/hr 08/24/21 01:30 08/24/21 03:00 Saline 0.9% IV 130 mls/hr .[id number] CHANDRIKA Administration Lorazepam 0.5 mg 08/24/21 01:19 08/24/21 04:51 Lorazepam 2 Mg/Ml Inj IV 0.5 mg Q6HR PRN Administration Anxiety Morphine Sulfate 4 mg 08/24/21 01:19 Morphine Sulfate 4 Mg/Ml Syringe IV Q4HR PRN Severe Pain Naloxone HCl 0.2 mg 08/24/21 01:19 Naloxone 0.4 Mg/Ml 1 Ml Vial IV Q2M PRN Opioid Reversal Ondansetron HCl 4 mg 08/24/21 01:19 Ondansetron 4 Mg/2 Ml Vial IVP Q8HR PRN Nausea And Vomiting Pantoprazole Sodium 40 mg 08/24/21 09:00 Pantoprazole 40 Mg/10 Ml Vial IV DAILY CHANDRIKA Intake and Output 08/23/21 08/24/21 08/24/21 22:59 06:59 14:59 Other: Voiding Method Toilet # Voids 1 Weight 79.379 kg 79.379 kg 08/23/21 22:25 08/23/21 22:25
--- NOTE | 2021-08-24 14:07 | US ---
EXAMINATION TYPE: US gallbladder DATE OF EXAM: 08/24/2021 COMPARISON: CT 01/15/2018 CLINICAL HISTORY: Gall stones. EXAM MEASUREMENTS: Liver Length: 14.7 cm Gallbladder Wall: 0.3 cm CBD: 0.5 cm Right Kidney: 9.4 x 5.0 x 4.3 cm Pancreas: Obscured by bowel gas Liver: limited views due to extensive midline bowel gas. Cystic lesion measures 1.4 x 1.1 x 1.7 cm. Gallbladder: Is located anterior and difficult to clear out echoes. There is an echogenic focus that appears to be adhered to anterior wall. Evidence for sonographic Art's sign: Yes CBD: wnl Right Kidney: No hydronephrosis or masses seen IMPRESSION: Exam is limited technically. Probable liver cyst noted. Suspect cholelithiasis is present , gallbladder is contracted, there is a positive sonographic Art's sign
[2021-08-24 15:49] VITALS: BP 117/79; PULSE 77; RESP 16; TEMP 98.5
[2021-08-24] MEDS ORDERED: METOPROLOL TARTRATE 25 MG TAB PO SCH (18:00)
[2021-08-24] MEDS ORDERED: FAMOTIDINE 20 MG TAB PO SCH (21:00)
[2021-08-24] MEDS ORDERED: traZODone HCL 100 MG TAB PO SCH (21:00)
[2021-08-25] MEDS ORDERED: THIAMINE 100 MG TAB PO SCH (09:00)
== END 2021-08-24 17:58 | disposition home or self-care (01) ==
LOC: EC 21:35 → 6NMEDSUR 08-24 01:19
PROVIDERS: ADMIT Hospitalist; ATTEND Hospitalist
DX: R07.89 Other chest pain (principal); R11.2 Nausea with vomiting, unspecified; R19.7 Diarrhea, unspecified; R10.13 Epigastric pain; R63.0 Anorexia; R53.1 Weakness; I12.9 Hypertensive chronic kidney disease with stage 1 through stage 4 chronic kidney disease, or unspecified chronic kidney disease; N18.30 Chronic kidney disease, stage 3 unspecified; J44.9 Chronic obstructive pulmonary disease, unspecified; R94.31 Abnormal electrocardiogram [ECG] [EKG]; K70.10 Alcoholic hepatitis without ascites; F32.A Depression, unspecified; R63.4 Abnormal weight loss; E66.9 Obesity, unspecified; Z68.25 Body mass index [BMI] 25.0-25.9, adult; D50.0 Iron deficiency anemia secondary to blood loss (chronic); K21.9 Gastro-esophageal reflux disease without esophagitis; R32 Unspecified urinary incontinence; F41.9 Anxiety disorder, unspecified; F90.9 Attention-deficit hyperactivity disorder, unspecified type; F10.10 Alcohol abuse, uncomplicated; Z87.891 Personal history of nicotine dependence; Z86.73 Personal history of transient ischemic attack (TIA), and cerebral infarction without residual deficits; Z87.440 Personal history of urinary (tract) infections; Z71.9 Counseling, unspecified; Z79.899 Other long term (current) drug therapy; Z82.49 Family history of ischemic heart disease and other diseases of the circulatory system; Z80.1 Family history of malignant neoplasm of trachea, bronchus and lung; Z83.2 Family history of diseases of the blood and blood-forming organs and certain disorders involving the immune mechanism
CPT/HCPCS: 96376; 96361; 96375 ×2; 96374; 99285; 36415; 94760; 93005; 83880; 80053; 83690; 83735; 84484; 85025; 85610; 85730; 71045; 76705; G0378; G0480; J2060 ×2; J2270; J2405; C9113; 80320

== ENCOUNTER 2021-09-03 07:16 | Inpatient (IN) | payer MEDICARE ==
[2021-08-30 15:35] VITALS: BMI 26.6
[~2021-09-03 07:16] MED LIST changes: +ACETAMINOPHEN TAB 500 MG TAB PO PRN; +HEPARIN SODIUM,PORCINE/PF 5,000 UNIT/0.5 ML SYRINGE SQ PRN; +HYDROmorphone 0.5 MG/0.5 ML SYRINGE IVP PRN
[2021-09-03] MEDS: LACTATED RINGERS 1,000 ML IV SCH (08:12)
[2021-09-03] MEDS: DEXAMETHASONE SOD PHOSPHATE 4 MG/ML 1 ML VIAL IV ONE ×2 (08:15→17:42)
[2021-09-03] MEDS: ONDANSETRON 4 MG/2 ML VIAL IVP ONE ×2 (08:16→17:43)
[2021-09-03] MEDS ORDERED: MIDAZOLAM 2 MG/2 ML VIAL IVP ONE ×5 (08:25→13:55)
[2021-09-03] MEDS ORDERED: LACTATED RINGERS 1,000 ML IV ONE ×2 (11:15→16:44)
--- NOTE | 2021-09-03 15:58 | P.GSHP ---
History of Present Illness H&P Date: 09/03/21 Chief Complaint: Right upper quadrant pain, cholelithiasis This 65-year-old female who's had with regard quadrant pain. Patient has cholelithiasis. Patient has previous history of alcohol abuse. Patient is aware the risks of surgery including bleeding from cirrhosis. Past Medical History Past Medical History: COPD, CVA/TIA, GERD/Reflux, Hypertension, Renal Disease Additional Past Medical History / Comment(s): past rib fractures, L hemothorax with chest tube, blood loss anemia, ETOH-last drink 08/13/21-pt is quitting drinking History of Any Multi-Drug Resistant Organisms: None Reported Past Surgical History: Section, Orthopedic Surgery Additional Past Surgical History / Comment(s): R wrist surgery d/t injury, bilateral cataract removals, D&C x2 Past Anesthesia/Blood Transfusion Reactions: No Reported Reaction Past Psychological History: ADD/ADHD, Anxiety, Depression Smoking Status: Former smoker Past Alcohol Use History: None Reported Additional Past Alcohol Use History / Comment(s): ETOH abuse hx and has quit drinking as of 08/13/21 Additional Drug Use History / Comment(s): marijuana edibles in the past-has since quit - Past Family History Mother Family Medical History: Blood Disorder, Congestive Heart Failure (CHF), Coronary Artery Disease (CAD) Additional Family Medical History / Comment(s): Mother had a blood disease (had too many WBCs). She at the age of 88yrs from CAD per pt. Father Family Medical History: Cancer Additional Family Medical History / Comment(s): Father of lung cancer at the age of 77yrs. Medications and Allergies Home Medications Medication Instructions Recorded Confirmed Type traZODone HCL [Desyrel] 100 mg PO HS 10/29/18 09/03/21 History Famotidine [Pepcid] 20 mg PO HS PRN 12/28/20 09/03/21 History Loperamide HCl [Imodium A-D] 2 mg PO QID PRN 08/23/21 09/03/21 History Omeprazole [PriLOSEC] 40 mg PO AC-BRKFST #14 cap 08/24/21 09/03/21 Rx FLUoxetine HCL [PROzac] 20 mg PO DAILY 08/30/21 09/03/21 History Metoprolol Tartrate 25 mg PO BID 08/30/21 09/03/21 History Prazosin [Minipress] 1 mg PO HS 08/30/21 09/03/21 History hydroCHLOROthiazide 25 mg PO DAILY 08/30/21 09/03/21 History Allergies Allergy/AdvReac Type Severity Reaction Status Date / Time No Known Allergies Allergy Verified 09/03/21 07:43 Surgical - Exam Vital Signs Temp Pulse Resp BP Pulse Ox 96.3 F L 66 18 108/55 97 09/03/21 07:47 09/03/21 07:47 09/03/21 07:47 09/03/21 07:47 09/03/21 07:47 - General well developed, well nourished, no distress - Eyes PERRL - ENT normal pinna - Neck no masses - Respiratory normal expansion - Cardiovascular Rhythm: regular - Abdomen Abdomen: soft, non tender Assessment and Plan Assessment: Cholelithiasis Chronic cholecystitis We'll perform laparoscopic cholecystectomy
[2021-09-03] MEDS ORDERED: fentaNYL (PF) 50 MCG/ML 2 ML AMP ONE (16:06)
[2021-09-03] MEDS ORDERED: ONDANSETRON 4 MG/2 ML VIAL ONE (16:06)
[2021-09-03] MEDS ORDERED: SUCCINYLCHOLINE CHLORIDE 100 MG/5 ML SYR IV ONE (16:06)
[2021-09-03] MEDS ORDERED: MIDAZOLAM 2 MG/2 ML VIAL ONE (16:06)
[2021-09-03] MEDS ORDERED: LIDOCAINE 1% INJ 10MG/ML (20 ML MDV) ONE (16:06)
[2021-09-03] MEDS ORDERED: PROPOFOL 10 MG/ML 20 ML VIAL IV ONE (16:06)
[2021-09-03] MEDS ORDERED: HYDROmorphone (PF) 1 MG/ML ONE (16:06)
[2021-09-03] MEDS ORDERED: BUPIVACAIN-EPI 0.25%-1:200,000 30 ML VIAL SQ ONE (16:22)
[2021-09-03] MEDS ORDERED: HYDROmorphone 0.5 MG/0.5 ML SYRINGE IVP PRN (16:38)
[2021-09-03] MEDS ORDERED: NALOXONE 0.4 MG/ML 1 ML VIAL IV PRN (16:38)
[2021-09-03] MEDS ORDERED: ONDANSETRON 4 MG/2 ML VIAL IVP PRN (16:38)
--- NOTE | 2021-09-03 16:38 | P.OP ---
Date of Procedure: 09/03/21 Preoperative Diagnosis: Cholelithiasis Cholecystitis Postoperative Diagnosis: Cholecystitis Cholelithiasis Procedure(s) Performed: Laparoscopic cholecystectomy Anesthesia: JOSE MARIA Surgeon: Car Anderson Estimated Blood Loss (ml): 5 Pathology: other (Gallbladder) Condition: stable Disposition: PACU Description of Procedure: The patient was placed on the operating table. The patient received a general endotracheal tube anesthesia. The patients abdomen was prepped and draped in the usual sterile fashion. Through an infraumbilical stab incision, the fascia of the anterior abdominal wall was grasped with a pair of Kochers and then the Veress needle was placed in the peritoneal cavity. Position of the Veress needle was confirmed with positive drop test. The abdomen was then insufflated. After adequate insufflation, the 10 mm trocar was placed in the peritoneal cavity. Following this the laparoscope was placed in the peritoneal cavity. The patient was placed in the head-up, right side up position and then a 5 mm trocar was placed in the right lateral and right subcostal position under direct visualization. A 8 mm trocar was placed in the epigastric position. The gallbladder was grasped in the fundus and infundibulum. Traction on the gallbladder was placed in the lateral and the cephalad positions. The triangle of Calot was visualized.. The cystic duct was bluntly dissected until the union of the cystic duct and common bile duct wa s seen. A critical view of safety was achieved. The cystic duct was then divided and sealed with the Harmonic scissors. A PDS Endoloop was then placed throughout the cystic duct stump. The cystic artery divided and sealed with the Harmonic scissors. The gallbladder was then removed from the liver bed using Harmonic scissors. The gallbladder was then extracted through the epigastric port site. Operative field was checked for any bleeding spots and Harmonic scissors was used to coagulate the liver bed. The abdomen was irrigated. The trocars were removed. The skin was closed using interrupted 3-0 Vicryl suture. Dermabond dressing were applied. The patient tolerated the procedure well.
[2021-09-03] MEDS: KETOROLAC 15 MG/ML 1 ML VIAL IVP SCH (18:25)
[2021-09-03] MEDS: METOPROLOL TARTRATE 25 MG TAB PO SCH (20:12)
[2021-09-03] MEDS: traZODone HCL 100 MG TAB PO SCH (20:13)
[2021-09-03] MEDS: FAMOTIDINE 20 MG TAB PO PRN (20:13)
[2021-09-03] MEDS: HYDROcodone/APAP 5-325MG 1 EACH TAB PO PRN (20:15)
[2021-09-04 00:28] LABS: HCT 38.8 % (34.0-46.0); HGB 13.2 gm/dL (11.4-16.0); MCH 33.8 pg (25.0-35.0); MCV 99.4 fL (80.0-100.0); Mean Platelet Volume 10.1; Platelet Count 181 k/uL (150-450); RBC 3.91 m/uL (3.80-5.40); RDW 13.9 % (11.5-15.5); WBC 6.9 k/uL (3.8-10.6)
[2021-09-04] MEDS: KETOROLAC 15 MG/ML 1 ML VIAL IVP SCH ×2 (00:52→07:19)
[2021-09-04] MEDS: D5-0.45% NACL WITH KCL 20MEQ/L 1,000 ML IV SCH ×2 (00:52→12:20)
[2021-09-04 05:56] LABS: HCT 38.9 % (34.0-46.0); MCHC 33.5 g/dL (31.0-37.0); MCV 101.3 fL (80.0-100.0); Macrocytosis Slight; Mean Platelet Volume 10.1; Platelet Count 176 k/uL (150-450); RBC 3.84 m/uL (3.80-5.40); WBC 6.1 k/uL (3.8-10.6)
[2021-09-04 06:06] LABS: ALT 28 U/L (4-34); AST 42 U/L (14-36); African American GFR (CKD) 59 (>60 ml/min/1.73 sqM); Albumin 2.8 g/dL (3.5-5.0); Albumin/Globulin Ratio 1.1; Alkaline Phosphatase 38 U/L (38-126); Anion Gap 4 mmol/L; Blood Urea Nitrogen 21 mg/dL (7-17); Carbon Dioxide 24 mmol/L (22-30); Chloride 108 mmol/L (98-107); Globulin 2.5 g/dL; Glucose 95 mg/dL (74-99); Magnesium 1.4 mg/dL (1.6-2.3); Non-African American GFR(CKD) 51 (>60 ml/min/1.73 sqM); Potassium 3.6 mmol/L (3.5-5.1); Sodium 136 mmol/L (137-145); Total Bilirubin 0.4 mg/dL (0.2-1.3); Total Protein 5.3 g/dL (6.3-8.2)
[2021-09-04] MEDS ORDERED: SODIUM CHLORIDE 0.9% 1,000 ML IV ONE (06:15)
[2021-09-04] MEDS: LACTATED RINGERS 1,000 ML IV SCH (06:21)
[2021-09-04] MEDS: METOPROLOL TARTRATE 25 MG TAB PO SCH (07:21)
[2021-09-04] MEDS: ENOXAPARIN 40 MG/0.4 ML SYRINGE SQ SCH (07:30)
[2021-09-04] MEDS: HYDROcodone/APAP 5-325MG 1 EACH TAB PO PRN ×3 (07:30→20:35)
[2021-09-04] MEDS: MAGNESIUM SULFATE-D5W PMX 1 GM in DEXTROSE/WATER 1 100ML.BAG IVPB SCH ×2 (08:19→09:36)
--- NOTE | 2021-09-04 12:15 | P.PN ---
Subjective Progress Note Date: 09/04/21 CHIEF COMPLAINT: Abdominal pain HISTORY OF PRESENT ILLNESS: Patient postop day #1 status post laparoscopic cholecystectomy for cholecystitis and cholelithiasis. Patient reports her pain is controlled. Patient did complain of some mild nausea which has improved. Denies any vomiting. Denies any flatus. She has been hypotensive and required fluid bolus. Patient's Lopressor was held this morning. Repeat blood pressure 111/70 Afebrile. WBC 6.1 hemoglobin is 13 creatinine is 1.14 magnesium is 1.4 PHYSICAL EXAM: VITAL SIGNS: Reviewed. GENERAL: Well-developed in no acute distress. HEENT: No sclera icterus. Extraocular movements grossly intact. Moist buccal mucosa. Head is atraumatic, normocephalic. ABDOMEN: Soft. Nondistended. Incision sites mild bruising in the upper abdomen incision site NEUROLOGIC: Alert and oriented. Cranial nerves II through XII grossly intact. ASSESSMENT: 1. Cholecystitis with cholelithiasis status post laparoscopic cholecystectomy 2. Hypotension 3. Hypomagnesemia PLAN: -Continue IV fluids -Continue supportive care -Medicine consultation for medical management -Continue regular diet -Replace magnesium -Continue pain medication as needed -Toradol discontinued due to elevated creatinine. Patient does have a history of chronic kidney disease -DVT prophylaxis Lovenox -Anticipate discharge possibly tomorrow Physician Senior Consumer Insights Consultant note has been reviewed by physician. Signing provider agrees with the documented findings, assessment, and plan of care. Objective - Vital Signs Vital signs: Vital Signs Temp 97.5 F L 09/04/21 08:00 Pulse 59 L 09/04/21 08:00 Resp 18 09/04/21 08:00 BP 111/70 09/04/21 08:00 Pulse Ox 96 09/04/21 08:00 Intake & Output 09/03/21 09/04/21 09/04/21 18:59 06:59 18:59 Intake Total 1650 1800 Output Total 2 200 Balance 1648 1600 Weight 78.8 kg Intake: IV 1650 1300 bolus 1300 Intake, IV Titration 500 Amount D5-0.45% NaCl with KCl 500 20Meq/l 1,000 ml @ 50 mls /hr IV .Q20H [facility] Rx#: [id number] Output: Urine 200 Estimated Blood Loss 2 Other: Voiding Method Toilet Toilet - Labs CBC & Chem 7: 09/04/21 05:36 09/04/21 05:36 Labs: Abnormal Lab Results - Last 24 Hours (Table) 09/04/21 09/04/21 Range/Units 05:36 05:36 MCV 101.3 H (80.0-100.0) fL Sodium 136 L (137-145) mmol/L Chloride 108 H (98-107) mmol/L BUN 21 H (7-17) mg/dL Creatinine 1.14 H (0.52-1.04) mg/dL Calcium 8.0 L (8.4-10.2) mg/dL Magnesium 1.4 L (1.6-2.3) mg/dL AST 42 H (14-36) U/L Total Protein 5.3 L (6.3-8.2) g/dL Albumin 2.8 L (3.5-5.0) g/dL
[2021-09-04] MEDS ORDERED: Magnesium Replacement Protocol 1 EACH MISC MISCELLANE PRN (17:14)
[2021-09-04] MEDS: DEXTROSE 5%-0.9% NACL 1,000 ML IV SCH (17:40)
--- NOTE | 2021-09-04 18:28 | P.CONS ---
History of Present Illness - History of Present Illness This is a pleasant 65 years old female with past medical history of COPD, CVA /TIA, GERD, Hypertension, chronic kidney disease, alcohol abuse quit about 3 weeks ago, anxiety depression. Patient's was admitted for cholecystitis and she underwent laparoscopic cholecystectomy on 09/03. Today is postop day #1. Patient was hypotensive overnight and blood pressure dropped to 76/50. She received 1 L of normal saline. Her blood pressure improved this morning 211/70, heart rate was 55-59. She received 1 dose of metoprolol 25 mg twice a day yesterday night which is her home dose. Metoprolol was held and then discontinued This morning. Currently patient is fully awake and oriented, lying in bed comfortable denies any specific symptoms, she has some pain at the surgical site. She states that she lost appetite for 2 weeks and she lost about 13 pounds. 2-3 days prior to hospitalizing she saw her PCP who prescribed her a blood pressure pill which help her with night before as well as stated she had bad nightmares but she could not remember the name of the medicine, her systolic blood pressure at that time with her PCP was 110. She admits history of COPD but denies history of cirrhosis. She denies smoking, she uses marijuana occasionally and quit drinking alcohol about 3 weeks ago because of its effect on her memory as she states. Patient is afebrile. CBC is unremarkable, creatinine 1.1 which looks at baseline. Sodium 136, liver enzymes are normal with ALT and AST 28 and 38 respectively. Patient was on IV fluids D5 half normal saline which is changed to D5 normal saline at 1 25 mL/h, also she is on Lovenox and Pepcid. On reviewing her home medication it was noticed she is on Minipress/prazosin which is most likely the medication prescribed for her nightmares and high blood pressure. Currently dizziness on hold. Metoprolol was discontinued as well for bradycardia and hypotension and we'll keep monitoring. Review of Systems Review of systems CONSTITUTIONAL: No fever, no malaise, no fatigue. HEENT: No recent visual problems or hearing problems. Denied any sore throat. CARDIOVASCULAR: No orthopnea, PND, no palpitations, no syncope. PULMONARY: No shortness of breath, no cough, no hemoptysis. GASTROINTESTINAL: No diarrhea, no nausea, no vomiting, Normoactive bowel sounds. NEUROLOGICAL: No headaches, no weakness, no numbness. HEMATOLOGICAL: Denies any bleeding or petechiae. GENITOURINARY: Denies any burning micturition, frequency, or urgency. MUSCULOSKELETAL/RHEUMATOLOGICAL: Denies any joint pain, swelling, or any muscle pain. ENDOCRINE: Denies any polyuria or polydipsia. Past Medical History Past Medical History: COPD, CVA/TIA, GERD/Reflux, Hypertension, Renal Disease Additional Past Medical History / Comment(s): past rib fractures, L hemothorax with chest tube, blood loss anemia, ETOH-last drink 08/13/21-pt is quitting drinking History of Any Multi-Drug Resistant Organisms: None Reported Past Surgical History: Section, Orthopedic Surgery Additional Past Surgical History / Comment(s): R wrist surgery d/t injury, bilateral cataract removals, D&C x2 Past Anesthesia/Blood Transfusion Reactions: No Reported Reaction Past Psychological History: ADD/ADHD, Anxiety, Depression Additional Psychological History / Comment(s): Pt resides with her 2 sons. She is retired. She is independent. She drives. Smoking Status: Never smoker Past Alcohol Use History: None Reported Additional Past Alcohol Use History / Comment(s): ETOH abuse hx and has quit drinking as of 08/13/21 Past Drug Use History: Marijuana Additional Drug Use History / Comment(s): marijuana edibles in the past-has since quit - Past Family History Mother Family Medical History: Blood Disorder, Congestive Heart Failure (CHF), Coronary Artery Disease (CAD) Additional Family Medical History / Comment(s): Mother had a blood disease (had too many WBCs). She at the age of 88yrs from CAD per pt. Father Family Medical History: Cancer Additional Family Medical History / Comment(s): Father of lung cancer at the age of 77yrs. Medications and Allergies Home Medications Medication Instructions Recorded Confirmed Type traZODone HCL [Desyrel] 100 mg PO HS 10/29/18 09/03/21 History Famotidine [Pepcid] 20 mg PO HS PRN 12/28/20 09/03/21 History Loperamide HCl [Imodium A-D] 2 mg PO QID PRN 08/23/21 09/03/21 History Omeprazole [PriLOSEC] 40 mg PO -KFST #14 cap 08/24/21 09/03/21 Rx FLUoxetine HCL [PROzac] 20 mg PO DAILY 08/30/21 09/03/21 History Metoprolol Tartrate 25 mg PO BID 08/30/21 09/03/21 History Prazosin [Minipress] 1 mg PO HS 08/30/21 09/03/21 History hydroCHLOROthiazide 25 mg PO DAILY 08/30/21 09/03/21 History Allergies Allergy/AdvReac Type Severity Reaction Status Date / Time No Known Allergies Allergy Verified 09/03/21 07:43 Physical Exam Vitals: Vital Signs Temp Pulse Pulse Pulse Resp BP BP 09/04/21 08:00 97.5 F L 59 L 18 111/70 09/04/21 05:30 58 L 76/50 09/04/21 02:00 98.2 F 55 L 17 93/61 09/03/21 23:30 57 L 90/51 09/03/21 22:15 63 93/56 09/03/21 21:45 56 L 91/50 09/03/21 21:30 67 87/55 09/03/21 21:20 57 L 91/52 09/03/21 21:15 74 86/53 09/03/21 20:55 67 93/59 09/03/21 20:45 64 94/58 09/03/21 20:15 60 107/69 09/03/21 19:59 60 101/62 09/03/21 19:45 63 106/71 09/03/21 19:30 66 112/84 09/03/21 19:15 63 120/75 09/03/21 19:05 69 147/84 09/03/21 18:48 72 158/83 09/03/21 18:35 63 147/73 09/03/21 18:18 97.4 F L 65 146/74 09/03/21 17:43 65 16 115/69 09/03/21 17:27 66 16 116/75 09/03/21 17:12 69 16 100/57 09/03/21 16:57 98.1 F 71 14 107/59 09/03/21 14:59 67 15 103/63 09/03/21 14:07 71 16 103/66 09/03/21 14:00 62 16 99/67 09/03/21 13:35 106/64 09/03/21 13:22 100/62 09/03/21 13:10 59 L 16 108/71 09/03/21 13:04 110/70 09/03/21 12:42 65 20 98/67 Pulse Ox 09/04/21 08:00 96 09/04/21 05:30 09/04/21 02:00 93 L 09/03/21 23:30 92 L 09/03/21 22:15 90 L 09/03/21 21:45 90 L 09/03/21 21:30 92 L 09/03/21 21:20 90 L 09/03/21 21:15 92 L 09/03/21 20:55 92 L 09/03/21 20:45 89 L 09/03/21 20:15 90 L 09/03/21 19:59 90 L 09/03/21 19:45 91 L 09/03/21 19:30 90 L 09/03/21 19:15 91 L 09/03/21 19:05 97 09/03/21 18:48 97 09/03/21 18:35 98 09/03/21 18:18 98 09/03/21 17:43 91 L 09/03/21 17:27 93 L 09/03/21 17:12 95 09/03/21 16:57 92 L 09/03/21 14:59 4 L 09/03/21 14:07 96 09/03/21 14:00 95 09/03/21 13:35 09/03/21 13:22 09/03/21 13:10 93 L 09/03/21 13:04 09/03/21 12:42 92 L Intake and Output 09/03/21 09/04/21 09/04/21 22:59 06:59 14:59 Intake Total 1450 1800 Output Total 2 200 Balance 1448 1600 Intake: IV 1450 1300 bolus 1300 Intake, IV Titration 500 Amount D5-0.45% NaCl with KCl 500 20Meq/l 1,000 ml @ 50 mls /hr IV .Q20H [facility] Rx#: [id number] Output: Urine 200 Estimated Blood Loss 2 Other: Voiding Method Toilet Toilet Weight 78.8 kg GENERAL: The patient is alert and oriented x3, not in any acute distress. Well developed, well nourished. HEENT: Pupils are round and equally reacting to light. EOMI. No scleral icterus. No conjunctival pallor. Normocephalic, atraumatic. No pharyngeal erythema. No thyromegaly. CARDIOVASCULAR: S1 and S2 present. No murmurs, rubs, or gallops. PULMONARY: Chest is clear to auscultation, no wheezing or crackles. -ABDOMEN: Soft, nontender, nondistended, normoactive bowel sounds. No palpable organomegaly. Laparoscopic wounds are healing and closed MUSCULOSKELETAL: No joint swelling or deformity. EXTREMITIES: No cyanosis, clubbing, or pedal edema. NEUROLOGICAL: Gross neurological examination did not reveal any focal deficits. SKIN: No rashes. no petechiae. Results CBC & Chem 7: 09/04/21 05:36 09/04/21 05:36 Labs: Abnormal Lab Results - Last 24 Hours (Table) 09/04/21 09/04/21 Range/Units 05:36 05:36 MCV 101.3 H (80.0-100.0) fL Sodium 136 L (137-145) mmol/L Chloride 108 H (98-107) mmol/L BUN 21 H (7-17) mg/dL Creatinine 1.14 H (0.52-1.04) mg/dL Calcium 8.0 L (8.4-10.2) mg/dL Magnesium 1.4 L (1.6-2.3) mg/dL AST 42 H (14-36) U/L Total Protein 5.3 L (6.3-8.2) g/dL Albumin 2.8 L (3.5-5.0) g/dL Assessment and Plan Assessment: Acute cholecystitis status post laparoscopic cholecystectomy. Today postop day #1 Postoperative hypotension secondary to surgical blood loss, medication effect like metoprolol and dehydration. History of hypertension, currently her blood pressure is normal without medication. Dehydration COPD, not acute exacerbation History of CVA/TIA History of GERD Chronic kidney disease stage III History of alcohol abuse, quit 3 weeks ago History of anxiety, depression, not an active issue. Plan: This is a pleasant 65 years old female who presents with cholecystitis status post lap cholecystectomy. Postoperative hypotension. Change IV fluids to D5 normal saline at 1 25 mL/h, monitor blood pressure. Hold metoprolol and prazosin Check creatinine tomorrow. Check TSH and magnesium Pain management and DVT prophylaxis per surgery team, currently on Lovenox GI prophylaxis Pepcid Further recommendation based on the course of the patient Thank you for consulting us, we will follow up with you
[2021-09-04] MEDS: FAMOTIDINE 20 MG TAB PO PRN (21:11)
[2021-09-04] MEDS: traZODone HCL 100 MG TAB PO SCH (21:11)
[2021-09-05] MEDS: DEXTROSE 5%-0.9% NACL 1,000 ML IV SCH ×2 (01:30→09:53)
[2021-09-05 07:47] VITALS: TEMP 97.5
[2021-09-05] MEDS ORDERED: FLUoxetine HCL 20 MG CAP PO SCH (09:00)
[2021-09-05 09:11] LABS: African American GFR (CKD) 77.8 (60.0-200.0); Anion Gap 8.8 mmol/L (10.00-18.00); BUN/Creat Ratio 15.33 Ratio (12.00-20.00); Blood Urea Nitrogen 13.8 mg/dL (9.0-27.0); Calcium 8.1 mg/dL (8.7-10.3); Carbon Dioxide 22.2 mmol/L (20.0-27.5); Non-African American GFR(CKD) 67.1 (60.0-200.0); Potassium 3.8 mmol/L (3.5-5.5)
[2021-09-05] MEDS: ENOXAPARIN 40 MG/0.4 ML SYRINGE SQ SCH (09:47)
[2021-09-05] MEDS: HYDROcodone/APAP 5-325MG 1 EACH TAB PO PRN (09:53)
--- NOTE | 2021-09-05 11:43 | P.DS ---
Providers Date of admission: 09/04/21 15:48 Expected date of discharge: 09/05/21 Attending physician: Car Anderson Consults: 09/03/21 16:40 Consult Physician Routine Consulting Provider: Roosevelt Mcintosh Consult Reason/Comments: Medical management Do you want consulting provider notified?: Yes Primary care physician: Rose Guevara Hospital Course: Discharge diagnosis 1. Cholecystitis with cholelithiasis status post laparoscopic cholecystectomy 2. Hypotension 3. Hypomagnesemia resolved Hospital course This is a 65-year-old female who presented with right upper quadrant abdominal pain and evidence of cholelithiasis and cholecystitis. She does have previous history of alcohol abuse. Patient is status post laparoscopic cholecystectomy. Patient tolerated surgery well. Her pain is controlled. She is tolerating diet. She is up and ambulating. She is afebrile. She did have some hypotension after surgery. Blood pressures have now improved. Medicine service has adjusted blood pressure medications. She is stable for discharge. Please refer to chart for any further details. Physician Senior Java Software Developer note has been reviewed by physician. Signing provider agrees with the documented findings, assessment, and plan of care. Patient Condition at Discharge: Stable Plan - Discharge Summary Discharge Rx Participant: Yes New Discharge Prescriptions: New HYDROcodone/APAP 5-325MG [[place] 5-325] 1 tab PO Q6HR PRN 3 Days #12 tab PRN Reason: Pain Docusate [Colace] 100 mg PO BID #30 capsule Continue traZODone HCL [Desyrel] 100 mg PO HS Famotidine [Pepcid] 20 mg PO HS PRN PRN Reason: Heartburn Omeprazole [PriLOSEC] 40 mg PO AC-BRKFST #14 cap Loperamide HCl [Imodium A-D] 2 mg PO QID PRN PRN Reason: Diarrhea FLUoxetine HCL [PROzac] 20 mg PO DAILY No Action Metoprolol Tartrate 25 mg PO BID hydroCHLOROthiazide 25 mg PO DAILY Prazosin [Minipress] 1 mg PO HS Discharge Medication List traZODone HCL [Desyrel] 100 mg PO HS 10/29/18 [History] Famotidine [Pepcid] 20 mg PO HS PRN 12/28/20 [History] Loperamide HCl [Imodium A-D] 2 mg PO QID PRN 08/23/21 [History] Omeprazole [PriLOSEC] 40 mg PO AC-BRKFST #14 cap 08/24/21 [Rx] FLUoxetine HCL [PROzac] 20 mg PO DAILY 08/30/21 [History] Metoprolol Tartrate 25 mg PO BID 08/30/21 [History] Prazosin [Minipress] 1 mg PO HS 08/30/21 [History] hydroCHLOROthiazide 25 mg PO DAILY 08/30/21 [History] Docusate [Colace] 100 mg PO BID #30 capsule 09/05/21 [Rx] HYDROcodone/APAP 5-325MG [[place] 5-325] 1 tab PO Q6HR PRN 3 Days #12 tab 09/05/21 [Rx] Follow up Appointment(s)/Referral(s): Car Anderson MD [STAFF PHYSICIAN] - 09/13/21 9:20 am Patient Instructions/Handouts: Low Fat Diet (DC) Activity/Diet/Wound Care/Special Instructions: Discharge med rec to be completed by medicine service No driving while taking [place] No lifting over 10 pounds You may shower. No soaking or tub baths for 2 weeks Very light activity until you are reevaluated at your follow up appointment with your surgeon Discharge Disposition: HOME SELF-CARE
--- NOTE | 2021-09-05 13:05 | XR ---
EXAMINATION TYPE: XR chest 1V DATE OF EXAM: 09/05/2021 COMPARISON: Chest x-ray 08/23/2021 HISTORY: Hypoxemia TECHNIQUE: Single frontal view of the chest is obtained. FINDINGS: Cardiac mediastinal silhouette shows a stable appearance, the aorta appears ectatic. There are multiple old healed rib fractures. There is no evident pneumothorax or pleural effusion. No airs pace disease is seen. Some mild prominence of interstitium noted. IMPRESSION: No acute process. Stable findings compared to prior exam.
[2021-09-05 13:25] VITALS: BP 122/77; PULSE 56; RESP 17
--- NOTE | 2021-09-05 21:19 | P.PN ---
Subjective This is a pleasant 65 years old female with past medical history of COPD, CVA/TIA, GERD, Hypertension, chronic kidney disease, alcohol abuse quit about 3 weeks ago, anxiety depression. Patient's was admitted for cholecystitis and she underwent laparoscopic cholecystectomy on 09/03. Today is postop day #2. Postoperatively patient was hypotensive which is corrected with IV fluids. Her blood pressure medication metoprolol and prazosin were stopped. Patient blood pressure improved today. Her creatinine was slightly elevated 1.1 came back to normal at 0.9 today. Her oxygen stable around 92-94% , chest x-ray is negative for acute process. Patient herself denies any chest pain or dyspnea. Denies abdominal pain or vomiting or diarrhea. Denies headache or numbness. No weakness or dizziness. Patient is walking with no difficulty. She tolerates diet well. And she feels she can go home today. Upon discharge patient was instructed to keep holding metoprolol and prazosin and follow-up with her PCP in one week to check her blood pressure and she agrees. Objective - Vital Signs Vital signs: Vital Signs Temp 97.5 F L 09/05/21 07:32 Pulse 56 L 09/05/21 13:24 Resp 17 09/05/21 13:24 BP 122/77 09/05/21 13:24 Pulse Ox 94 L 09/05/21 13:24 Intake & Output 09/05/21 09/05/21 09/06/21 06:59 18:59 06:59 Other: Voiding Method Toilet # Voids 2 - Exam GENERAL: The patient is alert and oriented x3, not in any acute distress. Well developed, well nourished. HEENT: Pupils are round and equally reacting to light. EOMI. No scleral icterus. No conjunctival pallor. Normocephalic, atraumatic. No pharyngeal erythema. No thyromegaly. CARDIOVASCULAR: S1 and S2 present. No murmurs, rubs, or gallops. PULMONARY: Chest is clear to auscultation, no wheezing or crackles. -ABDOMEN: Soft, nontender, nondistended, normoactive bowel sounds. No palpable organomegaly. Laparoscopic once are closed and healing MUSCULOSKELETAL: No joint swelling or deformity. EXTREMITIES: No cyanosis, clubbing, or pedal edema. NEUROLOGICAL: Gross neurological examination did not reveal any focal deficits. SKIN: No rashes. no petechiae. - Labs CBC & Chem 7: 09/04/21 05:36 09/05/21 04:51 Labs: Abnormal Lab Results - Last 24 Hours (Table) 09/05/21 Range/Units 04:51 Chloride 110 H (96-109) mmol/L Anion Gap 8.80 L (10.00-18.00) mmol/L Calcium 8.1 L (8.7-10.3) mg/dL TSH 6.580 H (0.350-5.500) uIU/mL Assessment and Plan Assessment: Acute cholecystitis status post laparoscopic cholecystectomy. Today postop day #1 Postoperative hypotension secondary to surgical blood loss, medication effect like metoprolol and dehydration. History of hypertension, currently her blood pressure is normal without medication. Dehydration COPD, not acute exacerbation History of CVA/TIA History of GERD Chronic kidney disease stage III History of alcohol abuse, quit 3 weeks ago History of anxiety, depression, not an active issue. Plan: This is a pleasant 65 years old female who presents with cholecystitis status post lap cholecystectomy. Postoperative hypotension. IV fluids could be discontinued Keep holding metoprolol and prazosin. Resume hydrochlorothiazide upon discharge. Follow-up with PCP in one week to check her blood pressure and other medical illness Patient is doing well clinically and she is back to baseline, she is asymptomatic today. Her blood pressure stabilized. Function tests reviewed and patient has subclinical hypothyroidism, no need for adjustment of medication but only to check her thyroid function test in 1 month with her PCP Chest x-ray reviewed showing no acute process. Patient is medically stable, asymptomatic today. Patient was instructed to follow up with her PCP CAREER AND GUIDANCE COUNSELOR Glenda Alcocer and Dr. coker in 1 week and she agrees to call and make her own appointment Thank you for consulting us Plan of care discussed with surgery team and bedside nurse
== END 2021-09-05 15:57 | disposition home or self-care (01) | DRG 419 ==
LOC: OR 07:16 → 4SSUR 16:39 → OR 09-04 15:48
PROVIDERS: ADMIT Surgery; ATTEND Surgery
PROC: 0FT44ZZ Resection of Gallbladder, Percutaneous Endoscopic Approach (ICD-10-PCS; principal; 2021-09-03 08:30)
DX: K80.12 Calculus of gallbladder with acute and chronic cholecystitis without obstruction (principal); E83.42 Hypomagnesemia; E86.0 Dehydration; F32.A Depression, unspecified; F41.9 Anxiety disorder, unspecified; F90.9 Attention-deficit hyperactivity disorder, unspecified type; J44.9 Chronic obstructive pulmonary disease, unspecified; E03.8 Other specified hypothyroidism; N18.30 Chronic kidney disease, stage 3 unspecified; T44.7X5A Adverse effect of beta-adrenoreceptor antagonists, initial encounter; I12.9 Hypertensive chronic kidney disease with stage 1 through stage 4 chronic kidney disease, or unspecified chronic kidney disease; K21.9 Gastro-esophageal reflux disease without esophagitis; I95.2 Hypotension due to drugs; Z79.899 Other long term (current) drug therapy; Z98.42 Cataract extraction status, left eye; Z98.41 Cataract extraction status, right eye; Z86.73 Personal history of transient ischemic attack (TIA), and cerebral infarction without residual deficits; Z80.1 Family history of malignant neoplasm of trachea, bronchus and lung; Z82.49 Family history of ischemic heart disease and other diseases of the circulatory system
CPT/HCPCS: 71045; 80048; 80053; 83735; 84439; 84443; 85027; 88304

== ENCOUNTER 2021-09-07 17:11 | Emergency (ER) | payer MEDICARE ==
[2021-09-07 17:25] VITALS: TEMP 98
[2021-09-07] MEDS ORDERED: ACETAMINOPHEN TAB 500 MG TAB PO STA (18:07)
[2021-09-07] MEDS ORDERED: SODIUM CHLORIDE 0.9% 1,000 ML IV STA (18:07)
[2021-09-07] MEDS ORDERED: ASPIRIN 81 MG PO STA (18:07)
[2021-09-07] MEDS ORDERED: diphenhydrAMINE 50 MG/ML 1 ML VIAL IVP STA (18:07)
[2021-09-07] MEDS ORDERED: METOCLOPRAMIDE 5 MG/ML 2 ML VIAL IVP STA (18:07)
[2021-09-07 18:22] LABS: Basophils % (A) 0 %; Eosinophils # (A) 0.2 k/uL (0-0.7); Eosinophils % (A) 5 %; HGB 14.6 gm/dL (11.4-16.0); Lymphocytes # (A) 1.8 k/uL (1.0-4.8); Lymphocytes % (A) 36 %; MCH 33.4 pg (25.0-35.0); MCHC 33.3 g/dL (31.0-37.0); MCV 100.2 fL (80.0-100.0); Macrocytosis Slight; Mean Platelet Volume 9.6; Monocytes # (A) 0.2 k/uL (0-1.0); Monocytes % (A) 5 %; Neutrophils # (A) 2.5 k/uL (1.3-7.7); Neutrophils % (A) 52 %; Platelet Count 205 k/uL (150-450); RBC 4.39 m/uL (3.80-5.40); RDW 14.9 % (11.5-15.5); WBC 4.9 k/uL (3.8-10.6)
[2021-09-07 18:32] LABS: Albumin 3.4 g/dL (3.5-5.0); Calcium 9.2 mg/dL (8.4-10.2); Magnesium 1.6 mg/dL (1.6-2.3); Potassium 3.9 mmol/L (3.5-5.1); Total Bilirubin 0.6 mg/dL (0.2-1.3); Total Protein 6.1 g/dL (6.3-8.2)
[2021-09-07 18:33] LABS: INR 0.9 (<1.2); Partial Thromboplastin Time 26.9 sec (22.0-30.0); Prothrombin Time 10.2 sec (9.0-12.0)
--- NOTE | 2021-09-07 19:00 | XR ---
EXAMINATION TYPE: XR chest 2V DATE OF EXAM: 09/07/2021 COMPARISON: 09/05/2021 HISTORY: Chest pain TECHNIQUE: FINDINGS: There is some coarsening of the interstitial markings left lower lobe. Heart size is normal . No heart failure. Old left-sided rib fractures noted. Thoracic aorta is atheromatous. There are parminder st leads. IMPRESSION: Mild scarring in the left lower lobe similar to the old exam. Old left-sided rib fracture s. No definite acute lung disease. No heart failure.
--- NOTE | 2021-09-07 19:29 | ED ---
General Adult HPI - General Chief complaint: Chest Pain Stated complaint: SOB Time Seen by Provider: 09/07/21 17:35 Source: patient, RN notes reviewed, old records reviewed Mode of arrival: ambulatory Limitations: no limitations - History of Present Illness Initial comments: Patient is a 65-year-old female with past medical history remarkable for recent cholecystectomy, COPD, hypertension who presents emergency Department complaining of elevated blood pressure at home. In triage, she states she has shortness of breath and chest heaviness, however she states that this was not happening when I discussed with her. She was concerned regarding elevated blood pressure at home. She states she took her dose of metoprolol, which improved her blood pressure. They told her not to take it when she was discharged home, and wanted to be reevaluated. States she had a fleeting moment of chest discomfort earlier today that lasted for less than 5 seconds. Denies any abdominal pain but states that she has a "stomachache" which has somewhat been typical since she had her surgery completed. Denies any nausea or vomiting. Denies any diarrhea. Denies any urinary complaints. Has no other acute complaint at this time. Presents over concern for her blood pressure. - Related Data Home Medications Medication Instructions Recorded Confirmed traZODone HCL [Desyrel] 100 mg PO HS 10/29/18 09/07/21 Famotidine [Pepcid] 20 mg PO HS PRN 12/28/20 09/07/21 Loperamide HCl [Imodium A-D] 2 mg PO QID PRN 08/23/21 09/07/21 FLUoxetine HCL [PROzac] 20 mg PO DAILY 08/30/21 09/07/21 hydroCHLOROthiazide 25 mg PO DAILY 08/30/21 09/07/21 Previous Rx's Medication Instructions Recorded Omeprazole [PriLOSEC] 40 mg PO AC-BRKFST #14 cap 08/24/21 Docusate [Colace] 100 mg PO BID #30 capsule 09/05/21 HYDROcodone/APAP 5-325MG [[place] 1 tab PO Q6HR PRN 3 Days #12 tab 09/05/21 5-325] Mag Hydrox/Al Hydrox/Simeth 30 ml PO BID PRN #400 ml 09/07/21 [Maalox] Allergies Allergy/AdvReac Type Severity Reaction Status Date / Time No Known Allergies Allergy Verified 09/07/21 19:13 Review of Systems ROS Statement: Those systems with pertinent positive or pertinent negative responses have been documented in the HPI. Review of Systems: CONST: Denies fever EYES: Denies blurry vision ENT: Denies nasal congestion C/V: Denies Chest pain RESP: Denies shortness of breath GI: Denies abdominal pain : Denies dysuria SKIN: Denies rash. MSK: Denies joint pain. NEURO: Denies headache ROS Other: All systems not noted in ROS Statement are negative. Past Medical History Past Medical History: COPD, CVA/TIA, GERD/Reflux, Hypertension, Renal Disease Additional Past Medical History / Comment(s): past rib fractures, L hemothorax with chest tube, blood loss anemia, ETOH-last drink 08/13/21-pt is quitting drinking History of Any Multi-Drug Resistant Organisms: None Reported Past Surgical History: Section, Cholecystectomy, Orthopedic Surgery Additional Past Surgical History / Comment(s): R wrist surgery d/t injury, roro ateral cataract removals, D&C x2 Past Anesthesia/Blood Transfusion Reactions: No Reported Reaction Past Psychological History: ADD/ADHD, Anxiety, Depression Smoking Status: Never smoker Past Alcohol Use History: None Reported Past Drug Use History: Marijuana - Past Family History Mother Family Medical History: Blood Disorder, Congestive Heart Failure (CHF), Coronary Artery Disease (CAD) Additional Family Medical History / Comment(s): Mother had a blood disease (had too many WBCs). She at the age of 88yrs from CAD per pt. Father Family Medical History: Cancer Additional Family Medical History / Comment(s): Father of lung cancer at the age of 77yrs. General Exam - General Exam Comments Initial Comments: General: Appears in no acute distress. HEAD: Normal with no signs of head trauma. EYES: PERRLA, EOMI, conjunctiva normal, no discharge. ENT: Hearing grossly intact, normal oropharynx. RESPIRATORY: Clear breath sounds bilaterally. No wheezes, rales, or rhonchi. C/V: Regular rate and rhythm. S1 and S2 auscultated, no edema, peripheral pulses 2+ and intact throughout ABD: Abd is soft, nontender, nondistended EXT: Normal range of motion, no obvious deformity SKIN: No rashes or lesions observed on exposed skin. NEURO: Alert and oriented 4. No focal deficits. Limitations: no limitations Course Vital Signs 09/07/21 09/07/21 17:22 20:11 Temperature 98 F 98 F Pulse Rate 61 84 Respiratory 20 22 Rate Blood Pressure 158/95 140/98 O2 Sat by Pulse 97 97 Oximetry Medical Decision Making - Medical Decision Making Based on the patient's presentation and physical exam, she appears to be presenting with asymptomatic hypertension at home, which has since resolved. Vital signs within normal limits and stable. However we will obtain a cardiac workup in addition to the belly labs. Chest x-ray will also be obtained. She was in agreement this plan. She will be given an aspirin, and she requests Reglan, Benadryl as well as a fluid bolus. Laboratory studies are unremarkable, including a negative troponin. EKG showed no signs of acute ischemia. Chest x-ray revealed no acute cardiopulmonary process. On reevaluation, patient remains unchanged. She is asymptomatic. I discussed the findings with her, believe it is safer to be discharged home. She was in agreement this plan. We did discuss use of her blood pressure medication, and I recommended that she restart it, she is been on it chronically for quite some time. Heart score is low at 3. I will provide the patient with a prescription for Maalox. I instructed the patient to follow up with their PCP in the next 3 days. I explained that the patient should return to the emergency department if they experience any worsening symptoms. Strict return precautions were discussed with the patient. The patient expressed understanding of these instructions. I answered all questions that the patient had. The patient was discharged home in good condition with their prescriptions and follow up information. - Lab Data Result diagrams: 09/07/21 18:11 09/07/21 18:11 Lab Results 09/07/21 09/07/21 09/07/21 Range/Units 18:11 18:11 18:11 WBC 4.9 (3.8-10.6) k/uL RBC 4.39 (3.80-5.40) m/uL Hgb 14.6 (11.4-16.0) gm/dL Hct 44.0 (34.0-46.0) % MCV 100.2 H (80.0-100.0) fL MCH 33.4 (25.0-35.0) pg MCHC 33.3 (31.0-37.0) g/dL RDW 14.9 (11.5-15.5) % Plt Count 205 (150-450) k/uL MPV 9.6 Neutrophils % 52 % Lymphocytes % 36 % Monocytes % 5 % Eosinophils % 5 % Basophils % 0 % Neutrophils # 2.5 (1.3-7.7) k/uL Lymphocytes # 1.8 (1.0-4.8) k/uL Monocytes # 0.2 (0-1.0) k/uL Eosinophils # 0.2 (0-0.7) k/uL Basophils # 0.0 (0-0.2) k/uL Macrocytosis Slight PT 10.2 (9.0-12.0) sec INR 0.9 (<1.2) APTT 26.9 (22.0-30.0) sec Sodium 137 (137-145) mmol/L Potassium 3.9 (3.5-5.1) mmol/L Chloride 106 (98-107) mmol/L Carbon Dioxide 23 (22-30) mmol/L Anion Gap 8 mmol/L BUN 11 (7-17) mg/dL Creatinine 0.88 (0.52-1.04) mg/dL Est GFR (CKD-EPI)AfAm 80 (>60 ml/min/1.73 sqM) Est GFR (CKD-EPI)NonAf 70 (>60 ml/min/1.73 sqM) Glucose 106 H (74-99) mg/dL Calcium 9.2 (8.4-10.2) mg/dL Magnesium 1.6 (1.6-2.3) mg/dL Total Bilirubin 0.6 (0.2-1.3) mg/dL AST 38 H (14-36) U/L ALT 27 (4-34) U/L Alkaline Phosphatase 55 (38-126) U/L Troponin I (0.000-0.034) ng/mL Total Protein 6.1 L (6.3-8.2) g/dL Albumin 3.4 L (3.5-5.0) g/dL Amylase 46 (30-110) U/L Lipase 151 (23-300) U/L 09/07/21 Range/Units 18:11 WBC (3.8-10.6) k/uL RBC (3.80-5.40) m/uL Hgb (11.4-16.0) gm/dL Hct (34.0-46.0) % MCV (80.0-100.0) fL MCH (25.0-35.0) pg MCHC (31.0-37.0) g/dL RDW (11.5-15.5) % Plt Count (150-450) k/uL MPV Neutrophils % % Lymphocytes % % Monocytes % % Eosinophils % % Basophils % % Neutrophils # (1.3-7.7) k/uL Lymphocytes # (1.0-4.8) k/uL Monocytes # (0-1.0) k/uL Eosinophils # (0-0.7) k/uL Basophils # (0-0.2) k/uL Macrocytosis PT (9.0-12.0) sec INR (<1.2) APTT (22.0-30.0) sec Sodium (137-145) mmol/L Potassium (3.5-5.1) mmol/L Chloride (98-107) mmol/L Carbon Dioxide (22-30) mmol/L Anion Gap mmol/L BUN (7-17) mg/dL Creatinine (0.52-1.04) mg/dL Est GFR (CKD-EPI)AfAm (>60 ml/min/1.73 sqM) Est GFR (CKD-EPI)NonAf (>60 ml/min/1.73 sqM) Glucose (74-99) mg/dL Calcium (8.4-10.2) mg/dL Magnesium (1.6-2.3) mg/dL Total Bilirubin (0.2-1.3) mg/dL AST (14-36) U/L ALT (4-34) U/L Alkaline Phosphatase (38-126) U/L Troponin I <0.012 (0.000-0.034) ng/mL Total Protein (6.3-8.2) g/dL Albumin (3.5-5.0) g/dL Amylase (30-110) U/L Lipase (23-300) U/L - EKG Data -: EKG Interpreted by Me EKG Comments: 12-lead Electrocardiogram Interpretation Note EKG was reviewed and interpreted by myself. 12-lead ECG performed at 1731 is interpreted by me as revealing normal sinus rhythm at a rate of 58 beats per minute. [place] is normal. CT interval is 166 ms, QRS duration is 90 ms, QTc is 434 ms.. There were no ST or T wave abnormalities to suggest myocardial ischemia or injury. R wave progression across the precordium was satisfactory. By my interpretation this EKG is non-diagnostic for acute ischemia. Disposition Clinical Impression: Hypertension Disposition: HOME SELF-CARE Condition: Good Instructions (If sedation given, give patient instructions): Hypertension (ED) Prescriptions: Mag Hydrox/Al Hydrox/Simeth [Maalox] 30 ml PO BID PRN #400 ml PRN Reason: Dyspepsia Is patient prescribed a controlled substance at d/c from ED?: No Referrals: Rose Guevara MD [Primary Care Provider] - 1-2 days
[2021-09-07 20:12] VITALS: BP 140/98; PULSE 84; RESP 22
== END 2021-09-07 20:12 | disposition home or self-care (01) ==
LOC: EC 17:11
DX: I10 Essential (primary) hypertension (principal); R06.02 Shortness of breath; J44.9 Chronic obstructive pulmonary disease, unspecified; K21.9 Gastro-esophageal reflux disease without esophagitis; Z86.73 Personal history of transient ischemic attack (TIA), and cerebral infarction without residual deficits; Z79.899 Other long term (current) drug therapy
CPT/HCPCS: 36415; 93005; 80053; 82150; 83690; 83735; 84484; 85025; 85610; 85730; 71046; 99285; 96374; 96375; 96361; J1200; J2765

== ENCOUNTER 2021-11-17 18:45 | Emergency (ER) | payer MEDICARE ==
[2021-11-17 18:59] VITALS: BP 125/89; PULSE 79; RESP 16; TEMP 98
[2021-11-17] MEDS ORDERED: PROPARACAINE 0.5% OPHTH DROPS 15 ML BTL LEFT EYE STA (19:31)
[2021-11-17] MEDS ORDERED: FLUORESCEIN STRIPS 1 MG STRIP LEFT EYE ONE (19:31)
[2021-11-17] MEDS ORDERED: ERYTHROMYCIN 5 MG/GM OPHTH OINT 1 GM TUBE RIGHT EYE STA (19:54)
--- NOTE | 2021-11-17 19:57 | ED ---
Eye Problem HPI - General Chief complaint: Eye Problems Stated complaint: Dog scratch on the eye Time Seen by Provider: 11/17/21 19:36 Source: patient Mode of arrival: wheelchair Limitations: no limitations - History of Present Illness Initial comments: Patient is a 66-year-old female presenting with chief complaint of right eye pain. Patient states that she was laying on the couch when her dog stepped on her face. She is complaining of eye pain, redness, watering. States she is sensitive to light and it is difficult to open her eye. She does not wear contacts. She denies any foreign body sensation. She states her vision is somewhat blurry, no double vision or vision loss. Denies pain with eye movement or periorbital pain. - Related Data Home Medications Medication Instructions Recorded Confirmed traZODone HCL [Desyrel] 100 mg PO HS 10/29/18 09/07/21 Famotidine [Pepcid] 20 mg PO HS PRN 12/28/20 09/07/21 Loperamide HCl [Imodium A-D] 2 mg PO QID PRN 08/23/21 09/07/21 FLUoxetine HCL [PROzac] 20 mg PO DAILY 08/30/21 09/07/21 hydroCHLOROthiazide 25 mg PO DAILY 08/30/21 09/07/21 Previous Rx's Medication Instructions Recorded Omeprazole [PriLOSEC] 40 mg PO AC-BRKFST #14 cap 08/24/21 Docusate [Colace] 100 mg PO BID #30 capsule 09/05/21 HYDROcodone/APAP 5-325MG [[place] 1 tab PO Q6HR PRN 3 Days #12 tab 09/05/21 5-325] Mag Hydrox/Al Hydrox/Simeth 30 ml PO BID PRN #400 ml 09/07/21 [Maalox] Erythromycin Ophth Oint (1 gm) 1 applic RIGHT EYE QID 5 Days #20 11/17/21 [Ilotycin Ophth Oint (1 gm)] gram Allergies Allergy/AdvReac Type Severity Reaction Status Date / Time No Known Allergies Allergy Verified 11/17/21 19:00 Review of Systems ROS Statement: Those systems with pertinent positive or pertinent negative responses have been documented in the HPI. ROS Other: All systems not noted in ROS Statement are negative. Past Medical History Past Medical History: COPD, CVA/TIA, GERD/Reflux, Hypertension, Renal Disease Additional Past Medical History / Comment(s): past rib fractures, L hemothorax with chest tube, blood loss anemia, ETOH-last drink 08/13/21-pt is quitting d rinking History of Any Multi-Drug Resistant Organisms: None Reported Past Surgical History: Section, Cholecystectomy, Orthopedic Surgery Additional Past Surgical History / Comment(s): R wrist surgery d/t injury, bilateral cataract removals, D&C x2 Past Anesthesia/Blood Transfusion Reactions: No Reported Reaction Past Psychological History: ADD/ADHD, Anxiety, Depression Smoking Status: Never smoker Past Alcohol Use History: None Reported Past Drug Use History: Marijuana - Past Family History Mother Family Medical History: Blood Disorder, Congestive Heart Failure (CHF), Coronary Artery Disease (CAD) Additional Family Medical History / Comment(s): Mother had a blood disease (had too many WBCs). She at the age of 88yrs from CAD per pt. Father Family Medical History: Cancer Additional Family Medical History / Comment(s): Father of lung cancer at the age of 77yrs. General Exam Limitations: no limitations General appearance: alert, in no apparent distress Head exam: Present: atraumatic, normocephalic, normal inspection Eye exam: Present: PERRL, EOMI, conjunctival injection. Absent: scleral icterus, periorbital swelling, periorbital tenderness Pupils: Present: normal accommodation Neck exam: Present: normal inspection Neurological exam: Present: alert, oriented X3, CN II-XII intact Psychiatric exam: Present: normal affect, normal mood Skin exam: Present: warm, dry, intact, normal color. Absent: rash Course Vital Signs 11/17/21 18:57 Temperature 98 F Pulse Rate 79 Respiratory 16 Rate Blood Pressure 125/89 O2 Sat by Pulse 96 Oximetry Medical Decision Making - Medical Decision Making Patient is a 66 y/o female presenting with CC of R eye pain. Pt states that her dog stepped on her face while she was laying on the couch. On examination there is scleral injection. Extraocular motions are intact, no periorbital tenderness, pupils are equal, round, reactive to light, accommodating. No foreign body was seen on examination with eyelid inversion. Fluorescein staining and Wood's lamp reveals corneal abrasion. Negative Blu's sign. Patient was given erythromycin eye ointment, she is not a contact lens wearer. Apply 4 times a day for 5 days. Follow-up with ophthalmology and PCP as instructed. Report back to ER if any worsening symptoms. Educated on return parameters alarm symptoms. Answered all questions. Patient conveyed verbal understanding and agreed to the plan. I discussed this case with my attending Dr. Santos Disposition Clinical Impression: Corneal abrasion, right Disposition: HOME SELF-CARE Condition: Good Instructions (If sedation given, give patient instructions): Corneal Abrasion (ED) Additional Instructions: Follow-up with PCP and ophthalmology as instructed. Take medication as i nstructed. Report back to ER if any worsening symptoms. Prescriptions: Erythromycin Ophth Oint (1 gm) [Ilotycin Ophth Oint (1 gm)] 1 applic RIGHT EYE QID 5 Days #20 gram Is patient prescribed a controlled substance at d/c from ED?: No Referrals: Rose Guevara MD [Primary Care Provider] - 1-2 days Sarah Lucas MD [STAFF PHYSICIAN] - 1-2 days Time of Disposition: 19:57
== END 2021-11-17 20:23 | disposition home or self-care (01) ==
LOC: EC 18:45
DX: S05.01XA Injury of conjunctiva and corneal abrasion without foreign body, right eye, initial encounter (principal); I10 Essential (primary) hypertension; J44.9 Chronic obstructive pulmonary disease, unspecified; K21.9 Gastro-esophageal reflux disease without esophagitis; Z79.899 Other long term (current) drug therapy; W54.1XXA Struck by dog, initial encounter
CPT/HCPCS: 99283

== ENCOUNTER 2022-05-13 08:31 | Emergency (ER) | payer MEDICARE ==
[2022-05-13 08:35] VITALS: TEMP 98.2
[2022-05-13] MEDS ORDERED: SODIUM CHLORIDE 0.9% 1,000 ML IV STA ×2 (08:45)
--- NOTE | 2022-05-13 09:03 | ED ---
Nausea/Vomiting/Diarrhea HPI - General Chief complaint: Nausea/Vomiting/Diarrhea Stated complaint: kidney pain Time Seen by Provider: 05/13/22 08:34 Source: patient, RN notes reviewed Mode of arrival: ambulatory Limitations: no limitations - History of Present Illness Initial comments: 66-year-old female who states she is stage III a or B kidney disease who presents with complaints of not feeling well for quite a while. Today she presents with complaints of nausea vomiting diarrhea decreased oral intake, fatigue. She states she's not sleeping well. She's had up and down blood pressures. She states she's feeling very anxious also. She also has bilateral flank pain. She states she's had decreased urinary output. She relates to secondary to decreased oral intake of fluids. She also has complaints of lightheadedness some dizziness when she tries ambulate. No fevers chills or sweats. No chest pain no other complaints or modifying factors at this time MD complaint: nausea, vomiting, diarrhea, other - Related Data Home Medications Medication Instructions Recorded Confirmed Famotidine [Pepcid] 20 mg PO HS PRN 12/28/20 05/13/22 FLUoxetine HCL [PROzac] 20 mg PO DAILY 08/30/21 05/13/22 Midodrine [ProAmatine] 5 mg PO TID 05/13/22 05/13/22 Naltrexone HCl [Revia] 50 mg PO DAILY 05/13/22 05/13/22 calcitrioL [Calcitriol] 0.25 mcg PO TUTH 05/13/22 05/13/22 traZODone HCL 150 mg PO HS 05/13/22 05/13/22 Previous Rx's Medication Instructions Recorded Ondansetron Odt [Zofran Odt] 4 mg PO Q8HR PRN #10 tab 05/13/22 Allergies Allergy/AdvReac Type Severity Reaction Status Date / Time No Known Allergies Allergy Verified 05/13/22 10:55 Review of Systems ROS Statement: Those systems with pertinent positive or pertinent negative responses have been documented in the HPI. ROS Other: All systems not noted in ROS Statement are negative. Past Medical History Past Medical History: COPD, CVA/TIA, GERD/Reflux, Hypertension, Renal Disease Additional Past Medical History / Comment(s): past rib fractures, L hemothorax with chest tube, blood loss anemia, ETOH-last drink 08/13/21-pt is quitting drinking History of Any Multi-Drug Resistant Organisms: None Reported Past Surgical History: Section, Cholecystectomy, Orthopedic Surgery Additional Past Surgical History / Comment(s): R wrist surgery d/t injury, bilateral cataract removals, D&C x2 Past Anesthesia/Blood Transfusion Reactions: No Reported Reaction Past Psychological History: ADD/ADHD, Anxiety, Depression Smoking Status: Never smoker Past Alcohol Use History: None Reported Past Drug Use History: Marijuana - Past Family History Mother Family Medical History: Blood Disorder, Congestive Heart Failure (CHF), Coronary Artery Disease (CAD) Additional Family Medical History / Comment(s): Mother had a blood disease (had too many WBCs). She at the age of 88yrs from CAD per pt. Father Family Medical History: Cancer Additional Family Medical History / Comment(s): Father of lung cancer at the age of 77yrs. General Exam - General Exam Comments Initial Comments: This is a well-developed well-nourished awake alert oriented 4 female Limitations: no limitations General appearance: alert Head exam: Present: atraumatic, normocephalic, normal inspection Eye exam: Present: normal appearance, PERRL, EOMI. Absent: scleral icterus, conjunctival injection, periorbital swelling ENT exam: Present: mucous membranes dry Neck exam: Present: normal inspection. Absent: tenderness, meningismus, lymphadenopathy Respiratory exam: Present: normal lung sounds bilaterally. Absent: respiratory distress, wheezes, rales, rhonchi, stridor Cardiovascular Exam: Present: regular rate, normal rhythm, normal heart sounds. Absent: systolic murmur, diastolic murmur, rubs, gallop, clicks GI/Abdominal exam: Present: soft, normal bowel sounds. Absent: distended, tenderness, guarding, rebound, rigid Extremities exam: Present: normal inspection, full ROM, normal capillary refill. Absent: tenderness, pedal edema, joint swelling, calf tenderness Back exam: Present: normal inspection Neurological exam: Present: alert, oriented X3, CN II-XII intact Psychiatric exam: Present: normal affect, normal mood Skin exam: Present: warm, dry, intact, normal color. Absent: rash Course Vital Signs 05/13/22 08:33 Temperature 98.2 F Pulse Rate 93 Respiratory 20 Rate Blood Pressure 136/101 O2 Sat by Pulse 98 Oximetry Medical Decision Making - Medical Decision Making Reevaluation patient finds she is feeling improved at this time she will be discharged with follow-up tomorrow with Dr. Melo as planned. She is encouraged to increase oral fluids. She does have evidence of an elevated lipase level. We did discuss this etiology at this time is unknown. She is a recovered alcoholic. She states she has not had alcohol for 10 months. - Lab Data Result diagrams: 05/13/22 09:09 05/13/22 09:09 Lab Results 05/13/22 05/13/22 05/13/22 Range/Units 09:09 09:09 09:09 WBC 5.3 (3.8-10.6) k/uL RBC 5.35 (3.80-5.40) m/uL Hgb 16.2 H (11.4-16.0) gm/dL Hct 46.8 H (34.0-46.0) % MCV 87.3 (80.0-100.0) fL MCH 30.2 (25.0-35.0) pg MCHC 34.5 (31.0-37.0) g/dL RDW 12.7 (11.5-15.5) % Plt Count 181 (150-450) k/uL MPV 9.4 Neutrophils % 56 % Lymphocytes % 33 % Monocytes % 6 % Eosinophils % 4 % Basophils % 0 % Neutrophils # 3.0 (1.3-7.7) k/uL Lymphocytes # 1.7 (1.0-4.8) k/uL Monocytes # 0.3 (0-1.0) k/uL Eosinophils # 0.2 (0-0.7) k/uL Basophils # 0.0 (0-0.2) k/uL Sodium 141 (137-145) mmol/L Potassium 5.1 (3.5-5.1) mmol/L Chloride 109 H (98-107) mmol/L Carbon Dioxide 19 L (22-30) mmol/L Anion Gap 13 mmol/L BUN 16 (7-17) mg/dL Creatinine 0.85 (0.52-1.04) mg/dL Est GFR (CKD-EPI)AfAm 83 (>60 ml/min/1.73 sqM) Est GFR (CKD-EPI)NonAf 72 (>60 ml/min/1.73 sqM) Glucose 90 (74-99) mg/dL Calcium 9.5 (8.4-10.2) mg/dL Total Bilirubin 1.3 (0.2-1.3) mg/dL AST 40 H (14-36) U/L ALT 23 (4-34) U/L Alkaline Phosphatase 52 (38-126) U/L Total Protein 7.7 (6.3-8.2) g/dL Albumin 4.9 (3.5-5.0) g/dL Lipase 545 H (23-300) U/L Urine Color Yellow Urine Appearance Clear (Clear) Urine pH 5.5 (5.0-8.0) Ur Specific [place] 1.029 (1.001-1.035) Urine Protein Trace H (Negative) Urine Glucose (UA) Negative (Negative) Urine Ketones 2+ H (Negative) Urine Blood Negative (Negative) Urine Nitrite Negative (Negative) Urine Bilirubin Negative (Negative) Urine Urobilinogen 2.0 (<2.0) mg/dL Ur Leukocyte Esterase Small H (Negative) Urine RBC <1 (0-5) /hpf Urine WBC 2 (0-5) /hpf Ur Squamous Epith Cells 2 (0-4) /hpf Hyaline Casts 1 (0-2) /lpf Urine Mucus Few H (None) /hpf - Radiology Data Radiology results: image reviewed (I did review the imaging no acute processes) Disposition Clinical Impression: Gastroenteritis, Dehydration, Elevated lipase Disposition: HOME SELF-CARE Condition: Good Instructions (If sedation given, give patient instructions): Acute Nausea and Vomiting (ED), Acute Diarrhea (ED), Dehydration (ED) Additional Instructions: Keep her follow-up with Dr. Melo tomorrow Prescriptions: Ondansetron Odt [Zofran Odt] 4 mg PO Q8HR PRN #10 tab PRN Reason: Nausea Is patient prescribed a controlled substance at d/c from ED?: No Referrals: Rose Guevara MD [Primary Care Provider] - 1-2 days
[2022-05-13 09:32] LABS: Basophils % (A) 0 %; Eosinophils # (A) 0.2 k/uL (0-0.7); Eosinophils % (A) 4 %; HCT 46.8 % (34.0-46.0); HGB 16.2 gm/dL (11.4-16.0); Lymphocytes # (A) 1.7 k/uL (1.0-4.8); Lymphocytes % (A) 33 %; MCH 30.2 pg (25.0-35.0); MCHC 34.5 g/dL (31.0-37.0); MCV 87.3 fL (80.0-100.0); Mean Platelet Volume 9.4; Monocytes # (A) 0.3 k/uL (0-1.0); Monocytes % (A) 6 %; Neutrophils % (A) 56 %; Platelet Count 181 k/uL (150-450); RBC 5.35 m/uL (3.80-5.40); RDW 12.7 % (11.5-15.5); WBC 5.3 k/uL (3.8-10.6)
[2022-05-13 09:44] LABS: Albumin 4.9 g/dL (3.5-5.0); Calcium 9.5 mg/dL (8.4-10.2); Total Bilirubin 1.3 mg/dL (0.2-1.3); Total Protein 7.7 g/dL (6.3-8.2)
--- NOTE | 2022-05-13 09:45 | XR ---
EXAMINATION TYPE: XR KUB DATE OF EXAM: 05/13/2022 9:37 AM CLINICAL HISTORY: Pain. TECHNIQUE: Two Upright KUB images of the abdomen are obtained. COMPARISON: CTA aorta 2017 FINDINGS: Gas is seen in nondistended stomach. Scattered gas is seen in non-distended small and large bowel loops. No free air. Old bilateral posterior lateral rib fractures are noted. Cholecystectomy c lips suspected. Correlate clinically. Additional surgical clip overlies the upper to mid sacrum. No f ree air. IMPRESSION: Overall nonobstructive bowel gas pattern.
[2022-05-13 09:47] LABS: Potassium 5.1 mmol/L (3.5-5.1)
[2022-05-13] MEDS ORDERED: ONDANSETRON 4 MG/2 ML VIAL IVP STA (10:26)
[2022-05-13 10:40] LABS: Appearance,Urine Clear (Clear); Bilirubin,Urine Negative (Negative); Blood,Urine Negative (Negative); Color,Urine Yellow; Glucose,Urine (UA) Negative (Negative); Hyaline Casts,Urine 1 /lpf (0-2); Ketones,Urine 2+ (Negative); Leukocyte Esterase,Urine Small (Negative); Mucus,Urine Few /hpf; Nitrite,Urine Negative (Negative); PH, Urine 5.5 (5.0-8.0); Protein,Urine Trace (Negative); RBC,Urine <1 /hpf (0-5); Specific Gravity,Urine 1.029 (1.001-1.035); Squamous Epithelial Cell,Urine 2 /hpf (0-4); WBC,Urine 2 /hpf (0-5)
[2022-05-13 11:21] VITALS: BP 144/84; PULSE 68; RESP 16
== END 2022-05-13 11:28 | disposition home or self-care (01) ==
LOC: EC 08:31
DX: K52.9 Noninfective gastroenteritis and colitis, unspecified (principal); R74.8 Abnormal levels of other serum enzymes; J44.9 Chronic obstructive pulmonary disease, unspecified; I12.9 Hypertensive chronic kidney disease with stage 1 through stage 4 chronic kidney disease, or unspecified chronic kidney disease; K21.9 Gastro-esophageal reflux disease without esophagitis; N18.9 Chronic kidney disease, unspecified; F90.9 Attention-deficit hyperactivity disorder, unspecified type; F41.9 Anxiety disorder, unspecified; F32.A Depression, unspecified; F12.90 Cannabis use, unspecified, uncomplicated; Z79.899 Other long term (current) drug therapy
CPT/HCPCS: 36415; 80053; 83690; 85025; 81001; 74018; 99284; 96374; 96361 ×2; J2405

== ENCOUNTER 2022-06-25 12:02 | Emergency (ER) | payer MEDICARE ==
[2022-06-25 13:16] LABS: Partial Thromboplastin Time 24.9 sec (22.0-30.0); Prothrombin Time 10.8 sec (9.0-12.0)
[2022-06-25 13:28] LABS: Albumin 4.5 g/dL (3.5-5.0); Calcium 9.7 mg/dL (8.4-10.2); Magnesium 1.7 mg/dL (1.6-2.3); Phosphorus 3.1 mg/dL (2.5-4.5); Potassium 3.8 mmol/L (3.5-5.1); Total Protein 7.1 g/dL (6.3-8.2)
[2022-06-25 13:56] LABS: Basophils % (A) 0 %; Eosinophils # (A) 0.4 k/uL (0-0.7); Eosinophils % (A) 5 %; HCT 43.5 % (34.0-46.0); HGB 15.6 gm/dL (11.4-16.0); Lymphocytes % (A) 29 %; MCHC 35.9 g/dL (31.0-37.0); MCV 86.3 fL (80.0-100.0); Mean Platelet Volume 9.7; Monocytes # (A) 0.3 k/uL (0-1.0); Monocytes % (A) 5 %; Neutrophils % (A) 59 %; Platelet Count 194 k/uL (150-450); RBC 5.04 m/uL (3.80-5.40); WBC 6.8 k/uL (3.8-10.6)
--- NOTE | 2022-06-25 15:15 | XR ---
EXAMINATION TYPE: XR chest 2V DATE OF EXAM: 06/25/2022 COMPARISON: 09/07/2021 INDICATION: Weakness TECHNIQUE: Frontal and lateral views of the chest are obtained. FINDINGS: The heart size is normal. The pulmonary vasculature is normal. The lungs are clear. IMPRESSION: 1. No acute pulmonary process.
[2022-06-25 16:39] VITALS: RESP 18
[2022-06-25] MEDS ORDERED: ONDANSETRON 4 MG/2 ML VIAL IVP STA (18:29)
[2022-06-25] MEDS ORDERED: LORazepam 2 MG/ML INJ IV STA (19:54)
--- NOTE | 2022-06-25 19:54 | ED ---
General Adult HPI - General Chief complaint: Weakness Stated complaint: weakness Time Seen by Provider: 06/25/22 16:24 Source: patient, RN notes reviewed, old records reviewed Mode of arrival: ambulatory Limitations: no limitations - History of Present Illness Initial comments: This is a 66-year-old female who presents to the emergency department compla ining of intermittent nausea vomiting and diarrhea since July. Patient to cholecystectomy in July. Patient states she has been having vomiting at least once a day for the last 3 weeks and diarrhea most days. Patient states she does have a history anxiety and she hasn't been in to see anybody that she thought it plateaued but she thinks at this point time she may need to see somebody because the symptoms could be psychogenic. Patient denies any fever chills or cough per patient denies any chest pain difficult breathing shortest breath per patient denies any abdominal pain. Patient states she has seen GI in the past but they have not anything for her and she continues to have these problems. - Related Data Home Medications Medication Instructions Recorded Confirmed Midodrine [ProAmatine] 5 mg PO TID 05/13/22 06/25/22 Naltrexone HCl [Revia] 50 mg PO DAILY 05/13/22 06/25/22 calcitrioL [Calcitriol] 0.25 mcg PO MOWEFR 05/13/22 06/25/22 traZODone HCL 150 mg PO HS 05/13/22 06/25/22 FLUoxetine HCL [PROzac] 40 mg PO DAILY 06/25/22 06/25/22 Sodium Bicarbonate Tab 325 mg PO DAILY 06/25/22 06/25/22 busPIRone HCl [Buspar] 5 mg PO TID 06/25/22 06/25/22 Previous Rx's Medication Instructions Recorded Metoclopramide [Reglan] 5 mg PO ACHS #20 tab 06/25/22 Allergies Allergy/AdvReac Type Severity Reaction Status Date / Time No Known Allergies Allergy Verified 06/25/22 18:00 Review of Systems ROS Statement: Those systems with pertinent positive or pertinent negative responses have been documented in the HPI. ROS Other: All systems not noted in ROS Statement are negative. Past Medical History Past Medical History: COPD, CVA/TIA, GERD/Reflux, Hypertension, Renal Disease Additional Past Medical History / Comment(s): past rib fractures, L hemothorax with chest tube, blood loss anemia, ETOH-last drink 2/15/22-pt is quitting dr zuniga History of Any Multi-Drug Resistant Organisms: None Reported Past Surgical History: Section, Cholecystectomy, Orthopedic Surgery Additional Past Surgical History / Comment(s): R wrist surgery d/t injury, bilat eral cataract removals, D&C x2 Past Anesthesia/Blood Transfusion Reactions: No Reported Reaction Past Psychological History: ADD/ADHD, Anxiety, Depression Smoking Status: Never smoker Past Alcohol Use History: None Reported Past Drug Use History: Marijuana - Past Family History Mother Family Medical History: Blood Disorder, Congestive Heart Failure (CHF), Coronary Artery Disease (CAD) Additional Family Medical History / Comment(s): Mother had a blood disease (had too many WBCs). She at the age of 88yrs from CAD per pt. Father Family Medical History: Cancer Additional Family Medical History / Comment(s): Father of lung cancer at the age of 77yrs. General Exam - General Exam Comments Initial Comments: GENERAL: Patient is well-developed and well-nourished. Patient is nontoxic and well- hydrated and is in mild distress. ENT: Neck is soft and supple. No significant lymphadenopathy is noted. Oropharynx is clear. Moist mucous membranes. Neck has full range of motion without eliciting any pain. EYES: The sclera were anicteric and conjunctiva were pink and moist. Extraocular movements were intact and pupils were equal round and reactive to light. Eyelids were unremarkable. PULMONARY: Unlabored respirations. Good breath sounds bilaterally. No audible rales rhonchi or wheezing was noted. CARDIOVASCULAR: There is a regular rate and rhythm without any murmurs gallops or rubs. ABDOMEN: Soft and nontender with normal bowel sounds. SKIN: Skin is clear with no lesions or rashes and otherwise unremarkable. NEUROLOGIC: Patient is alert and oriented x3. Cranial nerves II through XII are grossly intact. Motor and sensory are also intact. Normal speech, volume and content. Symmetrical smile. MUSCULOSKELETAL: Normal extremities with adequate strength and full range of motion. LYMPHATICS: No significant lymphadenopathy is noted PSYCHIATRIC: Normal psychiatric evaluation. Limitations: no limitations Course Vital Signs 06/25/22 06/25/22 06/25/22 12:15 16:39 16:45 Temperature 97.7 F 97.6 F Pulse Rate 93 80 82 Respiratory 16 18 18 Rate Blood Pressure 159/98 148/94 148/94 O2 Sat by Pulse 95 97 98 Oximetry 06/25/22 18:20 Temperature Pulse Rate 75 Respiratory 18 Rate Blood Pressure 130/92 O2 Sat by Pulse 95 Oximetry Medical Decision Making - Medical Decision Making Was pt. sent in by a medical professional or institution? @ -No Did you speak to anyone other than the patient for history? @ -No Did you review nursing and triage notes? @ -Agree with nursing notes Were old charts reviewed? @ -No Differential Diagnosis? @ -Differential Abdominal Pain Women: Appendicitis, Cholecystitis, diverticulosis, ischemic bowel, pancreatitis, hepatitis, UTI, gastroenteritis, AAA, incarcerated hernia, bowel obstruction, constipation, inflammatory bowel, hepatitis, peptic ulcer disease, splenic infarction, perforated viscus, kidney stone, this is not meant to be an all- inclusive list EKG interpreted by me (3pts min.)? @ -None X-rays interpreted by me (1pt min.)? @ -I interpreted the chest x-ray is chest x-ray showed no acute abnormality CT interpreted by me (1pt min.)? @ -None U/S interpreted by me (1pt. min.)? @ -None What testing was considered but not performed? (CT, X-rays, U/S, labs)? Why? @ -None What meds were considered but not given? Why? @ -None Did you discuss the management of the patient with other professionals? @ -No Did you reconcile home meds? @ -No Was smoking cessation discussed for >3mins.? @ -No Was critical care preformed (if so, how long)? @ -No Were there social determinants of health that impacted care today? How? (Home lessness, low income, unemployed, alcoholism, drug addiction, transportation, low edu. Level, literacy, decrease access to med. care, [facility], rehab)? @ -No Was there de-escalation of care discussed even if they declined? (Discuss DNR or withdrawal of care, Hospice)? @ -No What co-morbidities impacted this encounter? (DM, HTN, Smoking, COPD, CAD, Cancer, CVA, Hep., AIDS, mental health diagnosis, sleep apnea, morbid obesity)? @ -No Was patient admitted / discharged? @ -Patient was discharged home and instructed to follow-up with Dr. parks. Patient also is feeling as well as could be anxiety and told to follow-up with psychiatry she was in agreement with that. I told the patient's take Lomotil only when she's having diarrhea and to take Reglan before every meal. Undiagnosed new problem with uncertain prognosis? @ -No Drug Therapy requiring intensive monitoring for toxicity (Heparin, Nitro, Insulin, Cardizem)? @ -No Were any procedures done? @ -No Diagnosis/symptom? @ -Acute vomiting and diarrhea Acute, or Chronic, or Acute on Chronic? @ -Acute Uncomplicated (without systemic symptoms) or Complicated (systemic symptoms)? @ -Uncomplicated Side effects of treatment? @ -No Exacerbation, Progression, or Severe Exacerbation] @ -No Poses a threat to life or bodily function? @ -No - Lab Data Result diagrams: 06/25/22 13:49 06/25/22 12:37 Lab Results 06/25/22 06/25/22 06/25/22 Range/Units 12:37 12:37 12:37 WBC (3.8-10.6) k/uL RBC (3.80-5.40) m/uL Hgb (11.4-16.0) gm/dL Hct (34.0-46.0) % MCV (80.0-100.0) fL MCH (25.0-35.0) pg MCHC (31.0-37.0) g/dL RDW (11.5-15.5) % Plt Count (150-450) k/uL MPV Neutrophils % % Lymphocytes % % Monocytes % % Eosinophils % % Basophils % % Neutrophils # (1.3-7.7) k/uL Lymphocytes # (1.0-4.8) k/uL Monocytes # (0-1.0) k/uL Eosinophils # (0-0.7) k/uL Basophils # (0-0.2) k/uL PT 10.8 (9.0-12.0) sec INR 1.0 (<1.2) APTT 24.9 (22.0-30.0) sec Sodium 138 (137-145) mmol/L Potassium 3.8 (3.5-5.1) mmol/L Chloride 107 (98-107) mmol/L Carbon Dioxide 19 L (22-30) mmol/L Anion Gap 12 mmol/L BUN 12 (7-17) mg/dL Creatinine 0.89 (0.52-1.04) mg/dL Est GFR (CKD-EPI)AfAm 78 (>60 ml/min/1.73 sqM) Est GFR (CKD-EPI)NonAf 68 (>60 ml/min/1.73 sqM) Glucose 104 H (74-99) mg/dL Calcium 9.7 (8.4-10.2) mg/dL Phosphorus 3.1 (2.5-4.5) mg/dL Magnesium 1.7 (1.6-2.3) mg/dL Total Bilirubin 1.0 (0.2-1.3) mg/dL AST 27 (14-36) U/L ALT 22 (4-34) U/L Alkaline Phosphatase 61 (38-126) U/L Troponin I <0.012 (0.000-0.034) ng/mL Total Protein 7.1 (6.3-8.2) g/dL Albumin 4.5 (3.5-5.0) g/dL TSH 2.030 (0.465-4.680) mIU/L Influenza Type A (PCR) (Not Detectd) Influenza Type B (PCR) (Not Detectd) RSV (PCR) (Not Detectd) SARS-CoV-2 (PCR) (Not Detectd) 06/25/22 06/25/22 Range/Units 13:49 16:35 WBC 6.8 (3.8-10.6) k/uL RBC 5.04 (3.80-5.40) m/uL Hgb 15.6 (11.4-16.0) gm/dL Hct 43.5 (34.0-46.0) % MCV 86.3 (80.0-100.0) fL MCH 31.0 (25.0-35.0) pg MCHC 35.9 (31.0-37.0) g/dL RDW 13.0 (11.5-15.5) % Plt Count 194 (150-450) k/uL MPV 9.7 Neutrophils % 59 % Lymphocytes % 29 % Monocytes % 5 % Eosinophils % 5 % Basophils % 0 % Neutrophils # 4.0 (1.3-7.7) k/uL Lymphocytes # 2.0 (1.0-4.8) k/uL Monocytes # 0.3 (0-1.0) k/uL Eosinophils # 0.4 (0-0.7) k/uL Basophils # 0.0 (0-0.2) k/uL PT (9.0-12.0) sec INR (<1.2) APTT (22.0-30.0) sec Sodium (137-145) mmol/L Potassium (3.5-5.1) mmol/L Chloride (98-107) mmol/L Carbon Dioxide (22-30) mmol/L Anion Gap mmol/L BUN (7-17) mg/dL Creatinine (0.52-1.04) mg/dL Est GFR (CKD-EPI)AfAm (>60 ml/min/1.73 sqM) Est GFR (CKD-EPI)NonAf (>60 ml/min/1.73 sqM) Glucose (74-99) mg/dL Calcium (8.4-10.2) mg/dL Phosphorus (2.5-4.5) mg/dL Magnesium (1.6-2.3) mg/dL Total Bilirubin (0.2-1.3) mg/dL AST (14-36) U/L ALT (4-34) U/L Alkaline Phosphatase (38-126) U/L Troponin I (0.000-0.034) ng/mL Total Protein (6.3-8.2) g/dL Albumin (3.5-5.0) g/dL TSH (0.465-4.680) mIU/L Influenza Type A (PCR) Not Detected (Not Detectd) Influenza Type B (PCR) Not Detected (Not Detectd) RSV (PCR) Not Detected (Not Detectd) SARS-CoV-2 (PCR) Not Detected (Not Detectd) Disposition Clinical Impression: Acute diarrhea, Acute nausea with nonbilious vomiting, Anxiety Disposition: HOME SELF-CARE Condition: Good Prescriptions: Metoclopramide [Reglan] 5 mg PO ACHS #20 tab Is patient prescribed a controlled substance at d/c from ED?: No Referrals: Rose Guevara MD [Primary Care Provider] - 1-2 days Time of Disposition: 19:59
[2022-06-25] MEDS ORDERED: ONDANSETRON 4 MG ODT STARTER PACK 2 TAB BTL PO STA (20:00)
[2022-06-25] MEDS ORDERED: DIPHENOX-ATROP STARTER PACK 8 TAB BTL PO STA (20:01)
[2022-06-25 20:29] VITALS: BP 138/97; PULSE 82; TEMP 97.9
== END 2022-06-25 20:43 | disposition home or self-care (01) ==
LOC: EC 12:02
DX: R19.7 Diarrhea, unspecified (principal); R11.2 Nausea with vomiting, unspecified; I10 Essential (primary) hypertension; F41.9 Anxiety disorder, unspecified; J44.9 Chronic obstructive pulmonary disease, unspecified; F32.A Depression, unspecified; F12.90 Cannabis use, unspecified, uncomplicated; K21.9 Gastro-esophageal reflux disease without esophagitis; Z79.899 Other long term (current) drug therapy; Z20.822 Contact with and (suspected) exposure to COVID-19
CPT/HCPCS: 36415; 80053; 83735; 84100; 84443; 84484; 85025; 85610; 85730; 87636; 71046; 99285; 96374; 96375; J2060; J2405; 93005

== ENCOUNTER 2022-09-30 14:52 | Emergency (ER) | payer MEDICARE ==
[2022-09-30] MEDS ORDERED: SODIUM CHLORIDE 0.9% 500 ML 500 ML IV ONE (18:04)
[2022-09-30] MEDS ORDERED: LORazepam 2 MG/ML INJ IV STA (18:05)
[2022-09-30 18:38] LABS: Basophils % (A) 0 %; Eosinophils # (A) 0.1 k/uL (0-0.7); Eosinophils % (A) 2 %; HCT 47.7 % (34.0-46.0); HGB 16.3 gm/dL (11.4-16.0); Lymphocytes # (A) 1.7 k/uL (1.0-4.8); Lymphocytes % (A) 27 %; MCH 31.5 pg (25.0-35.0); MCHC 34.2 g/dL (31.0-37.0); MCV 92.2 fL (80.0-100.0); Mean Platelet Volume 8.3; Monocytes # (A) 0.4 k/uL (0-1.0); Monocytes % (A) 7 %; Neutrophils # (A) 3.9 k/uL (1.3-7.7); Neutrophils % (A) 62 %; Platelet Count 158 k/uL (150-450); RBC 5.17 m/uL (3.80-5.40); RDW 14.8 % (11.5-15.5); WBC 6.2 k/uL (3.8-10.6)
[2022-09-30 18:50] LABS: ALT 24 U/L (4-34); AST 41 U/L (14-36); African American GFR (CKD) 47 (>60 ml/min/1.73 sqM); Alcohol <10 mg/dL; Alkaline Phosphatase 105 U/L (38-126); Anion Gap 17 mmol/L; Blood Urea Nitrogen 14 mg/dL (7-17); Calcium 8.8 mg/dL (8.4-10.2); Carbon Dioxide 19 mmol/L (22-30); Chloride 97 mmol/L (98-107); Glucose 96 mg/dL (74-99); Magnesium 1.4 mg/dL (1.6-2.3); Non-African American GFR(CKD) 40 (>60 ml/min/1.73 sqM); Potassium 3.7 mmol/L (3.5-5.1); Sodium 133 mmol/L (137-145); Total Protein 6.6 g/dL (6.3-8.2)
--- NOTE | 2022-09-30 19:05 | ED ---
General Adult HPI - General Source: patient, RN notes reviewed, old records reviewed Mode of arrival: wheelchair Limitations: no limitations <Kali Bales - Last Filed: 09/30/22 20:50> <Louis Fitch - Last Filed: 10/01/22 01:44> - General Chief complaint: Psychiatric Symptoms Stated complaint: Mental Health Time Seen by Provider: 09/30/22 17:51 - History of Present Illness Initial comments: 66-year-old female presenting for mental health evaluation. Patient states she has had depression, anxiety, and suicidal thoughts. She denies a specific plan. She admits to daily alcohol consumption. (Kali Bales) - Related Data Home Medications Medication Instructions Recorded Confirmed Naltrexone HCl [Revia] 50 mg PO DAILY 05/13/22 09/30/22 traZODone HCL 150 mg PO HS 05/13/22 09/30/22 busPIRone HCL 15 mg PO TID 09/30/22 09/30/22 Allergies Allergy/AdvReac Type Severity Reaction Status Date / Time No Known Allergies Allergy Verified 09/30/22 18:15 Review of Systems ROS Other: All systems not noted in ROS Statement are negative. <Kali Bales - Last Filed: 09/30/22 20:50> ROS Other: All systems not noted in ROS Statement are negative. <Louis Fitch - Last Filed: 10/01/22 01:44> ROS Statement: Those systems with pertinent positive or pertinent negative responses have been documented in the HPI. Past Medical History Past Medical History: COPD, CVA/TIA, GERD/Reflux, Hypertension, Renal Disease Additional Past Medical History / Comment(s): past rib fractures, L hemothorax with chest tube, blood loss anemia, ETOH-last drink 08/13/21-pt is quitting drinking History of Any Multi-Drug Resistant Organisms: None Reported Past Surgical History: Section, Cholecystectomy, Orthopedic Surgery Additional Past Surgical History / Comment(s): R wrist surgery d/t injury, bilateral cataract removals, D&C x2 Past Anesthesia/Blood Transfusion Reactions: No Reported Reaction Past Psychological History: ADD/ADHD, Anxiety, Depression Smoking Status: Never smoker Past Alcohol Use History: None Reported Past Drug Use History: Marijuana - Past Family History Mother Family Medical History: Blood Disorder, Congestive Heart Failure (CHF), Coronary Artery Disease (CAD) Additional Family Medical History / Comment(s): Mother had a blood disease (had too many WBCs). She at the age of 88yrs from CAD per pt. Father Family Medical History: Cancer Additional Family Medical History / Comment(s): Father of lung cancer at the age of 77yrs. <Kali Bales - Last Filed: 09/30/22 20:50> General Exam Limitations: no limitations General appearance: alert, in no apparent distress Head exam: Present: atraumatic, normocephalic Eye exam: Present: normal appearance, PERRL ENT exam: Present: normal exam Neck exam: Present: normal inspection. Absent: tenderness, meningismus Respiratory exam: Present: normal lung sounds bilaterally. Absent: respiratory distress, wheezes Cardiovascular Exam: Present: regular rate, normal rhythm GI/Abdominal exam: Present: soft. Absent: distended, tenderness, guarding Extremities exam: Present: normal inspection, normal capillary refill Neurological exam: Present: alert, oriented X3, CN II-XII intact. Absent: motor sensory deficit Psychiatric exam: Present: depressed, suicidal ideation Skin exam: Present: warm, dry, intact. Absent: cyanosis, diaphoretic <Kali Bales - Last Filed: 09/30/22 20:50> Course <Kali Bales - Last Filed: 09/30/22 20:50> Vital Signs 09/30/22 09/30/22 09/30/22 15:12 18:08 23:30 Temperature 97.9 F 97.5 F L 97.4 F L Pulse Rate 93 108 H 100 Respiratory 20 20 18 Rate Blood Pressure 121/80 145/79 126/76 O2 Sat by Pulse 95 94 L 94 L Oximetry - Reevaluation(s) Reevaluation #1: 09/30/22 19:04 Patient medically cleared for EPS evaluation. (Kali Bales) Reevaluation #2: 09/30/22 2100 Patient care signed out at shift change to Dr. iFtch (Kali Bales) Medical Decision Making - Lab Data Result diagrams: 09/30/22 18:14 09/30/22 18:14 <Kali Bales - Last Filed: 09/30/22 20:50> - Lab Data Result diagrams: 09/30/22 18:14 09/30/22 18:14 <Louis Fitch - Last Filed: 10/01/22 01:44> - Medical Decision Making The patient was sent in to me from Dr. Baels. The patient was signed out pending EPS evaluation. Was pt. sent in by a medical professional or institution (, [place], [employer], urgent care, hospital, or usp...) When possible be specific @ -No Did you speak to anyone other than the patient for history (EMS, parent, family, police, friend...)? What history was obtained from this source @ -No Did you review nursing and triage notes (agree or disagree)? Why? @ -I reviewed and agree with nursing and triage notes Were old charts reviewed (outside hosp., previous admission, EMS record, old EKG, old radiological studies, urgent care reports/EKG's, usp records)? Report findings @ -No old charts were reviewed Differential Diagnosis (chest pain, altered mental status, abdominal pain women, abdominal pain men, vaginal bleeding, weakness, fever, dyspnea, syncope, headache, dizziness, GI bleed, back pain, seizure, CVA, palpatations, mental health)? @ -Pseudoseizures, suicidal ideation, homicide ideation EKG interpreted by me (3pts min.). @ -None X-rays interpreted by me (1pt min.). @ -None done CT interpreted by me (1pt min.). @ -None done U/S interpreted by me (1pt. min.). @ -None done What testing was considered but not performed or refused? (CT, X-rays, U/S, labs)? Why? @ -None What meds were considered but not given or refused? Why? @ -None Did you discuss the management of the patient with other professionals (professionals i.e. , DAVID, [employer], lab, RT, psych nurse, social insurance administrator, museum preparator, teacher, staff air tactical officer, gearcase assembler)? Give summary @ -Yes, EPS nurse Was smoking cessation discussed for >3mins.? @ -No Was critical care preformed (if so, how long)? @ -No Were there social determinants of health that impacted care today? How? (Homelessness, low income, unemployed, alcoholism, drug addiction, transportation, low edu. Level, literacy, decrease access to med. care, [facility], rehab)? @ -No Was there de-escalation of care discussed even if they declined (Discuss DNR or withdrawal of care, Hospice)? DNR status @ -No What co-morbidities impacted this encounter? (DM, HTN, Smoking, COPD, CAD, Cancer, CVA, ARF, Chemo, Hep., AIDS, mental health diagnosis, sleep apnea, morbid obesity)? @ -None Was patient admitted / discharged? Hospital course, mention meds given and route, prescriptions, significant lab abnormalities, going to OR and other pertinent info. @ -The patient was initially seen and evaluated by Dr. Bales. The patient was medically cleared for EPS evaluation under his care. I assumed care of the patient pending EPS evaluation. The patient was evaluating by EPS at which time the patient admitted to taking having suicidal thoughts just to be seen in the emergency department record. The patient told EPS to myself that she no longer had suicidal or homicidal thoughts. The patient continued to remain stable and EPS did state that the patient be discharged home. The patient was given resources. The patient was discharged home in stable condition. Undiagnosed new problem with uncertain prognosis? @ -No Drug Therapy requiring intensive monitoring for toxicity (Heparin, Nitro, Insulin, Cardizem)? @ -No Were any procedures done? @ -No Diagnosis/symptom? @ -Mental health evaluation Acute, or Chronic, or Acute on Chronic? @ -Acute Uncomplicated (without systemic symptoms) or Complicated (systemic symptoms)? @ -Uncomplicated Side effects of treatment? @ -No Exacerbation, Progression, or Severe Exacerbation? @ -No Poses a threat to life or bodily function? How? (Chest pain, [place], [place], pneumonia, PE, COPD, DKA, ARF, appy, cholecystitis, CVA, Diverticulitis, Homicidal, Suicidal, threat to staff... and all critical care pts) @ -No (Louis Fitch) - Lab Data Lab Results 09/30/22 09/30/22 09/30/22 Range/Units 18:14 18:14 18:14 WBC 6.2 (3.8-10.6) k/uL RBC 5.17 (3.80-5.40) m/uL Hgb 16.3 H (11.4-16.0) gm/dL Hct 47.7 H (34.0-46.0) % MCV 92.2 (80.0-100.0) fL MCH 31.5 (25.0-35.0) pg MCHC 34.2 (31.0-37.0) g/dL RDW 14.8 (11.5-15.5) % Plt Count 158 (150-450) k/uL MPV 8.3 Neutrophils % 62 % Lymphocytes % 27 % Monocytes % 7 % Eosinophils % 2 % Basophils % 0 % Neutrophils # 3.9 (1.3-7.7) k/uL Lymphocytes # 1.7 (1.0-4.8) k/uL Monocytes # 0.4 (0-1.0) k/uL Eosinophils # 0.1 (0-0.7) k/uL Basophils # 0.0 (0-0.2) k/uL Sodium 133 L (137-145) mmol/L Potassium 3.7 (3.5-5.1) mmol/L Chloride 97 L (98-107) mmol/L Carbon Dioxide 19 L (22-30) mmol/L Anion Gap 17 mmol/L BUN 14 (7-17) mg/dL Creatinine 1.37 H (0.52-1.04) mg/dL Est GFR (CKD-EPI)AfAm 47 (>60 ml/min/1.73 sqM) Est GFR (CKD-EPI)NonAf 40 (>60 ml/min/1.73 sqM) Glucose 96 (74-99) mg/dL Calcium 8.8 (8.4-10.2) mg/dL Magnesium 1.4 L (1.6-2.3) mg/dL Total Bilirubin 1.0 (0.2-1.3) mg/dL AST 41 H (14-36) U/L ALT 24 (4-34) U/L Alkaline Phosphatase 105 (38-126) U/L Total Protein 6.6 (6.3-8.2) g/dL Albumin 4.0 (3.5-5.0) g/dL Urine Opiates Screen Not Detected (NotDetected) Ur Oxycodone Screen Not Detected (NotDetected) Urine Methadone Screen Not Detected (NotDetected) Ur Propoxyphene Screen Not Detected (NotDetected) Ur Barbiturates Screen Not Detected (NotDetected) U Tricyclic Antidepress Not Detected (NotDetected) Ur Phencyclidine Scrn Not Detected (NotDetected) Ur Amphetamines Screen Not Detected (NotDetected) U Methamphetamines Scrn Not Detected (NotDetected) U Benzodiazepines Scrn Not Detected (NotDetected) Urine Cocaine Screen Not Detected (NotDetected) U Marijuana (THC) Screen Detected H (NotDetected) Serum Alcohol <10 mg/dL Disposition <Kali Bales - Last Filed: 09/30/22 20:50> Is patient prescribed a controlled substance at d/c from ED?: No Time of Disposition: 01:15 <Louis Fitch - Last Filed: 10/01/22 01:44> Clinical Impression: Suicidal ideation Disposition: HOME SELF-CARE Condition: Stable Additional Instructions: Please refer to the resources given by the EPS nurse. Referrals: Rose Guevara MD [Primary Care Provider] - 1-2 days
[2022-09-30 20:32] LABS: Amphetamine Screen,Urine Not Detected (NotDetected); Barbiturate Screen,Urine Not Detected (NotDetected); Benzodiazepines Screen,Urine Not Detected (NotDetected); Cocaine Screen,Urine Not Detected (NotDetected); Methadone Screen, Urine Not Detected (NotDetected); Opiate Screen,Urine Not Detected (NotDetected); Oxycodone Screen, Urine Not Detected (NotDetected); Phencyclidine Screen,Urine Not Detected (NotDetected); Tricyclic Antidepressant,Urine Not Detected (NotDetected); Urn Cannabinoid Scrn Detected (NotDetected)
[2022-09-30] MEDS: MAGNESIUM SULFATE-D5W PMX 1 GM in DEXTROSE/WATER 1 100ML.BAG IVPB SCH ×2 (22:16→22:26)
[2022-09-30 23:31] VITALS: BP 126/76; PULSE 100; RESP 18; TEMP 97.4
== END 2022-10-01 02:25 | disposition home or self-care (01) ==
LOC: EC 14:52
DX: R45.851 Suicidal ideations (principal); I10 Essential (primary) hypertension; J44.9 Chronic obstructive pulmonary disease, unspecified; K21.9 Gastro-esophageal reflux disease without esophagitis; F12.90 Cannabis use, unspecified, uncomplicated; Z79.899 Other long term (current) drug therapy; Z86.73 Personal history of transient ischemic attack (TIA), and cerebral infarction without residual deficits
CPT/HCPCS: 36415; 80053; 83735; 85025; 80306; 99285; 96365; 96375; 96361 ×4; G0480; J2060; J3475; 80320

== ENCOUNTER 2022-10-30 16:53 | Emergency (ER) | payer MEDICARE ==
[2022-10-30 17:00] VITALS: TEMP 98.8
[2022-10-30] MEDS ORDERED: SODIUM CHLORIDE 0.9% 1,000 ML IV STA (17:30)
[2022-10-30] MEDS ORDERED: ONDANSETRON 4 MG/2 ML VIAL IVP STA (17:30)
--- NOTE | 2022-10-30 17:31 | ED ---
Dizziness HPI - General Chief Complaint: Dizziness Stated Complaint: Dizziness, nausea Time Seen by Provider: 10/30/22 17:17 Source: patient, RN notes reviewed, old records reviewed Mode of arrival: EMS Limitations: no limitations - History of Present Illness Initial Comments: This is a 67-year-old female to the emergency department for evaluation. Virginia buenrostro presents today for evaluation nausea vomiting not feeling well shaking. Patient was sent in from primary care where she was seen for normal yearly physical. Patient had a shaking episode became very anxious and was sent is now here for further evaluation. On arrival to ER patient is no headache chest pain shortness breath or abdominal pain. Has no history of seizure denies seizure- like activity. No loss of consciousness. Patient here in the ER is no complaints MD Complaint: dizziness, lightheadedness -: minutes(s) Timing: gradual onset Description: sense of movement, lightheadedness, off-balance, near-syncope History of Same: Yes History of Trauma: No Severity: moderate Improves With: nothing Worsens With: nothing Associated Symptoms: fever/chills, weakness - Related Data Home Medications Medication Instructions Recorded Confirmed Naltrexone HCl [Revia] 50 mg PO DAILY 05/13/22 09/30/22 traZODone HCL 150 mg PO HS 05/13/22 09/30/22 busPIRone HCL 15 mg PO TID 09/30/22 09/30/22 Allergies Allergy/AdvReac Type Severity Reaction Status Date / Time No Known Allergies Allergy Verified 09/30/22 18:15 Review of Systems ROS Statement: Those systems with pertinent positive or pertinent negative responses have been documented in the HPI. ROS Other: All systems not noted in ROS Statement are negative. Past Medical History Past Medical History: COPD, CVA/TIA, GERD/Reflux, Hypertension, Renal Disease Additional Past Medical History / Comment(s): past rib fractures, L hemothorax with chest tube, blood loss anemia, ETOH-last drink 08/13/21-pt is quitting drinking History of Any Multi-Drug Resistant Organisms: None Reported Past Surgical History: Section, Cholecystectomy, Orthopedic Surgery Additional Past Surgical History / Comment(s): R wrist surgery d/t injury, bilateral cataract removals, D&C x2 Past Anesthesia/Blood Transfusion Reactions: No Reported Reaction Past Psychological History: ADD/ADHD, Anxiety, Depression Smoking Status: Never smoker Past Alcohol Use History: None Reported Past Drug Use History: Marijuana - Past Family History Mother Family Medical History: Blood Disorder, Congestive Heart Failure (CHF), Coronary Artery Disease (CAD) Additional Family Medical History / Comment(s): Mother had a blood disease (had too many WBCs). She at the age of 88yrs from CAD per pt. Father Family Medical History: Cancer Additional Family Medical History / Comment(s): Father of lung cancer at the age of 77yrs. General Exam Limitations: no limitations General appearance: alert, in no apparent distress Head exam: Present: atraumatic, normocephalic, normal inspection Eye exam: Present: normal appearance, PERRL, EOMI. Absent: scleral icterus, conjunctival injection, periorbital swelling ENT exam: Present: normal exam, mucous membranes moist Neck exam: Present: normal inspection. Absent: tenderness, meningismus, lymphadenopathy Respiratory exam: Present: normal lung sounds bilaterally. Absent: respiratory distress, wheezes, rales, rhonchi, stridor Cardiovascular Exam: Present: regular rate, normal rhythm, normal heart sounds. Absent: systolic murmur, diastolic murmur, rubs, gallop, clicks GI/Abdominal exam: Present: soft, normal bowel sounds. Absent: distended, tenderness, guarding, rebound, rigid Extremities exam: Present: normal inspection, full ROM, normal capillary refill. Absent: tenderness, pedal edema, joint swelling, calf tenderness Back exam: Present: normal inspection Neurological exam: Present: alert, oriented X3, CN II-XII intact Psychiatric exam: Present: normal affect, normal mood Skin exam: Present: warm, dry, intact, normal color. Absent: rash Course Vital Signs 10/30/22 10/30/22 10/30/22 16:57 17:00 17:10 Temperature 98.8 F Pulse Rate 98 99 Respiratory 18 15 Rate Blood Pressure 133/72 133/72 129/92 O2 Sat by Pulse 97 97 95 Oximetry 10/30/22 10/30/22 10/30/22 17:20 17:30 17:40 Temperature Pulse Rate 100 93 96 Respiratory 16 17 15 Rate Blood Pressure 129/92 129/92 146/93 O2 Sat by Pulse Oximetry 10/30/22 10/30/22 10/30/22 17:50 18:00 18:10 Temperature Pulse Rate 104 H 103 H Respiratory 23 14 Rate Blood Pressure 146/93 146/93 147/85 O2 Sat by Pulse Oximetry 10/30/22 18:20 Temperature Pulse Rate 94 Respiratory 11 L Rate Blood Pressure 147/85 O2 Sat by Pulse Oximetry - Reevaluation(s) Reevaluation #1: 10/30/22 21:25 Medical record is reviewed Reevaluation #2: 10/30/22 21:25 Patient remains feeling well without complaint Reevaluation #3: 10/30/22 21:25 Patient informed of results and questions answered Reevaluation #4: 10/30/22 21:25 Was pt. sent in by a medical professional or institution? @ -no Did you speak to anyone other than the patient for history? @ -transfer paperwork from PCP near seizure like acitivityas well as EMS Did you review nursing and triage notes? @ -agree Were old charts reviewed? @ -yes paperwork from PCP Differential Diagnosis? @ -prior,weaknss, near syncope EKG interpreted by me (3pts min.)? @ -yes X-rays interpreted by me (1pt min.)? @ -no CT interpreted by me (1pt min.)? @ -no U/S interpreted by me (1pt. min.)? @ -no What testing was considered but not performed? (CT, X-rays, U/S, labs)? Why? @ -no What meds were considered but not given? Why? @ -no Did you discuss the management of the patient with other professionals? @ -no Did you reconcile home meds? @ -no Was smoking cessation discussed for >3mins.? @ -no Was critical care preformed (if so, how long)? @ -no Were there social determinants of health that impacted care today? How? (Homelessness, low income, unemployed, alcoholism, drug addiction, transportation, low edu. Level, literacy, decrease access to med. care, snf, rehab)? @ -no Was there de-escalation of care discussed even if they declined? (Discuss DNR or withdrawal of care, Hospice)? @ -no What co-morbidities impacted this encounter? (DM, HTN, Smoking, COPD, CAD, Cancer, CVA, Hep., AIDS, mental health diagnosis, sleep apnea, morbid obesity)? @ -no Was patient admitted / discharged? @ -dc Undiagnosed new problem with uncertain prognosis? @ -no Drug Therapy requiring intensive monitoring for toxicity (Heparin, Nitro, Insulin, Cardizem)? @ -no Were any procedures done? @ -no Diagnosis/symptom? @ -weakness,NV Acute, or Chronic, or Acute on Chronic? @ -acute Uncomplicated (without systemic symptoms) or Complicated (systemic symptoms)? @ -uncomplicated Side effects of treatment? @ -none Exacerbation, Progression, or Severe Exacerbation] @ - Poses a threat to life or bodily function? @ -no Reevaluation #5: 10/30/22 21:27 Differential Weakness: Hypoglycemia, shock, sepsis, hyponatremia, anemia, infection, ME, ETOH, adverse medicine reaction, overdose, stroke, this is not meant to be an all-inclusive list. EKG Findings - EKG Comments: EKG Findings:: EKG is sinus 96 WA 162 QRS 89 QTc 441 Medical Decision Making - Medical Decision Making 77 female sent DF for evaluation of possible seizure-like activity weakness possible near syncope or l seizure-like activity and unresponsiveness. Patient presents by EMS from primary care as she was seen for normal checkup. Patient has no complaints no ER stay - Lab Data Result diagrams: 10/30/22 17:30 10/30/22 17:30 Lab Results 10/30/22 10/30/22 10/30/22 Range/Units 17:30 17:30 17:30 WBC 6.7 (3.8-10.6) k/uL RBC 5.16 (3.80-5.40) m/uL Hgb 15.9 (11.4-16.0) gm/dL Hct 47.7 H (34.0-46.0) % MCV 92.5 (80.0-100.0) fL MCH 30.9 (25.0-35.0) pg MCHC 33.4 (31.0-37.0) g/dL RDW 13.7 (11.5-15.5) % Plt Count 194 (150-450) k/uL MPV 8.6 Neutrophils % 77 % Lymphocytes % 15 % Monocytes % 6 % Eosinophils % 0 % Basophils % 0 % Neutrophils # 5.1 (1.3-7.7) k/uL Lymphocytes # 1.0 (1.0-4.8) k/uL Monocytes # 0.4 (0-1.0) k/uL Eosinophils # 0.0 (0-0.7) k/uL Basophils # 0.0 (0-0.2) k/uL PT 10.7 (9.0-12.0) sec INR 1.0 (<1.2) APTT 22.5 (22.0-30.0) sec Sodium (137-145) mmol/L Potassium (3.5-5.1) mmol/L Chloride (98-107) mmol/L Carbon Dioxide (22-30) mmol/L Anion Gap mmol/L BUN (7-17) mg/dL Creatinine (0.52-1.04) mg/dL Est GFR (CKD-EPI)AfAm (>60 ml/min/1.73 sqM) Est GFR (CKD-EPI)NonAf (>60 ml/min/1.73 sqM) Glucose (74-99) mg/dL Plasma Lactic Acid Sonny (0.7-2.0) mmol/L Calcium (8.4-10.2) mg/dL Phosphorus (2.5-4.5) mg/dL Magnesium (1.6-2.3) mg/dL Total Bilirubin (0.2-1.3) mg/dL AST (14-36) U/L ALT (4-34) U/L Alkaline Phosphatase (38-126) U/L Troponin I (0.000-0.034) ng/mL Total Protein (6.3-8.2) g/dL Albumin (3.5-5.0) g/dL Urine Color Yellow Urine Appearance Clear (Clear) Urine pH 7.0 (5.0-8.0) Ur Specific Etlan 1.024 (1.001-1.035) Urine Protein 1+ H (Negative) Urine Glucose (UA) Negative (Negative) Urine Ketones 1+ H (Negative) Urine Blood Negative (Negative) Urine Nitrite Negative (Negative) Urine Bilirubin Negative (Negative) Urine Urobilinogen 3.0 (<2.0) mg/dL Ur Leukocyte Esterase Small H (Negative) Urine RBC 2 (0-5) /hpf Urine WBC 3 (0-5) /hpf Ur Squamous Epith Cells 1 (0-4) /hpf Urine Mucus Occasional H (None) /hpf 10/30/22 10/30/22 10/30/22 Range/Units 17:30 17:30 17:30 WBC (3.8-10.6) k/uL RBC (3.80-5.40) m/uL Hgb (11.4-16.0) gm/dL Hct (34.0-46.0) % MCV (80.0-100.0) fL MCH (25.0-35.0) pg MCHC (31.0-37.0) g/dL RDW (11.5-15.5) % Plt Count (150-450) k/uL MPV Neutrophils % % Lymphocytes % % Monocytes % % Eosinophils % % Basophils % % Neutrophils # (1.3-7.7) k/uL Lymphocytes # (1.0-4.8) k/uL Monocytes # (0-1.0) k/uL Eosinophils # (0-0.7) k/uL Basophils # (0-0.2) k/uL PT (9.0-12.0) sec INR (<1.2) APTT (22.0-30.0) sec Sodium 135 L (137-145) mmol/L Potassium 3.9 (3.5-5.1) mmol/L Chloride 102 (98-107) mmol/L Carbon Dioxide 23 (22-30) mmol/L Anion Gap 10 mmol/L BUN 12 (7-17) mg/dL Creatinine 0.93 (0.52-1.04) mg/dL Est GFR (CKD-EPI)AfAm 74 (>60 ml/min/1.73 sqM) Est GFR (CKD-EPI)NonAf 64 (>60 ml/min/1.73 sqM) Glucose 99 (74-99) mg/dL Plasma Lactic Acid Sonny 1.7 (0.7-2.0) mmol/L Calcium 8.7 (8.4-10.2) mg/dL Phosphorus 2.2 L (2.5-4.5) mg/dL Magnesium 1.3 L (1.6-2.3) mg/dL Total Bilirubin 1.0 (0.2-1.3) mg/dL AST 30 (14-36) U/L ALT 23 (4-34) U/L Alkaline Phosphatase 84 (38-126) U/L Troponin I <0.012 (0.000-0.034) ng/mL Total Protein 6.1 L (6.3-8.2) g/dL Albumin 3.6 (3.5-5.0) g/dL Urine Color Urine Appearance (Clear) Urine pH (5.0-8.0) Ur Specific Etlan (1.001-1.035) Urine Protein (Negative) Urine Glucose (UA) (Negative) Urine Ketones (Negative) Urine Blood (Negative) Urine Nitrite (Negative) Urine Bilirubin (Negative) Urine Urobilinogen (<2.0) mg/dL Ur Leukocyte Esterase (Negative) Urine RBC (0-5) /hpf Urine WBC (0-5) /hpf Ur Squamous Epith Cells (0-4) /hpf Urine Mucus (None) /hpf Disposition Clinical Impression: Gastroenteritis, Nausea & vomiting, Hypomagnesemia, Weakness, Near syncope Disposition: HOME SELF-CARE Condition: Good Instructions (If sedation given, give patient instructions): Dizziness (ED) Is patient prescribed a controlled substance at d/c from ED?: No Referrals: Rose Guevara MD [Primary Care Provider] - 1-2 days Time of Disposition: 19:30
[2022-10-30 18:21] VITALS: BP 147/85; PULSE 94; RESP 11
[2022-10-30 18:29] LABS: Basophils % (A) 0 %; Eosinophils % (A) 0 %; HCT 47.7 % (34.0-46.0); HGB 15.9 gm/dL (11.4-16.0); Lymphocytes % (A) 15 %; MCH 30.9 pg (25.0-35.0); MCHC 33.4 g/dL (31.0-37.0); MCV 92.5 fL (80.0-100.0); Mean Platelet Volume 8.6; Monocytes # (A) 0.4 k/uL (0-1.0); Monocytes % (A) 6 %; Neutrophils # (A) 5.1 k/uL (1.3-7.7); Neutrophils % (A) 77 %; Platelet Count 194 k/uL (150-450); RBC 5.16 m/uL (3.80-5.40); RDW 13.7 % (11.5-15.5); WBC 6.7 k/uL (3.8-10.6)
[2022-10-30 18:35] LABS: Partial Thromboplastin Time 22.5 sec (22.0-30.0); Prothrombin Time 10.7 sec (9.0-12.0)
[2022-10-30 18:38] LABS: Albumin 3.6 g/dL (3.5-5.0); Calcium 8.7 mg/dL (8.4-10.2); Magnesium 1.3 mg/dL (1.6-2.3); Phosphorus 2.2 mg/dL (2.5-4.5); Potassium 3.9 mmol/L (3.5-5.1); Total Protein 6.1 g/dL (6.3-8.2)
[2022-10-30 18:47] LABS: Appearance,Urine Clear (Clear); Bilirubin,Urine Negative (Negative); Blood,Urine Negative (Negative); Color,Urine Yellow; Glucose,Urine (UA) Negative (Negative); Ketones,Urine 1+ (Negative); Leukocyte Esterase,Urine Small (Negative); Mucus,Urine Occasional /hpf; Nitrite,Urine Negative (Negative); Protein,Urine 1+ (Negative); RBC,Urine 2 /hpf (0-5); Specific Gravity,Urine 1.024 (1.001-1.035); Squamous Epithelial Cell,Urine 1 /hpf (0-4); WBC,Urine 3 /hpf (0-5)
[2022-10-30] MEDS ORDERED: ONDANSETRON 4 MG ODT STARTER PACK 2 TAB BTL PO STA (19:34)
[2022-10-30] MEDS ORDERED: MAGNESIUM OXIDE 400 MG TAB PO STA ×2 (19:34)
== END 2022-10-30 20:30 | disposition home or self-care (01) ==
LOC: EC 16:53
DX: E83.42 Hypomagnesemia (principal); K52.9 Noninfective gastroenteritis and colitis, unspecified; R55 Syncope and collapse; R53.1 Weakness; I10 Essential (primary) hypertension; F41.9 Anxiety disorder, unspecified; F32.A Depression, unspecified; F12.90 Cannabis use, unspecified, uncomplicated; Z79.899 Other long term (current) drug therapy
CPT/HCPCS: 36415; 93005; 80053; 83605; 83735; 84100; 84484; 85025; 85610; 85730; 81001; 99284; 96374; J2405; S0119

== ENCOUNTER 2022-11-03 12:56 | Emergency (ER) | payer MEDICARE ==
[2022-11-03 13:39] VITALS: RESP 18
[2022-11-03] MEDS ORDERED: LORazepam 2 MG/ML INJ IV STA (13:39)
[2022-11-03] MEDS ORDERED: SODIUM CHLORIDE 0.9% 1,000 ML IV STA (13:39)
[2022-11-03 13:43] VITALS: PULSE 87
--- NOTE | 2022-11-03 13:44 | ED ---
General Adult HPI - General Chief complaint: Syncope Stated complaint: AMS Time Seen by Provider: 11/03/22 13:25 Source: patient, RN notes reviewed, old records reviewed Mode of arrival: EMS - History of Present Illness Initial comments: 67-year-old female presents status post witnessed seizure. Patient states that she is a daily drinker and did not drink any alcohol this morning because she did not have any. At approximately 12:30 she had been outside walking, and have full tonic-clonic seizure resulting in abrasion to the left knee. Uncertain if there was significant head trauma but the patient is not complaining of any head or neck pain at the time my evaluation. Denies abdominal pain nausea vomiting. Denies focal numbness or weakness. - Related Data Home Medications Medication Instructions Recorded Confirmed Naltrexone HCl [Revia] 50 mg PO DAILY 05/13/22 09/30/22 traZODone HCL 150 mg PO HS 05/13/22 09/30/22 busPIRone HCL 15 mg PO TID 09/30/22 09/30/22 Allergies Allergy/AdvReac Type Severity Reaction Status Date / Time No Known Allergies Allergy Verified 11/03/22 13:39 Review of Systems ROS Statement: Those systems with pertinent positive or pertinent negative responses have been documented in the HPI. ROS Other: All systems not noted in ROS Statement are negative. Past Medical History Past Medical History: COPD, CVA/TIA, GERD/Reflux, Hypertension, Renal Disease Additional Past Medical History / Comment(s): past rib fractures, L hemothorax with chest tube, blood loss anemia, ETOH-last drink 08/13/21-pt is quitting drinking. pt drinking everyday nov 03 2022 History of Any Multi-Drug Resistant Organisms: None Reported Past Surgical History: Section, Cholecystectomy, Orthopedic Surgery Additional Past Surgical History / Comment(s): R wrist surgery d/t injury, bilateral cataract removals, D&C x2 Past Anesthesia/Blood Transfusion Reactions: No Reported Reaction Past Psychological History: ADD/ADHD, Anxiety, Depression Smoking Status: Never smoker Past Alcohol Use History: Daily Past Drug Use History: Marijuana - Past Family History Mother Family Medical History: Blood Disorder, Congestive Heart Failure (CHF), Coronary Artery Disease (CAD) Additional Family Medical History / Comment(s): Mother had a blood disease (had too many WBCs). She at the age of 88yrs from CAD per pt. Father Family Medical History: Cancer Additional Family Medical History / Comment(s): Father of lung cancer at the age of 77yrs. General Exam General appearance: alert, in no apparent distress Head exam: Present: atraumatic, normocephalic Eye exam: Present: normal appearance, PERRL Neck exam: Present: normal inspection. Absent: tenderness, meningismus Respiratory exam: Present: normal lung sounds bilaterally. Absent: respiratory distress, wheezes Cardiovascular Exam: Present: regular rate, normal rhythm GI/Abdominal exam: Present: soft. Absent: distended, tenderness, guarding Extremities exam: Present: full ROM, other (Abrasion over the anterior surface of the left knee) Neurological exam: Present: alert, oriented X3, CN II-XII intact. Absent: motor sensory deficit Psychiatric exam: Present: normal affect, normal mood Skin exam: Present: warm, dry Course Vital Signs 11/03/22 11/03/22 11/03/22 13:29 13:40 13:58 Temperature 98.2 F Pulse Rate 100 87 Pulse Rate [ 87 Watch Train Inspector ] Respiratory 18 18 Rate Blood Pressure 144/97 O2 Sat by Pulse 95 99 Oximetry EKG Findings - EKG Comments: EKG Findings:: EKG: Sinus rhythm rate of 94, CT interval 164, QRS duration 94, QTC 424, no ST segment elevation Medical Decision Making - Medical Decision Making Was pt. sent in by a medical professional or institution ([facility] Ha, PAPER RULER, urgent care, hospital, or usp...) When possible be specific @ -No Did you speak to anyone other than the patient for history (EMS, parent, family, police, friend...)? What history was obtained from this source @ -EMS Did you review nursing and triage notes (agree or disagree)? Why? @ -I reviewed and agree with nursing and triage notes Were old charts reviewed (outside hosp., previous admission, EMS record, old EK G, old radiological studies, urgent care reports/EKG's, usp records)? Report findings @ -No old charts were reviewed Differential Diagnosis (chest pain, altered mental status, abdominal pain women, abdominal pain men, vaginal bleeding, weakness, fever, dyspnea, syncope, headache, dizziness, GI bleed, back pain, seizure, CVA, palpatations, mental health, musculoskeletal)? @ Differential Seizure: Recurrent seizure disorder, febrile seizure, alcohol withdrawal, stimulants, meningitis, encephalitis, intercranial hemorrhage, intracranial tumor, stroke, eclampsia, thyrotoxicosis, hypocalcemia, hyponatremia, hypernatremia, hypomag nesemia, psychogenic, this is not meant to be an all-inclusive list. EKG interpreted by me (3pts min.). @ -As above X-rays interpreted by me (1pt min.). @ X-rays of the left knee and left shoulder pain, distal left clavicle fracture, nondisplaced. The x-ray negative for traumatic injury CT interpreted by me (1pt min.). @ CT brain showing a left subdural hematoma without midline shift, there is also associated underlying intraparenchymal hematoma. Cervical spine negative for fracture or subluxation. U/S interpreted by me (1pt. min.). @ -None done What testing was considered but not performed or refused? (CT, X-rays, U/S, labs)? Why? @ -None What meds were considered but not given or refused? Why? @ -None Did you discuss the management of the patient with other professionals (professionals i.e. , PA, PAPER RULER, lab, RT, psych nurse, social insurance specialist, supervisor feed house, teacher, traffic police officer, housing case manager)? Give summary @ Case discussed with Prince Hernandez Dr, Gaborick, as well as ER attending. Was smoking cessation discussed for >3mins.? @ -No Was critical care preformed (if so, how long)? @ -Yes Were there social determinants of health that impacted care today? How? (Homelessness, low income, unemployed, alcoholism, drug addiction, transportation, low edu. Level, literacy, decrease access to med. care, group home, rehab)? @ -No Was there de-escalation of care discussed even if they declined (Discuss DNR or withdrawal of care, Hospice)? DNR status @ -No What co-morbidities impacted this encounter? (DM, HTN, Smoking, COPD, CAD, Cancer, CVA, ARF, Chemo, Hep., AIDS, mental health diagnosis, sleep apnea, morbid obesity)? @ Alcohol use disorder Was patient admitted / discharged? Hospital course, mention meds given and ro rossana, prescriptions, significant lab abnormalities, going to OR and other pertinent info. @ This is a 67-year-old female who presented with witnessed seizure and fall with head injury. There was no external signs of trauma on head exam. Patient's vital signs are stable. She denies headache. She has a nonfocal neurologic exam. She had abrasion to the left knee and tenderness over the left anterior shoulder with no other signs of trauma. She was given Ativan on arrival due to the fact that she had not had anything to drink today and likely had alcohol withdrawal seizure. Head CT was performed and did show a subdural hematoma with associated intraparenchymal hematoma. No midline shift. Patient will require neurosurgical evaluation she will be transferred to [facility]. Undiagnosed new problem with uncertain prognosis? @ -No Drug Therapy requiring intensive monitoring for toxicity (Heparin, Nitro, Insul in, Cardizem)? @ -No Were any procedures done? @ -No Diagnosis/symptom? @ Seizure, subdural and intraparenchymal hematoma. Nondisplaced left clavicle fracture Acute, or Chronic, or Acute on Chronic? @ Acute Uncomplicated (without systemic symptoms) or Complicated (systemic symptoms)? @ Complicated Side effects of treatment? @ -No Exacerbation, Progression, or Severe Exacerbation? @ -No Poses a threat to life or bodily function? How? (Chest pain, USA, CT, pneumonia, PE, COPD, DKA, ARF, appy, cholecystitis, CVA, Diverticulitis, Homicidal, Suicidal, threat to staff... and all critical care pts) @ -Yes, intracranial hemorrhage, seizure - Lab Data Result diagrams: 11/03/22 13:48 11/03/22 13:48 Lab Results 11/03/22 11/03/22 Range/Units 13:48 13:48 WBC 7.6 (3.8-10.6) k/uL RBC 4.82 (3.80-5.40) m/uL Hgb 14.8 (11.4-16.0) gm/dL Hct 45.1 (34.0-46.0) % MCV 93.6 (80.0-100.0) fL MCH 30.8 (25.0-35.0) pg MCHC 32.9 (31.0-37.0) g/dL RDW 13.7 (11.5-15.5) % Plt Count 144 L (150-450) k/uL MPV 8.1 Neutrophils % 91 % Lymphocytes % 5 % Monocytes % 3 % Eosinophils % 1 % Basophils % 0 % Neutrophils # 6.9 (1.3-7.7) k/uL Lymphocytes # 0.4 L (1.0-4.8) k/uL Monocytes # 0.3 (0-1.0) k/uL Eosinophils # 0.0 (0-0.7) k/uL Basophils # 0.0 (0-0.2) k/uL Sodium 134 L (137-145) mmol/L Potassium 4.1 (3.5-5.1) mmol/L Chloride 99 (98-107) mmol/L Carbon Dioxide 20 L (22-30) mmol/L Anion Gap 15 mmol/L BUN 9 (7-17) mg/dL Creatinine 0.84 (0.52-1.04) mg/dL Est GFR (CKD-EPI)AfAm 83 (>60 ml/min/1.73 sqM) Est GFR (CKD-EPI)NonAf 72 (>60 ml/min/1.73 sqM) Glucose 132 H (74-99) mg/dL Calcium 8.9 (8.4-10.2) mg/dL Magnesium 1.6 (1.6-2.3) mg/dL Total Bilirubin 1.2 (0.2-1.3) mg/dL AST 35 (14-36) U/L ALT 21 (4-34) U/L Alkaline Phosphatase 95 (38-126) U/L Total Protein 6.3 (6.3-8.2) g/dL Albumin 3.8 (3.5-5.0) g/dL Serum Alcohol <10 mg/dL Critical Care Time Critical Care Time: Yes Total Critical Care Time: 35 Disposition Clinical Impression: Alcohol abuse, Subdural hematoma, Seizure, Clavicle fracture Disposition: OTHER INSTITUTION NOT DEFINED Condition: Serious Is patient prescribed a controlled substance at d/c from ED?: No Referrals: Rose Guevara MD [Primary Care Provider] - 1-2 days Time of Disposition: 14:44 - Out of Hospital Transfer - Req. Specs Out of Hospital Transfer - Requested Specifics: Other Emergency Center ([facility])
[2022-11-03 13:56] LABS: Basophils % (A) 0 %; Eosinophils % (A) 1 %; HCT 45.1 % (34.0-46.0); HGB 14.8 gm/dL (11.4-16.0); Lymphocytes # (A) 0.4 k/uL (1.0-4.8); Lymphocytes % (A) 5 %; MCH 30.8 pg (25.0-35.0); MCHC 32.9 g/dL (31.0-37.0); MCV 93.6 fL (80.0-100.0); Mean Platelet Volume 8.1; Monocytes # (A) 0.3 k/uL (0-1.0); Monocytes % (A) 3 %; Neutrophils # (A) 6.9 k/uL (1.3-7.7); Neutrophils % (A) 91 %; Platelet Count 144 k/uL (150-450); RBC 4.82 m/uL (3.80-5.40); RDW 13.7 % (11.5-15.5); WBC 7.6 k/uL (3.8-10.6)
[2022-11-03 14:08] LABS: ALT 21 U/L (4-34); AST 35 U/L (14-36); African American GFR (CKD) 83 (>60 ml/min/1.73 sqM); Albumin 3.8 g/dL (3.5-5.0); Alcohol <10 mg/dL; Alkaline Phosphatase 95 U/L (38-126); Anion Gap 15 mmol/L; Blood Urea Nitrogen 9 mg/dL (7-17); Calcium 8.9 mg/dL (8.4-10.2); Carbon Dioxide 20 mmol/L (22-30); Chloride 99 mmol/L (98-107); Glucose 132 mg/dL (74-99); Magnesium 1.6 mg/dL (1.6-2.3); Non-African American GFR(CKD) 72 (>60 ml/min/1.73 sqM); Potassium 4.1 mmol/L (3.5-5.1); Sodium 134 mmol/L (137-145); Total Bilirubin 1.2 mg/dL (0.2-1.3); Total Protein 6.3 g/dL (6.3-8.2)
[2022-11-03] MEDS ORDERED: levETIRAcetam IV 1,500 MG in SODIUM CHLORIDE 0.9% 250 ML IVPB ONE (14:36)
--- NOTE | 2022-11-03 14:40 | XR ---
EXAMINATION TYPE: XR shoulder complete 3 views LT, XR knee complete 3 views LT DATE OF EXAM: 11/03/2022 Comparison: None Clinical History: 67-year-old female pain after fall Findings: Left shoulder: There is soft tissue swelling overlying the left shoulder and AC joint. Moderate degenerative change at the AC joint. There is transverse fracture distal left clavicle. Possible slight superior joint gillis bluxation. Interstitial changes in the visualized lungs. Left knee: Mild degenerative spurring medial and lateral compartments. No knee joint effusion. Extensor mechanis m is intact. No acute fracture, subluxation, or dislocation. Impression: 1. Left shoulder: Transverse fracture distal left clavicle with suggestion of some superior subluxati on at the AC joint. Overlying soft tissue swelling. 2. Left knee: No acute osseous abnormality seen. Mild bicompartmental degenerative spurring.
--- NOTE | 2022-11-03 15:06 | CT ---
EXAMINATION TYPE: CT brain genevieve alfonso con DATE OF EXAM: 11/03/2022 COMPARISON: Brain 03/24/2019 HISTORY: 67-year-old female Fall, Seizure CT DLP: 1408.3 mGycm Automated exposure control for dose reduction was used. Technique: Examination of the head was done in axial plane without intravenous contrast. Coronal and sagittal reconstructions performed. CT of the cervical spine was obtained in axial plane without intravenous injection of contrast mater ial. Coronal and sagittal reformatted images were obtained from the axial views for evaluation of f ractures, spinal alignment and canal. FINDINGS: Head: There is acute subdural hematoma along the left lateral convexity measuring up to 5 mm. A trace focus of subarachnoid hemorrhage anterior superior left frontal lobe. Couple parenchymal contusion measuring 1.2 cm and 0.8 cm left frontal lobe, axial image 39. Mild bifrontal cerebral cortical volume loss. No hydrocephalus, midline shift, herniation, or effacem ent of basal subarachnoid cisterns. Paranasal sinuses and mastoid air cells are well pneumatized. Orbits and globes are intact. Rightward nasal septal deviation. Cervical spine: Degenerative change of the left TMJ. No craniocervical junction abnormality, predental space widening, or prevertebral soft tissue swellin g. Degenerative change of the C1 dens articulation. Moderate disc/endplate degenerative change mid to lower cervical spine particularly at C5-C7 levels. Disc osteophyte complexes contribute to at least mild spinal canal stenoses at both these levels. Scattered facet and uncovertebral joint arthropathy throughout. Alignment is maintained. No acute fracture of the cervical spine. There is moderate to severe left neuroforaminal stenosis at C3-C4, moderate on both sides at C5-C6 and C6-C7. Sagittal and coronal reformatted images confirm above findings. COMBINED IMPRESSION: 1. Acute subdural hematoma along the left cerebral convexity measuring 5 mm thick. 2. Trace focus of acute subarachnoid hemorrhage anterior superior left frontal lobe. 3. A couple acute parenchymal contusions measuring 1.2 cm and 0.8 cm within the left frontal lobe. 4. No midline shift, mass effect, or herniation. 5. Moderate multilevel spondylotic changes especially mid to lower cervical spine. No acute fracture or malalignment. Critical findings called to Dr. Bales in the ER at 2:33pm.
[2022-11-03 15:40] VITALS: BP 162/98; TEMP 98
== END 2022-11-03 15:37 | disposition other institution (70) ==
LOC: EC 12:56
DX: S42.032A Displaced fracture of lateral end of left clavicle, initial encounter for closed fracture (principal); I62.00 Nontraumatic subdural hemorrhage, unspecified; F10.10 Alcohol abuse, uncomplicated; J44.9 Chronic obstructive pulmonary disease, unspecified; I10 Essential (primary) hypertension; Z86.73 Personal history of transient ischemic attack (TIA), and cerebral infarction without residual deficits; F41.9 Anxiety disorder, unspecified; F32.A Depression, unspecified; F12.90 Cannabis use, unspecified, uncomplicated; Z79.899 Other long term (current) drug therapy; X58.XXXA Exposure to other specified factors, initial encounter
CPT/HCPCS: 36415; 93005; 80053; 83735; 85025; 73030; 73562; 72125; 70450; 99291; 96365; 96375; 96361; G0480; J2060; J1953; 80320

== ENCOUNTER 2023-11-20 11:56 | Emergency (ER) | payer MEDICARE ==
--- NOTE | 2023-11-20 14:07 | XR ---
EXAMINATION TYPE: XR Hip LT and AP Pelvis DATE OF EXAM: 11/20/2023 1:56 PM CLINICAL INDICATION:Female, 68 years old with history of pain; PHH COMPARISON: None. TECHNIQUE: XR Hip LT and AP Pelvis; hip was examined in the frontal and lateral projections and a AP pelvis. FINDINGS: Acute fracture through left superior ramus. No Joint dislocation or significant soft tissue swelling. Osteophyte formation of the superior acetabulum of the hip. There is mild joint space narr owing. IMPRESSION: 1. Left superior pubic ramus fracture. Consider further evaluation the bony pelvis with CT. 2. Mild hip osteoarthrosis.
[2023-11-20] MEDS: MORPHINE SULFATE 4 MG/ML SYRINGE IM STA (14:54)
[2023-11-20] MEDS: KETOROLAC 15 MG/ML 1 ML VIAL IM STA (14:56)
--- NOTE | 2023-11-20 15:02 | ED ---
Fall HPI - General Chief Complaint: Fall Stated Complaint: Fall-L arm/hip injury Time Seen by Provider: 11/20/23 13:46 Source: patient, RN notes reviewed Mode of arrival: ambulatory Limitations: no limitations - History of Present Illness Initial Comments: This is a 68 year old female who presents to the emergency department for a fall. States that she tripped over her flip flop at the soup kitchen earlier today. Unsure if she hit her head. Denies any loss of consciousness. Currently having pain to the left hip. She has some pain over the left shoulder area states that she has an old injury to this area. She also has an abrasion over the left elbow and forearm. Tetanus vaccine is up-to-date. MD Complaint: fall - Related Data Home Medications Medication Instructions Recorded Confirmed Escitalopram [Lexapro] 10 mg PO DAILY 11/20/23 11/20/23 Levothyroxine Sodium [Synthroid] 25 mcg PO DAILY 11/20/23 11/20/23 Pravastatin Sodium [Pravachol] 20 mg PO DAILY 11/20/23 11/20/23 cloNIDine HCL [Catapres] 0.1 mg PO BID 11/20/23 11/20/23 Previous Rx's Medication Instructions Recorded HYDROcodone/APAP 7.5-325MG [[place]umet 1 tab PO Q6HR PRN 3 Days #12 tab 11/20/23 7.5-325] Naproxen Sodium 550 mg PO BID PRN #30 tablet 11/20/23 Allergies Allergy/AdvReac Type Severity Reaction Status Date / Time No Known Allergies Allergy Verified 11/20/23 14:19 Review of Systems ROS Statement: Those systems with pertinent positive or pertinent negative responses have been documented in the HPI. ROS Other: All systems not noted in ROS Statement are negative. Past Medical History Past Medical History: COPD, CVA/TIA, GERD/Reflux, Hypertension, Renal Disease Additional Past Medical History / Comment(s): past rib fractures, L hemothorax with chest tube, blood loss anemia, ETOH-last drink 08/13/21-pt is quitting drinking. pt drinking everyday nov 03 2022 History of Any Multi-Drug Resistant Organisms: None Reported Past Surgical History: Section, Cholecystectomy, Orthopedic Surgery Additional Past Surgical History / Comment(s): R wrist surgery d/t injury, bilateral cataract removals, D&C x2 Past Anesthesia/Blood Transfusion Reactions: No Reported Reaction Past Psychological History: ADD/ADHD, Anxiety, Depression Smoking Status: Never smoker Past Alcohol Use History: Daily Past Drug Use History: Marijuana - Past Family History Mother Family Medical History: Blood Disorder, Congestive Heart Failure (CHF), Coronary Artery Disease (CAD) Additional Family Medical History / Comment(s): Mother had a blood disease (had too many WBCs). She at the age of 88yrs from CAD per pt. Father Family Medical History: Cancer Additional Family Medical History / Comment(s): Father of lung cancer at the age of 77yrs. General Exam Limitations: no limitations General appearance: alert, in no apparent distress Head exam: Present: atraumatic, normocephalic, normal inspection Respiratory exam: Present: normal lung sounds bilaterally. Absent: respiratory distress, wheezes, rales, rhonchi, stridor Cardiovascular Exam: Present: regular rate, normal rhythm, normal heart sounds. Absent: systolic murmur, diastolic murmur, rubs, gallop, clicks Extremities exam: Present: other (No shortening or rotation of the left lower extremity. 2+ DP and PT pulses bilaterally. Skin tear to the left elbow. Minor active bleeding. Superficial abrasions to the left hand.) Neurological exam: Present: alert, oriented X3, CN II-XII intact Psychiatric exam: Present: normal affect, normal mood Skin exam: Present: warm, dry, normal color. Absent: rash Course Vital Signs 11/20/23 11/20/23 11/20/23 12:16 14:52 17:01 Temperature 98.2 F 98 F 98.2 F Pulse Rate 85 92 87 Respiratory 20 18 18 Rate Blood Pressure 130/89 120/76 129/84 O2 Sat by Pulse 98 96 96 Oximetry 11/20/23 11/20/23 11/20/23 19:05 21:11 23:00 Temperature 98.1 F 98.3 F 98.0 F Pulse Rate 85 80 91 Respiratory 18 18 20 Rate Blood Pressure 124/80 128/83 128/84 O2 Sat by Pulse 97 96 97 Oximetry 11/21/23 01:18 Temperature 98.2 F Pulse Rate 98 Respiratory 20 Rate Blood Pressure 133/89 O2 Sat by Pulse 97 Oximetry Medical Decision Making - Medical Decision Making This is a 68-year-old female who presents to the emergency department for left hip pain after a fall. Was pt. sent in by a medical professional or institution? @ -No Did you speak to anyone other than the patient for history? @ -No Did you review nursing and triage notes? @ -Yes, and I agree, it is accurate with regards to the patient's symptoms. Were old charts reviewed? @ -No Differential Diagnosis? @ -Differential Musculoskeletal: Muscular strain, contusion, ligament sprain, fracture, arthritis, septic arthritis, bursitis, cellulitis, muscle spasm, nerve compression, DVT, arterial occlusion, herpes zoster, electrolyte abnormality, tumor.... This is not meant to be in all inclusive list EKG interpreted by me (3pts min.)? @ -Not obtained X-rays interpreted by me (1pt min.)? @ -X-ray of the left hip and pelvis obtained. My interpretation identifies a pubic ramus fracture. X-ray of the left shoulder, left forearm, and left elbow obtained. My interpretation identifies no acute fractures. Chest x-ray obtai aldair. My interpretation identifies no acute rib fractures. CT interpreted by me (1pt min.)? @ -Computed tomography scan of the brain and c-spine obtained. My interpretation identifies no evidence of an acute intracranial hemorrhage, skull fracture, or cervical spine fracture. CT scan of the pelvis obtained. My interpretation identifies a left pubic ramus fracture. U/S interpreted by me (1pt. min.)? @ -Not obtained What testing was considered but not performed? (CT, X-rays, U/S, labs)? Why? @ -None What meds were considered but not given? Why? @ -None Did you discuss the management of the patient with other professionals? @ -No Did you reconcile home meds? @ -No Was smoking cessation discussed for >3mins.? @ -No Was critical care preformed (if so, how long)? @ -No Were there social determinants of health that impacted care today? How? (Homelessness, low income, unemployed, alcoholism, drug addiction, transportation, low edu. Level, literacy, decrease access to med. care, residential, rehab)? @ -No Was there de-escalation of care discussed even if they declined? (Discuss DNR or withdrawal of care, Hospice)? @ -No What co-morbidities impacted this encounter? (DM, HTN, Smoking, COPD, CAD, Cancer, CVA, Hep., AIDS, mental health diagnosis, sleep apnea, morbid obesity)? @ -Osteoarthritis Was patient admitted / discharged? @ -Discharged. X-ray of the left hip and pelvis obtained demonstrating a left superior pubic ramus fracture. They advised further evaluation of the pelvis with a CT scan. X-ray of the left shoulder, left forearm, and left elbow obtained revealing no acute process. Chest x-ray also revealed no acute findings. CT scan of the pelvis was ordered. However, the radiologist Dr. Ritter, did not like the how the images were obtained by the CT scan technicians. He subsequently refused to review the images after they sat for several hours. Patient was subsequently taken back for a repeat CT scan. CT scan of the pelvis demonstrates a nondisplaced fracture involving the medial aspect of the left superior pubic ramus and a subtle nondisplaced fracture of the medial aspect of the left inferior pubic ramus. There is a soft tissue hematoma lateral to the left greater trochanter as a result of the trauma. There is no acute fracture or dislocation involving the hips or proximal femurs. Findings reviewed with the patient. Symptoms well-controlled in the emergency department. Prescription for naproxen and Calumet provided with dosing instructions reviewed. Information for orthopedic follow-up provided as well. Undiagnosed new problem with uncertain prognosis? @ -None Drug Therapy requiring intensive monitoring for toxicity (Heparin, Nitro, Insulin, Cardizem)? @ -None Were any procedures done? @ -None Diagnosis/symptom? @ -Fall, left pubic ramus fracture Acute, or Chronic, or Acute on Chronic? @ -Acute Uncomplicated (without systemic symptoms) or Complicated (systemic symptoms)? @ -Uncomplicated Side effects of treatment? @ -None Exacerbation, Progression, or Severe Exacerbation] @ -Not applicable Poses a threat to life or bodily function? @ -This may limit her ability to ambulate for the mean time. Return precautions reviewed in depth, the patient is instructed to return to the emergency department with any new, worsening, or concerning symptoms. Patient verbalized understanding. This case was discussed in detail with the attending ED physician, Dr. Santos. Presentation, findings, and treatment plan discussed in detail as well. - Radiology Data Radiology results: report reviewed, image reviewed Disposition Clinical Impression: Fracture of left superior pubic ramus, Fall Disposition: HOME SELF-CARE Instructions (If sedation given, give patient instructions): Pelvic Fracture (ED) Additional Instructions: Return to the emergency department with any new, worsening, or concerning symptoms. Take the antibiotic as prescribed for 7 days. Take the naproxen twice daily as needed for pain relief. If you choose to take this, do not take any other anti-inflammatories such as ibuprofen, take one or the other. You can take the Calumet every 4-6 hours. Be aware that it may make you drowsy. Follow up with your primary care provider in 1-2 days. Contact orthopedics as listed below for a follow up appointment as well. Prescriptions: Naproxen Sodium 550 mg PO BID PRN #30 tablet PRN Reason: Pain HYDROcodone/APAP 7.5-325MG [[place] 7.5-325] 1 tab PO Q6HR PRN 3 Days #12 tab PRN Reason: Pain Is patient prescribed a controlled substance at d/c from ED?: Yes When asked, does pt state using other controlled substances?: No If prescribed controlled substance>3 days was MAPS reviewed?: Prescribed <3 Days Referrals: Rose Guevara MD [Primary Care Provider] - 1-2 days Noble Guaman DO [Doctor of Osteopathic Medicine] - 1-2 days
[2023-11-20] MEDS: HYDROmorphone 0.5 MG/0.5 ML SYRINGE IM STA (17:11)
--- NOTE | 2023-11-20 17:26 | CT ---
EXAMINATION TYPE: CT brain cspine wo con CT DLP: 1556.7 mGycm, Automated exposure control for dose reduction was used. DATE OF EXAM: 11/20/2023 3:31 PM COMPARISON: None. CLINICAL INDICATION:Female, 68 years old with history of Fall, fracture on x-ray; pain after fall TECHNIQUE: Brain: Multiple axial CT images of the brain were obtained without IV contrast. Cspine: Axial CT images from the skull base to the inferior aspect of T2 we obtained without intraven ous contrast. Coronal and sagittal reformatted images were also reviewed. FINDINGS: Brain: Extra-axial spaces: No abnormal extra-axial fluid collections. Ventricular system: Appear dilated in proportion to the degree of cerebral atrophy. Cerebral parenchyma: No increased attenuation to suggest acute intraparenchymal hemorrhage. The gra y-white matter interface appears maintained. Mild generalized brain atrophy, primarily bifrontal. S cattered hypoattenuating areas are seen within the cerebral white matter, nonspecific but most often seen with chronic microvascular ischemic changes; mild in degree. Cerebellum: No acute abnormality. Mass effect: No evidence of mass effect or midline shift. Intracranial vasculature: Unremarkable Soft tissues: Normal. Visualized orbits: Orbital contents appear grossly intact. There has likely been previous lens surg je. Calvarium/osseous structures: No evidence of calvarial fracture. Paranasal sinuses and mastoid air cells: Clear. MRI is more sensitive for detecting acute processes such as infarct, and may be considered if clinica lly warranted. Cervical spine: Fracture: None seen. Osseous structures, spinal canal/neural foramina: Craniocervical junction is intact. Generative pena es of the anterior C1-C2 articulation. Moderate multilevel degenerative disc disease changes with end plate spurring, disc osteophyte complexes, facet arthropathy; there are moderate spinal canal and dalton ral foraminal stenoses at the C5-6 and C6-7 levels. No critical canal or foraminal stenosis is eviden t by CT. Canal and contents are however not well assessed by CT and if clinically warranted MRI may b e obtained in follow-up. Vertebral alignment: No traumatic malalignment. Preserved normal cervical lordosis. No significant li sthesis. Neck soft tissues: No acute finding.. Other: Lung apices show no acute infiltrate or pneumothorax. Chronic senescent changes and mild depe ndent atelectasis. IMPRESSION: CT head: 1. No acute intracranial CT abnormality. CT cervical spine: 1. No evidence of acute cervical spine fracture or traumatic malalignment. 2. Moderate cervical spondylosis.
--- NOTE | 2023-11-20 18:11 | XR ---
EXAMINATION TYPE: XR elbow complete LT DATE OF EXAM: 11/20/2023 COMPARISON: None HISTORY: Fall, pain TECHNIQUE: 3 view left elbow FINDINGS: Radius aligns normally with the humerus. Anterior fat-pad is normal. No elevation of the po sterior fat pad is evident. No acute fracture or dislocation is evident. Follow up exams can be performed 7-10 days from acute trauma for continued pain. IMPRESSION: 1. No acute osseous abnormalities left elbow.
--- NOTE | 2023-11-20 18:11 | XR ---
EXAMINATION TYPE: XR forearm LT DATE OF EXAM: 11/20/2023 COMPARISON: None HISTORY: Fall, pain TECHNIQUE: 2 view left forearm FINDINGS: No acute fracture or dislocation is evident. Joint spaces appear preserved. Ulnar negative variance may be present. Follow up exams can be performed 7-10 days from acute trauma for continued pain. IMPRESSION: 1. No acute osseous abnormality of the forearm
--- NOTE | 2023-11-20 18:13 | XR ---
EXAMINATION TYPE: XR chest 2V DATE OF EXAM: 11/20/2023 COMPARISON: 06/17/2022 INDICATION: Fall, pain TECHNIQUE: Frontal and lateral views of the chest are obtained. FINDINGS: The heart size is normal. The pulmonary vasculature is normal. The lungs are clear. Mediastinum appears normal. No pneumothorax is evident. There appear to be old rib fractures along the lateral left lung. Some old right rib fractures are evident IMPRESSION: 1. No acute pulmonary process.
--- NOTE | 2023-11-20 18:15 | XR ---
EXAMINATION TYPE: XR shoulder complete LT DATE OF EXAM: 11/20/2023 COMPARISON: 11/03/2022 HISTORY: Pain TECHNIQUE: Shoulder examined in 3 projections. FINDINGS: The humeral head articulates with the glenoid. There is an old fracture of the distal clavicle. The acromioclavicular junction has modified post fra cture changes. No acute fractures or dislocations are evident. A follow up study can be performed 7-10 days from acute trauma for continued pain. MRI can be perfor med if soft tissue evaluation would be of benefit. IMPRESSION: 1. No acute osseous shoulder abnormality.
[2023-11-20] MEDS: HYDROmorphone 1 MG/ML 1 ML SYRINGE IM STA (20:43)
[2023-11-20] MEDS: LORazepam 2 MG/ML INJ IM STA (22:30)
[2023-11-20] MEDS: HYDROmorphone 0.5 MG/0.5 ML SYRINGE IVP STA (23:41)
[2023-11-20] MEDS: cefTRIAXone IN SWFI 1,000 MG/10 ML SYRINGE IVP STA (23:41)
[2023-11-20] MEDS: PANTOPRAZOLE 40 MG/10 ML VIAL IVP STA (23:42)
[2023-11-20] MEDS: FAMOTIDINE 20 MG/2 ML VIAL IV STA (23:42)
[2023-11-20] MEDS: MAG HYDROX/AL HYDROX/SIMETH 30 ML CUP PO STA (23:43)
--- NOTE | 2023-11-20 23:57 | CT ---
EXAMINATION TYPE: CT pelvis wo con CT DLP: 392.2 mGycm, Automated exposure control for dose reduction was used. DATE OF EXAM: 11/20/2023 3:31 PM initially; due to a technical failure with the initial imaging, the p atient was rescanned at the discretion of the group sales manager later the same day, resulting in significant delay in results reporting. COMPARISON: Same day pelvis and left hip radiographs, 1:58 PM. CLINICAL INDICATION:Female, 68 years old with history of Fall; pain in left hip after fall TECHNIQUE: CT of the bony pelvis was performed with multiplanar reformats generated. 3-D rotational b one surface rendered images were also generated on a remote workstation. No contrast used. FINDINGS: Bones: Osseous mineralization appears appropriate. No evidence of clearly lytic/blastic lesion. Partially seen disc space narrowing with vacuum disc and disc osteophyte complex L4-L5, and mild disc bulging L5-S1. Partially seen subtle small relatively hypoattenuating focus within the mid to inferi or L4 vertebral body, not well assessed by this exam. No fracture is seen involving these vertebral l evels, or the sacrum. Mild degenerative changes of the SI joints. The pelvis appears symmetric. There is mild bilateral hip arthropathy without evidence of hip fractur e or dislocation. There are mild degenerative changes of the pubic symphysis. Small cortical deformities involving the medial left superior pubic ramus consistent with acute nondisplaced fracture. Subtle nondisplaced fra cture also suggested in the medial left inferior pubic ramus. The included proximal femurs appear to be intact. There is a nonspecific heterogeneous patch of scler osis within the left femur intertrochanteric region, with a nonaggressive appearance; considerations include bone infarct. Soft tissues: Lateral to the left greater trochanter, there is a soft tissue hematoma about 4.2 cm in size, with surrounding subcutaneous fat stranding suggesting contusion. The full extent of this is n ot in the [id number]. Otherwise, there is no acute soft tissue abnormality demonstrated. A normal appendix is seen. Several diverticula are seen in the distal colon without evidence of diverticulitis . Grossly unremarkable uterus. No intrapelvic mass or free fluid is suggested. Unremarkable bladder. IMPRESSION: 1. Nondisplaced fracture involving the medial aspect left superior pubic ramus, and subtle nondispla chelsey fracture of the medial aspect left inferior pubic ramus. 2. Soft tissue hematoma lateral to the left greater trochanter. 3. No evidence of acute fracture or dislocation involving the hips or proximal femurs. 4. Subtle small relatively hypoattenuating focus partially seen in the L4 vertebral body, not well a ssessed by this exam. If clinically warranted, outpatient CT or MRI lumbar spine could help further c haracterize.
[2023-11-21] MEDS: ACET/COD 300 MG/30 MG STARTER PACK 6 TAB BTL PO STA (00:57)
[2023-11-21] MEDS: ONDANSETRON 4 MG ODT STARTER PACK 2 TAB BTL PO STA (00:58)
[2023-11-21 01:16] VITALS: RESP 20
[2023-11-21 02:13] VITALS: BP 133/89; PULSE 98; TEMP 98.2
== END 2023-11-21 03:50 | disposition home or self-care (01) ==
LOC: EC 11:56
DX: S32.592A Other specified fracture of left pubis, initial encounter for closed fracture (principal); S51.012A Laceration without foreign body of left elbow, initial encounter; S60.512A Abrasion of left hand, initial encounter; M19.90 Unspecified osteoarthritis, unspecified site; Z86.73 Personal history of transient ischemic attack (TIA), and cerebral infarction without residual deficits; W01.0XXA Fall on same level from slipping, tripping and stumbling without subsequent striking against object, initial encounter
CPT/HCPCS: 73030; 73502; 73080; 73090; 71046; 72192; 72125; 70450; 99284; 96374; 96375 ×3; 96372 ×5; J2060; J2270; J0696; J3490; J1170 ×2; J1885; S0119; C9113

== ENCOUNTER 2024-02-22 08:32 | Emergency (ER) | payer MEDICARE ==
[2024-02-22 08:46] VITALS: RESP 20
[2024-02-22 09:14] LABS: Basophils % (A) 0 %; Eosinophils # (A) 0.1 k/uL (0-0.7); Eosinophils % (A) 2 %; HCT 46.2 % (34.0-46.0); HGB 15.1 gm/dL (11.4-16.0); Lymphocytes # (A) 1.7 k/uL (1.0-4.8); Lymphocytes % (A) 24 %; MCH 29.2 pg (25.0-35.0); MCHC 32.7 g/dL (31.0-37.0); MCV 89.4 fL (80.0-100.0); Mean Platelet Volume 9.2; Monocytes # (A) 0.3 k/uL (0-1.0); Monocytes % (A) 5 %; Neutrophils # (A) 4.9 k/uL (1.3-7.7); Neutrophils % (A) 68 %; Platelet Count 231 k/uL (150-450); RBC 5.17 m/uL (3.80-5.40); WBC 7.2 k/uL (3.8-10.6)
[2024-02-22] MEDS: SODIUM CHLORIDE 0.9% 1,000 ML IV STA (09:14)
[2024-02-22] MEDS: SODIUM CHLORIDE 0.9% 500 ML 500 ML IV STA (09:16)
[2024-02-22] MEDS: DIPHENOX-ATROP 2.5-0.025 MG 1 EACH TAB PO STA (09:21)
[2024-02-22] MEDS: ONDANSETRON 4 MG/2 ML VIAL IVP STA (09:22)
[2024-02-22 09:26] LABS: ALT 19 U/L (4-34); African American GFR (CKD) 70 (>60 ml/min/1.73 sqM); Anion Gap 12 mmol/L; Blood Urea Nitrogen 16 mg/dL (7-17); Calcium 9.7 mg/dL (8.4-10.2); Carbon Dioxide 16 mmol/L (22-30); Chloride 110 mmol/L (98-107); Glucose 76 mg/dL (74-99); Lipase 130 U/L (23-300); Non-African American GFR(CKD) 61 (>60 ml/min/1.73 sqM); Sodium 138 mmol/L (137-145); Total Bilirubin 1.4 mg/dL (0.2-1.3)
[2024-02-22 09:29] LABS: Potassium 4.7 mmol/L (3.5-5.1); Total Protein 6.9 g/dL (6.3-8.2)
[2024-02-22 09:30] LABS: AST 38 U/L (14-36); Albumin 4.6 g/dL (3.5-5.0); Alkaline Phosphatase 66 U/L (38-126)
--- NOTE | 2024-02-22 09:32 | ED ---
Nausea/Vomiting/Diarrhea HPI - General Chief complaint: Nausea/Vomiting/Diarrhea Stated complaint: D/N/V Time Seen by Provider: 02/22/24 08:36 Source: patient, EMS, RN notes reviewed Mode of arrival: EMS Limitations: no limitations - History of Present Illness Initial comments: 68-year-old female presents emergency department via EMS for complaints of di arrhea, nausea vomiting patient states just has not felt well recently. No recent antibiotic use. Denies any fever or any sick contacts. No chest pain or shortness of breath she states she feels dehydrated no dysuria no melena or hematochezia. - Related Data Home Medications Medication Instructions Recorded Confirmed Escitalopram [Lexapro] 10 mg PO DAILY 11/20/23 11/20/23 Levothyroxine Sodium [Synthroid] 25 mcg PO DAILY 11/20/23 11/20/23 Pravastatin Sodium [Pravachol] 20 mg PO DAILY 11/20/23 11/20/23 cloNIDine HCL [Catapres] 0.1 mg PO BID 11/20/23 11/20/23 Previous Rx's Medication Instructions Recorded HYDROcodone/APAP 7.5-325MG [[place] 1 tab PO Q6HR PRN 3 Days #12 tab 11/20/23 7.5-325] Naproxen Sodium 550 mg PO BID PRN #30 tablet 11/20/23 Allergies Allergy/AdvReac Type Severity Reaction Status Date / Time No Known Allergies Allergy Verified 02/22/24 08:46 Review of Systems ROS Statement: Those systems with pertinent positive or pertinent negative responses have been documented in the HPI. ROS Other: All systems not noted in ROS Statement are negative. Past Medical History Past Medical History: COPD, CVA/TIA, GERD/Reflux, Hypertension, Renal Disease Additional Past Medical History / Comment(s): past rib fractures, L hemothorax with chest tube, blood loss anemia, ETOH-last drink 08/13/21-pt is quitting drinking. pt drinking everyday nov 03 2022 History of Any Multi-Drug Resistant Organisms: None Reported Past Surgical History: Section, Cholecystectomy, Orthopedic Surgery Additional Past Surgical History / Comment(s): R wrist surgery d/t injury, bilateral cataract removals, D&C x2 Past Anesthesia/Blood Transfusion Reactions: No Reported Reaction Past Psychological History: ADD/ADHD, Anxiety, Depression Smoking Status: Never smoker Past Alcohol Use History: Daily Past Drug Use History: Marijuana - Past Family History Mother Family Medical History: Blood Disorder, Congestive Heart Failure (CHF), Coronary Artery Disease (CAD) Additional Family Medical History / Comment(s): Mother had a blood disease (had too many WBCs). She at the age of 88yrs from CAD per pt. Father Family Medical History: Cancer Additional Family Medical History / Comment(s): Father of lung cancer at the age of 77yrs. General Exam Limitations: no limitations General appearance: alert, in no apparent distress Head exam: Present: atraumatic, normocephalic, normal inspection Eye exam: Present: normal appearance, PERRL, EOMI. Absent: scleral icterus, conjunctival injection, periorbital swelling ENT exam: Present: normal exam, mucous membranes moist Neck exam: Present: normal inspection, full ROM. Absent: tenderness, meningismus, lymphadenopathy Respiratory exam: Present: normal lung sounds bilaterally. Absent: respiratory distress, wheezes, rales, rhonchi, stridor Cardiovascular Exam: Present: regular rate, normal rhythm, normal heart sounds. Absent: systolic murmur, diastolic murmur, rubs, gallop, clicks GI/Abdominal exam: Present: soft, normal bowel sounds. Absent: distended, tenderness, guarding, rebound, rigid Course Vital Signs 02/22/24 08:42 Temperature 97.7 F Pulse Rate 73 Respiratory 20 Rate Blood Pressure 154/88 O2 Sat by Pulse 100 Oximetry Medical Decision Making - Medical Decision Making Was pt. sent in by a medical professional or institution (, PA, DIRECTOR OF CARDIOPULMONARY SERVICES, urgent care, hospital, or prison...) When possible be specific @ -No Did you speak to anyone other than the patient for history (EMS, parent, family, police, friend...)? What history was obtained from this source @ -No Did you review nursing and triage notes (agree or disagree)? Why? @ -I reviewed and agree with nursing and triage notes Were old charts reviewed (outside hosp., previous admission, EMS record, old EKG, old radiological studies, urgent care reports/EKG's, prison records)? Report findings @ -No old charts were reviewed Differential Diagnosis (chest pain, altered mental status, abdominal pain women, abdominal pain men, vaginal bleeding, weakness, fever, dyspnea, syncope, headache, dizziness, GI bleed, back pain, seizure, CVA, palpatations, mental health, musculoskeletal)? @ -Differential Abdominal Pain Women: Appendicitis, Cholecystitis, diverticulosis, ischemic bowel, pancreatitis, hepatitis, UTI, gastroenteritis, AAA, incarcerated hernia, bowel obstruction, constipation, inflammatory bowel, hepatitis, peptic ulcer disease, splenic infarction, perforated viscus, vulvitis, ovarian torsion, PID, kidney stone, placenta abruption, this is not meant to be an all-inclusive list EKG interpreted by me (3pts min.). @ -None X-rays interpreted by me (1pt min.). @ -None done CT interpreted by me (1pt min.). @ -None done U/S interpreted by me (1pt. min.). @ -None done What testing was considered but not performed or refused? (CT, X-rays, U/S, labs)? Why? @ -None What meds were considered but not given or refused? Why? @ -None Did you discuss the management of the patient with other professionals (professionals i.e. , PA, DIRECTOR OF CARDIOPULMONARY SERVICES, lab, RT, psych nurse, social media job titles, corporate lawyer, teacher, chief procurement officer, porter sample case)? Give summary @ -No Was smoking cessation discussed for >3mins.? @ -No Was critical care preformed (if so, how long)? @ -No Were there social determinants of health that impacted care today? How? (Homelessness, low income, unemployed, alcoholism, drug addiction, transportation, low edu. Level, literacy, decrease access to med. care, usp, rehab)? @ -No Was there de-escalation of care discussed even if they declined (Discuss DNR or withdrawal of care, Hospice)? DNR status @ -No What co-morbidities impacted this encounter? (DM, HTN, Smoking, COPD, CAD, Cancer, CVA, ARF, Chemo, Hep., AIDS, mental health diagnosis, sleep apnea, morbid obesity)? @ -None Was patient admitted / discharged? Hospital course, mention meds given and route, prescriptions, significant lab abnormalities, going to OR and other pertinent info. @ -Discharge patient feels greatly improved at this time she was hydrated. Patient does have acute dehydration but feels comfortable discharge and return parameters nafisa. Undiagnosed new problem with uncertain prognosis? @ -No Drug Therapy requiring intensive monitoring for toxicity (Heparin, Nitro, Insulin, Cardizem)? @ -No Were any procedures done? @ -No Diagnosis/symptom? @ -Abdominal pain, diarrhea dehydration Acute, or Chronic, or Acute on Chronic? @ -Acute Uncomplicated (without systemic symptoms) or Complicated (systemic symptoms)? @ -Complicated Side effects of treatment? @ -No Exacerbation, Progression, or Severe Exacerbation? @ -No Poses a threat to life or bodily function? How? (Chest pain, [place], [place], pneumonia, PE, COPD, DKA, ARF, appy, cholecystitis, CVA, Diverticulitis, Homicidal, Suicidal, threat to staff... and all critical care pts) @ -No - Lab Data Result diagrams: 02/22/24 08:57 02/22/24 08:57 Lab Results 02/22/24 02/22/24 02/22/24 Range/Units 08:57 08:57 08:57 WBC 7.2 (3.8-10.6) k/uL RBC 5.17 (3.80-5.40) m/uL Hgb 15.1 (11.4-16.0) gm/dL Hct 46.2 H (34.0-46.0) % MCV 89.4 (80.0-100.0) fL MCH 29.2 (25.0-35.0) pg MCHC 32.7 (31.0-37.0) g/dL RDW 13.0 (11.5-15.5) % Plt Count 231 (150-450) k/uL MPV 9.2 Neutrophils % 68 % Lymphocytes % 24 % Monocytes % 5 % Eosinophils % 2 % Basophils % 0 % Neutrophils # 4.9 (1.3-7.7) k/uL Lymphocytes # 1.7 (1.0-4.8) k/uL Monocytes # 0.3 (0-1.0) k/uL Eosinophils # 0.1 (0-0.7) k/uL Basophils # 0.0 (0-0.2) k/uL Sodium 138 (137-145) mmol/L Potassium 4.7 (3.5-5.1) mmol/L Chloride 110 H (98-107) mmol/L Carbon Dioxide 16 L (22-30) mmol/L Anion Gap 12 mmol/L BUN 16 (7-17) mg/dL Creatinine 0.96 (0.52-1.04) mg/dL Est GFR (CKD-EPI)AfAm 70 (>60 ml/min/1.73 sqM) Est GFR (CKD-EPI)NonAf 61 (>60 ml/min/1.73 sqM) Glucose 76 (74-99) mg/dL Calcium 9.7 (8.4-10.2) mg/dL Total Bilirubin 1.4 H (0.2-1.3) mg/dL AST 38 H (14-36) U/L ALT 19 (4-34) U/L Alkaline Phosphatase 66 (38-126) U/L Total Protein 6.9 (6.3-8.2) g/dL Albumin 4.6 (3.5-5.0) g/dL Lipase 130 (23-300) U/L Urine Color Yellow Urine Appearance Clear (Clear) Urine pH 5.5 (5.0-8.0) Ur Specific [place] 1.029 (1.001-1.035) Urine Protein Trace H (Negative) Urine Glucose (UA) Negative (Negative) Urine Ketones 3+ H (Negative) Urine Blood Negative (Negative) Urine Nitrite Negative (Negative) Urine Bilirubin Negative (Negative) Urine Urobilinogen <2.0 (<2.0) mg/dL Ur Leukocyte Esterase Moderate H (Negative) Urine RBC 1 (0-5) /hpf Urine WBC 10 H (0-5) /hpf Ur Squamous Epith Cells 2 (0-4) /hpf Hyaline Casts 27 H (0-2) /lpf Urine Mucus Moderate H (None) /hpf Disposition Clinical Impression: Nausea & vomiting, Diarrhea, Dehydration Disposition: HOME SELF-CARE Condition: Stable Instructions (If sedation given, give patient instructions): Acute Diarrhea (ED), Acute Nausea and Vomiting (ED) Additional Instructions: Please return to the Emergency Department if symptoms worsen or any other concerns. Is patient prescribed a controlled substance at d/c from ED?: No Referrals: None,Stated [Primary Care Provider] - 1-2 days Time of Disposition: 10:22
[2024-02-22 09:58] LABS: Appearance,Urine Clear (Clear); Bilirubin,Urine Negative (Negative); Blood,Urine Negative (Negative); Color,Urine Yellow; Glucose,Urine (UA) Negative (Negative); Hyaline Casts,Urine 27 /lpf (0-2); Ketones,Urine 3+ (Negative); Leukocyte Esterase,Urine Moderate (Negative); Mucus,Urine Moderate /hpf; Nitrite,Urine Negative (Negative); PH, Urine 5.5 (5.0-8.0); Protein,Urine Trace (Negative); RBC,Urine 1 /hpf (0-5); Specific Gravity,Urine 1.029 (1.001-1.035); Squamous Epithelial Cell,Urine 2 /hpf (0-4); Urobilinogen,Urine <2.0 mg/dL (<2.0); WBC,Urine 10 /hpf (0-5)
[2024-02-22] MEDS: ONDANSETRON 4 MG ODT STARTER PACK 2 TAB BTL PO STA (12:17)
[2024-02-22] MEDS: DIPHENOX-ATROP STARTER PACK 8 TAB BTL PO STA (12:18)
[2024-02-22] MEDS: PROCHLORPERAZINE INJ 10 MG/2 ML VIAL IVP STA (12:19)
[2024-02-22 12:28] VITALS: BP 147/97; PULSE 78; TEMP 97.8
== END 2024-02-22 12:33 | disposition home or self-care (01) ==
LOC: EC 08:32
DX: R11.2 Nausea with vomiting, unspecified (principal); R19.7 Diarrhea, unspecified; E86.0 Dehydration; R10.9 Unspecified abdominal pain
CPT/HCPCS: 36415; 80053; 83690; 85025; 81001; 99284; 96374; 96375; 96361; J0780; J2405; S0119

== ENCOUNTER 2024-07-07 09:33 | Emergency (ER) | payer MEDICARE ==
[2024-07-07 09:40] VITALS: RESP 18; TEMP 98.5
--- NOTE | 2024-07-07 09:54 | ED ---
Arrhythmia/Palpitations HPI - General Chief Complaint: Arrhythmia/Palpitations Stated Complaint: Hypertension-Sent by PCP Time Seen by Provider: 07/07/24 09:37 Source: patient, RN notes reviewed Mode of arrival: wheelchair Limitations: no limitations - History of Present Illness Initial Comments: This is a 68-year-old female who presents to the emergency department for problems with her heart rate and blood pressure. States that she typically has variable blood pressure and last night it got up to 239/142. She then started to develop a headache and was unable to sleep all night. She is concerned because she has a history of 2 brain bleeds. She does continue to have a mild headache. States that today she also started feeling nauseous and has generalized abdominal pain. States that her abdomen just feels "full "and she does report some constipation as well. Also reports nausea but no vomiting. In general she just feels fatigued and unwell. She did have some chest pain earlier that has since resolved. Denies any URI symptoms or shortness of breath. She saw her PCP in the office earlier today and was advised to come here for further evaluation. They noticed that her heart rate was fluctuating from the 90s to the low 100s. - Related Data Home Medications Medication Instructions Recorded Confirmed Escitalopram [Lexapro] 10 mg PO DAILY 11/20/23 07/07/24 Levothyroxine Sodium [Synthroid] 25 mcg PO DAILY 11/20/23 07/07/24 cloNIDine HCL [Catapres] 0.1 mg PO BID 11/20/23 07/07/24 traZODone HCL 150 mg PO HS 07/07/24 07/07/24 Previous Rx's Medication Instructions Recorded Azithromycin [Zithromax] 250 mg PO DIRECTED 5 Days #6 tab 07/07/24 Lactulose 10 gm PO DAILY PRN #150 ml 07/07/24 Ondansetron Odt [Zofran Odt] 4 mg PO Q8HR PRN #15 tab 07/07/24 Allergies Allergy/AdvReac Type Severity Reaction Status Date / Time No Known Allergies Allergy Verified 07/07/24 11:19 Review of Systems ROS Statement: Those systems with pertinent positive or pertinent negative responses have been documented in the HPI. ROS Other: All systems not noted in ROS Statement are negative. Past Medical History Past Medical History: COPD, CVA/TIA, GERD/Reflux, Hypertension, Renal Disease Additional Past Medical History / Comment(s): past rib fractures, L hemothorax with chest tube, blood loss anemia, ETOH-last drink 08/13/21-pt is quitting drinking. pt drinking everyday nov 03 2022 History of Any Multi-Drug Resistant Organisms: None Reported Past Surgical History: Section, Cholecystectomy, Orthopedic Surgery Additional Past Surgical History / Comment(s): R wrist surgery d/t injury, bilateral cataract removals, D&C x2 Past Anesthesia/Blood Transfusion Reactions: No Reported Reaction Past Psychological History: ADD/ADHD, Anxiety, Depression Smoking Status: Never smoker Past Alcohol Use History: Daily Past Drug Use History: Marijuana - Past Family History Mother Family Medical History: Blood Disorder, Congestive Heart Failure (CHF), Coronary Artery Disease (CAD) Additional Family Medical History / Comment(s): Mother had a blood disease (had too many WBCs). She at the age of 88yrs from CAD per pt. Father Family Medical History: Cancer Additional Family Medical History / Comment(s): Father of lung cancer at the age of 77yrs. General Exam Limitations: no limitations General appearance: alert, in no apparent distress Head exam: Present: atraumatic, normocephalic, normal inspection Eye exam: Present: normal appearance, PERRL, EOMI. Absent: scleral icterus, conjunctival injection, periorbital swelling Respiratory exam: Present: normal lung sounds bilaterally. Absent: respiratory distress, wheezes, rales, rhonchi, stridor Cardiovascular Exam: Present: normal rhythm, tachycardia GI/Abdominal exam: Present: soft, normal bowel sounds. Absent: distended, tenderness, guarding, rebound, rigid Neurological exam: Present: alert, oriented X3, CN II-XII intact Psychiatric exam: Present: normal affect, normal mood Skin exam: Present: warm, dry, intact, normal color. Absent: rash Course Vital Signs 07/07/24 07/07/24 07/07/24 09:36 10:07 12:25 Temperature 98.5 F Pulse Rate 115 H 88 Pulse Rate [ 78 Diver Pumper ] Respiratory 18 18 Rate Blood Pressure 120/88 139/90 O2 Sat by Pulse 98 97 Oximetry Medical Decision Making - Medical Decision Making This is a 68-year-old female who presents to the emergency department for headache and fluctuations in her heart rate and blood pressure. Was pt. sent in by a medical professional or institution? @ -Her PCP Did you speak to anyone other than the patient for history? @ -No Did you review nursing and triage notes? @ -Yes, and I agree, it is accurate with regards to the patient's symptoms. Were old charts reviewed? @ -No Differential Diagnosis? @ -Differential Headache: Migraine, tension, cluster, carbon monoxide, central venous thrombosis, pension karma temporal arteritis, acute closure glaucoma, intercranial hemorrhage, mas toiditis, sinusitis, head injury, this is not meant to be an all-inclusive list. EKG interpreted by me (3pts min.)? @ -EKG interpreted by me demonstrating the following: Sinus tachycardia. Ventricular rate 105 bpm, KS interval 149 ms, QRS duration 86 ms, QTc 396 ms. X-rays interpreted by me (1pt min.)? @ -Chest x-ray obtained, my interpretation identifies no localized consolidations or infiltrates. KUB x-ray obtained. My interpretation ident ifies no dilation of the bowel loops. CT interpreted by me (1pt min.)? @ -CT scan of the brain obtained. My interpretation identifies no evidence of an acute intracranial hemorrhage. CTA of the chest obtained. My interpretation identifies no evidence of a pulmonary embolus. U/S interpreted by me (1pt. min.)? @ -Not obtained What testing was considered but not performed? (CT, X-rays, U/S, labs)? Why? @ -None What meds were considered but not given? Why? @ -None Did you discuss the management of the patient with other professionals? @ -No Did you reconcile home meds? @ -No Was smoking cessation discussed for >3mins.? @ -No Was critical care preformed (if so, how long)? @ -No Were there social determinants of health that impacted care today? How? (Homelessness, low income, unemployed, alcoholism, drug addiction, transportation, low edu. Level, literacy, decrease access to med. care, [facility], rehab)? @ -No Was there de-escalation of care discussed even if they declined? (Discuss DNR or withdrawal of care, Hospice)? @ -No What co-morbidities impacted this encounter? (DM, HTN, Smoking, COPD, CAD, Cancer, CVA, Hep., AIDS, mental health diagnosis, sleep apnea, morbid obesity)? @ -COPD, HTN, Hx of subdural hematoma Was patient admitted / discharged? @ -Discharged. Lab work demonstrates an elevated D-dimer of 2.35 and was otherwise unremarkable. Troponin negative. COVID, influenza, and RSV testing negative. Urinalysis negative for signs of infection. Given her concern for the headache with history of brain bleeds and previously elevated blood pressure, CT scan of the brain was obtained. No acute process was identified. Chest x-ray also negative for any acute findings. KUB x-ray does demonstrate mild to moderate stool burden as the patient suspected. CTA of the chest obtained due to her symptoms with elevated D-dimer. No evidence of a pulmonary embolus was identified. She does have mild bilateral dependent alveolar edema and small focal areas of edema and/or developing acute infiltrates in the right lower lung. Findings reviewed with the patient. Symptoms may be related to developing pneumonia and constipation. Her headache and nausea were well-con trolled in the emergency department. Prescription for azithromycin, lactulose, and Zofran provided for management of pneumonia and constipation. Otherwise advised follow-up with her PCP. Patient discharged home in stable condition. Case discussed with ED attending Dr. Bales. Return precautions reviewed in depth, the patient is instructed to return to the emergency department with any new, worsening, or concerning symptoms. Patient verbalized understanding. Undiagnosed new problem with uncertain prognosis? @ -None Drug Therapy requiring intensive monitoring for toxicity (Heparin, Nitro, Insulin, Cardizem)? @ -None Were any procedures done? @ -None Diagnosis/symptom? @ -Pneumonia, constipation Acute, or Chronic, or Acute on Chronic? @ -Acute Uncomplicated (without systemic symptoms) or Complicated (systemic symptoms)? @ -Uncomplicated Side effects of treatment? @ -None Exacerbation, Progression, or Severe Exacerbation] @ -Not applicable Poses a threat to life or bodily function? @ -No - Lab Data Result diagrams: 07/07/24 09:59 07/07/24 09:59 Lab Results 07/07/24 07/07/24 07/07/24 Range/Units 09:50 09:59 09:59 WBC 7.7 (3.8-10.6) k/uL RBC 5.08 (3.80-5.40) m/uL Hgb 14.8 (11.4-16.0) gm/dL Hct 44.3 (34.0-46.0) % MCV 87.1 (80.0-100.0) fL MCH 29.1 (25.0-35.0) pg MCHC 33.4 (31.0-37.0) g/dL RDW 13.4 (11.5-15.5) % Plt Count 182 (150-450) k/uL MPV 8.0 Neutrophils % 84 % Lymphocytes % 9 % Monocytes % 4 % Eosinophils % 2 % Basophils % 0 % Neutrophils # 6.4 (1.3-7.7) k/uL Lymphocytes # 0.7 L (1.0-4.8) k/uL Monocytes # 0.3 (0-1.0) k/uL Eosinophils # 0.1 (0-0.7) k/uL Basophils # 0.0 (0-0.2) k/uL PT 10.2 (10.0-12.5) sec INR 0.9 (<1.2) APTT 24.9 (22.0-30.0) sec D-Dimer 2.35 H (<0.60) mg/L FEU Sodium (137-145) mmol/L Potassium (3.5-5.1) mmol/L Chloride (98-107) mmol/L Carbon Dioxide (22-30) mmol/L Anion Gap mmol/L BUN (7-17) mg/dL Creatinine (0.52-1.04) mg/dL Est GFR (CKD-EPI)AfAm (>60 ml/min/1.73 sqM) Est GFR (CKD-EPI)NonAf (>60 ml/min/1.73 sqM) Glucose (74-99) mg/dL Plasma Lactic Acid Sonny (0.7-2.0) mmol/L Calcium (8.4-10.2) mg/dL Magnesium (1.6-2.3) mg/dL Total Bilirubin (0.2-1.3) mg/dL AST (14-36) U/L ALT (4-34) U/L Alkaline Phosphatase (38-126) U/L Troponin I (0.000-0.034) ng/mL NT-Pro-B Natriuret Pep pg/mL Total Protein (6.3-8.2) g/dL Albumin (3.5-5.0) g/dL Amylase (30-110) U/L Lipase (23-300) U/L Urine Color Urine Appearance (Clear) Urine pH (5.0-8.0) Ur Specific Gilman (1.001-1.035) Urine Protein (Negative) Urine Glucose (UA) (Negative) Urine Ketones (Negative) Urine Blood (Negative) Urine Nitrite (Negative) Urine Bilirubin (Negative) Urine Urobilinogen (<2.0) mg/dL Ur Leukocyte Esterase (Negative) Influenza Type A (PCR) Not Detected (Not Detectd) Influenza Type B (PCR) Not Detected (Not Detectd) RSV (PCR) Not Detected (Not Detectd) SARS-CoV-2 (PCR) Not Detected (Not Detectd) 07/07/24 07/07/24 07/07/24 Range/Units 09:59 09:59 09:59 WBC (3.8-10.6) k/uL RBC (3.80-5.40) m/uL Hgb (11.4-16.0) gm/dL Hct (34.0-46.0) % MCV (80.0-100.0) fL MCH (25.0-35.0) pg MCHC (31.0-37.0) g/dL RDW (11.5-15.5) % Plt Count (150-450) k/uL MPV Neutrophils % % Lymphocytes % % Monocytes % % Eosinophils % % Basophils % % Neutrophils # (1.3-7.7) k/uL Lymphocytes # (1.0-4.8) k/uL Monocytes # (0-1.0) k/uL Eosinophils # (0-0.7) k/uL Basophils # (0-0.2) k/uL PT (10.0-12.5) sec INR (<1.2) APTT (22.0-30.0) sec D-Dimer (<0.60) mg/L FEU Sodium 140 (137-145) mmol/L Potassium 4.1 (3.5-5.1) mmol/L Chloride 108 H (98-107) mmol/L Carbon Dioxide 23 (22-30) mmol/L Anion Gap 9 mmol/L BUN 12 (7-17) mg/dL Creatinine 0.90 (0.52-1.04) mg/dL Est GFR (CKD-EPI)AfAm 76 (>60 ml/min/1.73 sqM) Est GFR (CKD-EPI)NonAf 66 (>60 ml/min/1.73 sqM) Glucose 106 H (74-99) mg/dL Plasma Lactic Acid Sonny (0.7-2.0) mmol/L Calcium 9.5 (8.4-10.2) mg/dL Magnesium 1.8 (1.6-2.3) mg/dL Total Bilirubin 0.6 (0.2-1.3) mg/dL AST 20 (14-36) U/L ALT 18 (4-34) U/L Alkaline Phosphatase 65 (38-126) U/L Troponin I <0.012 (0.000-0.034) ng/mL NT-Pro-B Natriuret Pep pg/mL Total Protein 6.4 (6.3-8.2) g/dL Albumin 4.1 (3.5-5.0) g/dL Amylase 62 (30-110) U/L Lipase 131 (23-300) U/L Urine Color Colorless Urine Appearance Clear (Clear) Urine pH 5.0 (5.0-8.0) Ur Specific Gilman >1.050 H (1.001-1.035) Urine Protein Negative (Negative) Urine Glucose (UA) Negative (Negative) Urine Ketones Trace H (Negative) Urine Blood Negative (Negative) Urine Nitrite Negative (Negative) Urine Bilirubin Negative (Negative) Urine Urobilinogen <2.0 (<2.0) mg/dL Ur Leukocyte Esterase Negative (Negative) Influenza Type A (PCR) (Not Detectd) Influenza Type B (PCR) (Not Detectd) RSV (PCR) (Not Detectd) SARS-CoV-2 (PCR) (Not Detectd) 07/07/24 07/07/24 Range/Units 09:59 09:59 WBC (3.8-10.6) k/uL RBC (3.80-5.40) m/uL Hgb (11.4-16.0) gm/dL Hct (34.0-46.0) % MCV (80.0-100.0) fL MCH (25.0-35.0) pg MCHC (31.0-37.0) g/dL RDW (11.5-15.5) % Plt Count (150-450) k/uL MPV Neutrophils % % Lymphocytes % % Monocytes % % Eosinophils % % Basophils % % Neutrophils # (1.3-7.7) k/uL Lymphocytes # (1.0-4.8) k/uL Monocytes # (0-1.0) k/uL Eosinophils # (0-0.7) k/uL Basophils # (0-0.2) k/uL PT (10.0-12.5) sec INR (<1.2) APTT (22.0-30.0) sec D-Dimer (<0.60) mg/L FEU Sodium (137-145) mmol/L Potassium (3.5-5.1) mmol/L Chloride (98-107) mmol/L Carbon Dioxide (22-30) mmol/L Anion Gap mmol/L BUN (7-17) mg/dL Creatinine (0.52-1.04) mg/dL Est GFR (CKD-EPI)AfAm (>60 ml/min/1.73 sqM) Est GFR (CKD-EPI)NonAf (>60 ml/min/1.73 sqM) Glucose (74-99) mg/dL Plasma Lactic Acid Sonny 0.8 (0.7-2.0) mmol/L Calcium (8.4-10.2) mg/dL Magnesium (1.6-2.3) mg/dL Total Bilirubin (0.2-1.3) mg/dL AST (14-36) U/L ALT (4-34) U/L Alkaline Phosphatase (38-126) U/L Troponin I (0.000-0.034) ng/mL NT-Pro-B Natriuret Pep 56 pg/mL Total Protein (6.3-8.2) g/dL Albumin (3.5-5.0) g/dL Amylase (30-110) U/L Lipase (23-300) U/L Urine Color Urine Appearance (Clear) Urine pH (5.0-8.0) Ur Specific Gilman (1.001-1.035) Urine Protein (Negative) Urine Glucose (UA) (Negative) Urine Ketones (Negative) Urine Blood (Negative) Urine Nitrite (Negative) Urine Bilirubin (Negative) Urine Urobilinogen (<2.0) mg/dL Ur Leukocyte Esterase (Negative) Influenza Type A (PCR) (Not Detectd) Influenza Type B (PCR) (Not Detectd) RSV (PCR) (Not Detectd) SARS-CoV-2 (PCR) (Not Detectd) - Radiology Data Radiology results: report reviewed, image reviewed Disposition Clinical Impression: Pneumonia, Constipation Disposition: HOME SELF-CARE Instructions (If sedation given, give patient instructions): Constipation (ED), Pneumonia (ED) Additional Instructions: Return to the emergency department with any new, worsening, or concerning symptoms. Take the antibiotic as prescribed for 5 days. Take the Zofran up to every 8 hours as needed for nausea and vomiting. Take the lactulose daily as needed for constipation. Follow up with your primary care provider in 1-2 days. Prescriptions: Lactulose 10 gm PO DAILY PRN #150 ml PRN Reason: Constipation Azithromycin [Zithromax] 250 mg PO DIRECTED 5 Days #6 tab Ondansetron Odt [Zofran Odt] 4 mg PO Q8HR PRN #15 tab PRN Reason: Nausea And Vomiting Is patient prescribed a controlled substance at d/c from ED?: No Referrals: Rose Guevara MD [Primary Care Provider] - 1-2 days Time of Disposition: 13:46
[2024-07-07] MEDS: SODIUM CHLORIDE 0.9% 1,000 ML IV STA (10:06)
[2024-07-07] MEDS: ONDANSETRON 4 MG/2 ML VIAL IVP STA (10:06)
[2024-07-07 10:17] LABS: Basophils % (A) 0 %; Eosinophils # (A) 0.1 k/uL (0-0.7); Eosinophils % (A) 2 %; HCT 44.3 % (34.0-46.0); HGB 14.8 gm/dL (11.4-16.0); Lymphocytes # (A) 0.7 k/uL (1.0-4.8); Lymphocytes % (A) 9 %; MCH 29.1 pg (25.0-35.0); MCHC 33.4 g/dL (31.0-37.0); MCV 87.1 fL (80.0-100.0); Monocytes # (A) 0.3 k/uL (0-1.0); Monocytes % (A) 4 %; Neutrophils # (A) 6.4 k/uL (1.3-7.7); Neutrophils % (A) 84 %; Platelet Count 182 k/uL (150-450); RBC 5.08 m/uL (3.80-5.40); RDW 13.4 % (11.5-15.5); WBC 7.7 k/uL (3.8-10.6)
[2024-07-07 10:29] LABS: INR 0.9 (<1.2); Partial Thromboplastin Time 24.9 sec (22.0-30.0); Prothrombin Time 10.2 sec (10.0-12.5)
--- NOTE | 2024-07-07 10:33 | CT ---
EXAMINATION TYPE: CT brain wo con DATE OF EXAM: 07/07/2024 COMPARISON: CT brain November 20, 2023 CLINICAL INDICATION: Female, 68 years old with history of Headache, hx of brain bleed; PHH, HEADACHE TECHNIQUE: CT scan of the head is performed without contrast. CT DLP: 13899.5 mGycm Automated exposure control for dose reduction was used. FINDINGS: There is no acute intracranial hemorrhage or midline shift identified. There is mild diff use ventricular and sulcal prominence redemonstrated. There is [id number] scattered low-attenu ation in the white matter redemonstrated. Bilateral aphakia is redemonstrated. The visualized sinuses are clear. IMPRESSION: No acute intracranial hemorrhage or midline shift. No significant change from most recen t prior CT. [facility], , 07/07/2024 10:31 AM
[2024-07-07 10:34] LABS: ALT 18 U/L (4-34); AST 20 U/L (14-36); African American GFR (CKD) 76 (>60 ml/min/1.73 sqM); Albumin 4.1 g/dL (3.5-5.0); Alkaline Phosphatase 65 U/L (38-126); Amylase 62 U/L (30-110); Anion Gap 9 mmol/L; Blood Urea Nitrogen 12 mg/dL (7-17); Calcium 9.5 mg/dL (8.4-10.2); Carbon Dioxide 23 mmol/L (22-30); Chloride 108 mmol/L (98-107); Glucose 106 mg/dL (74-99); Lipase 131 U/L (23-300); Magnesium 1.8 mg/dL (1.6-2.3); Non-African American GFR(CKD) 66 (>60 ml/min/1.73 sqM); Potassium 4.1 mmol/L (3.5-5.1); Sodium 140 mmol/L (137-145); Total Bilirubin 0.6 mg/dL (0.2-1.3); Total Protein 6.4 g/dL (6.3-8.2)
[2024-07-07] MEDS: ACETAMINOPHEN IV (For NPO) 1,000 MG in EMPTY BAG 1 BAG IVPB STA (10:53)
[2024-07-07] MEDS: KETOROLAC 15 MG/ML 1 ML VIAL IVP STA (10:54)
--- NOTE | 2024-07-07 10:55 | XR ---
EXAMINATION TYPE: XR chest 2V DATE OF EXAM: 07/07/2024 10:32 AM COMPARISON: 11/20/2023 CLINICAL INDICATION: Female, 68 years old with history of dysrhythmia, , TECHNIQUE: PA and lateral views FINDINGS: Heart mildly enlarged. Mild hyperinflation. Mild interstitial density is a chronic appearance. Tortuo us/ectatic thoracic aorta redemonstrated. Old bilateral rib fracture deformities. IMPRESSION: Mild cardiomegaly and chronic changes. Similar tortuous/ectatic thoracic aorta. No acute process seen . [facility], Workstation: [facility], 07/07/2024 10:52 AM
--- NOTE | 2024-07-07 10:57 | XR ---
EXAMINATION TYPE: XR KUB DATE OF EXAM: 07/07/2024 10:32 AM COMPARISON: 05/13/2022 CLINICAL INDICATION: Female, 68 years old with history of Abdominal pain, , FINDINGS: Lung bases are clear. No evidence for free intraperitoneal air. Cholecystectomy clips. Chronic retained skin staple projecting at the left paramedian upper pelvis. C linical correlation. No dilated small bowel or differential fluid levels. Scattered [id number] stool with air and stool extending distally to the rectum. No definite suspicious calcifications are seen. IMPRESSION: No evidence for free air or bowel obstruction. [id number] stool. Chronic retained skin staple l eft paramedian upper pelvis. [facility], , 07/07/2024 10:55 AM
--- NOTE | 2024-07-07 11:45 | CT ---
EXAMINATION TYPE: CT chest angio for PE DATE OF EXAM: 07/07/2024 COMPARISON: Prior chest CT 2017 HISTORY: elevated d-dimer and tachycardia. CT DLP: 387.6 mGycm. Automated Exposure Control for Dose Reduction was Utilized. CONTRAST: CTA scan of the thorax is performed with IV Contrast, patient injected with 60 mL of Isovue 370, pulm onary embolism protocol. MIP Images are created on CT scanner and reviewed. FINDINGS: LUNGS: Dependent opacity bilateral lower lungs could reflect mild edema and/or atelectasis. No pleura l effusions or pneumothorax are seen bilaterally. Small areas of groundglass opacity medial right low er lobe and anterior right middle lobe near axial image 95 are noted. Mild linear scarring in the pos terior lingula axial image 78. MEDIASTINUM: There is satisfactory enhancement of the pulmonary artery and its branches, there is no CT evidence for pulmonary embolism. Some enhancement of the aorta without aneurysm or dissection. No cardiomegaly or pericardial effusion. Small-sized hiatal hernia is present. OTHER: Gallbladder is surgically absent. Few small subcentimeter low-density lesions throughout the l iver are too small to further characterize but presumed benign. IMPRESSION: 1. No CT evidence for acute pulmonary embolism. 2. Perhaps mild bilateral dependent alveolar edema. Small focal areas of edema and/or developing acut e infiltrates in the right lower lung are noted. Correlate clinically. [facility], , 07/07/2024 11:43 AM
[2024-07-07 12:26] VITALS: BP 139/90; PULSE 88
[2024-07-07 13:17] LABS: Appearance,Urine Clear (Clear); Bilirubin,Urine Negative (Negative); Blood,Urine Negative (Negative); Color,Urine Colorless; Glucose,Urine (UA) Negative (Negative); Ketones,Urine Trace (Negative); Leukocyte Esterase,Urine Negative (Negative); Nitrite,Urine Negative (Negative); Protein,Urine Negative (Negative); Urobilinogen,Urine <2.0 mg/dL (<2.0)
[2024-07-07 13:39] LABS: Specific Gravity,Urine >1.050 (1.001-1.035)
== END 2024-07-07 14:00 | disposition home or self-care (01) ==
LOC: EC 09:33
DX: J18.9 Pneumonia, unspecified organism (principal); K59.00 Constipation, unspecified; I10 Essential (primary) hypertension; J44.0 Chronic obstructive pulmonary disease with (acute) lower respiratory infection; S06.5XAA Traumatic subdural hemorrhage with loss of consciousness status unknown, initial encounter; X58.XXXA Exposure to other specified factors, initial encounter
CPT/HCPCS: 36415; 93005; 85379; 83880; 80053; 82150; 83605; 83690; 83735; 84484; 85025; 85610; 85730; 81003; 87636; 71046; 74018; 70450; 71275; 99285; 96365; 96375; 96361; J2405; J0131; J1885; Q9967

== ENCOUNTER 2024-09-07 09:21 | Day surgery (SDC) | payer MEDICARE ==
[2024-09-05 17:41] VITALS: BMI 29.0
[2024-09-07] MEDS: LACTATED RINGERS 1,000 ML IV ONE (09:54)
[2024-09-07 10:02] VITALS: RESP 16; TEMP 98
[2024-09-07] MEDS: LACTATED RINGERS 1,000 ML IV SCH (10:14)
[2024-09-07] MEDS ORDERED: PROPOFOL 10 MG/ML 20 ML VIAL IV ONE (10:18)
--- NOTE | 2024-09-07 10:33 | P.PCN ---
Date of Procedure: 09/07/24 Procedure(s) Performed: BRIEF HISTORY: Patient is a 68-year-old pleasant female scheduled for an elective colonoscopy as a part of screening for colon cancer. PROCEDURE PERFORMED: Colonoscopy with snare polypectomy. PREOPERATIVE DIAGNOSIS: Screening for colon cancer. IV sedation per Anesthesia. PROCEDURE: After informed consent was obtained, the patient, was brought into the endoscopy unit. IV sedation was administered by Anesthesia under continuous monitoring. Digital rectal examination was normal. Initially the Olympus CF-160 flexible video colonoscope was then inserted in the rectum, gradually advanced into the cecum without any difficulty. Careful examination was performed as the scope was gradually being withdrawn. Ileocecal valve and the appendiceal orifice were visualized and appeared normal. Prep was excellent. Mucosa of the cecum, ascending colon, transverse colon, and all within the descending colon there was an 8 mm sessile polyp removed by cold snare polypectomy. Rest of the descending colon, sigmoid colon, and rectum appeared normal. Retroflexion was performed in the rectum and no lesions were seen. The patient tolerated the procedure well. IMPRESSION: 8 mm descending colon polyp status post cold snare polypectomy Rest of the colon appeared normal RECOMMENDATIONS: Findings of this examination were discussed with the patient as well as her family.. She was advised to follow-up with the biopsy results. If the biopsy reveals adenoma she can have repeat colonoscopy in 5 years.
[2024-09-07 10:55] VITALS: BP 111/72; PULSE 81
== END 2024-09-07 11:27 | disposition home or self-care (01) ==
LOC: ORWHC2ENDO 09:21
PROVIDERS: ATTEND Internal Medicine Gastroenterology
DX: Z12.11 Encounter for screening for malignant neoplasm of colon (principal); D12.4 Benign neoplasm of descending colon; J44.9 Chronic obstructive pulmonary disease, unspecified; I67.9 Cerebrovascular disease, unspecified; I10 Essential (primary) hypertension; F32.A Depression, unspecified; F90.9 Attention-deficit hyperactivity disorder, unspecified type; N28.9 Disorder of kidney and ureter, unspecified; Z79.890 Hormone replacement therapy; Z79.899 Other long term (current) drug therapy
CPT/HCPCS: 45385; J2704; 88305